=== PATIENT | female | born 1945 | race Caucasian/White ===

== ENCOUNTER → 2017-04-18 | Outpatient (CLI) | payer BC, OTHER ==
--- NOTE | 2017-04-18 14:48 | MAMMOGRAPHY REPORT ---
BILATERAL DIGITAL SCREENING MAMMOGRAM WITH CAD: 04/18/2017 CLINICAL HISTORY: Routine screening. Patient has no complaints. TECHNIQUE: Bilateral CC, MLO and left XCCL views were obtained. Current study was also evaluated wit h a Computer Aided Detection (CAD) system. COMPARISON: Comparison is made to exams dated: 04/03/2016 mammogram, 03/24/2015 mammogram, 09/22/2014 m ammogram - [facility], 02/05/2014 mammogram, 01/24/2013 mammogram, and 01/23/2012 mamm ogram - [facility]. BREAST COMPOSITION: There are scattered areas of fibroglandular density in both breasts. FINDINGS: There is a stable metallic biopsy marker in the upper inner quadrant of the left breast. S table microcalcifications throughout the anterior aspect of each breast. No suspicious mass, archite ctural distortion or cluster of suspicious microcalcifications is seen. IMPRESSION: ACR BI-RADS CATEGORY 1: NEGATIVE There is no mammographic evidence of malignancy. A 1 year screening mammogram is recommended. The pa tient will receive written notification of the results. Approximately 10% of breast cancers are not detected with mammography. A negative mammographic report should not delay biopsy if a clinically suggestive mass is present. Darlene Méndez M.D. ay/:04/18/2017 12:42:51 Pourer Metal: Lynn ZIMMER(Nadine)(Toño)([place]), [facility] letter sent: Normal 1/2 BI-RADS Code: ACR BI-RADS Category 1: Negative
== END | disposition home or self-care (01) ==
LOC: C.MAMM 10:56
PROVIDERS: ATTEND Internal Medicine
DX: Z12.31 Encounter for screening mammogram for malignant neoplasm of breast (principal)

== ENCOUNTER 2017-12-03 15:02 | Emergency (ER) | payer BC, OTHER ==
[~2017-12-03] VITALS: Ht 165.1 cm; Wt 100.0 kg
[2017-12-03 15:13] VITALS: TEMP 36.7; Ht 165.1 cm; Wt 100.0 kg
[2017-12-03] MEDS ORDERED: ALBUT/IPRATROP 3MG/0.5MG NEB 3 ML VIAL INH STA (16:22)
[2017-12-03] MEDS ORDERED: SODIUM CHLORIDE 0.9% 500ML 500 ML IV STA (16:22)
--- NOTE | 2017-12-03 16:55 | DIAGNOSTIC IMAGING REPORT ---
CHEST ONE VIEW PORTABLE CLINICAL HISTORY: Atypical chest pain COMPARISON STUDY: No previous studies for comparison. FINDINGS: The heart is mildly enlarged. There is no failure. There is no focal pulmonary consolidation. There are no pleural effusions. There is a linear zone of subsegmental atelectasis within the left mid to lower chest. IMPRESSION: No active disease in the chest. Electronically signed by: Patric Monroe M.D. 12/03/2017 4:54 PM Dictated Date/Time: 12/03/2017 4:53 PM
[2017-12-03] MEDS ORDERED: LEVO125T72 PO (17:14)
[2017-12-03] MEDS ORDERED: ROSU5TAB PO (17:14)
[2017-12-03] MEDS ORDERED: CHOL1000 PO (17:14)
[2017-12-03] MEDS ORDERED: ASPI81TA28 PO (17:14)
[2017-12-03] MEDS ORDERED: LINA1CAP PO (17:14)
[2017-12-03] MEDS ORDERED: HYDR25TA4 PO (17:14)
[2017-12-03] MEDS ORDERED: METO100T14 PO (17:14)
[2017-12-03 17:18] LABS: BASO % 0.2 %; BASO ABS # 0.01 K/uL (0-0.2); EOS % 1.4 %; EOS ABS # 0.06 K/uL (0-0.5); HEMATOCRIT 41.5 % (37-47); HEMOGLOBIN 14.2 g/dL (12.0-16.0); LYMPH ABS # 1.68 K/uL (1.2-3.4); MEAN CELL VOLUME 94.3 fL (80-100); MEAN CORPUSCULAR HEMOGLOBIN 32.3 pg (25-34); MEAN CORPUSCULAR HGB CONC 34.2 g/dl (32-36); MEAN PLATELET VOLUME 10.3 fL (7.4-10.4); MONO % 7.4 %; MONO ABS # 0.31 K/uL (0.11-0.59); NEUT ABS # 2.14 K/uL (1.4-6.5); PLATELET COUNT 222 K/uL (130-400); RED CELL DISTRIBUTION WIDTH CV 12.7 % (11.5-14.5); RED CELL DISTRIBUTION WIDTH SD 44.1 fL (36.4-46.3)
[2017-12-03 17:42] LABS: INFLUENZA B ANTIGEN Neg for Influ B (NEG)
[2017-12-03 17:43] LABS: ALBUMIN 3.5 gm/dl (3.4-5.0); ALT/SGPT 29 U/L (12-78); AST/SGOT 23 U/L (15-37); BLOOD UREA NITROGEN 10 mg/dl (7-18); CALCIUM 9.1 mg/dl (8.5-10.1); CARBON DIOXIDE 27 mmol/L (21-32); CREATININE 0.65 mg/dl (0.60-1.20); GLUCOSE 99 mg/dl (70-99); LIPASE 82 U/L (73-393); POTASSIUM 3.8 mmol/L (3.5-5.1); SODIUM 139 mmol/L (136-145)
[2017-12-03 17:48] LABS: ALKALINE PHOSPHATASE 97 U/L (45-117); TOTAL PROTEIN 6.7 gm/dl (6.4-8.2)
--- NOTE | 2017-12-03 18:50 | EMERGENCY ROOM VISIT NOTE ---
History Report prepared by Matt: Dulce Meza Under the Supervision of: Dr. Km Hastings M.D. First contact with patient: 16:14 Chief Complaint: CHEST PAIN Stated Complaint: HEAVINESS IN CHEST, NO CARDIAC HISTORY Nursing Triage Summary: pt here with chest pressure x 4 hours today while at home, pt states felt like she couldnt take a good breath. pt just getting over uri, finished z pack, still taking hycodan for cough. denies cardiac hx. pt denies radiation of chest pain History of Present Illness The patient is a 72 year old female who presents to the Emergency Room with complaints of an episode of chest heaviness earlier today. She had gone to bed last night feeling well and slept well through the night. She woke up around 0630 this morning with heaviness in her chest. She felt like her lungs were unable to take in air. She has never had these symptoms before. She tried her inhaler, pacing, and taking a shower to no significant relief. The chest heaviness resolved on its own around 1030. She is now back to baseline. The patient has had a cough and congestion over the past 2 weeks. She was found to have inflammation in the left lobe. She was on a Z pack which she finished 4-5 days ago. She was also prescribed an inhaler. She was negative for flu. Her symptoms have been improving. She denies any fever, chills, or body aches. She denies any recent travel or surgery. She has not recently been bed bound. She denies any history of blood clots. She does not smoke. She has a history of hypertension. She denies any history of diabetes or asthma. She has not been in contact with anyone with the flu. Source of History: patient Onset: earlier today Position: chest Quality: other (heaviness) Timing: other (episodic) Associated Symptoms: + cough, + SOB, No fevers, No chills Note: Pt reports congestion. Pt denies body aches. Review of Systems See HPI for pertinent positives and negatives. A total of ten systems were reviewed and were otherwise negative. Past Medical & Surgical Medical Problems: (1) Hypertension Family History No pertinent family history stated. Social History Smoking Status: Never Smoker Marital Status: Occupation Status: retired Current/Historical Medications Scheduled Aspirin (Aspirin Ec), 81 MG PO DAILY Cholecalciferol (Vitamin D3), 1 TAB PO DAILY Hydrochlorothiazide (Hctz), 25 MG PO DAILY Levothyroxine Sodium (Synthroid), 125 MCG PO QAM Linaclotide (Linzess), 145 MG PO QAM Metoprolol Tartrate (Lopressor) (Lopressor), 100 MG PO DAILY Rosuvastatin Calcium (Crestor), 10 MG PO DAILY Allergies Coded Allergies: No Known Allergies (Unverified , 12/03/17) Physical Exam Vital Signs Date Time Temp Pulse Resp B/P (MAP) Pulse Ox O2 Delivery O2 Flow Rate FiO2 12/03/17 20:01 54 18 132/72 98 Room Air 12/03/17 19:09 52 20 131/78 93 Room Air 12/03/17 18:42 54 18 148/76 95 Room Air 12/03/17 16:52 52 18 158/88 100 Nebulizer 8.0 12/03/17 16:45 Room Air 12/03/17 16:45 Room Air 12/03/17 16:24 57 12/03/17 15:13 36.7 62 16 198/198 94 Room Air Physical Exam GENERAL: Awake, alert, well-appearing, in no distress HENT: Normocephalic, atraumatic. Dry mucous membranes. Oropharynx unremarkable. EYES: Normal conjunctiva. Sclera non-icteric. NECK: Supple. No nuchal rigidity. FROM. No JVD. RESPIRATORY: Clear to auscultation. CARDIAC: Regular rate, normal rhythm. Extremities warm and well perfused. Pulses equal. ABDOMEN: Soft, non-distended. No tenderness to palpation. No rebound or guarding. No masses. RECTAL: Deferred. MUSCULOSKELETAL: Chest examination reveals no tenderness. The back is symmetrical on inspection without obvious abnormality. There is no CVA tenderness to palpation. No joint edema. LOWER EXTREMITIES: Calves are equal size bilaterally and non-tender. No edema. No discoloration. NEURO: Normal sensorium. No sensory or motor deficits noted. SKIN: No rash or jaundice noted. Medical Decision & Procedures ER Provider Diagnostic Interpretation: Xray results as stated below per my and radiologist interpretation: CHEST ONE VIEW PORTABLE CLINICAL HISTORY: Atypical chest pain COMPARISON STUDY: No previous studies for comparison. FINDINGS: The heart is mildly enlarged. There is no failure. There is no focal pulmonary consolidation. There are no pleural effusions. There is a linear zone of subsegmental atelectasis within the left mid to lower chest. IMPRESSION: No active disease in the chest. Electronically signed by: Patric Monroe M.D. 12/03/2017 4:54 PM Dictated Date/Time: 12/03/2017 4:53 PM Laboratory Results 12/03/17 16:42 Red Blood Count 4.40, Mean Corpuscular Volume 94.3, Mean Corpuscular Hemoglobin 32.3, Mean Corpuscular Hemoglobin Concent 34.2, Mean Platelet Volume 10.3, Neutrophils (%) (Auto) 51.0, Lymphocytes (%) (Auto) 40.0, Monocytes (%) (Auto) 7.4, Eosinophils (%) (Auto) 1.4, Basophils (%) (Auto) 0.2, Neutrophils # (Auto) 2.14, Lymphocytes # (Auto) 1.68, Monocytes # (Auto) 0.31, Eosinophils # (Auto) 0.06, Basophils # (Auto) 0.01 12/03/17 16:42 Test 12/03/17 16:42 12/03/17 16:45 12/03/17 18:41 White Blood Count 4.20 K/uL (4.8-10.8) Red Blood Count 4.40 M/uL (4.2-5.4) Hemoglobin 14.2 g/dL (12.0-16.0) Hematocrit 41.5 % (37-47) Mean Corpuscular Volume 94.3 fL (80-100) Mean Corpuscular Hemoglobin 32.3 pg (25-34) Mean Corpuscular Hemoglobin Concent 34.2 g/dl (32-36) Platelet Count 222 K/uL (130-400) Mean Platelet Volume 10.3 fL (7.4-10.4) Neutrophils (%) (Auto) 51.0 % Lymphocytes (%) (Auto) 40.0 % Monocytes (%) (Auto) 7.4 % Eosinophils (%) (Auto) 1.4 % Basophils (%) (Auto) 0.2 % Neutrophils # (Auto) 2.14 K/uL (1.4-6.5) Lymphocytes # (Auto) 1.68 K/uL (1.2-3.4) Monocytes # (Auto) 0.31 K/uL (0.11-0.59) Eosinophils # (Auto) 0.06 K/uL (0-0.5) Basophils # (Auto) 0.01 K/uL (0-0.2) RDW Standard Deviation 44.1 fL (36.4-46.3) RDW Coefficient of Variation 12.7 % (11.5-14.5) Immature Granulocyte % (Auto) 0.0 % Immature Granulocyte # (Auto) 0.00 K/uL (0.00-0.02) Anion Gap 4.0 mmol/L (3-11) Est Creatinine Clear Calc Drug Dose 94.3 ml/min Estimated GFR () 104.3 Estimated GFR (Non- 90.0 BUN/Creatinine Ratio 15.1 (10-20) Calcium Level 9.1 mg/dl (8.5-10.1) Total Bilirubin 0.9 mg/dl (0.2-1) Direct Bilirubin 0.2 mg/dl (0-0.2) Aspartate Amino Transf (AST/SGOT) 23 U/L (15-37) Alanine Aminotransferase (ALT/SGPT) 29 U/L (12-78) Alkaline Phosphatase 97 U/L (45-117) Pro-B-Type Natriuretic Peptide 170 pg/ml (0-900) Total Protein 6.7 gm/dl (6.4-8.2) Albumin 3.5 gm/dl (3.4-5.0) Lipase 82 U/L (73-393) Influenza Type A Antigen Neg for Influ A (NEG) Influenza Type B Antigen Neg for Influ B (NEG) Troponin I < 0.015 ng/ml (0-0.045) Laboratory results reviewed by me Medications Administered Medications (Trade) Dose Ordered Sig/Antonia Route Start Time Stop Time Status Last Admin Dose Admin Albuterol/ Ipratropium (Duoneb) 3 ml NOW STAT INH 12/03/17 16:22 12/03/17 16:27 DC 12/03/17 16:47 3 ML Sodium Chloride 500 ml @ 999 mls/hr Q31M STAT IV 12/03/17 16:22 12/03/17 16:52 DC 12/03/17 16:47 999 MLS/HR ECG Indication: chest pain Rate (beats per minute): 56 Rhythm: sinus bradycardia Findings: no acute ischemic change, other (normal intervals) Comparison ECG Date: 22-Jun-2004 Change: no significant change Change: Patient's electrocardiogram interpreted by me. ED Course 162: The patient was evaluated in room B12B. A complete history and physical exam was performed. 1917: I reevaluated the patient. She is still feeling great. Discussed results and discharge instructions: She verbalized understanding and agreement. The patient is ready for discharge. Medical Decision I reviewed the patient's past medical history, medications, and the nursing notes as described above. Differential diagnosis: Etiologies such as cardiac ischemia, aortic dissection, pulmonary embolism, pneumonia, pneumothorax, musculoskeletal, infections, pericarditis, myocarditis , esophageal rupture, gastrointestinal, as well as others were entertained. The patient is a 72-year-old woman with a past medical history of hypertension and recent URI treated with azithromycin presents emergency department with episode of chest heaviness that was present this morning when she woke up lasting approximately 4 hours and resolved spontaneously per hpi. Arrival the patient is in no acute distress, afebrile stable vital signs. EKG is unremarkable and unchanged from prior. Troponin negative in the setting of 4 hours of symptoms which began greater than 6 hours prior to arrival. Labs otherwise unremarkable. WBC 4.2 c/w recent viral illness. Flu negative. Chest x-ray negative. Patient would have a Heart score of 4, moderate risk however given negative troponin > 6 hours after symptoms, cardiac etiology unlikely. Delta 2 hour troponin sent and was negative for additional reassurance. Patient continues to be without symptoms. Thus, while she has moderate risk her workup is reassuring. She was given option for admission for provocative testing however she prefers discharge at this time and will call her 's cam maker (Dr. Turner) office to arrange an appointment. Findings and plan for follow-up reviewed with patient. Patient agreeable and d/c'd per discharge instructions. Medication Reconcilliation Current Medication List: was personally reviewed by me Blood Pressure Screening Patient's blood pressure: Elevated blood pressure Blood pressure disposition: Elevated BP felt to be situational Impression Primary Impression: Substernal precordial chest pain Scribe Attestation The scribe's documentation has been prepared under my direction and personally reviewed by me in its entirety. I confirm that the note above accurately reflects all work, treatment, procedures, and medical decision making performed by me. Departure Information Dispostion Home / Self-Care Referrals Tammi Barajas M.D. (PCP) Lucio Turner MD Patient Instructions ED Chest Pain Atypical Unkn Cause, My [facility] Additional Instructions Please follow up with your primary care physician and cam maker in the next 1 -3 days for re-evaluation. The cause of your earlier symptoms is unclear at this time, although it may have been due to your recent bronchitis. Otherwise, your exam, EKG, chest xray, and lab results did not show signs of an emergent condition at this time. Acetaminophen or ibuprofen for pain and fevers as needed. Continue your albuterol inhaler 2 puffs every 4 hours as needed for cough/ congestion/wheezing. Drink plenty of fluids to ensure hydration. Return to the emergency department for worsening symptoms as described in the accompanying instructions.
[2017-12-03 20:01] VITALS: BP 132/72; PULSE 54; O2SAT 98
== END 2017-12-03 20:03 | disposition home or self-care (01) ==
LOC: C.EDB 15:04
DX: R07.2 Precordial pain (principal); I10 Essential (primary) hypertension; Z79.82 Long term (current) use of aspirin; Z79.899 Other long term (current) drug therapy

== ENCOUNTER → 2018-01-16 | Outpatient (CLI) | payer BC, OTHER ==
[~2018-01-16] MED LIST: ASPI81TA28 PO; CHOL1000 PO; HYDR25TA4 PO; LEVO125T72 PO; LINA1CAP PO; METO100T14 PO; REGADENOSON 0.4 MG/5 ML SYR ONE; ROSU5TAB PO
--- NOTE | 2018-01-16 17:00 | Myocardial Perfusion Study ---
Myocardial Perfusion Study Rpt Myocardial Perfusion Study Rpt Date of Service 01/16/2018 Myocardial Perfusion Study Rpt Procedure: 1. Myocardial perfusion study performed in multiple views/images 2. Lexiscan pharmacologic stress ECG Indications: 1. Chest pain Consent: Informed written consent was obtained prior to the procedure. Ordering physician: Dr. Knight Procedural details: For the stress portion of the study, Lexiscan 0.4 mg was intravenously administered followed by a saline flush. This was followed by 33.1 mCi of technetium 99m Cardiolite, injected at 11:15 a.m. on 01/16/2018. 30 minutes following the injection, imaging of the heart was performed in multiple projections. For the rest portion of the study, 10.9 mCi technetium 99m Cardiolite was injected intravenously at 9:40 a.m. on 01/16/2018. 1 hour following the injection, imaging of the heart was performed in the same projections. Lexiscan stress ECG: Resting ECG demonstrated: Sinus rhythm at 62 bpm. Nonspecific T-wave abnormality. Maximum heart rate: 91 bpm Resting blood pressure: 146/85 mmHg Maximum blood pressure: 146/85 mmHg Maximal, age-predicted heart rate: 60 % Significant ST changes: None Arrhythmia: None Symptoms: No chest pain. Findings: Rotating raw imaging demonstrated no significant lung uptake. There is no significant motion artifact. Heart size appeared normal. Myocardial perfusion demonstrated a small area of mildly reduced uptake involving the base to mid lateral wall which was fixed in post stress and rest imaging. There were no significant reversible changes to suggest ischemia. Ejection fraction: 76 % Wall motion: Normal No significant transient ischemic dilation. Impression: 1. Negative myocardial perfusion study for ischemic changes. 2. Small fixed base to mid lateral defect may be secondary to attenuation artifact given normal wall motion. Cannot rule out small infarct. 3. Normal left ventricular systolic function (EF 76%) and wall motion. 4. No chest pain. 5. Nondiagnostic Lexiscan ECG.
== END | disposition home or self-care (01) ==
LOC: C.NUCL 08:54
PROVIDERS: ATTEND Internal Medicine Clinical Cardiac Electrophysiology
DX: I10 Essential (primary) hypertension (principal); R07.9 Chest pain, unspecified

== ENCOUNTER → 2018-05-27 | Outpatient (CLI) | payer BC, OTHER ==
[~2018-05-27] MED LIST changes: -REGADENOSON 0.4 MG/5 ML SYR ONE
--- NOTE | 2018-05-28 15:21 | MAMMOGRAPHY REPORT ---
BILATERAL DIGITAL SCREENING MAMMOGRAM TOMOSYNTHESIS WITH CAD: 05/27/2018 CLINICAL HISTORY: Routine screening. TECHNIQUE: The study was acquired using full field digital technology and interpreted from soft copy. Breast tomosynthesis in addition to standard 2D mammography was performed. Current study was also ev aluated with a Computer Aided Detection (CAD) system. COMPARISON: Comparison is made to exams dated: 04/18/2017 mammogram, 04/03/2016 mammogram, 03/24/2015 ma mmogram - [facility], 02/05/2014 mammogram, 01/24/2013 mammogram, and 01/23/2012 [facility]. BREAST COMPOSITION: There are scattered areas of fibroglandular density in both breasts. FINDINGS: A linear scar marker overlies the medial left breast. There is a stable metallic biopsy ma rker clip in the upper inner left breast. Scattered and grouped stable punctate microcalcifications bilaterally, and stable nodularityIn each middle to anterior breast. No suspicious spiculated or irre gular mass, architectural distortion or cluster of new, suspicious microcalcifications is seen. IMPRESSION: ACR BI-RADS CATEGORY 1: NEGATIVE There is no mammographic evidence of malignancy. A 1 year screening mammogram is recommended.( [id number]) The patient will receive written notification of the results. Some breast cancers are not detected with mammography. A negative mammographic report should not yusuf y biopsy if a clinically suggestive mass is present. Darlene Méndez M.D. ay/:05/27/2018 15:34:01 Auto Body Worker: RT Coretta(Nadine)(M), [facility] letter sent: Normal 1/2 BI-RADS Code: ACR BI-RADS Category 1: Negative
== END | disposition home or self-care (01) ==
LOC: C.MAMM 14:23
PROVIDERS: ATTEND Internal Medicine
DX: Z12.31 Encounter for screening mammogram for malignant neoplasm of breast (principal)

== ENCOUNTER 2024-04-03 19:50 | Inpatient (IN) ==
[2024-04-03] MEDS: ONDANSETRON INJ 2 MG/ML 2 ML VIAL IV STA (20:40)
[2024-04-03] MEDS: SODIUM CHLORIDE 0.9% 1,000 ML IV ONE (20:40)
[2024-04-03 20:42] LABS: Hematocrit (blood only) 19.9 % (37.0-47.0); Hemoglobin 6.5 g/dl (12.0-16.0); Mean Corpuscular Hemoglobin 31.4 pg (25.0-34.0); Mean Corpuscular Hgb Conc 32.7 g/dL (32.0-36.0); Mean Corpuscular Volume 96.1 fL (80.0-100.0); Mean Platelet Volume 11.3 fL (9.4-12.4); Platelet Count 148 K/uL (130-400); Red Blood Count 2.07 M/uL (4.20-5.40); White Blood Count 4.73 K/ul (4.8-10.8)
[2024-04-03 20:54] LABS: Albumin Globulin Ratio 1.9 (0.9-2); Albumin Level 3.9 gm/dl (3.4-5.0); BUN Creatinine Ratio 21.5 (10-20); Bilirubin,Total 0.5 mg/dl (0.2-1.0); Calcium 10.1 mg/dl (8.6-10.3); Creatinine Clr Calc Pharmacy 31.4 ml/min; Est GFR (African American) 39.1 ml/min; Est GFR (Non-African American) 33.8 ml/min; Globulin 2.1 gm/dl (2.5-4.0); Magnesium 2.2 mg/dl (1.7-2.4); Potassium 3.9 mmol/L (3.5-5.1)
--- NOTE | 2024-04-03 20:58 | Emergency Department Note ---
Impression & Plan Lightheadedness, Acute upper gastrointestinal bleeding, Anemia requiring transfusions ED Provider Note HISTORY OF PRESENT ILLNESS: Patient is a 78-year-old female presenting with lightheadedness and vomiting. Patient reports that since 11 AM this morning she has been very lightheaded. Reports anytime she sits up or tries to stand up she immediately falls to the ground. Denies passing out. Reports that she is just too weak and lightheaded that she has to sit back down. She has vomited multiple times. She tried an ODT Zofran at home with little relief in her symptoms. She denies any chest pain or shortness of breath. She does have a history of PEs and is on Eliquis. Denies any missed doses. Denies any abdominal pain. Denies any recent diarrhea. Denies any recent sick contact exposures. Family does report that patient's vomiting earlier this evening was black in color. ROS: as above PHYSICAL EXAM: Constitutional: Patient appears in no acute distress. HENT: Head: Normocephalic and atraumatic. Eyes: EOMI, PERRL Mouth/Throat: Mucous membranes moist. Neck: Trachea midline. Neck supple. Cardiovascular: RRR, No murmurs, rubs or gallops. Intact distal pulses. Pulmonary/Chest: No respiratory distress. Breath sounds clear and equal bilaterally. No wheezes or rales. Abdominal: Abdomen soft, no tenderness, rebound or guarding. Rectal: Chaperoned by nursing staff. No palpable masses or hemorrhoids. Patient has gross melena on glove. Hemoccult positive. Musculoskeletal: No edema, tenderness or deformity noted. Skin: Warm and dry. Patient is pale appearing. Psychiatric: Appropriate mood and affect for situation. Neurological: Alert and keenly responsive. CN II-XII grossly intact, moving all extremities equally and fully. MDM: - Vitals signs stable - History obtained via patient. History as above. - Chronic conditions affecting care: HLD; HTN; hypothyroidism; hx of PE (on eliquis) - Differential diagnoses include, but are not limited to: ACS; dysrhythmia; electrolyte abnormality; anemia; viral syndrome; pneumonia; PE - Order placed for continuous cardiac monitoring. At this time, monitor showed rate of 66 bpm with normal sinus rhythm, per my interpretation. - External medical records reviewed. Primary care visit note dated 03/17/2024 was reviewed. Patient had visited their office for an acute right foot pain. She was found to have a minimally displaced fracture of the base of the fifth proximal phalanx. - EKG interpreted by myself showed normal sinus rhythm. Rate 68 bpm. QT 462. No acute ischemic changes. - Laboratory workup interpreted by myself showed normal WBC; anemia (Hgb 6.5 - was 10.4 in January in [facility]); normal PT/INR; stable electrolytes; CKD (Cr 1.49); elevated BUN (32); normal liver function; normal lipase; normal troponin - CXR negative for pneumonia, per my interpretation - Viral respiratory panel negative. - Patient initially given 1L NS and 4 mg IV zofran for symptoms in ER. - Patient has gross melena on rectal examination. Concern for upper GI bleed. She is given 20 mg IV Pepcid and 40 mg IV Protonix. She was consented for blood. 2 units of packed red blood cells was ordered. - Patient given 20 mg IV pepcid and 40 mg IV protonix for presumed upper GI bleed. - Discussion was had with correctional counselor/case manager about patient's case and need for admission - Hospitalist consulted for admission - [facility] and management. I have personally spent 61 minutes of critical care time in the direct management of this patient. This includes bedside care, interpretation of diagnostic studies, and testing, discussion with consultants, patient, and family members, and other required patient management activities. This 61 minutes is in excess of all separately billable procedures. ASSESSMENT AND PLAN: Diagnosis: lightheadedness; upper GI bleed; anemia requiring transfusions Plan: admit Past Med/Surg History Problem List (Updated 04/03/24 @ 22:49 by Tressa Russo MD) Anemia requiring transfusions (Acute) Acute upper gastrointestinal bleeding (Acute) Lightheadedness (Acute) Dyslipidemia (Chronic) Hypertension (Chronic) Hyperthyroidism (Chronic) Vitamin B12 deficiency Arthritis (Chronic) Radicular pain of both lower extremities Numbness and tingling of both feet Idiopathic polyneuropathy Osteoarthritis of right hip Osteoarthritis of thumb Lumbar degenerative disc disease Acquired hypothyroidism Degenerative joint disease (DJD) of lumbar spine (Chronic) Medical History (Updated 04/03/24 @ 22:49 by Tressa Russo MD) Slow transit constipation Surgical History S/P lumpectomy of breast S/P cataract surgery Family History Father , age 77 of strokes Stroke Mother , age 86 of esophageal cancer Esophageal cancer Social History Smoking Status: Never smoker Preferred Language: Turkmen Feels Safe at Home: Yes Allergies Allergies Allergy/AdvReac Type Severity Reaction Status Date / Time honey Allergy Severe Vomiting Verified 12/15/20 15:20 Home Meds Home Medications Medication Instructions Recorded Confirmed hydroxyzine HCl 25 mg tablet 25 - 50 mg PO HS PRN 07/26/20 12/15/20 levothyroxine 125 mcg tablet 125 mcg PO DAILY 07/26/20 12/15/20 (Levoxyl) linaclotide 145 mcg capsule 145 mcg PO DAILY 07/26/20 12/15/20 losartan 25 mg tablet 25 mg PO DAILY 07/26/20 12/15/20 meloxicam 15 mg tablet 15 mg PO DAILY 07/26/20 12/15/20 rosuvastatin 10 mg tablet 10 mg PO DAILY 07/26/20 04/03/24 mecobalamin (vitamin B12) 1,000 1,000 mcg sublingual DAILY 07/30/20 12/15/20 mcg disintegrating tablet,sublingual nystatin-triamcinolone 100,000 1 applic topical BID PRN 07/30/20 12/15/20 unit/g-0.1 % topical cream apixaban 5 mg tablet (Eliquis) 5 mg PO BID 08/16/23 04/03/24 levothyroxine 137 mcg tablet 137 mcg PO DAILYBB 08/16/23 04/03/24 sulfasalazine 500 mg tablet 500 mg PO BID 08/16/23 08/16/23 amlodipine 5 mg tablet 5 mg PO DAILY 04/03/24 04/03/24 omeprazole 20 mg capsule,delayed 20 mg PO DAILY 04/03/24 04/03/24 release osimertinib 80 mg tablet (Tagrisso) 80 mg PO DAILY 04/03/24 04/03/24 potassium chloride 10 mEq 20 meq PO DAILY 04/03/24 04/03/24 capsule,extended release Results & Data (ED) Vital Signs Vital Signs - 24 hr 04/03/24 19:59 04/03/24 20:54 04/03/24 20:55 Temperature 36.6 C Temperature Source Oral Pulse Rate 70 67 67 Pulse Rate from SpO2 Sensor Respiratory Rate 18 16 Respiratory Effort / Characteristics Non-Labored Spontaneous Respiratory Depth Normal Respiratory Pattern Regular Blood Pressure 134/76 Blood Pressure Mean 95 Blood Pressure Position Semi-fowlers Pulse Oximetry 99 95 Oxygen Delivery Method Room Air Room Air Sepsis Recent Fever Within 48 Hours No Sepsis New/Unexplained Change in Mental Status N/A Sepsis Action Taken by Nursing No Action Required 04/03/24 21:00 04/03/24 22:03 04/03/24 22:30 Temperature Temperature Source Pulse Rate 66 74 67 Pulse Rate from SpO2 Sensor 66 72 67 Respiratory Rate 16 18 16 Respiratory Effort / Characteristics Respiratory Depth Respiratory Pattern Blood Pressure 138/78 121/71 128/64 Blood Pressure Mean 98 87 85 Blood Pressure Position Pulse Oximetry 97 91 97 Oxygen Delivery Method Room Air Room Air Room Air Sepsis Recent Fever Within 48 Hours Sepsis New/Unexplained Change in Mental Status Sepsis Action Taken by Nursing Laboratory Data 04/03/24 20:11 04/03/24 20:11 Lab Results 04/03/24 04/03/24 04/03/24 Range/Units 20:11 20:54 21:24 WBC 4.73 L (4.8-10.8) K/ul RBC 2.07 L (4.20-5.40) M/uL Hgb 6.5 L* (12.0-16.0) g/dl Hct 19.9 L* (37.0-47.0) % MCV 96.1 (80.0-100.0) fL MCH 31.4 (25.0-34.0) pg MCHC 32.7 (32.0-36.0) g/dL RDW Std Deviation 49.0 H (36.4-46.3) fL RDW Coeff of Ocnnor 14.0 (11.5-14.5) % Plt Count 148 (130-400) K/uL MPV 11.3 (9.4-12.4) fL Immature Gran % (Auto) 0.2 % Neut % (Auto) 87.3 % Lymph % (Auto) 9.1 % [place] % (Auto) 3.2 % Eos % (Auto) 0.0 % Baso % (Auto) 0.2 % Neut # (Auto) 4.13 (1.40-6.50) K/uL Lymph # (Auto) 0.43 L (1.20-3.40) K/uL [place] # (Auto) 0.15 (0.11-0.59) K/uL Eos # (Auto) 0.00 (0.00-0.50) K/uL Baso # (Auto) 0.01 (0.00-0.20) K/uL Immature Gran # (Auto) 0.01 (0.01-0.20) K/uL Polychromasia 1+ PT 11.2 (9.0-12.0) Seconds INR 1.0 (0.9-1.1) Sodium 139 (136-145) mmol/L Potassium 3.9 (3.5-5.1) mmol/L Chloride 107 (98-107) mmol/L Carbon Dioxide 24 (21-32) mmol/L Anion Gap 8 (3-11) BUN 32 H (6-23) mg/dl Creatinine 1.49 H (0.6-1.2) mg/dl Est Cr Clr Drug Dosing 31.4 ml/min Est GFR ( Amer) 39.1 ml/min Est GFR (Non-Af Amer) 33.8 ml/min BUN/Creatinine Ratio 21.5 H (10-20) Glucose 143 H (70-99(Fasting)) mg/dl Calcium 10.1 (8.6-10.3) mg/dl Magnesium 2.2 (1.7-2.4) mg/dl Total Bilirubin 0.5 (0.2-1.0) mg/dl AST 24 (13-39) U/L ALT 15 (7-52) U/L Alkaline Phosphatase 121 H (34-104) U/L Troponin I High Sens 4.2 (0-14) pg/ml Total Protein 6.0 (6.0-8.3) gm/dl Albumin 3.9 (3.4-5.0) gm/dl Globulin 2.1 L (2.5-4.0) gm/dl Albumin/Globulin Ratio 1.9 (0.9-2) Lipase 37 (11-82) U/L Adenovirus (PCR) Not Detected (NotDetected) B. pertussis DNA (PCR) Not Detected (NotDetected) B.parapertussis DNA PCR Not Detected (NotDetected) C. pneumoniae DNA (PCR) Not Detected (NotDetected) Coronavirus OC43 (PCR) Not Detected (NotDetected) Coronavirus HKU1 (PCR) Not Detected (NotDetected) Coronavirus 229E (PCR) Not Detected (NotDetected) SARS-CoV-2 (PCR) Not Detected (NotDetected) Coronavirus NL63 (PCR) Not Detected (NotDetected) Human Metapneumovir PCR Not Detected (NotDetected) Influenza Type A (PCR) Not Detected (NotDetected) Influenza Type B (PCR) Not Detected (NotDetected) M. pneumoniae (PCR) Not Detected (NotDetected) Parainfluenza 1 (PCR) Not Detected (NotDetected) Parainfluenza 2 (PCR) Not Detected (NotDetected) Parainfluenza 3 (PCR) Not Detected (NotDetected) Parainfluenza 4 (PCR) Not Detected (NotDetected) RSV (PCR) Not Detected (NotDetected) Entero/Rhino (PCR) Not Detected (NotDetected) Blood Type A Positive Antibody Screen NEGATIVE Administered Medications Discontinued Medications Sodium Chloride (Nss) 1,000 mls @ 999 mls/hr IV .Q1H1M ONE Stop: 04/03/24 21:22 Last Infusion: 04/03/24 21:50 Dose: Infused Documented By: Admin: 04/03/24 20:40 Dose: 999 mls/hr Documented By: MIKALA Famotidine (Pepcid 20mg Iv Push) 20 mg in 5 mls @ 2.5 mls/min IV NOW STA Stop: 04/03/24 22:18 Last Admin: 04/03/24 22:32 Dose: 2.5 mls/min Documented By: Ondansetron HCl (Ondansetron Inj 2 Mg/Ml 2 Ml Vial) 4 mg IV NOW STA Stop: 04/03/24 20:23 Last Admin: 04/03/24 20:40 Dose: 4 mg Documented By: MIKALA Discharge Plan Visit Data Chief Complaint: Vomiting Stated Complaint: Vomiting, Nausea, Weakness ED Provider: Tressa Russo Discharge Problem: Lightheadedness, Acute upper gastrointestinal bleeding, Anemia requiring transfusions Forms Stand Alone Forms: My [facility] Prescriptions Prescriptions: No Action rosuvastatin 10 mg tablet 10 mg PO DAILY meloxicam 15 mg tablet 15 mg PO DAILY losartan 25 mg tablet 25 mg PO DAILY levothyroxine [Levoxyl] 125 mcg tablet 125 mcg PO DAILY Rx Instructions: take 1/2 tablet on Sunday. then take 1 tablet every other day of the week. linaclotide 145 mcg capsule 145 mcg PO DAILY hydroxyzine HCl 25 mg tablet 25 - 50 mg PO HS PRN nystatin-triamcinolone 100,000-0.1 unit/g-% cream 1 applic topical BID PRN mecobalamin (vitamin B12) 1,000 mcg tablet,disintegrating 1,000 mcg sublingual DAILY Rx Instructions: place tablet under tongue and allow to dissolve for at least30 secs before swallowing levothyroxine 137 mcg tablet 137 mcg PO DAILYBB sulfasalazine 500 mg tablet 500 mg PO BID Eliquis 5 mg tablet 5 mg PO BID omeprazole 20 mg capsule,delayed release(DR/EC) 20 mg PO DAILY amlodipine 5 mg tablet 5 mg PO DAILY Tagrisso 80 mg tablet 80 mg PO DAILY potassium chloride 10 mEq capsule, extended release 20 meq PO DAILY Referrals Referrals: Sravanthi Bloom DO [Primary Care Provider] -
[2024-04-03 20:59] LABS: Troponin I High Sensitivity 4.2 pg/ml (0-14)
[2024-04-03 21:14] LABS: Prothrombin Time 11.2 Seconds (9.0-12.0)
[2024-04-03 22:01] LABS: Adenovirus PCR Not Detected (NotDetected); Bordetella parapertussis PCR Not Detected (NotDetected); Bordetella pertussis PCR Not Detected (NotDetected); Chlamydia pneumoniae PCR Not Detected (NotDetected); Coronavirus 229E PCR Not Detected (NotDetected); Coronavirus CoV-2 (COVID19)PCR Not Detected (NotDetected); Coronavirus HKU1 PCR Not Detected (NotDetected); Coronavirus NL63 PCR Not Detected (NotDetected); Coronavirus OC43PCR Not Detected (NotDetected); Human Metapneumovirus PCR Not Detected (NotDetected); Influenza A PCR Not Detected (NotDetected); Influenza B PCR Not Detected (NotDetected); Mycoplasma pneumoniae PCR Not Detected (NotDetected); Parainfluenza Virus 1 PCR Not Detected (NotDetected); Parainfluenza Virus 2 PCR Not Detected (NotDetected); Parainfluenza Virus 3 PCR Not Detected (NotDetected); Parainfluenza Virus 4 PCR Not Detected (NotDetected); Respiratory Syncytial VirusPCR Not Detected (NotDetected); Rhinovirus/Enterovirus PCR Not Detected (NotDetected)
[2024-04-03 22:08] LABS: Basophils # (auto) 0.01 K/uL (0.00-0.20); Basophils % (auto) 0.2 %; Immature Granulocytes # (auto) 0.01 K/uL (0.01-0.20); Immature Granulocytes % (auto) 0.2 %; Lymphocytes # (auto) 0.43 K/uL (1.20-3.40); Lymphocytes % (auto) 9.1 %; Monocytes # (auto) 0.15 K/uL (0.11-0.59); Monocytes % (auto) 3.2 %; Neutrophils # (auto) 4.13 K/uL (1.40-6.50); Neutrophils % (auto) 87.3 %; Polychromasia 1+
[2024-04-03] MEDS ORDERED: SODIUM CHLORIDE 0.9% 250 ML IV PRN ×2 (22:17→22:20)
[2024-04-03] MEDS: FAMOTIDINE 20MG IV PUSH 20 MG/5 ML SYR IV STA (22:32)
[2024-04-03] MEDS: PANTOprazole 40 MG in SYRINGE 0 ML IV ONE (23:09)
[2024-04-03 23:29] LABS: Appearance Urine Cloudy (Clear); Bacteria Urine Automated 4+ (None Seen); Bilirubin Urine Negative (Negative); Blood Urine Negative (Negative); Color Urine Dark Yellow; Glucose Urine UA Negative (Negative); Ketones Urine 1+ (Negative); Leukocyte Esterase Urine 2+ (Negative); Nitrite Urine Negative (Negative); Protein Urine Trace (Negative); RBC Urine Automated 0-2 /hpf (0-2); Specific Gravity Urine 1.019 (1.000-1.030); Urobilinogen Urine Negative (Negative); WBC Urine Automated 21-50 /hpf (0-5); pH Urine 5.5 (4.5-7.5)
[2024-04-04] MEDS: fentaNYL citrate PF 100 MCG/2 ML VIAL IV STA (00:14)
--- NOTE | 2024-04-04 00:45 | History & Physical Report ---
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 Patient states around 11 AM today she was having nausea vomiting and vomiting was coffee-ground. She sat on the chair and she was feeling very dizzy and was not getting better came to the ER. In the ER Hemoccult was positive. Hemoglobin was 6.5. She had a couple of episodes of dizziness in the recent pas t. Denies any headache. Vision is okay. No runny nose or sore throat. No cough. No fevers. No chest pain or shortness of breath. Has had mild abdominal discomfort. States she has IBS but thinks bowel movements were normal recently. No hematuria. Normal micturition. She uses cane and walker at home. Daughter lives close by. Hemodynamics are okay currently. 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 s/p right lower lobectomy could not tolerate chemo because of renal failure and ototoxic currently on osimertinib which will be held for now follows with heme-onc hyperlipidemia restart rosuvastatin when able to hypothyroidism on Synthyroid hypertension on amlodipine history of PE diagnosed on June 2023 will hold Eliquis for GI bleed restart when able to CKD stage III presented with creatinine 1.49 around baseline follow labs full code osteoarthritis of the hip on tramadol as needed at home pain control DVT prophylaxis SCDs disposition telemetry History of Present Illness Chief Complaint: GI bleed, anemia Primary Care Provider: Sravanthi Bloom DO 78-year-old female with past medical significant for hypothyroidism, hyperlipidemia, 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 Patient states around 11 AM today she was having nausea vomiting and vomiting was coffee-ground. She sat on the chair and she was feeling very dizzy and was not getting better came to the ER. In the ER Hemoccult was positive. Hemoglobin was 6.5. She had a couple of episodes of dizziness in the recent past. Denies any headache. Vision is okay. No runny nose or sore throat. No cough. No fevers. No chest pain or shortness of breath. Has had mild abdominal discomfort. States she has IBS but thinks bowel movements were normal recently. No hematuria. Normal micturition. She uses cane and walker at home. Daughter lives close by. Hemodynamics are okay currently. Past medical history. As mentioned above Past surgical history. Biopsy of breast. Bronchoscopy. . Colonoscopy. Thoracoscopy. Bilateral removal of ovaries. Cataracts. Cholecystectomy. Repair of ruptured Achilles tendon bilaterally. Right robotic thoracoscopy with the lobectomy. Total hysterectomy. Social history. . No smoking. No alcohol use. No drug use. Family history. Mother had cancer of esophagus. Father had NH. Daughter had Lyme disease. Allergies Allergy/AdvReac Type Severity Reaction Status Date / Time honey Allergy Severe Vomiting Verified 12/15/20 15:20 Home Medications Medication Instructions Recorded Confirmed Type rosuvastatin 10 mg tablet 10 mg PO QAM 07/26/20 04/03/24 History mecobalamin (vitamin B12) 1,000 1,000 mcg sublingual QAM 07/30/20 04/03/24 History mcg disintegrating tablet,sublingual apixaban 5 mg tablet (Eliquis) 5 mg PO BID 08/16/23 04/03/24 History levothyroxine 137 mcg tablet 137 mcg PO DAILYBB 08/16/23 04/03/24 History sulfasalazine 500 mg tablet 500 mg PO QAM 08/16/23 04/03/24 History amlodipine 5 mg tablet 5 mg PO QAM 04/03/24 04/03/24 History omeprazole 20 mg capsule,delayed 20 mg PO QAM 04/03/24 04/03/24 History release osimertinib 80 mg tablet (Tagrisso) 80 mg PO QAM 04/03/24 04/03/24 History potassium chloride 10 mEq 20 meq PO QAM 04/03/24 04/03/24 History capsule,extended release tramadol 50 mg tablet 50 mg PO Q8 PRN hip pain 04/03/24 04/03/24 History Past Med/Surg History Problem List (Updated 04/03/24 @ 22:49 by Tressa Russo MD) Anemia requiring transfusions (Acute) Acute upper gastrointestinal bleeding (Acute) Lightheadedness (Acute) Dyslipidemia (Chronic) Hypertension (Chronic) Hyperthyroidism (Chronic) Vitamin B12 deficiency Arthritis (Chronic) Radicular pain of both lower extremities Numbness and tingling of both feet Idiopathic polyneuropathy Osteoarthritis of right hip Osteoarthritis of thumb Lumbar degenerative disc disease Acquired hypothyroidism Degenerative joint disease (DJD) of lumbar spine (Chronic) Medical History (Updated 04/03/24 @ 22:49 by Tressa Russo MD) Slow transit constipation Surgical History S/P lumpectomy of breast S/P cataract surgery Family History Father , age 77 of strokes Stroke Mother , age 86 of esophageal cancer Esophageal cancer Social History Smoking Status: Never smoker Second Hand Exposure: No; Do You Dip or Chew Tobacco: No; Tobacco Cessation Education Requested by Patient: No Hx Alcohol Use: No Hx Substance Use: No Preferred Language: Belizean Communication Ability: Effective Family Living Educator Required: No Beliefs That Will Affect Care: None Current Living Situation: Spouse Current Living Situation Comment: Home with Other Information That Helps Us Care for You: No Feels Safe at Home: Yes Safety Concerns: Feels Safe At This Time Assistive Devices: Cane and Walker Review of Systems Review of Systems: All systems reviewed & are unremarkable except as noted in HPI & below Physical Exam Physical Exam: General- Not in distress. Head- atraumatic Eyes- PERRL. ENT- oropharynx clear Neck- supple, no JVD. Lungs- clear to auscultation no wheezing or crackles. Heart- regular rate and rhythm; no murmur, no gallop. Abdomen- normal bowel sounds, soft, nontender, no distension Extremities- mild pretibial edema present , no erythema seen. Neuro- alert, oriented PERRL, no facial palsy; no dysarthria; moves extremities. Results & Data Results & Data Vital Signs (Past 12 Hours) Vital Signs Temp Pulse Resp BP Pulse Ox O2 Del Method 04/03/24 22:30 67 16 128/64 97 Room Air 04/03/24 22:03 74 18 121/71 91 Room Air 04/03/24 21:00 66 16 138/78 97 Room Air 04/03/24 20:55 67 04/03/24 20:54 67 16 95 Room Air 04/03/24 19:59 36.6 C 70 18 134/76 99 Room Air Diagnostic Findings Laboratory Results WBC 4.73 K/ul (4.8-10.8) L 04/03/24 20:11 RBC 2.07 M/uL (4.20-5.40) L 04/03/24 20:11 Hgb 6.5 g/dl (12.0-16.0) L* 04/03/24 20:11 Hct 19.9 % (37.0-47.0) L* 04/03/24 20:11 MCV 96.1 fL (80.0-100.0) 04/03/24 20:11 MCH 31.4 pg (25.0-34.0) 04/03/24 20:11 MCHC 32.7 g/dL (32.0-36.0) 04/03/24 20:11 RDW Std Deviation 49.0 fL (36.4-46.3) H 04/03/24 20:11 RDW Coeff of Connor 14.0 % (11.5-14.5) 04/03/24 20:11 Plt Count 148 K/uL (130-400) 04/03/24 20:11 MPV 11.3 fL (9.4-12.4) 04/03/24 20:11 Immature Gran % (Auto) 0.2 % 04/03/24 20:11 Neut % (Auto) 87.3 % 04/03/24 20:11 Lymph % (Auto) 9.1 % 04/03/24 20:11 [place] % (Auto) 3.2 % 04/03/24 20:11 Eos % (Auto) 0.0 % 04/03/24 20:11 Baso % (Auto) 0.2 % 04/03/24 20:11 Neut # (Auto) 4.13 K/uL (1.40-6.50) 04/03/24 20:11 Lymph # (Auto) 0.43 K/uL (1.20-3.40) L 04/03/24 20:11 [place] # (Auto) 0.15 K/uL (0.11-0.59) 04/03/24 20:11 Eos # (Auto) 0.00 K/uL (0.00-0.50) 04/03/24 20:11 Baso # (Auto) 0.01 K/uL (0.00-0.20) 04/03/24 20:11 Immature Gran # (Auto) 0.01 K/uL (0.01-0.20) 04/03/24 20:11 Polychromasia 1+ 04/03/24 20:11 PT 11.2 Seconds (9.0-12.0) 04/03/24 20:11 INR 1.0 (0.9-1.1) 04/03/24 20:11 Sodium 139 mmol/L (136-145) 04/03/24 20:11 Potassium 3.9 mmol/L (3.5-5.1) 04/03/24 20:11 Chloride 107 mmol/L (98-107) 04/03/24 20:11 Carbon Dioxide 24 mmol/L (21-32) 04/03/24 20:11 Anion Gap 8 (3-11) 04/03/24 20:11 BUN 32 mg/dl (6-23) H 04/03/24 20:11 Creatinine 1.49 mg/dl (0.6-1.2) H 04/03/24 20:11 Est Cr Clr Drug Dosing 31.4 ml/min 04/03/24 20:11 Est GFR ( Amer) 39.1 ml/min 04/03/24 20:11 Est GFR (Non-Af Amer) 33.8 ml/min 04/03/24 20:11 BUN/Creatinine Ratio 21.5 (10-20) H 04/03/24 20:11 Glucose 143 mg/dl (70-99(Fasting)) H 04/03/24 20:11 Calcium 10.1 mg/dl (8.6-10.3) 04/03/24 20:11 Magnesium 2.2 mg/dl (1.7-2.4) 04/03/24 20:11 Total Bilirubin 0.5 mg/dl (0.2-1.0) 04/03/24 20:11 AST 24 U/L (13-39) 04/03/24 20:11 ALT 15 U/L (7-52) 04/03/24 20:11 Alkaline Phosphatase 121 U/L (34-104) H 04/03/24 20:11 Troponin I High Sens 4.2 pg/ml (0-14) 04/03/24 20:11 Total Protein 6.0 gm/dl (6.0-8.3) 04/03/24 20:11 Albumin 3.9 gm/dl (3.4-5.0) 04/03/24 20:11 Globulin 2.1 gm/dl (2.5-4.0) L 04/03/24 20:11 Albumin/Globulin Ratio 1.9 (0.9-2) 04/03/24 20:11 Lipase 37 U/L (11-82) 04/03/24 20:11 Urine Color Dark Yellow 04/03/24 22:38 Urine Appearance Cloudy (Clear) A 04/03/24 22:38 Urine pH 5.5 (4.5-7.5) 04/03/24 22:38 Ur Specific [place] 1.019 (1.000-1.030) 04/03/24 22:38 Urine Protein Trace (Negative) H 04/03/24 22:38 Urine Glucose (UA) Negative (Negative) 04/03/24 22:38 Urine Ketones 1+ (Negative) H 04/03/24 22:38 Urine Blood Negative (Negative) 04/03/24 22:38 Urine Nitrite Negative (Negative) 04/03/24 22:38 Urine Bilirubin Negative (Negative) 04/03/24 22:38 Urine Urobilinogen Negative (Negative) 04/03/24 22:38 Ur Leukocyte Esterase 2+ (Negative) H 04/03/24 22:38 Urine WBC (Auto) 21-50 /hpf (0-5) H 04/03/24 22:38 Urine RBC (Auto) 0-2 /hpf (0-2) 04/03/24 22:38 U Hyaline Cast (Auto) 3-5 /lpf (0-2) H 04/03/24 22:38 U Epithel Cells (Auto) 3-5 /hpf (0-2) H 04/03/24 22:38 Urine Bacteria (Auto) 4+ (None Seen) H 04/03/24 22:38 Adenovirus (PCR) Not Detected (NotDetected) 04/03/24 20:54 B. pertussis DNA (PCR) Not Detected (NotDetected) 04/03/24 20:54 B.parapertussis DNA PCR Not Detected (NotDetected) 04/03/24 20:54 C. pneumoniae DNA (PCR) Not Detected (NotDetected) 04/03/24 20:54 Coronavirus OC43 (PCR) Not Detected (NotDetected) 04/03/24 20:54 Coronavirus HKU1 (PCR) Not Detected (NotDetected) 04/03/24 20:54 Coronavirus 229E (PCR) Not Detected (NotDetected) 04/03/24 20:54 SARS-CoV-2 (PCR) Not Detected (NotDetected) 04/03/24 20:54 Coronavirus NL63 (PCR) Not Detected (NotDetected) 04/03/24 20:54 Human Metapneumovir PCR Not Detected (NotDetected) 04/03/24 20:54 Influenza Type A (PCR) Not Detected (NotDetected) 04/03/24 20:54 Influenza Type B (PCR) Not Detected (NotDetected) 04/03/24 20:54 M. pneumoniae (PCR) Not Detected (NotDetected) 04/03/24 20:54 Parainfluenza 1 (PCR) Not Detected (NotDetected) 04/03/24 20:54 Parainfluenza 2 (PCR) Not Detected (NotDetected) 04/03/24 20:54 Parainfluenza 3 (PCR) Not Detected (NotDetected) 04/03/24 20:54 Parainfluenza 4 (PCR) Not Detected (NotDetected) 04/03/24 20:54 RSV (PCR) Not Detected (NotDetected) 04/03/24 20:54 Entero/Rhino (PCR) Not Detected (NotDetected) 04/03/24 20:54 Blood Type A Positive 04/03/24 21:24 Blood Type Recheck A Positive 04/03/24 22:46 Antibody Screen NEGATIVE 04/03/24 21:24 Crossmatch See Detail 04/03/24 21:24 ECG Additional Comments: EKG. Normal sinus rhythm rate 68. T wave inversions inferior leads. Code Status & VTE Plan VTE Prophylaxis Plan VTE Prophylaxis will be ordered: Yes
[2024-04-04] MEDS ORDERED: NITROGLYCERIN SL 0.4 MG/TAB TAB SL PRN (02:12)
[2024-04-04] MEDS ORDERED: ACETAMINOPHEN 1,000 MG/100 ML VIAL IV PRN (02:12)
[2024-04-04] MEDS ORDERED: HYDROmorphone INJ 0.5 MG/0.5 ML SYR IV PRN (02:12)
[2024-04-04] MEDS: HYDROmorphone INJ 0.5 MG/0.5 ML SYR IV STA (03:03)
[2024-04-04] MEDS: SODIUM CHLORIDE 0.9% 1,000 ML IV SCH (03:11)
[2024-04-04] MEDS: PANTOprazole 40 MG in DEXTROSE 5% MINI-B 100 ML IV SCH (03:11)
[2024-04-04] MEDS: LEVOTHYROXINE SODIUM 137 MCG TABLET PO SCH (06:27)
--- NOTE | 2024-04-04 08:20 | XRay Report ---
SINGLE VIEW CHEST CLINICAL HISTORY: Atypical chest pain. FINDINGS: An AP, portable, upright chest radiograph is compared to study dated 04/06/2023. The examinat ion is degraded by portable technique and apical lordotic positioning. The heart is enlarged noting a therosclerotic calcification of the thoracic aorta. The pulmonary vasculature is noncongested. Chroni c interstitial thickening is similar to previous. There are small pleural effusions with dependent at electasis. No pneumothorax is seen. The skeletal structures are osteopenic. The bony thorax is grossl y intact. IMPRESSION: 1. Cardiomegaly without radiographic evidence of congestive failure. 2. Small pleural effusions with dependent atelectasis. ACT 112: Negative or not required by law. Electronically signed by: Trevor Weiner M.D. 04/04/2024 8:19 AM
[2024-04-04] MEDS: CYANOCOBALAMIN (B-12) 500 MCG TABLET PO SCH (08:42)
[2024-04-04] MEDS: amLODIPine BESYLATE 5 MG TAB PO SCH (08:42)
[2024-04-04] MEDS: cefTRIAXone SODIUM 2,000 MG/50 ML BAG IV SCH (08:42)
[2024-04-04] MEDS: ONDANSETRON INJ 2 MG/ML 2 ML VIAL IV PRN (09:34)
[2024-04-04 09:37] LABS: Basophils # (auto) 0.02 K/uL (0.00-0.20); Basophils % (auto) 0.4 %; Eosinophils # (auto) 0.03 K/uL (0.00-0.50); Eosinophils % (auto) 0.6 %; Hematocrit (blood only) 25.1 % (37.0-47.0); Hemoglobin 8.3 g/dl (12.0-16.0); Immature Granulocytes # (auto) 0.01 K/uL (0.01-0.20); Immature Granulocytes % (auto) 0.2 %; Lymphocytes # (auto) 0.84 K/uL (1.20-3.40); Lymphocytes % (auto) 17.5 %; Mean Corpuscular Hemoglobin 31.2 pg (25.0-34.0); Mean Corpuscular Hgb Conc 33.1 g/dL (32.0-36.0); Mean Corpuscular Volume 94.4 fL (80.0-100.0); Mean Platelet Volume 11.2 fL (9.4-12.4); Monocytes # (auto) 0.47 K/uL (0.11-0.59); Monocytes % (auto) 9.8 %; Neutrophils # (auto) 3.44 K/uL (1.40-6.50); Neutrophils % (auto) 71.5 %; Platelet Count 127 K/uL (130-400); RDW Coefficient of Variation 15.7 % (11.5-14.5); RDW Standard Deviation 53.6 fL (36.4-46.3); Red Blood Count 2.66 M/uL (4.20-5.40); White Blood Count 4.81 K/ul (4.8-10.8)
[2024-04-04 09:52] LABS: Calcium 9.2 mg/dl (8.6-10.3); Creatinine Clr Calc Pharmacy 37.4 ml/min; Est GFR (African American) 47.9 ml/min; Est GFR (Non-African American) 41.4 ml/min; Potassium 3.7 mmol/L (3.5-5.1)
--- NOTE | 2024-04-04 10:06 | Gastrointestinal Consultation ---
Date of Consultation April 04, 2024 Assessment & Plan (1) Anemia requiring transfusions: (2) Coffee ground emesis: Plan -Continue IV Protonix drip -Continue to monitor H/H -One dose of IV Relgan 10 mg STAT -Keep NPO for EGD in OR today Supervising Physician Co-Signing Physician Notes Agree with REYNA Hathaway as above Abd: Soft, NT, ND, +BS Continue current therapy and supportive care Proceed with EGD in the OR History of Present Illness Reason for Consultation: Anemia, GI bleeding Attending Physician: Luis A Govea MD History of Present Illness Patient is a78 yo female with PMH of hypothyroidism, hypothyroidism, HLD, lung cancer, PE, hypertension, B12 deficiency, constipation, CKD3, osteoarthritis, neuropathy who presented due to nausea, vomiting, & dizziness and found to have anemia. Hemoccult is positive. She developed coffee-ground emesis. H/H was 6.5/19.9 upon presentation to the hospital. She has received 2 units PRBCs and H/H is now 8.3/25.1. She denies heartburn, reflux, epigastric pain, melena. She denies a history of GI issues. No history of EGD. She has colonoscopies every 5 years which she reports have been unremarkable. She denies pertinent family history. She continues to have witnessed coffee-ground emesis. She is on an IV PPI gtt. She takes Eliquis at home for a history of PE. Allergies Allergy/AdvReac Type Severity Reaction Status Date / Time honey Allergy Severe Vomiting Verified 12/15/20 15:20 Home Medications Medication Instructions Recorded Confirmed Type rosuvastatin 10 mg tablet 10 mg PO QAM 07/26/20 04/03/24 History mecobalamin (vitamin B12) 1,000 1,000 mcg sublingual QAM 07/30/20 04/03/24 History mcg disintegrating tablet,sublingual apixaban 5 mg tablet (Eliquis) 5 mg PO BID 08/16/23 04/03/24 History levothyroxine 137 mcg tablet 137 mcg PO DAILYBB 08/16/23 04/03/24 History sulfasalazine 500 mg tablet 500 mg PO QAM 08/16/23 04/03/24 History amlodipine 5 mg tablet 5 mg PO QAM 04/03/24 04/03/24 History omeprazole 20 mg capsule,delayed 20 mg PO QAM 04/03/24 04/03/24 History release osimertinib 80 mg tablet (Tagrisso) 80 mg PO QAM 04/03/24 04/03/24 History potassium chloride 10 mEq 20 meq PO QAM 04/03/24 04/03/24 History capsule,extended release tramadol 50 mg tablet 50 mg PO Q8 PRN hip pain 04/03/24 04/03/24 History Patient History Medical History (Updated 04/04/24 @ 12:44 by Trevor Tobias MD) Coffee ground emesis Anemia requiring transfusions Acute upper gastrointestinal bleeding Slow transit constipation Surgical History S/P lumpectomy of breast S/P cataract surgery Family History Father , age 77 of strokes Stroke Mother , age 86 of esophageal cancer Esophageal cancer Social History Smoking Status: Never smoker Second Hand Exposure: No; Do You Dip or Chew Tobacco: No; Tobacco Cessation Education Requested by Patient: No Hx Alcohol Use: No Hx Substance Use: No Preferred Language: Guatemalan Communication Ability: Effective Engineering 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 Control 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 Required: No Beliefs That Will Affect Care: None Current Living Situation: Spouse Current Living Situation Comment: Home with Other Information That Helps Us Care for You: No Feels Safe at Home: Yes Safety Concerns: Feels Safe At This Time Assistive Devices: Cane and Walker Review of Systems Constitutional: no fever Respiratory: no cough and no dyspnea Cardiovascular: no chest pain Gastrointestinal: + nausea, + vomiting and + coffee ground emesis; no abdominal pain Physical Exam Constitutional: well developed Respiratory: normal respiratory effort Cardiovascular: Rate/Rhythm: regular rate Gastrointestinal (Abdomen): Inspection/Auscultation: abdomen normal to inspection Psychiatric: Orientation: alert and oriented x 3 Results & Data Vital Signs (Past 12 Hours) Vital Signs Temp Pulse Pulse Resp BP BP Pulse Ox 04/04/24 07:51 36.5 C 60 18 135/68 99 04/04/24 07:22 04/04/24 07:18 36.5 C 58 L 16 129/72 100 04/04/24 07:15 56 L 04/04/24 06:23 36.4 C L 65 15 130/83 100 04/04/24 05:23 36.4 C L 58 L 16 129/60 100 04/04/24 04:53 36.4 C L 58 L 16 112/67 98 04/04/24 04:38 36.4 C L 56 L 16 136/73 98 04/04/24 04:38 36.4 C L 56 L 16 136/73 98 04/04/24 04:15 36.3 C L 60 16 127/61 99 04/04/24 03:59 36.3 C L 60 18 124/60 99 04/04/24 03:00 36.4 C L 60 16 133/75 100 04/04/24 02:00 04/04/24 02:00 36.4 C L 16 139/74 100 04/04/24 02:00 36.4 C L 65 18 139/74 100 04/04/24 02:00 36.4 C L 65 18 139/74 100 04/04/24 01:36 04/04/24 01:30 36.6 C 65 18 144/74 H 99 04/04/24 01:15 36.5 C 66 15 143/75 H 97 04/04/24 01:02 67 04/04/24 00:58 36.5 C 65 13 137/66 99 04/03/24 22:30 67 16 128/64 97 O2 Del Method O2 Flow Rate 04/04/24 07:51 Nasal Cannula 2 04/04/24 07:22 Nasal Cannula 2 04/04/24 07:18 2 04/04/24 07:15 04/04/24 06:23 2 04/04/24 05:23 2 04/04/24 04:53 2 04/04/24 04:38 2 04/04/24 04:38 2 04/04/24 04:15 04/04/24 03:59 04/04/24 03:00 2 04/04/24 02:00 Nasal Cannula 2 04/04/24 02:00 Nasal Cannula 2 04/04/24 02:00 2.0 04/04/24 02:00 2.0 04/04/24 01:36 Nasal Cannula 2 04/04/24 01:30 2 04/04/24 01:15 04/04/24 01:02 04/04/24 00:58 2 04/03/24 22:30 Room Air PG Care Time/CCT Total # of Minutes Spent Total Time Spent with Patient: Total time spent is greater than 50% in coordination of care (as documented) at patient's floor/unit and/or counseling patient: Coding Level of Care Code 79168 INT INP/OBS CARE 3/75MIN Diagnoses Anemia requiring transfusions D64.9 Coffee ground emesis K92.0
[2024-04-04] MEDS: METOCLOPRAMIDE HCL INJ 5 MG/ML 2 ML VIAL IV STA (10:50)
[2024-04-04 11:32] LABS: Hematocrit (blood only) 26.9 % (37.0-47.0); Hemoglobin 8.9 g/dl (12.0-16.0)
--- NOTE | 2024-04-04 12:46 | Anesthesiology Consultation ---
Date of Service April 04, 2024 History Surgery Operation Date: 04/04/24 07:00 Proposed Procedures p Esophagogastroduodenoscopy - Robert Mcguire Case, DO Height/Weight Height: 5 ft 4 in Weight: 73.9 kg Allergies Allergy/AdvReac Type Severity Reaction Status Date / Time honey Allergy Severe Vomiting Verified 12/15/20 15:20 Medications Home Medications Medication Instructions Recorded Confirmed Last Taken rosuvastatin 10 mg tablet 10 mg PO QAM 07/26/20 04/03/24 04/03/24 mecobalamin (vitamin B12) 1,000 1,000 mcg sublingual QAM 07/30/20 04/03/24 04/03/24 mcg disintegrating tablet,sublingual apixaban 5 mg tablet (Eliquis) 5 mg PO BID 08/16/23 04/03/24 04/03/24 am dose levothyroxine 137 mcg tablet 137 mcg PO DAILYBB 08/16/23 04/03/24 04/03/24 sulfasalazine 500 mg tablet 500 mg PO QAM 08/16/23 04/03/24 04/03/24 amlodipine 5 mg tablet 5 mg PO QAM 04/03/24 04/03/24 04/03/24 omeprazole 20 mg capsule,delayed 20 mg PO QAM 04/03/24 04/03/24 04/03/24 release osimertinib 80 mg tablet (Tagrisso) 80 mg PO QAM 04/03/24 04/03/24 04/03/24 potassium chloride 10 mEq 20 meq PO QAM 04/03/24 04/03/24 04/02/24 capsule,extended release 10 meq tramadol 50 mg tablet 50 mg PO Q8 PRN hip pain 04/03/24 04/03/24 Unknown Active Medications Generic Name Dose Route Start Last Admin Trade Name Freq PRN Reason Stop Dose Admin Amlodipine Besylate 5 mg 04/04/24 09:00 04/04/24 08:42 Amlodipine Besylate 5 Mg Tab PO 05/04/24 08:59 5 mg QAM DEE Administration Cyanocobalamin 1,000 mcg 04/04/24 09:00 04/04/24 08:42 Cyanocobalamin (B-12) 500 Mcg Tablet PO 05/04/24 08:59 1,000 mcg QAM DEE Administration Sodium Chloride 1,000 mls @ 100 mls/hr 04/04/24 02:12 04/04/24 12:34 Nss IV 05/04/24 02:11 0 mls/hr .Q10H DEE Infusion Pantoprazole Sodium 40 mg/ 100 mls @ 20 mls/hr 04/04/24 02:30 04/04/24 12:34 Dextrose IV 05/04/24 02:29 0 mg/hr Q5H DEE 0 mls/hr Infusion 8 MG/HR Ceftriaxone Sodium 2,000 mg in 50 mls @ 100 mls/hr 04/04/24 07:45 04/04/24 09:19 Rocephin IV 04/09/24 07:44 Infused Q24H DEE Infusion Levothyroxine Sodium 137 mcg 04/04/24 06:30 04/04/24 06:27 Levothyroxine Sodium 137 Mcg Tablet PO 05/04/24 06:29 137 mcg DAILYBB DEE Administration Ondansetron HCl 4 mg 04/04/24 02:12 04/04/24 09:34 Ondansetron Inj 2 Mg/Ml 2 Ml Vial IV 05/04/24 02:11 4 mg Q6H PRN Administration Nausea NPO Date Last Intake of Fluids: 04/03/24 Time Last Intake of Fluids: 16:00 Date Last Intake of Solids: 04/03/24 Time Last Intake of Solids: 10:00 Past Medical History Medical History (Updated 04/04/24 @ 12:44 by Trevor Tobias MD) Coffee ground emesis Anemia requiring transfusions Acute upper gastrointestinal bleeding Slow transit constipation Past Family History Family History Father , age 77 of strokes Stroke Mother , age 86 of esophageal cancer Esophageal cancer Past Surgical History Surgical History S/P lumpectomy of breast S/P cataract surgery Social History Smoking Status: Never smoker Do You Dip or Chew Tobacco: No Hx Alcohol Use: No Hx Substance Use: No Review of Systems Constitutional: no fever Respiratory: no cough and no dyspnea Cardiovascular: no chest pain Gastrointestinal: + nausea, + vomiting and + coffee ground emesis; no abdominal pain Physical Exam Vital Signs Last Vital Signs Temp 36.7 C 04/04/24 12:24 Pulse 63 04/04/24 12:24 Resp 20 04/04/24 12:24 BP 130/64 04/04/24 12:24 Pulse Ox 92 04/04/24 12:24 O2 Del Method Room Air 04/04/24 12:24 O2 Flow Rate 2 04/04/24 07:51 Constitutional well developed Respiratory normal respiratory effort Cardiovascular Rate/Rhythm: regular rate Gastrointestinal (Abdomen) Inspection/Auscultation: abdomen normal to inspection Psychiatric Orientation: alert and oriented x 3 Testing Laboratory Results 04/04/24 11:10 04/04/24 08:56 PT 11.2 Seconds (9.0-12.0) 04/03/24 20:11 INR 1.0 (0.9-1.1) 04/03/24 20:11 Urine Color Dark Yellow 04/03/24 22:38 Urine Appearance Cloudy (Clear) A 04/03/24 22:38 Urine pH 5.5 (4.5-7.5) 04/03/24 22:38 Ur Specific [place] 1.019 (1.000-1.030) 04/03/24 22:38 Urine Protein Trace (Negative) H 04/03/24 22:38 Urine Glucose (UA) Negative (Negative) 04/03/24 22:38 Urine Ketones 1+ (Negative) H 04/03/24 22:38 Urine Nitrite Negative (Negative) 04/03/24 22:38 Ur Leukocyte Esterase 2+ (Negative) H 04/03/24 22:38 Urine WBC (Auto) 21-50 /hpf (0-5) H 04/03/24 22:38 Urine RBC (Auto) 0-2 /hpf (0-2) 04/03/24 22:38 U Hyaline Cast (Auto) 3-5 /lpf (0-2) H 04/03/24 22:38 U Epithel Cells (Auto) 3-5 /hpf (0-2) H 04/03/24 22:38 Urine Bacteria (Auto) 4+ (None Seen) H 04/03/24 22:38 Blood Type A Positive 04/03/24 21:24 Antibody Screen NEGATIVE 04/03/24 21:24
[2024-04-04] MEDS ORDERED: fentaNYL citrate PF 100 MCG/2 ML VIAL IV PRN (12:58)
[2024-04-04] MEDS ORDERED: ATROPINE SULFATE 0.1 MG/ML 10ML SYR IV PRN (12:58)
[2024-04-04] MEDS ORDERED: ePHEDrine sulfate 50 MG/ML AMP IV PRN (12:58)
[2024-04-04] MEDS ORDERED: SUCCINYLCHOLINE CHLORIDE 20 MG/ML 10 ML VIAL IV ONE (13:02)
[2024-04-04] MEDS ORDERED: LIDOCAINE 2% 2 ML VIAL/AMP(20MG/ML) INFIL ONE (13:02)
[2024-04-04] MEDS ORDERED: PROPOFOL IV EMULSION 10 MG/ML 20 ML VIAL IV ONE (13:02)
[2024-04-04] MEDS ORDERED: fentaNYL citrate PF 100 MCG/2 ML VIAL ONE (13:03)
--- NOTE | 2024-04-04 14:04 | GI REPORT ---
Patient Name: Ioana Tan Procedure Date: 04/04/2024 1:10 PM Date of : 1945 Admit Type: Inpatient Age: 78 Gender: Female Attending MD: Robert Rico DO, Procedure: Upper GI endoscopy Providers: Robert Rico DO Referring MD: Luis A Govea MD Indications: Coffee-ground emesis Medicines: Monitored Anesthesia Care Complications: No immediate complications. Estimated Blood Loss: Estimated blood loss: none. Procedure: Pre-Anesthesia Assessment: - Prior to the procedure, a History and Physical was performed, and patient medications and allergies were reviewed. The patient's tolerance of previous anesthesia was also reviewed. The risks and benefits of the procedure and the sedation options and risks were discussed with the patient. All questions were answered, and informed consent was obtained. Prior Anticoagulants: The patient has taken Eliquis (apixaban), last dose was 1 day prior to procedure. ASA Grade Assessment: IV - A patient with severe systemic disease that is a constant threat to life. After reviewing the risks and benefits, the patient was deemed in satisfactory condition to undergo the procedure. After obtaining informed consent, the endoscope was passed under direct vision. Throughout the procedure, the patient's blood pressure, pulse, and oxygen saturations were monitored continuously. The Endoscope was introduced through the mouth, and advanced to the third part of duodenum. The upper GI endoscopy was accomplished without difficulty. The patient tolerated the procedure well. Findings: The examined esophagus was normal. Diffuse moderate inflammation characterized by erythema and friability was found in the entire examined stomach. Two 2 to 4 mm angioectasias with bleeding were found in the gastric antrum. Fulguration to ablate the lesion by bipolar probe was successful. The examined duodenum was normal. Impression: - Normal esophagus. - Gastritis. - Two bleeding angioectasias in the stomach. Treated with bipolar cautery. - Normal examined duodenum. - No specimens collected. Recommendation: - Return patient to hospital hameed for ongoing care. - Advance diet as tolerated. - Use sucralfate tablets 1 gram PO QID for 10 days. - Use Protonix (pantoprazole) 40 mg IV BID. - Repeat upper endoscopy PRN for retreatment. Robert Rico DO 04/04/2024 2:03:43 PM This report has been signed electronically. Note Initiated On: 04/04/2024 1:10 PM Number of Addenda: 0 I attest to the content of the Intraoperative Record and orders documented therein, exceptions below {[id number]}
[2024-04-04] MEDS ORDERED: ePHEDrine sulfate 50 MG/5 ML SYR ONE (14:07)
[2024-04-04] MEDS ORDERED: PHENYLEPHRINE 100MCG/ML 10ML SYR IV ONE (14:07)
--- NOTE | 2024-04-04 14:44 | Anesthesiology Progress Note ---
Date of Service April 04, 2024 Anesthesia Post Procedure Vital Signs Vital Signs: Temp Pulse Pulse Pulse Pulse Resp BP 04/04/24 14:40 72 20 04/04/24 14:30 36.4 C L 66 14 04/04/24 14:20 68 15 04/04/24 14:10 68 14 04/04/24 14:03 36.5 C 72 16 04/04/24 12:24 36.7 C 63 20 04/04/24 11:29 36.5 C 71 18 04/04/24 07:51 36.5 C 60 18 04/04/24 07:22 04/04/24 07:18 36.5 C 58 L 16 129/72 04/04/24 07:15 56 L 04/04/24 06:23 36.4 C L 65 15 130/83 04/04/24 05:23 36.4 C L 58 L 16 129/60 04/04/24 04:53 36.4 C L 58 L 16 112/67 04/04/24 04:38 36.4 C L 56 L 16 136/73 04/04/24 04:38 36.4 C L 56 L 16 136/73 04/04/24 04:15 36.3 C L 60 16 127/61 04/04/24 03:59 36.3 C L 60 18 124/60 04/04/24 03:00 36.4 C L 60 16 133/75 04/04/24 02:00 04/04/24 02:00 36.4 C L 16 04/04/24 02:00 36.4 C L 65 18 139/74 04/04/24 02:00 36.4 C L 65 18 139/74 04/04/24 01:36 04/04/24 01:30 36.6 C 65 18 144/74 H 04/04/24 01:15 36.5 C 66 15 143/75 H 04/04/24 01:02 67 04/04/24 00:58 36.5 C 65 13 137/66 04/03/24 22:30 67 16 128/64 04/03/24 22:03 74 18 121/71 04/03/24 21:00 66 16 138/78 04/03/24 20:55 67 04/03/24 20:54 67 16 04/03/24 19:59 36.6 C 70 18 134/76 BP BP Pulse Ox O2 Del Method O2 Flow Rate 04/04/24 14:40 111/59 L 94 Nasal Cannula 3 04/04/24 14:30 121/57 L 94 Nasal Cannula 3 04/04/24 14:20 122/58 L 95 Nasal Cannula 3 04/04/24 14:10 124/56 L 98 Oxymask 6 04/04/24 14:03 119/58 L 95 Oxymask 6 04/04/24 12:24 130/64 92 Room Air 04/04/24 11:29 131/68 96 Room Air 04/04/24 07:51 135/68 99 Nasal Cannula 2 04/04/24 07:22 Nasal Cannula 2 04/04/24 07:18 100 2 04/04/24 07:15 04/04/24 06:23 100 2 04/04/24 05:23 100 2 04/04/24 04:53 98 2 04/04/24 04:38 98 2 04/04/24 04:38 98 2 04/04/24 04:15 99 04/04/24 03:59 99 04/04/24 03:00 100 2 04/04/24 02:00 Nasal Cannula 2 04/04/24 02:00 139/74 100 Nasal Cannula 2 04/04/24 02:00 100 2.0 04/04/24 02:00 100 2.0 04/04/24 01:36 Nasal Cannula 2 04/04/24 01:30 99 2 04/04/24 01:15 97 04/04/24 01:02 04/04/24 00:58 99 2 04/03/24 22:30 97 Room Air 04/03/24 22:03 91 Room Air 04/03/24 21:00 97 Room Air 04/03/24 20:55 04/03/24 20:54 95 Room Air 04/03/24 19:59 99 Room Air Transfer of Care Handoff Completed per policy Notes Mental Status: alert / awake / arousable Patient Amnestic to Procedure: Yes Nausea / Vomiting: adequately controlled Pain: adequately controlled Airway Patency, RR, SpO2: stable & adequate BP & HR: stable & adequate Hydration State: stable & adequate Anesthetic Complications: no major complications apparent and Pt Satisfied with anesthetic care
--- NOTE | 2024-04-04 15:04 | Hospitalist Progress Note ---
Date of Service April 04, 2024 Assessment & Plan (1) Acute upper gastrointestinal bleeding: Plan: 78-year-old female with past medical significant for hypothyroidism, hyperlipidemia, history of primary malignant neoplasm of the right lower lobe of lung, history of PE, hypertension, vitamin [id number], slow transit constipation, CKD stage III, osteoarthritis, neuropathy, ototoxic hearing loss of both ears, who lives at home with her comes because of nausea vomiting and dizziness and found to have anemia and Hemoccult was positive. Acute upper gastrointestinal bleeding Acute blood loss anemia Patient presented with coffee-ground emesis for 1 day Hemoccult positive in the ED with melena Hemoglobin on presentation 6.5; baseline around 10 Status post EGD; found to have gastritis, to bleeding angiectasis in the stomach which was treated with bipolar cautery. GI recommends to advance diet as tolerated. Use sucralfate tablets 1 g p.o. 4 times daily for 10 days. Continue to use Protonix 40 mg twice daily Repeat upper endoscopy as needed for treatment history of primary malignant neoplasm of the right lower lobe of lung s/p right lower lobectomy could not tolerate chemo because of renal failure and ototoxic currently on osimertinib which will be held for now follows with heme-onc Possible UTI Urinalysis negative for infection Will follow-up on final culture Started on ceftriaxone Hyperlipidemia restart rosuvastatin when able to Hypothyroidism on Synthyroid, continue Hypertension on amlodipine, continue History of PE History of segmental PE during the hospitalization for right lower lobe lobectomy in left upper lobe and left lower lobe. Initial plan was to do anticoagulation for 6-month Follows up with Dr. Timothy Varghese. Discussed with him over [place] text; he recommended to see her as outpatient. He agreed on holding off on Eliquis till she was seen by him as outpatient. CKD stage III presented with creatinine 1.49 around baseline osteoarthritis of the hip on tramadol as needed at home pain control DVT prophylaxis SCDs disposition telemetry Please note the above document was generated using voice recognition software. It may contain grammatical, syntax or spelling errors. Any formal questions or concerns about the content, text or information contained within the body of this dictation should be directly addressed to the provider for clarification Admission and Anticipated Discharge Date Admission Date: April 04, 2024 Subjective Patient seen and examined at bedside. She continues to complain of nausea; had episode of vomiting as well. Vital signs stable; received 2 units of packed RBC Patient to undergo endoscopy today Review of Systems Review of Systems: All systems reviewed & are unremarkable except as noted in Subjective Physical Exam Physical Exam: General- Not in distress. Head- atraumatic Eyes- PERRL. ENT- oropharynx clear Neck- supple, no JVD. Lungs- clear to auscultation no wheezing or crackles. Heart- regular rate and rhythm; no murmur, no gallop. Abdomen- normal bowel sounds, soft, nontender, no distension Extremities- mild pretibial edema present , no erythema seen. Neuro- alert, oriented PERRL, no facial palsy; no dysarthria; moves extremities. Results & Data Results & Data Vital Signs (Past 12 Hours) Vital Signs Temp Pulse Pulse Pulse Pulse Resp BP 04/04/24 14:59 36.8 C 65 14 04/04/24 14:40 72 20 04/04/24 14:30 36.4 C L 66 14 04/04/24 14:20 68 15 04/04/24 14:10 68 14 04/04/24 14:03 36.5 C 72 16 04/04/24 12:24 36.7 C 63 20 04/04/24 11:29 36.5 C 71 18 04/04/24 07:51 36.5 C 60 18 04/04/24 07:22 04/04/24 07:18 36.5 C 58 L 16 129/72 04/04/24 07:15 56 L 04/04/24 06:23 36.4 C L 65 15 130/83 04/04/24 05:23 36.4 C L 58 L 16 129/60 04/04/24 04:53 36.4 C L 58 L 16 112/67 04/04/24 04:38 36.4 C L 56 L 16 136/73 04/04/24 04:38 36.4 C L 56 L 16 136/73 04/04/24 04:15 36.3 C L 60 16 127/61 04/04/24 03:59 36.3 C L 60 18 124/60 BP BP Pulse Ox O2 Del Method O2 Flow Rate 04/04/24 14:59 123/66 93 Nasal Cannula 3 04/04/24 14:40 111/59 L 94 Nasal Cannula 3 04/04/24 14:30 121/57 L 94 Nasal Cannula 3 04/04/24 14:20 122/58 L 95 Nasal Cannula 3 04/04/24 14:10 124/56 L 98 Oxymask 6 04/04/24 14:03 119/58 L 95 Oxymask 6 04/04/24 12:24 130/64 92 Room Air 04/04/24 11:29 131/68 96 Room Air 04/04/24 07:51 135/68 99 Nasal Cannula 2 04/04/24 07:22 Nasal Cannula 2 04/04/24 07:18 100 2 04/04/24 07:15 04/04/24 06:23 100 2 04/04/24 05:23 100 2 04/04/24 04:53 98 2 04/04/24 04:38 98 2 04/04/24 04:38 98 2 04/04/24 04:15 99 04/04/24 03:59 99
[2024-04-04 17:10] LABS: Hematocrit (blood only) 26.7 % (37.0-47.0)
[2024-04-04] MEDS: SUCRALFATE 1 GM/10 ML UDC PO SCH (18:48)
--- OUTSIDE RECORDS SUMMARY | 2024-04-04 20:27 | External Medical Summary | Summary of Care ---
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 Name Role Phone Spencer Darnell DO Primary Care Provider [phone] Reason for Visit * Reason Comments NEW PATIENT Lab changes * Evaluate & Treat - Unlimited Visits (Within 10 days (routine)) - Pending Review Specialty Diagnoses / Procedures Referred By Susan ness Referred To Contact Nephrology Diagnoses Kidney disease, chronic, stage IV (GFR 15-29 ml/min) (HCC) Spencer Darnell DO [address] [place] [address] [place] [address] Referral ID Status Reason Start Date Expiration Date Visits Requested Visits Authorized [id number] Pending Review Specialty Services Required 02/25/[phone] Encounter Details Date Type Department Care Team (Late st Contact Info) Description 02/29/2024 1:40 PM EDT Office Visit Nephrology Jordin Hartley [address] [place] [address] Mirna Dyson MD [address] [facility] [place] [address] Stage 3b chronic kidney disease (HCC)*; Worsening renal function; HTN, goal below 140/90; NSCLC with EGFR mutation (HCC); Adenoma of left adrenal gland Allergies Active Allergy Reactions Criticality Noted Date Comments Food (See Comments) 04/18/2021 honey Latex 04/18/2021 rash documented as of this encounter (statuses as of 03/18/2024) Medications Medication Sig Dispensed Refills Start Date End Date Status nystatin-triamcin olone (MYCOLOG) 511699-5.1 UNIT/GM-% creamIndications: Cutaneous candidiasis Apply topically to affected area 2 times a day. To affacted area for two weeks. 30 g 1 9 Active Apixaban 5 MG Oral Tablet (Eliquis) Take 1 Tablet by mouth in the morning and 1 Tablet before bedtime. 3 Active Potassium Chloride ER 10 MEQ Oral Capsule Extended Release Take 1 Capsule by mouth in the morning and 1 Capsule before bedtime. 60 Capsule 5 3 Active Hydrocortisone 1 % External CreamIndications: NSCLC with EGFR mutation (HCC) Apply topically to affected area 2 times a day. Apply twice daily for 6 weeks 120 g 1 3 Active Levothyroxine Sodium 137 MCG Oral Tablet Take 1 Tablet by mouth in the morning. (at least 30 min prior to breakfast or other meds). 90 Tablet 2 4 Active amLODIPine Besylate 5 MG Oral Tablet (Norvasc)Indicati ons:Essential hypertension with goal blood pressure less than 140/90 Take 1 Tablet by mouth in the morning. 30 Tablet 5 4 Active Rosuvastatin Calcium 10 MG Oral Tablet (Crestor) Take 1 Tablet by mouth in the morning. 90 Tablet 1 4 Active B-12 50 MCG Oral Tablet Take by mouth. Active Multi Vitamin Oral Tablet Take by mouth. Active sulfaSALAzine 500 MG Oral Tablet (Azulfidine) Take 1 Tablet by mouth in the morning. 4 Active Osimertinib Mesylate 80 MG Oral Tablet (Tagrisso)Indicat ions:NSCLC with EGFR mutation (HCC) Take 1 Tablet by mouth in the morning. Take medication about same time every day, with or without food.. 30 Tablet 5 3 03/04/20 24 Discontinued(Ref ill) Omeprazole 20 MG Oral Capsule Delayed Release (PriLOSEC)Indicat ions: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),Metastasis to mediastinal lymph node (HCC) Take 1 Capsule by mouth in the morning. 30 Capsule 4 03/06/20 24 Discontinued Hospital, Clinic, or Other Facility Administered Medication Ordered Dose Route Frequency Start Date End Date Status Albuterol Sulfate (Proventil) (2.5 MG/3ML) 0.083% inhalation solution 2.5 mgIndications:Malignant neoplasm of lower lobe of right lung (HCC) 2.5 mg NEBULIZER PRN 05/15/2023 05/14/2024 Activ e albuterol (VENTOLIN HFA/PROVENTIL HFA) inhalerIndications:Funmilayo gnant neoplasm of lower lobe of right lung (HCC) 3 Puff IN PRN 05/15/2023 05/14/2024 Active documented as of this encounter (statuses as of 03/18/2024) Active Problems Problem Noted Date Diagnosed Date Chronic kidney disease, stage 3b 03/10/2024 Overview: Per CKD protocol Ototoxic hearing loss of both ears 02/15/2024 NSCLC with EGFR mutation 08/30/2023 Metastasis to mediastinal lymph node 07/26/2023 Encounter for antineoplastic chemotherapy 2022 Other pulmonary embolism without acute cor pulmo nale 07/08/2023 Primary malignant neoplasm of right lower lobe o f lung 04/13/2023 Cancer Staging:Clinical stage from 05/24/2023:Stage IIA(cT2b, cN0, cM0) - Signed by Boo Wylie MD on 06/29/2023 Pathologic stage from 07/18/2023:Stage IIIA(pT2b, pN2, cM0) - Signed by Boo Wylie MD on 07/18/2023 Chronic SI joint pain 02/13/2023 Vitamin B12 deficiency 12/07/2020 Neuropathy 12/07/2020 Osteoarthritis of right hip 06/24/2019 Primary osteoarthritis of both knees 10/01/2018 Dyslipidemia, goal LDL below 100 04/02/2018 Osteoarthritis of thumb 03/19/2017 Essential hypertension with goal blood pressure less than 140/90 09/18/2016 Slow transit constipation 02/25/2013 Lumbar degenerative disc disease 02/15/2012 Acquired hypothyroidism documented as of this encounter (statuses as of 03/18/2024) Resolved Problems Problem Noted Date Diagnosed Date Resolved Date Dehydration 08/17/2023 02/15/2024 Obesity, Class I, BMI 30.0-3 4.9 (see actual BMI) 04/04/2019 06/04/2020 Cardiovascular event risk 03/06/2016 Overview: 9.4% as of 03/06/16 Osteoarthritis, knee 09/26/2012 017 Periodic limb movement disorder 08/29/2012 09/28/2017 Hypokalemia 08/29/2012 02/25/2014 Other specified disorders of rotator cuff syndrome of shoulder and allied disorders 08/16/2011 09/28/2017 Obesity, Class II, BMI 35-39 .9, isolated (see actual BMI) 01/24/2010 04/04/2019 Overview: Per Obesity Taxonomy Hypopotassemia 09/09/2009 03/22/2011 HTN, goal below 140/90 09/03/200909/18 Overview: Modified per HTN Taxonomy. Enthesopathy of hip 03/06/2007 01/21/20 08 Esophageal reflux 09/08/2006 09/28/2017 PURE HYPERCHOLESTEROLEM 12/13/200508/29 ADVANCE DIRECTIVE INFORMATION 08/23/2005 09/28/2017 Overview: Yes, Patient instructed to provide copy of advance directive for provider to review and to be scanned into Electronic Medical Record Morbid obesity, BMI not known 01/20/2005 01/24/2010 Overview: Per Obesity Taxonomy Allergic rhinitis due to pollen 01/20/2005 09/28/2017 BENIGN HYPERTENSION 08/29/2004 09/03/20 09 Overview: Modified per HTN Taxonomy. Achilles tendinitis 04/22/2002 01/21/20 08 PLANTAR FIBROMATOSIS 04/22/2002 008 Sarcoidosis 03/09/2009 Localized osteoarthrosis not specified whether primary or secondary, pelvic region and thigh 09/28/2017 Urge incontinence 10/01/2018 documented as of this encounter (statuses as of 03/18/2024) Immunizations Name Administration Dates Next Due COVID-19 mRNA, LNP-s, No Pre serve, 2-Dose Series (Mixaloo) 08/30/2021,01/11/2021,12/21/2020 Pneumococcal Conjugate Vacc, 13 Valent (Prevnar) 02/28/2016 Pneumococcal Polysaccharide PPV23 (Pneumovax) 08/27/2013 Season Influenza, Quad, PF, Adjuvanted, 65+ Yrs, IM (FLUAD) 08/12/2020 Seasonal Influenza, PF, 6 M & above, IM , (FluLaval or Fluzone) 10/01/2018,09/28/2017 Seasonal Influenza, Quadriva lent Hd (Fluzone Hd) 07/24/2023,07/17/2022,08/10/2021 Seasonal Influenza, Quadriva lent, No Preserve, IM 09/18/2016,08/10/2015 Seasonal Influenza, Split, I IV3, With Preserve, Inj 08/27/2014,08/27/2013,08/29/2012,08/02,09/21/2010,09/30/2009,08/18/2008 ,08/15/2007,09/08/2006,08/23/2005 Seasonal Influenza, Trivalen t, Adjuvanted, 65+ yrs 08/13/2019 TD - Tetanus/Diptheria (ADULT) 09/02/2003 TDAP (age 10 and older)(Boostrix) 08/30/2015 Varicella Zoster Vaccine (Adult) 08/29/2013 Zoster Vaccine Recombinant (Shingrix) 04/08/2020 ,12/07/2019 documented as of this encounter Social History Tobacco Use Types Packs/Day Years Used Date Smoking Tobacco: Never Smokeless Tobacco: Never Tobacco Cessation:Counseling Given: Not Answered Alcohol Use Standard Drinks/Week Comments No 0 (1 standard drink = 0.6 oz pur e alcohol) PHQ-2 Answer Date Recorded PHQ Adult Total Score 1 05/06/2023 Hunger Vital Sign Answer Date Recorded Worried About Running Out of Food in the Last Ye ar Not on file 04/29/2023 Within the past 12 months, t he food you bought just didn't last and you didn't have money to get more. Never true 04/29/2023 Sex and Gender Information Value Date Recorded Sex Assigned at Female 04/18/2021 10:19 AM EDT Gender Identity Female 04/18/2021 10:19 AM EDT Sexual Orientation Straight 04/18/2021 10 :19 AM EDT Job Start Date Occupation Industry Not on file Not on file Not on file documented as of this encounter Last Filed Vital Signs Vital Sign Reading Time Taken Comments Blood Pressure 136/78 02/29/2024 1:36 PM EDT Pulse 83 02/29/2024 1:36 PM EDT Temperature 36.8 C (98.2 F) 02/29/2024 1:36 PM ED T Respiratory Rate 18 02/29/2024 1:36 PM EDT Oxygen Saturation 96% 02/29/2024 1:36 PM EDT Inhaled Oxygen Concentration - - Weight 69.9 kg (154 lb 3.2 oz) 02/29/2024 1:36 P M EDT Height - - Body Mass Index 26.47 02/15/2024 8:41 AM EDT documented in this encounter Functional Status Functional Status Response Date of Assess ment Are you deaf or do you have serious difficulty h earing? No 07/06/2023 Are you blind or do you have serious difficulty seeing, even when wearing glasses? No 07/06/2023 Do you have serious difficul ty walking or climbing stairs? (5 years old or older) No 07/06/2023 Do you have difficulty dress ing or bathing? (5 years old or older) No 07/06/2023 Because of a physical, menta l, or emotional condition, do you have difficulty doing errands alone such as visiting a doctor s office or shopping? (15 years old or older) No 07/06/20 Cognitive Status Response Date of Assessm ent Because of a physical, menta l, or emotional condition, do you have serious difficulty concentrating, remembering, or making decisions? (5 years old or older) No 07/06/2023 documented as of this encounter Patient Instructions * Patient Instructions* Mirna Dyson MD - 02/29/2024 2:49 PM EDT -we will get last note from your rheumatology doctor -let us know name of rheumatology medicine you're taking -labs > blood and urine tests -avoid medicines like aleve, advil, ibuprofen, aspirin more than 81 mg daily and other NSAIDS whichare not good for kidney patients. Take only tylenol (acetaminophen) up to 2000 mg daily as needed for pain or as directed by your primary care provider. -eat a low sodium diet (less than 2000 mg or 1/2 tsp) daily -bring your home bp cuff in for KIDNEY nurse to check accuracy then do 3 day log documented in this encounter Progress Notes * Mirna Dyson MD - 02/29/2024 2:11 PM EDT NEPHROLOGY CLINIC NOTE Nephrology [address] [place] [address] 02/29/2024, 2:11 PM Patient Name: Ioana Tan Ioana Tan is a 78 year old female being seen in consultation today in Nephrology clinic, atthe request of Spencer Darnell DO for worsening renal function. Past Medical History: Diagnosis Date Achilles tendinitis 04/22/2002 Cardiovascular event risk 03/06/2016 9.4% as of 03/06/16 Enthesopathy of hip 03/06/2007 Essential hypertension with goal blood pressure less than 140/90 09/18/2016 Hypokalemia 08/29/2012 Hypopotassemia 09/09/2009 Localized osteoarthrosis not specified whether primary or secondary, pelvic region and thigh Lumbar degenerative disc disease 02/15/2012 Osteoarthritis of thumb 03/19/2017 Osteoarthritis, knee 09/26/2012 Other pulmonary embolism without acute cor pulmonale (HCC) 07/08/2023 Other specified acquired hypothyroidism Other specified disorders of rotator cuff syndrome of shoulder and allied disorders 08/16/2011 Periodic limb movement disorder 08/29/2012 Plantar fibromatosis 04/22/2002 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) 04/13/2023 Sarcoidosis Slow transit constipation 02/25/2013 Urge incontinence Patient Active Problem List Diagnosis Code Acquired hypothyroidism E03.9 Lumbar degenerative disc disease M51.36 Slow transit constipation K59.01 Essential hypertension with goal blood pressure less than 140/90 I10 Osteoarthritis of thumb M18.10 Dyslipidemia, goal LDL below 100 E78.5 Primary osteoarthritis of both knees M17.0 Osteoarthritis of right hip M16.11 Vitamin B12 deficiency E53.8 Neuropathy G62.9 Chronic SI joint pain M53.3, G89.29 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) C34.31 Other pulmonary embolism without acute cor pulmonale (HCC) I26.99 Metastasis to mediastinal lymph node ([facility]) C77.1 Encounter for antineoplastic chemotherapy Z51.11 NSCLC with EGFR mutation (HCC) C34.90 Ototoxic hearing loss of both ears H91.03 HPI: 78 year old female Presents for evaluation of worsening renal function. Past medical history includes hypertension since at least 2013 and without history of urgency, hypothyroid, sarcoidosis dx'd approx and treated with nuclear med txs. Sees Dr Echevarria for RA CA came up during work up for hip replacement. Diagnosed fall 2022 with right lower lobe non-small cell lung cancer status post right lower lobe lobectomy and mediastinal lymph node dissection with 3 lymph nodes positive for metastases. In wake of CA dx, also developed VTE and on eliquis. She had 1 dose of Alimta and cisplatin July 2023 but this was stopped due to worsening renal function. Also experienced impaired hearing in the wake of this. Subsequently started on osimertinib 80mg daily. Home blood pressure checks: upper arm ; not validated History of stones: N Family history of CKD or ESRD: sister w/ stones NSAID use: N Herbals/supplements: N Last hospital stay: 07/06/24 wedge resection Past 2 mos has improved in terms of energy. Appetite starting to improve. Likes to salt food Still hoping to get hip replacement > R hip tires her out. Acc by daughter chante. REVIEW OF SYSTEMS: No F/C, unintended wt loss 50-60 lb but starting to stabilize wt, energy level and appetite still touch and go No palpitations, angina, orthopnea, occasional pedal hs edema No cough, wheeze, or dyspnea No N/V/D/C/abd pain No dysuria, hematuria; notes since fall q2h nocturia; else no new or worrisome voiding symptoms No rash or generalized itch No focal joint/muscle aches > apart from R hip No inappropriate bleeding or bruising No tremor, seizures, focal or global weakness or paresthesias No orthostatic or presyncopal symptoms; no falls Current Outpatient Medications Medication Sig Dispense Refill Apixaban 5 MG Oral Tablet (Eliquis) Take 1 Tablet by mouth in the morning and 1 Tablet before bedtime. Potassium Chloride ER 10 MEQ Oral Capsule Extended Release Take 1 Capsule by mouth in the morning and 1 Capsule before bedtime. 60 Capsule 5 Hydrocortisone 1 % External Cream Apply topically to affected area 2 times a day. Apply twice dailyfor 6 weeks 120 g 1 Levothyroxine Sodium 137 MCG Oral Tablet Take 1 Tablet by mouth in the morning. (at least 30 min prior to breakfast or other meds). 90 Tablet 2 amLODIPine Besylate 5 MG Oral Tablet (Norvasc) Take 1 Tablet by mouth in the morning. 30 Tablet 5 Rosuvastatin Calcium 10 MG Oral Tablet (Crestor) Take 1 Tablet by mouth in the morning. 90 Tablet 1 B-12 50 MCG Oral Tablet Take by mouth. Multi Vitamin Oral Tablet Take by mouth. sulfaSALAzine 500 MG Oral Tablet (Azulfidine) Take 1 Tablet by mouth in the morning. nystatin-triamcinolone (MYCOLOG) 265752-9.1 UNIT/GM-% cream Apply topically to affected area 2 times a day. To affacted area for two weeks. 30 g 1 Osimertinib Mesylate 80 MG Oral Tablet (Tagrisso) Take 1 Tablet by mouth in the morning. Take medication about same time every day, with or without food.. 30 Tablet 5 Omeprazole 20 MG Oral Capsule Delayed Release (PriLOSEC) Take 1 Capsule by mouth in the morning. 30Capsule 3 Current Facility-Administered Medications Medication Dose Route Frequency Provider Last Rate Last Admin Albuterol Sulfate (Proventil) (2.5 MG/3ML) 0.083% inhalation solution 2.5 mg 2.5 mg Nebulizer PRN Shila Nunez CRNP albuterol (VENTOLIN HFA/PROVENTIL HFA) inhaler 3 Puff Inhalation PRN Shila Nunez CRNP Review of patient's allergies indicates: Allergen Reactions Food (See Comments) honey Latex rash Social History Socioeconomic History Marital status: Spouse name: Not on file Number of children: 2 Years of education: Not on file Highest education level: Not on file Occupational History 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: [employer] 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: retired 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 Tobacco Use Smoking status: Never Smokeless tobacco: Never Vaping Use Vaping Use: Never used Substance and Sexual Activity Alcohol use: No Drug use: No Sexual activity: Yes Partners: Male Other Topics Concern Service No Blood Transfusions No Caffeine Concern No Occupational Exposure No Hobby Hazards No Sleep Concern No Stress Concern Yes Weight Concern Yes Special Diet Yes Back Care Yes Exercise No Bike Helmet Not Asked Seat Belt Yes Self-Exams Yes Social History Narrative 57yr as of 07/21 Social Determinants of Health Financial Resource Strain: Not on file Food Insecurity: Unknown (04/29/2023) Hunger Vital Sign Worried About Running Out of Food in the Last Year: Not on file Ran Out of Food in the Last Year: Never true Transportation Needs: Not on file Physical Activity: Not on file Stress: Not on file Social Connections: Not on file Intimate Partner Violence: Not on file Housing Stability: Not on file No family history on file. Family Status Relation Status Mo at age 83 cancer of esophagus Fa at age 77 [place] Sis Alive Sandie Alive lyme disease Son Alive PHYSICAL EXAMINATION: BP Readings from Last 6 Encounters: 02/29/24 136/78 02/15/24 132/60 11/14/23 150/88 09/26/23 140/88 09/13/23 138/84 08/29/23 114/71 Wt Readings from Last 6 Encounters: 02/29/24 69.9 kg (154 lb 3.2 oz) 02/15/24 68.9 kg (152 lb) 11/22/23 78.2 kg (172 lb 4.8 oz) 11/14/23 79.7 kg (175 lb 9.6 oz) 09/26/23 84.4 kg (186 lb) 09/13/23 85.7 kg (189 lb) Pulse Readings from Last 6 Encounters: 02/29/24 83 02/15/24 90 01/14/24 84 11/14/23 80 09/26/23 87 09/13/23 72 NAD, oriented x 3, ambulatory w/o asst Normocephalic, atraumatic, eomi nonicteric sclerae MMM Supple neck RRR w/o m/g/r; no edema CTAB w/ good air mvt NT abd, +BS, soft No CVA TTP, no diaper or hinojosa No cyanosis or clubbing No rash No tremor, focal or global weakness; fluent speech good historian LABS: Recent Labs Units 02/29/24 1510 02/15/24 0953 11/14/23 1348 09/05/23 1046 SODIUM - [facility] mmol/L 140 138 137 138 POTASSIUM - [facility] mmol/L 4.1 4.1 3.1* 4.2 CHLORIDE - [facility] mmol/L 105 104 101 103 CO2 - [facility] mmol/L 24 24 25 24 BUN - [facility] mg/dL 21* 20 14 11 CREATININE - [facility] mg/dL 1.6* 1.8* 1.6* 1.4* ESTIMATED GLOMERULAR FILTRATION RATE - [facility] mL/min 34* 29* 33* 38* Latest Ref Rng 07/08/2023 07/09/2023 07/10/2023 08/01/2023 08/20/2023 08/21/2023 08/24/2023 NEPH-FLOW Bun 6 - 20 mg/dL 16 23 (H) 24 (H) 16 17 14 9 Cr 0.5 - 1.0 mg/dL 0.8 0.9 0.7 0.7 1.7 (H) 1.6 (H) 1.5 (H) eGFR >=60 mL/min 83 67 90 84 32 (L) 33 (L) 36 (L) K 3.5 - 5.1 mmol/L 4.1 3.7 3.7 3.6 3.3 (L) 3.2 (L) 3.5 Hb 12.0 - 15.3 g/dL 13.2 12.4 12.2 13.9 10.9 (L) Latest Ref Rng 08/27/2023 08/29/2023 09/05/202311/14/2023 NEPH-FLOW Bun 6 - 20 mg/dL 12 15 11 14 Cr 0.5 - 1.0 mg/dL 1.5 (H) 1.5 (H) 1.4 (H) 1.6 (H) eGFR >=60 mL/min 36 (L) 36 (L) 38 (L) 33 (L) K 3.5 - 5.1 mmol/L 3.4 (L) 3.4 (L) 4.2 3.1 (L) Hb 12.0 - 15.3 g/dL 10.9 (L) 10.7 (L) 10.4 (L) Recent Labs Units 02/29/24 1510 02/15/24 0953 11/14/23 1348 09/05/23 1046 HGB g/dL 9.5* 10.4* 10.4* 10.7* FERRITIN - [facility] ng/mL -- 104 -- -- TRANSFERRIN SATURATION PERCENT - [facility] % 16 20 -- -- Recent Labs Units 02/29/24 1510 02/15/24 0953 11/14/23 1348 09/05/23 1046 07/10/23 0550 07/09/23 0551 07/08/23 0527 07/07/23 0627 CALCIUM - [facility] mg/dL 10.0 9.8 9.9 10.3* < > 9.7 9.4 9.4 PHOSPHORUS - [facility] mg/dL 2.4* -- -- -- -- 2.3* 2.7 3.3 25-HYDROXY VITAMIN D - [facility] ng/mL 75 -- -- -- -- -- -- -- PTH - [facility] pg/mL 64 -- -- -- -- -- -- -- < > = values in this interval not displayed. Latest Reference Range & Units 09/19/08 00:00 Color, Urine yellow - harinder yellow Clarity, Urine clear - clear cloudy Glucose, Urine neg - neg neg Bilirubin, Urine neg - neg neg Ketone, Urine neg - neg neg Specific [place], Urine 1.003 - 1.030 1.010 Blood, Urine neg - neg +3 pH, Urine 5.0 - 6.0 5.0 Protein, Urine neg - neg +3 Urobilinogen, Urine normal - normal neg Nitrite, Urine neg - neg positive Esterase, Urine neg - neg +3 PERTINENT IMAGING INFO: Renal u/s 02/26/24 Renal size length: Right-9.7 cm and left-9.6 cm. Each renal contour mildly lobulated. In the mid left kidney there is an ovoid well-defined sonolucent (allowing for technical artifact) structure ultrasonographically compatible with cyst measuring 1.4 cm x 1.2 cm x 1.0 cm. No other focal lesion identified. Cortex appears bilaterally relatively maintained in regard to thickness/echotexture. No hydronephrosis. No demonstrable intrarenal calculus or perinephric abnormality. Prior ascribed left adrenal adenoma not delineated on current images. Visualized regional abdominal aorta: No focal aneurysm. AP measurements: Proximal-2.0 cm, mid-1.8 cm and distal-1.6 cm. Urinary bladder: Unfortunately, poorly distended limiting evaluation. No gross intraluminal lesion. IMPRESSION: Within normal limits. PET 2022 Head / Neck: No abnormal uptake identified. Chest: There is a 3.4 x 4.2 cm lesion in the posterior right lower lobe with a max SUV of 5.15. Abdomen: No abnormal uptake. Pelvis: There is a focal area of intense activity along the anal rectal junction, particularly on the right, corresponding to soft tissue prominence. This may represent normal sphincter activity, however, an underlying enteric lesion such as rectal carcinoma, cannot be excluded. Correlation with exam findings recommended. Musculoskeletal / Other: Areas of degenerative type uptake are present. CT SCAN: Head / Neck: No abnormal uptake. Chest: Right lower lobe lesion, as detailed above. Remaining findings in the chest are likewise stable from the prior diagnostic CT examination, please see that report. Abdomen: Non FDG avid left adrenal nodule most consistent with an adenoma. Left renal cortical lesions. It is difficult to determine if these have FDG avidity or not secondary to physiologic renal activity. This could be further evaluated with ultrasound to ensure these represent cysts. Tiny hypodensities in the liver favor cysts. Pelvis: Atherosclerotic calcifications are present throughout the aorta and its branches. There is diverticulosis of the distal colon. Musculoskeletal / Other: Degenerative changes are present throughout the bony structures with convex left scoliosis of the lumbar spine. There is anterolisthesis of L3 on L4. IMPRESSION IMPRESSION 1. Mild activity within a right lower lobe pulmonary lesion. This may be a neoplastic process such as adenocarcinoma spectrum lesion, however, no remote CT studies are available for comparison to determine growth pattern. A pneumonia or other inflammatory process could also appear similar. Continued CT follow-up or histologic sampling would be necessary to differentiate. 2. Focal intense activity at the anal rectal junction with soft tissue prominence could be sphincter activity, however, underlying neoplasm cannot be excluded. Direct clinical evaluation would be recommended to exclude pathology in this location. 3. Remaining findings as above. ASSESSMENT AND PLAN: Stage 3b chronic kidney disease (HCC) (Primary) - PTH - 25-HYDROXY VITAMIN D - URINALYSIS WITH MICROSCOPIC EXAM - PHOSPHORUS - BASIC METABOLIC PANEL - CBC WITH WBC DIFFERENTIAL - IRON SCREEN, INCLUDING TIBC - MAGNESIUM - ALBUMIN / CREATININE RATIO, URINE - PROTEIN/ CREATININE RATIO, URINE Worsening renal function HTN, goal below 140/90 NSCLC with EGFR mutation (HCC) Adenoma of left adrenal gland Follow Up: Return in about 5 weeks (around 04/04/2024) for clinic visit w/ MD. | For: clinic visit w/MD | Check-out note: waitlist Now ckd 3B w/ abrupt onset renal dysfunction fall 2023 in the setting of CTX/ cisplatin tx >>renal function has at least been stable w/ eGFR 30-35 since then, though did dip recently < 30. Not consistently < 30 ml/min so far. But Also now on Tyrosine kinase inhibitor which can impact renal function. -not sure of rheum med she's on > will verify -labs to evaluate for complications, modifiable risk HTN w/ suboptimal control -SMBP as below -cont amlodipine for now Adrenal adenoma reported on PET > no dimensions; f/u serial PET Patient Instructions -we will get last note from your rheumatology doctor -let us know name of rheumatology medicine you're taking -labs > blood and urine tests -avoid medicines like aleve, advil, ibuprofen, aspirin more than 81 mg daily and other NSAIDS whichare not good for kidney patients. Take only tylenol (acetaminophen) up to 2000 mg daily as needed for pain or as directed by your primary care provider. -eat a low sodium diet (less than 2000 mg or 1/2 tsp) daily -bring your home bp cuff in for KIDNEY nurse to check accuracy then do 3 day log Pt sent records of rheum visits; most recent one from 2023 reviewed >> dx = RA w/o organ/systemic involvement and erosive OA; plan to cont sulfasalazine and XR L shoulder. -several older rheum notes attached in myG note as well -no changes to care Mirna Dyson MD CC: Ref: SPENCER DARNELL[[id number]] [address] [place] [address] [place] [address] (office) [phone] (fax) PCP: SPENCER DARNELL [address] [place] [address] [place] [address] [phone] This chart was completed in part utilizing [employer] Speech Voice Recognition Software. Randomword insertions, pronoun errors, and incomplete sentences are an occasional consequence of this system due to software limitations, and ambient noise. Any questions or concerns about the content, text, or information contained within the body of this dictation should be directly addressed to the provider for clarification. documented in this encounter Nursing Notes * Yessi Saldaña RN - 02/29/2024 1:38 PM EDT New pt today for change in renal changes. Pt was recently diagnosed with right lung CA with lobectomy. After first chemo treatment, pt becamevery ill and has had a decrease in labs since this time. Appetite is improving. Is currently on oral Chemo. documented in this encounter Miscellaneous Notes * Result Encounter Note - Mirna Dyson MD - 03/07/2024 6:49 AM EDT Kidney labs slighltly better than ones just before these but overall about the same place she's been since abrupt onset of worse kidney function w/ chemo last July. No worrisome voiding or constitutional symptoms on day these labs were done > urine sediment active /inflamed and some mild/moderate albuminuria/proteinuria. I did receive rheum notes; have not yet reviewed. For now no changes to kidney care but will continue to follow. MyG sent documented in this encounter Plan of Treatment Upcoming Encounters Date Type Department Care Team (Late st Contact Info) Description 04/04/2024 9:45 AM EDT Pharmacy Pharmacy Hematology Oncology [facility] [place] [address] [place] [address] [facility], [facility] Clinic Hem/Onc [address] [place] [address] 04/10/2024 1:40 PM EDT Office Visit Nephrology, [facility] [place] [address] [facility] [place] [address] Mirna Dyson MD [address] [facility] [place] [address] 04/17/2024 1:15 PM EDT Office Visit Orthopaedics [address] [phone] Jack Hernandez MD [address] [place] [address] 05/08/2024 11:00 AM EDT Nurse Only Ancillary [address] [place] [address] [place], Nurse [address] [place] [address] 05/14/2024 1:15 PM EDT Office Visit Hematology/Oncology [facility] [place] [address] [facility] [place] [phone] Hadley Verdugo MD [address] [place] [address] 05/22/2024 11:00 AM EDT Office Visit Audiology [facility] [address] [place] [address] Ayana Grajeda Au.D. [address] [place] [address] 07/21/2024 2:30 PM EDT Office Visit Thoracic Surg [facility] [address] [place] [address] Boo Wylie MD [address] [place] [address] 08/08/2024 10:30 AM EDT Imaging Radiology [address] [facility] [place] [address] 09/26/2024 10:30 AM EST Office Visit Family Medicine [address] [place]und[place] [phone] [address] [place] [address] 11/24/2024 1:20 PM EST Office Visit Otolaryngology [facility] [address] [facility] [place] [address] Nabil Fernandes PA-C [address] [place] [phone] Scheduled Procedures Name Priority Associated Diagnoses Date/Ti me COLONOSCOPY FLEXIBLE PROXIMA L DIAGNOSTIC Recall Encounter for screening colonoscopy Health Maintenance Due Date Last Done Comments COVID-19 Vaccine ( season) 2023 08/30/2021, 01/11/2021, 12/21/2020 Depression Screening 05/06/2024 05/06/2023 GFR 08/31/2024 02/29/2024, 01/27, 11/14/2023, Additional history exists TSH 02/14/2025 02/15/2024, 05/30, 03/22/2023, Additional history exists Albumin/Creatinine Ratio 02/28/2025 02/29/2024, 06/30 CKD HGB USE SMARTSET 30052 02/28/202502/28, 02/29/2024, 02/15/2024, Additional history exists CKD PHOS USE SMARTSET 48972 02/28/202512/2023, 07/09/2023, 07/08/2023, Additional history exists DTaP,Tdap,and Td Vaccines (2 - Td or Tdap) 08/30/2025 08/30/2015, 09/02/2003, 09/02/2003 DXA Scan 07/13/2027 07/13/2020, 04/29, 05/05/2008, Additional history exists Fecal Occult Blood Test Discontinued 09/11/2008 Pneumococcal Vaccine: 65+ Years Completed 02/28/2016, 08/27/2013 Colonoscopy Discontinued 04/30/2017, 12/2016, 11/20/2008 Colorectal Cancer Screening Discontinued Zoster Vaccines Completed 04/08/2020, 06/2020, 08/29/2013 Influenza Vaccine (FLU shot) Completed 07/24/2023, 07/24/2023, 07/17/2022, Additional history exists Cologuard Discontinued GARDASIL-HPV IMMUNIZATION SERIES Aged Out No longer eligible based on patient's age to complete this topic Hepatitis B Aged Out No longer eligi ble based on patient's age to complete this topic MENINGOCOCCAL (MENACTRA/MENVEO) Aged Out No longer eligible based on patient's age to complete this topic Sigmoidoscopy Discontinued documented as of this encounter Medical Devices Implanted Type Area Cork Molder Device Identifier Shelf Expiration Date Model / Serial / Lot Lens Intraoc 22.0 - [id number] - [id number] Implanted:Qty: 1 on 06/26/2019 by London Ocampo MD at OR [facility] Left: Eye [employer] 01/27/2024 [id number] / [id number] / [id number] Lens Intraoc 21.5 - [id number] - [id number] Implanted:Qty: 1 on 07/15/2019 by London Ocampo MD at OR [facility] Right: Eye [employer]OM[employer] 03/28/2024 [id number] / [id number] / [id number] documented as of this encounter Procedures Procedure Name Priority Date/Time Associated Diagnosis Comments URINALYSIS WITH MICROSCOPIC EXAM Routine 02/29/2024 3:18 PM EDT Stage 3b chronic kidney disease (HCC) ALBUMIN / CREATININE RATIO, URINE Routine 02/29/2024 3:18 PM EDT Stage 3b chronic kidney disease (HCC) DIFFERENTIAL, AUTOMATED Routine 02/29/2024 3:10 PM EDT Stage 3b chronic kidney disease (HCC) 25-HYDROXY VITAMIN D Routine 02/29/2024 3:10 PM EDT Stage 3b chronic kidney disease (HCC) PROTEIN/ CREATININE RATIO, URINE Routine 02/29/2024 3:10 PM EDT Stage 3b chronic kidney disease (HCC) BASIC METABOLIC PANEL Routine 02/29/2024 3:10 PM EDT Stage 3b chronic kidney disease (HCC) IRON SCREEN, INCLUDING TIBC Routine 02/29/2024 3:10 PM EDT Stage 3b chronic kidney disease (HCC) CBC Routine 02/29/2024 3:10 PM EDT Stage 3b chronic kidney disease (HCC) PHOSPHORUS Routine 02/29/2024 3:10 PM EDT Stage 3b chronic kidney disease (HCC) PTH Routine 02/29/2024 3:10 PM EDT Stage 3b chronic kidney disease (HCC) CBC Routine 02/29/2024 3:10 PM EDT Stage 3b chronic kidney disease (HCC) MAGNESIUM Routine 02/29/2024 3:10 PM EDT Stage 3b chronic kidney disease (HCC) documented in this encounter Results * (ABNORMAL) ALBUMIN / CREATININE RATIO, URINE (02/29/2024 3:18 PM EDT) Albumin, Random Urine 8.87 mg/dL 03/01/2024 12:35 AM EDT [facility] Creatinine, Random Urine 246 mg/dL 03/01/2024 12:35 AM EDT LABORATORY [facility] Albumin / Creatinine Ratio, Urine 36(H) <30 mg/g Creat 03/01/2024 12:35 AM EDT LABORATORY [facility] Urine Urine specimen obtained by clean catch procedure / Unknown Non-blood Collection / Unknown 02/29/2024 3:18 PM EDT 02/29/2024 3:18 PM EDT Narrative LABORATORY [facility] - 03/01/2024 12:35 AM EDT Normal: <30 mg/g creatinine High: 30-300 mg/g creatinine Very High: >300 mg/g creatinine Nephrotic: >2200 mg/g creatinine Mirna Dyson MD LAB URINE ORDERAB LES LAB[facility]ATORY [facility] [address] [place] [address] * (ABNORMAL) URINALYSIS WITH MICROSCOPIC EXAM (02/29/2024 3:18 PM EDT) Color, Urine Yellow Colorless, Light Yellow, Yellow, Dark Yellow 03/01/2024 12:33 AM EDT LABORATORY [facility] Clarity, Urine Slightly Cloudy(A) Clear 03/01/2024 12:33 AM EDT LABORATORY [facility] Glucose, Urine Negative Negative mg/dL 03/01/2024 12:33 AM EDT LABORATORY [facility] Bilirubin, Urine Negative Negative 03/01/2024 12:33 AM EDT LABORATORY [facility] Ketone, Urine Trace(A) Negative mg/dL 03/01/2024 12:33 AM EDT LABORATORY [facility] Specific [place], Urine 1.025 1.003 - 1.030 03/01/2024 12:33 AM EDT LABORATORY [facility] Blood, Urine Negative Negative 03/01/2024 12:33 AM EDT LABORATORY [facility] pH, Urine 5.5 5.0 - 7.5 Units 03/01/2024 12:33 AM EDT LABORATORY [facility] Protein, Urine 30(A) Negative mg/dL 03/01/2024 12:33 AM EDT LABORATORY [facility] Urobilinogen, Urine Normal Normal mg/dL 03/01/2024 12:33 AM EDT [facility] Nitrite, Urine Negative Negative 03/01/2024 12:33 AM EDT [facility] Esterase, Urine Large(A) Negative 03/01/2024 12:33 AM EDT [facility] RBC, Urine 0-2 0 - 2 /HPF 03/01/2024 12:33 AM EDT [facility] WBC, Urine 50+(A) 0 - 2 /HPF 03/01/2024 12:33 AM EDT [facility] Bacteria, Urine 51-100(A) 0 - 25 /HPF 03/01/2024 12:33 AM EDT [facility] Calcium Oxalate Crystal, Urine 50+(A) None /HPF 03/01/2024 12:33 AM EDT [facility] Yeast, Urine Present(A) None /HPF 03/01/2024 12:33 AM EDT [facility] Renal Epithelial Cells, Urine 1-4(A) None /HPF 03/01/2024 12:33 AM EDT [facility] WBC Clumps, Urine Present(A) None /HPF 03/01/2024 12:33 AM EDT [facility] Urine Urine specimen obtained by clean catch procedure / Unknown Non-blood Collection / Unknown 02/29/2024 3:18 PM EDT 02/29/2024 3:18 PM EDT Mirna Dyson MD LAB URINE ORDERAB LES [facility] [address] [place] [address] * (ABNORMAL) DIFFERENTIAL, AUTOMATED (02/29/2024 3:10 PM EDT) WBC 5.09 4.00 - 10.80 K/uL 02/29/2024 11:59 PM EDT [facility] Neutrophils % 61.2 40.0 - 75.0 % 02/29/2024 11:59 PM EDT [facility] Lymphocytes % 24.4 18.0 - 42.0 % 02/29/2024 11:59 PM EDT [facility] Monocytes % 11.6(H) 1.0 - 11.0 % 02/29/2024 11:59 PM EDT [facility] Eosinophils % 2.0 0.0 - 6.0 % 02/29/2024 11:59 PM EDT [facility] Basophils % 0.6 0.0 - 2.0 % 02/29/2024 11:59 PM EDT [facility] Immature Granulocytes % 0.2 0.0 - 2.0 % 02/29/2024 11:59 PM EDT [facility] Absolute Neutrophils 3.12 1.80 - 7.70 K/uL 02/29/2024 11:59 PM EDT [facility] Absolute Lymphocytes 1.24 1.00 - 4.80 K/ul 02/29/2024 11:59 PM EDT [facility] Absolute Monocytes 0.59 0.00 - 1.10 K/uL 02/29/2024 11:59 PM EDT [facility] Absolute Eosinophils 0.10 0.00 - 0.70 K/uL 02/29/2024 11:59 PM EDT [facility] Absolute Basophils 0.03 0.00 - 0.20 K/uL 02/29/2024 11:59 PM EDT [facility] Absolute Immature Granulocytes 0.01 0.00 - 0.20 K/uL 02/29/2024 11:59 PM EDT [facility] Blood Venous blood specimen / Unknown Venipuncture / Unknown 02/29/2024 3:10 PM EDT 02/29/2024 3:10 PM EDT Mirna Dyson MD LAB BLOOD ORDERAB LES [facility] [address] [place], [place] [id number] * (ABNORMAL) CBC (02/29/2024 3:10 PM EDT) [facility] WBC 5.09 4.00 - 10.80 K/uL 02/29/2024 11:59 PM EDT [facility] RBC 2.97 3.85 - 5.15 M/uL 02/29/2024 11:59 PM EDT [facility] HGB 9.5(L) 12.0 - 15.3 g/dL 02/29/2024 11:59 PM EDT [facility] HCT 29.7(L) 36.0 - 45.2 % 02/29/2024 11:59 PM EDT LABORATORY [facility] MCV 100.0 81.5 - 97.5 fL 02/29/2024 11:59 PM EDT LABORATORY [facility] MCH 32.0 27.0 - 34.0 pg 02/29/2024 11:59 PM EDT LABORATORY [facility] MCHC 32.0 32.0 - 36.0 g/dL 02/29/2024 11:59 PM EDT LABORATORY [facility] RDW 13.6 11.5 - 15.5 % 02/29/2024 11:59 PM EDT LABORATORY [facility] PLT 133(L) 140 - 400 K/uL 02/29/2024 11:59 PM EDT LABORATORY [facility] MPV 11.9 6.6 - 11.1 fL 02/29/2024 11:59 PM EDT LABORATORY [facility] nRBCs 0 <=0 /100 WBCs 02/29/2024 11:59 PM EDT LABORATORY C Blood Venous blood specimen / Unknown Venipuncture / Unknown 02/29/2024 3:10 PM EDT 02/29/2024 3:10 PM EDT Mirna Dyson MD LAB BLOOD ORDERAB LES LABORATORY [facility] [address] [place] [address] * (ABNORMAL) PROTEIN/ CREATININE RATIO, URINE (02/29/2024 3:10 PM EDT) Protein/ Creatinine Ratio, Urine 211(H) <150 mg/g 03/01/2024 12:35 AM EDT LABORATORY C Protein, Random Urine 52 mg/dL 03/01/2024 12:35 AM EDT LABORATORY C Creatinine, Random Urine 247 mg/dL 03/01/2024 12:35 AM EDT LABORATORY [facility] Urine Non-blood Collection / Unknown 02/29/2024 3:10 PM EDT 02/29/2024 3:10 PM EDT Narrative [facility] - 03/01/2024 12:35 AM EDT Normal: <150 mg/g creatinine High: 150-500 mg/g creatinine Very High: >500 mg/g creatinine Nephrotic: >3000 mg/g creatinine Mirna Dyson MD LAB URINE ORDERAB LES Performing Organization Address [facility] Co de Phone Number [facility] [address] [place] [address] * MAGNESIUM (02/29/2024 3:10 PM EDT) Magnesium 2.3 1.5 - 2.6 mg/dL 03/01/2024 3:20 AM EDT [facility] Blood Venous blood specimen / Unknown Venipuncture / Unknown 02/29/2024 3:10 PM EDT 02/29/2024 3:10 PM EDT Mirna Dyson MD LAB BLOOD ORDERAB LES Performing Organization Address [facility] Phone Number [facility] [address] [place] [address] * (ABNORMAL) IRON SCREEN, INCLUDING TIBC (02/29/2024 3:10 PM EDT) Iron 39 33 - 151 ug/dL 03/01/2024 3:20 AM EDT [facility] Iron Binding Capacity 241(L) 250 - 425 ug/dL 03/01/2024 3:20 AM EDT [facility] Transferrin Saturation Percent 16 15 - 55 % 03/01/2024 3:20 AM EDT LABORATORY C Blood Venous blood specimen / Unknown Venipuncture / Unknown 02/29/2024 3:10 PM EDT 02/29/2024 3:10 PM EDT Mirna Dyson MD LAB BLOOD ORDERAB LES Performing Organization Address [facility] Co de Phone Number [facility] [address] [place] [address] * (ABNORMAL) BASIC METABOLIC PANEL (02/29/2024 3:10 PM EDT) BUN 21(H) 6 - 20 mg/dL 03/01/2024 3:20 AM EDT [facility] Creatinine 1.6(H) 0.5 - 1.0 mg/dL 03/01/2024 3:20 AM EDT [facility] Estimated Glomerular Filtration Rate 34(L) >=60 mL/min 03/01/2024 3:20 AM EDT [facility] Comment:eGFR is calculated b ased on the CKD-EPI 2020 equation Sodium 140 135 - 146 mmol/L 03/01/2024 3:20 AM EDT [facility] Potassium 4.1 3.5 - 5.1 mmol/L 03/01/2024 3:20 AM EDT [facility] Chloride 105 98 - 107 mmol/L 03/01/2024 3:20 AM EDT [facility] CO2 24 22 - 32 mmol/L 03/01/2024 3:20 AM EDT [facility] Anion Gap 11 7 - 15 mmol/L 03/01/2024 3:20 AM EDT [facility] Glucose 99 70 - 120 mg/dL 03/01/2024 3:20 AM EDT [facility] Calcium 10.0 8.4 - 10.2 mg/dL 03/01/2024 3:20 AM EDT [facility] Blood Venous blood specimen / Unknown Venipuncture / Unknown 02/29/2024 3:10 PM EDT 02/29/2024 3:10 PM EDT Mirna Dyson MD LAB BLOOD ORDERAB LES Performing Organization Address City/[facility] Co de Phone Number LABORATORY [facility] [address] [place] [address] * (ABNORMAL) PHOSPHORUS (02/29/2024 3:10 PM EDT) Phosphorus 2.4(L) 2.5 - 4.8 mg/dL 03/01/2024 3:20 AM EDT [facility] Blood Venous blood specimen / Unknown Venipuncture / Unknown 02/29/2024 3:10 PM EDT 02/29/2024 3:10 PM EDT Mirna Dyson MD LAB BLOOD ORDERAB LES Performing Organization Address City/[facility]/ZIP Co de Phone Number LABORATORY [facility] [address] [place] [address] * 25-HYDROXY VITAMIN D (02/29/2024 3:10 PM EDT) 25-Hydroxy Vitamin D 75 >19 ng/mL 03/01/2024 4:01 AM EDT LABORATORY [facility] Blood Venous blood specimen / Unknown Venipuncture / Unknown 02/29/2024 3:10 PM EDT 02/29/2024 3:10 PM EDT Narrative LABORATORY [facility] - 03/01/2024 4:01 AM EDT Deficient: <20 ng/mL Insufficient: 20-29 ng/mL Recommended/Optimum:30-50 ng/mL Vitamin D intoxication is rare. If suspicious of Vitamin D toxicity, evaluation of serum Calcium and PTH is recommended. Mirna Dyson MD LAB BLOOD ORDERAB LES Performing Organization Address [facility] Co de Phone Number LABORATORY [place] [address] [place] [address] * PTH (02/29/2024 3:10 PM EDT) PTH 64 15 - 65 pg/mL 03/01/2024 4:01 AM EDT LABORATORY [facility] Blood Venous blood specimen / Unknown Venipuncture / Unknown 02/29/2024 3:10 PM EDT 02/29/2024 3:10 PM EDT Mirna Dyson MD LAB BLOOD ORDERAB LES Performing Organization Address City/[facility]/ZIP Co de Phone Number LABORATORY [facility] [address] [place] [address] documented in this encounter Visit Diagnoses Diagnosis Stage 3b chronic kidney disease (HCC)- Primary Worsening renal function HTN, goal below 140/90 Unspecified essential hypertension NSCLC with EGFR mutation (HCC) Adenoma of left adrenal gland Benign neoplasm of adrenal gland documented in this encounter Advance Directives * Full Code (Latest Code Status on File) Date Activated Date Inactivated Comments 07/06/2023 1:46 PM 07/10/2023 8:23 PM This order re flects the patients wishes and were consensually agreed upon. Question Answer Comments Discussion of Advance Directives occurred with: Patient Care Teams Baggage Agent Supervisor Relationship Specialty Start Date End Date Spencer Darnell DO [address] [place] [address] [place] Munoz [phone] PCP - General Internal Medicine 06/18/17 documented as of this encounter"
--- OUTSIDE RECORDS SUMMARY | 2024-04-04 20:27 | External Medical Summary | Summary of Care ---
Author Name Unknown Organization [facility] Address [address] [address] Phone [phone] Care Team Providers Care Performing Arts Technicians Name Role Phone Sravanthi Bloom DO Primary Care Provider Reason for Visit * Reason Comments NEW PATIENT R foot and R ankle * Evaluate & Treat - Unlimited Visits (Within 3 days (urgent)) - Pending Review Specialty Diagnoses / Procedures Referred By Susan ness Referred To Contact Orthopaedic Surgery / Orthopedics Diagnoses Closed displaced fracture of proximal phalanx of lesser toe of right foot, initial encounter Eric Flowers CRNP [address] [place] [address] [place] [address] Referral ID Status Reason Start Date Expiration Date Visits Requested Visits Authorized [id number] Pending Review Specialty Services Required 03/14/[phone] Encounter Details Date Type Department Care Team (Late st Contact Info) Description 03/17/2024 12:30 PM EDT Office Visit Orthopaedics [facility] [address] [place] [address] Jack Hernandez MD [address] [place] [address] Foot injury, right, initial encounter* Allergies Active Allergy Reactions Criticality Noted Date Comments Food (See Comments) 04/18/2021 honey Latex 04/18/2021 rash documented as of this encounter (statuses as of 03/17/2024) Medications Medication Sig Dispensed Refills Start Date End Date Status nystatin-triamcinolo ne (MYCOLOG) 600233-5.1 UNIT/GM-% creamIndications:Cut aneous candidiasis Apply topically to affected area 2 times a day. To affacted area for two weeks. 30 g 1 04/04/2019 Active Apixaban 5 MG Oral Tablet (Eliquis) Take 1 Tablet by mouth in the morning and 1 Tablet before bedtime. 08/22/2023 Active Potassium Chloride ER 10 MEQ Oral Capsule Extended Release Take 1 Capsule by mouth in the morning and 1 Capsule before bedtime. 60 Capsule 5 08/29/2023 Active Hydrocortisone 1 % External CreamIndications:NSC LC with EGFR mutation (HCC) Apply topically to affected area 2 times a day. Apply twice daily for 6 weeks 120 g 1 09/06/2023 Active Levothyroxine Sodium 137 MCG Oral Tablet Take 1 Tablet by mouth in the morning. (at least 30 min prior to breakfast or other meds). 90 Tablet 2 11/07/2023 Active amLODIPine Besylate 5 MG Oral Tablet (Norvasc)Indications :Essential hypertension with goal blood pressure less than 140/90 Take 1 Tablet by mouth in the morning. 30 Tablet 5 12/03/2023 Active Rosuvastatin Calcium 10 MG Oral Tablet (Crestor) Take 1 Tablet by mouth in the morning. 90 Tablet 1 02/01/2024 Active B-12 50 MCG Oral Tablet Take by mouth. Active Multi Vitamin Oral Tablet Take by mouth. Active sulfaSALAzine 500 MG Oral Tablet (Azulfidine) Take 1 Tablet by mouth in the morning. 12/27/2023 Active Osimertinib Mesylate 80 MG Oral Tablet (Tagrisso)Indication s:NSCLC with EGFR mutation (HCC) Take 1 Tablet by mouth in the morning. Take medication about same time every day, with or without food.. 30 Tablet 5 03/04/2024 Active Omeprazole 20 MG Oral Capsule Delayed Release (PriLOSEC)Indication s: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),Metastasis to mediastinal lymph node (HCC) Take 1 Capsule by mouth in the morning. 30 Capsule 3 03/06/2024 Active Hospital, Clinic, or Other Facility Administered Medication [...] as of this encounter (statuses as of 03/17/2024) Active Problems Problem Noted Date Diagnosed Date [...] as of this encounter (statuses as of 03/17/2024) Resolved Problems Problem Noted Date Diagnosed Date [...] as of this encounter (statuses as of 03/17/2024) Immunizations Name Administration Dates Next Due COVID-19 mRNA, LNP-s, No Pre serve, 2-Dose Series (Pfizer) 08/30/2021,01/11/2021,12/21/2020 Pneumococcal Conjugate Vacc, 13 Valent (Prevnar) 02/28/2016 Pneumococcal Polysaccharide PPV23 (Pneumovax) 08/27/2013 Season Influenza, Quad, PF, Adjuvanted, 65+ Yrs, IM (FLUAD) 08/12/2020 Seasonal Influenza, PF, 6 M & above, IM , (FluLaval or Fluzone) 10/01/2018,09/28/2017 Seasonal Influenza, Quadriva lent Hd (Fluzone Hd) 07/24/2023,07/17/2022,08/10/2021 Seasonal Influenza, Quadriva lent, No Preserve, IM 09/18/2016,08/10/2015 Seasonal Influenza, Split, I IV3, With Preserve, Inj 08/27/2014,08/27/2013,08/29/2012,08/02,09/21/2010,09/30/2009,08/18/2008 ,08/15/2007,09/08/2006 Seasonal Influenza, Trivalen t, Adjuvanted, 65+ yrs 08/13/2019 TDAP (age 10 and older)(Boostrix) 08/30/2015 Varicella Zoster Vaccine (Adult) 08/29/2013 Zoster Vaccine Recombinant (Shingrix) 04/08/2020 ,12/07/2019 documented as of this encounter Social History Tobacco Use Types Packs/Day Years Used Date Smoking Tobacco: Never Smokeless Tobacco: Never Alcohol Use Standard Drinks/Week Comments No 0 [...] on file documented as of this encounter Functional Status Functional Status Response [...] No 07/06/2023 documented as of this encounter Progress Notes * Jack Hernandez MD - 03/17/2024 12:31 PM EDT Ioana Tan [id number] Ioana Tan is a 78 year old female ho presents for consultation to for a right foot injury/pain. Consult requested by MAGALI Carlton. Ioana Tan is here unaccompanied Quality: reviewed and agree with Nursing Notes for HPI elements History: History - NEW Pt -R foot and ankle -Xrays 03/13/24 ankle and foot -Pt denies pain today -Pt stated little swelling and bruising is fading -Pt accompanied by her today -DOI: 03/13/24 Pt fell inside the home -Pt was treated and released from [facility] same day of DOI ROS: ROS per HPI otherwise non-contributory Past Medical History: Diagnosis Date Achilles tendinitis [...] Other pulmonary embolism without acute cor pulmonale ([facility]) 07/08/2023 Other specified acquired hypothyroidism Other specified disorders of rotator cuff syndrome of shoulder and allied disorders 08/16/2011 Periodic limb movement disorder 08/29/2012 Plantar fibromatosis 04/22/2002 Primary malignant neoplasm of right lower lobe of lung ([facility]) 04/13/2023 Sarcoidosis Slow transit constipation 02/25/2013 Urge incontinence No family history on file. 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 Tobacco Use Smoking status: Never Smokeless tobacco: Never Vaping Use Vaping status: Never Used Substance and Sexual Activity Alcohol use: No [...] on file Housing Stability: Not on file Physical Exam Constitutional: generally well-nourished and in no acute distress Psychiatric: Mood and Affect normal Eyes: EOMI Respiratory: normal respiratory effort with regular rate and rhythm Limited right foot evaluation no rotation of the fracture little toe mild swelling Radiology: 03/13/2024: Three-view x-ray of the right foot FINDINGS Subacute minimally displaced fracture at the base of the 5th toe proximal phalanx. Tibiotalar jointintact. No dislocation. 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 Moderate sized plantar and Achilles enthesophytes. IMPRESSION IMPRESSION Minimally displaced fracture at the base of the 5th toe proximal phalanx Assessment/plan Right foot small toe injury Minimally displaced fracture at the base of the 5th toe proximal phalanx DOI: 03/13/24 (4 days ago) Continues stiff-soled shoes and mike taping if needed, advance activities as needed Follow-up in 4-5 weeks, will cancel if doing well Jack Hernandez MD Primary Care Sports Medicine Orthopaedics [facility] [address] [facility] [address] documented in this encounter Nursing Notes * Carolina Lyon LPN - 03/17/2024 12:26 PM EDT -NEW Pt -R foot and ankle -Xrays 03/13/24 ankle and foot -Pt denies pain today -Pt stated little swelling and bruising is fading -Pt accompanied by her today -DOI: 03/13/24 Pt fell inside the home -Pt was treated and released from [facility] same day of DOI. Clare Taveras LPN documented in this encounter Plan of Treatment Upcoming Encounters Date Type Department Care Team (Late st Contact Info) Description 04/04/2024 9:45 AM EDT Pharmacy Pharmacy Hematology Oncology [facility] [address] [place] [address] [facility] Hem/Onc [address] [place] [address] 04/10/2024 1:40 PM EDT Office Visit NephNicole hector [address] [place] [address] Mirna Dyson MD 200 [facility] [place] [address] 04/17/2024 1:15 PM EDT Office Visit Orthopaedics [address] [place] [phone] Jack Hernandez MD [address] [place] [address] 05/08/2024 11:00 AM EDT Nurse Only Ancillary [address] [place] [address] [place], Nurse [address] [place] [address] 05/14/2024 1:15 PM EDT Office Visit Hematology/Oncology [facility] [address] [place] [phone] Hadley Verdugo MD [address] [place] [address] 05/22/2024 11:00 AM EDT Office Visit Audiology [facility] 132 [facility] [place] [address] Ayana Grajeda Au.D. 132 [facility] [place] [address] 07/21/2024 2:30 PM EDT Office Visit [facility] [address] [place] [address] Boo Wylie MD [address] [place] [address] 08/08/2024 10:30 AM EDT Imaging Radiology [address] 132 [facility] [place] [address] 09/26/2024 10:30 AM EST Office Visit Family Medicine [address] [place] [phone] Sravanthi Bloom, [address] [place] [address] 11/24/2024 1:20 PM EST Office Visit Otolaryngology [facility] [address] [place] [address] Nabil Fernandes PA-C [address] [place] [address] Scheduled Procedures Name Priority Associated Diagnoses Date/Ti me COLONOSCOPY FLEXIBLE PROXIMA L DIAGNOSTIC Recall Encounter for screening colonoscopy Scheduled Referrals Name Type Priority Associated Diagnoses Order Schedule ORTHOPAEDICS REFERRAL OP Referral Within 3 days (urgent) Closed displaced fracture of proximal phalanx of lesser toe of right foot, initial encounter Ordered: 03/14/2024 Health Maintenance Due Date Last Done Comments COVID-19 Vaccine ( season) 2023 08/30/2021, 01/11/2021, 12/21/2020 Depression Screening 05/06/2024 05/06/2023 GFR 08/31/2024 02/29/2024, 01/27, 11/14/2023, Additional history exists TSH 02/14/2025 02/15/2024, 05/30, 03/22/2023, Additional history exists Albumin/Creatinine Ratio 02/28/2025 02/29/2024, 06/30 CKD HGB USE SMARTSET 13403 02/28/202502/28, 02/29/2024, 02/15/2024, Additional history exists CKD PHOS USE SMARTSET 18817 02/28/202512/2023, 07/09/2023, 07/08/2023, Additional history exists DTaP,Tdap,and [...] this encounter Medical Devices Implanted Type Area Front Desk Team Member Device Identifier Shelf Expiration Date Model / Serial / Lot Lens Intraoc 22.0 - [id number] - [id number] Implanted:Qty: 1 on 06/26/2019 by London Ocampo MD at OR [facility] Left: Eye [employer]CH [employer] LOMB 01/27/2024 [id number] / [id number] / [id number] Lens Intraoc 21.5 - [id number] - [id number] Implanted:Qty: 1 on 07/15/2019 by London Ocampo MD at OR [facility] Right: Eye BAUSCH & LOMB 03/28/2024 [id number] / [id number] / [id number] documented as of this encounter Visit Diagnoses Diagnosis Foot injury, right, initial encounter- Primary documented in this encounter Advance Directives * Full Code (Latest Code Status on File) Date Activated Date Inactivated Comments 07/06/2023 1:46 PM 07/10/2023 8:23 PM This order re flects the patients wishes and were consensually agreed upon. Question Answer Comments Discussion of Advance Directives occurred with: Patient Care Teams Performing Arts Technicians Relationship Specialty Start Date End Date Sravanthi Bloom DO [address] [place] [address] [place] [address] PCP - General Internal Medicine 06/18/17 documented as of this encounter
--- OUTSIDE RECORDS SUMMARY | 2024-04-04 20:27 | External Medical Summary | Summary of Care ---
Author Name Unknown Organization [facility] Address [address] [place] [address] Phone [phone] Care Team Providers Care Chute Loader Name Role Phone Sravanthi Bloom DO Primary Care Provider Encounter Details Date Type Department Care Team (Late st Contact Info) Description 03/14/2024 Patient Reported Data Patient Survey Ortho [facility] Allergies Active Allergy Reactions Criticality Noted Date Comments Food (See Comments) 04/18/2021 honey Latex 04/18/2021 rash documented as of this encounter (statuses as of 03/14/2024) Medications Medication Sig Dispensed Refills Start Date End Date Status nystatin-triamcinolo ne (MYCOLOG) 561164-3.1 UNIT/GM-% creamIndications:Cut aneous candidiasis Apply topically to affected area 2 times a day. To affacted area for two weeks. 30 g 1 04/04/2019 Active Apixaban 5 MG Oral Tablet (Eliquis) Take 1 Tablet by mouth in the morning and 1 Tablet before bedtime. 0 08/22/2023 Active Potassium Chloride ER 10 MEQ [...] 50 MCG Oral Tablet Take by mouth. 0 Active Multi Vitamin Oral Tablet Take by mouth. 0 Active sulfaSALAzine 500 MG Oral Tablet (Azulfidine) Take 1 Tablet by mouth in the morning. 0 12/27/2023 Active Osimertinib Mesylate 80 MG Oral [...] as of this encounter (statuses as of 03/14/2024) Active Problems Problem Noted Date Diagnosed Date [...] as of this encounter (statuses as of 03/14/2024) Resolved Problems Problem Noted Date Diagnosed Date [...] as of this encounter (statuses as of 03/14/2024) Immunizations Name Administration Dates Next Due COVID-19 mRNA, LNP-s, No Pre serve, 2-Dose Series (Testt) 08/30/2021,01/11/2021,12/21/2020 Pneumococcal Conjugate Vacc, 13 Valent (Prevnar) [...] No 07/06/2023 documented as of this encounter Plan of Treatment Upcoming Encounters Date Type Department Care Team (Late st Contact Info) Description 03/17/2024 12:30 PM EDT Office Visit Orthopaedics [facility] [address] [place] [address] [address] Jack Hernandez MD [address] [place] [address] 04/04/2024 9:45 AM EDT Pharmacy Pharmacy Hematology Oncology [facility] [address] [place] [address] [facility] Hem/Onc [address] [place] [address] 04/10/2024 1:40 PM EDT Office Visit Nephrology, Nicole Polanco 200 [facility] [place] [address] Mirna Dyson MD 200 [facility] [place] [address] 05/08/2024 11:00 AM EDT Nurse Only Ancillary [address] [place] [address] [place], Nurse [address] [place] [address] 05/14/2024 1:15 PM EDT Office Visit Hematology/Oncology [place] [address] [place] [address] [place] [phone] Hadley Verdugo MD [address] [place] [address] 05/22/2024 11:00 AM EDT Office Visit Audiology [facility] [address] [place] [address] Ayana Grajeda Au.D. [address] [place] [address] 07/21/2024 2:30 PM EDT Office Visit [facility] [address] [place] [address] Boo Wylie MD [address] [place] [address] 08/08/2024 10:30 AM EDT Imaging Radiology [address] [facility] [place] [address] 09/26/2024 10:30 AM EST Office Visit Family Medicine [address] [place] [phone] Sravanthi Bloom[address] [place] [address] 11/24/2024 1:20 PM EST Office Visit Otolaryngology [facility] 132 [facility] [place] [address] Nabil Fernandes PA-C 132 [facility] [place] [address] Scheduled Procedures Name Priority Associated Diagnoses Date/Ti me COLONOSCOPY FLEXIBLE PROXIMA L DIAGNOSTIC Recall Encounter for screening colonoscopy Health Maintenance Due Date Last Done Comments COVID-19 Vaccine ( season) 2023 08/30/2021, 01/11/2021, 12/21/2020 Depression Screening 05/06/2024 05/06/2023 GFR 08/31/2024 02/29/2024, 01/27, 11/14/2023, Additional history exists TSH 02/14/2025 02/15/2024, 05/30, 03/22/2023, Additional history exists Albumin/Creatinine Ratio 02/28/2025 02/29/2024, 06/30 CKD HGB USE SMARTSET 60395 02/28/202502/28, 02/29/2024, 02/15/2024, Additional history exists CKD PHOS USE SMARTSET 27984 02/28/202512/2023, 07/09/2023, 07/08/2023, Additional history exists DTaP,Tdap,and [...] this encounter Medical Devices Implanted Type Area Video Game Engineer Device Identifier Shelf Expiration Date Model / Serial / Lot Lens Intraoc 22.0 - [id number] - [id number] Implanted:Qty: 1 on 06/26/2019 by London Ocampo MD at OR [facility] Left: Eye BAUSCH [employer] LOMB 01/27/2024 [id number] / [id number] / [id number] Lens Intraoc 21.5 - [id number] - [id number] Implanted:Qty: 1 on 07/15/2019 by London Ocampo MD at OR [facility] Right: Eye BAUSCH & LOMB 03/28/2024 [id number] / [id number] / [id number] documented as of this encounter Advance Directives Latest Code Status on File Code Status Date Activated Date Inactivated Comments Full Code 07/06/2023 1:46 PM 07/10/2023 8:23 PM This o rder reflects the patients wishes and were consensually agreed upon. Question Answer Comments Discussion of Advance Directives occurred with: Patient Care Teams Chute Loader Relationship Specialty Start Date End Date Sravanthi Bloom DO [address] [place] [address] [place] [address] PCP - General Internal Medicine 06/18/17 documented as of this encounter
--- OUTSIDE RECORDS SUMMARY | 2024-04-04 20:27 | External Medical Summary | Summary of Care ---
Author Name Unknown Organization [facility] Address [address] [place] [address] Phone [phone] Care Team Providers Care Head Sampler Name Role Phone Sravanthi Bloom DO Primary Care Provider Encounter Details Date Type Department Care Team (Late st Contact Info) Description 03/16/2024 Patient Reported Data Patient Survey Ortho [facility] Allergies Active Allergy Reactions Criticality Noted Date Comments Food (See Comments) 04/18/2021 honey Latex 04/18/2021 rash documented as of this encounter (statuses as of 03/16/2024) Medications Medication Sig Dispensed Refills Start Date End Date Status nystatin-triamcinolo ne (MYCOLOG) 893920-6.1 UNIT/GM-% creamIndications:Cut aneous candidiasis Apply topically to [...] as of this encounter (statuses as of 03/16/2024) Active Problems Problem Noted Date Diagnosed Date [...] as of this encounter (statuses as of 03/16/2024) Resolved Problems Problem Noted Date Diagnosed Date [...] as of this encounter (statuses as of 03/16/2024) Immunizations Name Administration Dates Next Due COVID-19 mRNA, LNP-s, No Pre serve, 2-Dose Series (Mitralign) 08/30/2021,01/11/2021,12/21/2020 Pneumococcal Conjugate Vacc, 13 Valent (Prevnar) [...] 03/17/2024 12:30 PM EDT Office Visit Orthopaedics [facility] [address] [place] [address] Jack Hernandez MD [address] [place] [address] 04/04/2024 9:45 AM EDT Pharmacy Pharmacy Hematology Oncology [facility] [address] [place] [address] [facility], [facility] Hem/Onc [address] [place] [address] 04/10/2024 1:40 PM EDT Office Visit Nephrology, Nicole Polanco 200 [facility] [place] [address] Mirna Dyson MD 200 [facility] [place] [address] 05/08/2024 11:00 AM EDT Nurse Only Ancillary [address] [place] [address] [place], Nurse [address] [place] [address] 05/14/2024 1:15 PM EDT Office Visit Hematology/Oncology Nicole Polanco [place] [address] [place] [phone] Hadley Verdugo MD [address] [place] [address] 05/22/2024 11:00 AM EDT Office Visit Audiology [facility] [address] [place] [address] Ayana Grajeda Au.D. [address] [place] [address] 07/21/2024 2:30 PM EDT Office Visit Thoracic Surg [facility] [address] [place] [address] Boo Wylie MD [address] [place] [address] 08/08/2024 10:30 AM EDT Imaging Radiology [address] [place] [address] 09/26/2024 10:30 AM EST Office Visit Family Medicine [address] [place] [phone] [address] [place] [address] 11/24/2024 1:20 PM EST Office Visit Otolaryngology [facility] [address] [place] [address] Nabil Fernandes PA-C [address] [place] [address] Scheduled Procedures Name Priority Associated Diagnoses Date/Ti me COLONOSCOPY FLEXIBLE PROXIMA L DIAGNOSTIC Recall Encounter for screening colonoscopy Health Maintenance Due Date Last Done Comments COVID-19 Vaccine ( season) 2023 08/30/2021, 01/11/2021, 12/21/2020 Depression Screening 05/06/2024 05/06/2023 GFR 08/31/2024 02/29/2024, 01/27, 11/14/2023, Additional history exists TSH 02/14/2025 02/15/2024, 05/30, 03/22/2023, Additional history exists Albumin/Creatinine Ratio 02/28/2025 02/29/2024, 06/30 CKD HGB USE SMARTSET 62584 02/28/202502/28, 02/29/2024, 02/15/2024, Additional history exists CKD PHOS USE SMARTSET 87913 02/28/20250 12/2023, 07/09/2023, 07/08/2023, Additional history exists DTaP,Tdap,and Td [...] this encounter Medical Devices Implanted Type Area Reexaminer Device Identifier Shelf Expiration Date Model / Serial / Lot Lens Intraoc 22.0 - [id number] - [id number] Implanted:Qty: 1 on 06/26/2019 by London Ocampo MD at OR [facility] Left: Eye BAUSCH & LOMB 01/27/2024 [id number] / [id number] / [id number] Lens Intraoc 21.5 - [id number] - [id number] Implanted:Qty: 1 on 07/15/2019 by London Ocampo MD at OR [facility] Right: Eye BAUSCH & LOMB 03/28/2024 [id number] / [id number] / [id number] documented as of this encounter Advance Directives * Full Code (Latest Code Status on File) Date Activated Date Inactivated Comments 07/06/2023 1:46 PM 07/10/2023 8:23 PM This order re flects the patients wishes and were consensually agreed upon. Question Answer Comments Discussion of Advance Directives occurred with: Patient Care Teams Head Sampler Relationship Specialty Start Date End Date Sravanthi Bloom DO [address] [place] [address] [place] [address] PCP - General Internal Medicine 06/18/17 documented as of this encounter
--- OUTSIDE RECORDS SUMMARY | 2024-04-04 20:27 | External Medical Summary | Summary of Care ---
Author Name Unknown Organization [facility] Address [address] [place] [address] Phone [phone] Care Team Providers Care Secret Service Agent Name Role Phone Sravanthi Bloom DO Primary [...] Date End Date Status nystatin-triamcinolo ne (MYCOLOG) 424654-1.1 UNIT/GM-% creamIndications:Cut aneous candidiasis Apply topically to [...] mRNA, LNP-s, No Pre serve, 2-Dose Series (Procyrion) 08/30/2021,01/11/2021,12/21/2020 Pneumococcal Conjugate Vacc, 13 Valent (Prevnar) [...] 03/17/2024 12:30 PM EDT Office Visit Orthopaedics [facility] [address] [place] [address] Jack Hernandez MD 132 [place] [address] 04/04/2024 9:45 AM EDT Pharmacy Pharmacy Hematology Oncology [facility] [address] [place] [address] [facility], [facility] Hem/Onc [address] [place] [address] 04/10/2024 1:40 PM EDT Office Visit Nephrology, Nicole Polanco 200 [facility] [place] [address] Mirna Dyson MD 200 [facility] [place] [address] 05/08/2024 11:00 AM EDT Nurse Only Ancillary [address] [place] [address] [place], Nurse [address] [place] [address] 05/14/2024 1:15 PM EDT Office Visit Hematology/Oncology Nicole Polanco [place] [address] [place] [phone] Hadley Verdugo MD [address] [place] [address] 05/22/2024 11:00 AM EDT Office Visit Audiology [facility] [address] [place] [address] Ayana Grajeda Au.D. 132 [place] [address] 07/21/2024 2:30 PM EDT Office Visit [facility] [address] [place] [address] Boo Wylie MD [address] [place] [address] 08/08/2024 10:30 AM EDT Imaging Radiology [address] [facility] [place] [address] 09/26/2024 10:30 AM EST Office Visit Family Medicine [address] [place] [phone] Sravanthi Bloom[address] [place] [address] 11/24/2024 1:20 PM EST Office Visit Otolaryngology [facility] 132 [facility] [place] [address] Nabil Fernandes PA-C 132 [facility] [place] [address] Scheduled Procedures Name Priority Associated Diagnoses Date/Ti me COLONOSCOPY FLEXIBLE PROXIMA L DIAGNOSTIC Recall Encounter for screening colonoscopy Health Maintenance Due Date Last Done Comments COVID-19 Vaccine ( season) 2023 08/30/2021, 01/11/2021, 12/21/2020 Depression Screening 05/06/2024 05/06/2023 GFR 08/31/2024 02/29/2024, 01/27, 11/14/2023, Additional history exists TSH 02/14/2025 02/15/2024, 05/30, 03/22/2023, Additional history exists Albumin/Creatinine Ratio 02/28/2025 02/29/2024, 06/30 CKD HGB USE SMARTSET 47874 02/28/202502/28, 02/29/2024, 02/15/2024, Additional history exists CKD PHOS USE SMARTSET 04344 02/28/202512/2023, 07/09/2023, 07/08/2023, Additional history exists DTaP,Tdap,and [...] this encounter Medical Devices Implanted Type Area Fuel Cell Binder Device Identifier Shelf Expiration Date Model / Serial / Lot Lens Intraoc 22.0 - [id number] - [id number] Implanted:Qty: 1 on 06/26/2019 by London Ocampo MD at OR [facility] Left: Eye BAUSCH & LOMB 01/27/2024 [id number] / [id number] Lens Intraoc 21.5 - [id number] - [id number] Implanted:Qty: 1 on 07/15/2019 by London Ocampo MD at OR [facility] Right: Eye BAUSCH & LOMB 03/28/2024 [id number] / [id number] / [id number] documented as of this encounter Advance Directives Latest Code Status on File Code Status Date Activated Date Inactivated Comments Full Code 07/06/2023 1:46 PM 07/10/2023 8:23 PM This o rder reflects the patients wishes and were consensually agreed upon. Question Answer Comments Discussion of Advance Directives occurred with: Patient Care Teams Secret Service Agent Relationship Specialty Start Date End Date Sravanthi Bloom DO [address] [place] [address] [place] [address] PCP - General Internal Medicine 06/18/17 documented as of this encounter
--- OUTSIDE RECORDS SUMMARY | 2024-04-04 20:28 | External Medical Summary | Summary of Care ---
Author Name Unknown Organization [facility] Address [address] [place] [address] Phone [phone] Care Team Providers Care Adjuster Piano Action Name Role Phone Sravanthi Bloom DO Primary [...] Date End Date Status nystatin-triamcinolo ne (MYCOLOG) 551984-1.1 UNIT/GM-% creamIndications:Cut aneous candidiasis Apply topically to [...] mRNA, LNP-s, No Pre serve, 2-Dose Series (FRS) 08/30/2021,01/11/2021,12/21/2020 Pneumococcal Conjugate Vacc, 13 Valent (Prevnar) [...] 03/17/2024 12:30 PM EDT Office Visit Orthopaedics [facility] [address] [place] [address] Jack Hernandez MD [address] [place] [address] 04/04/2024 9:45 AM EDT Pharmacy Pharmacy Hematology Oncology [facility] [address] [place] [address] [facility], [facility] Hem/Onc [address] [place] [address] 04/10/2024 1:40 PM EDT Office Visit Nephrology, Nicole Polanco 200 [facility] [place] [address] Mirna Dyson MD 200 [facility] [place] [address] 05/08/2024 11:00 AM EDT Nurse Only Ancillary [address] [place] [address] [place], Nurse [address] [place] [address] 05/14/2024 1:15 PM EDT Office Visit Hematology/Oncology Nicole Polanco [place] [address] [place] [phone] Hadley Verdugo MD [address] [place] [address] 05/22/2024 11:00 AM EDT Office Visit Audiology [facility] [address] [place] [address] Ayana Grajeda Au.D. 132 [place] [address] 07/21/2024 2:30 PM EDT Office Visit Thoracic Surg [facility] [address] [place] [address] Boo Wylie MD [address] [place] [address] 08/08/2024 10:30 AM EDT Imaging Radiology [address] [facility] [place] [address] 09/26/2024 10:30 AM EST Office Visit Family Medicine [address] [place] [phone] Sravanthi Bloom[address] [place] [address] 11/24/2024 1:20 PM EST Office Visit Otolaryngology [facility] 132 [facility] [place] [address] Nabil Fernandes PA-C 132 [facility] [place] [address] Scheduled Procedures Name Priority Associated Diagnoses Date/Ti me COLONOSCOPY FLEXIBLE PROXIMA L DIAGNOSTIC Recall Encounter for screening colonoscopy Health Maintenance Due Date Last Done Comments COVID-19 Vaccine ( season) 2023 08/30/2021, 01/11/2021, 12/21/2020 Depression Screening 05/06/2024 05/06/2023 GFR 08/31/2024 02/29/2024, 01/27, 11/14/2023, Additional history exists TSH 02/14/2025 02/15/2024, 05/30, 03/22/2023, Additional history exists Albumin/Creatinine Ratio 02/28/2025 02/29/2024, 06/30 CKD HGB USE SMARTSET 95071 02/28/202502/28, 02/29/2024, 02/15/2024, Additional history exists CKD PHOS USE SMARTSET 13387 02/28/202512/2023, 07/09/2023, 07/08/2023, Additional history exists DTaP,Tdap,and [...] this encounter Medical Devices Implanted Type Area Heat Sealing Machine Operator Device Identifier Shelf Expiration Date Model / Serial / Lot Lens Intraoc 22.0 - [id number] - [id number] Implanted:Qty: 1 on 06/26/2019 by London Ocampo MD at OR [facility] Left: Eye BAUSCH & LOMB 01/27/2024 [id number] / [id number] / [id number] Lens Intraoc 21.5 - [id number] - [id number] Implanted:Qty: 1 on 07/15/2019 by London Ocampo MD at OR [facility] Right: Eye BAUSCH & LOMB 03/28/2024 [id number] / [id number] / [id number] documented as of this encounter Advance Directives Latest Code Status on File Code Status Date Activated Date Inactivated Comments Full Code 07/06/2023 1:46 PM 07/10/2023 8:23 PM This o rder reflects the patients wishes and were consensually agreed upon. Question Answer Comments Discussion of Advance Directives occurred with: Patient Care Teams Adjuster Piano Action Relationship Specialty Start Date End Date Sravanthi Bloom DO [address] [place] [address] [place] [address] PCP - General Internal Medicine 06/18/17 documented as of this encounter
--- OUTSIDE RECORDS SUMMARY | 2024-04-04 20:28 | External Medical Summary | Summary of Care ---
Author Name Unknown Organization [facility] Address [address] [facility] [address] Phone [phone] Care Team Providers Care Sampler And Test Preparer Name Role Phone Sravanthi Bloom DO Primary Care Provider Reason for Visit * Reason Comments eRx-Medication Refill Encounter Details Date Type Department Care Team (Late st Contact Info) Description 03/06/2024 Refill Hematology/Oncology [facility] [address] [place] [phone] Jackelyn Parisi MD 200 [facility] 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 (5 years old or older) No 07/06/2023 documented as of this encounter Miscellaneous Notes * Telephone Encounter - Denise Verdugo MD - 03/06/2024 5:02 PM EDTSigned Prescriptions: Disp Refills Omeprazole 20 MG Oral Capsule Delayed Rele*30 Cap*3 Sig: Take 1 Capsule by mouth in the morning. Authorizing Provider: DENISE VERDUGO * Telephone Encounter - Denise Verdugo MD - 03/06/2024 5:02 PM EDT E-prescribed Denise Verdugo MD Hem/Onc * Telephone Encounter - Eb Lacy RN - 03/06/2024 2:16 PM EDTPending Prescriptions: Disp Refills Omeprazole 20 MG Oral Capsule Delayed Rele*30 Cap*0 Sig: Take 1 Capsule by mouth in the morning. * Telephone Encounter - Eb Lacy RN - 03/06/2024 2:14 PM EDT CYRIL 11/14/23, currently on active tx with Tagrisso. documented in this encounter Plan of Treatment Upcoming Encounters Date Type Department Care Team (Late st Contact Info) Description 03/11/2024 11:00 AM EDT Nurse Only Nephrology [address] [place] [address] [place], Nurse Nephrology [address] [place] [address] 04/04/2024 9:45 AM EDT Pharmacy Pharmacy Hematology Oncology [address] [address] [facility], [facility] Hem/Onc [facility] [address] 04/10/2024 1:40 PM EDT Office Visit Nephrology, Nicole Slemp 200 [facility] [place] [address] Mirna Dyson MD 200 [facility] [place] [address] 05/08/2024 11:00 AM EDT Nurse Only Ancillary [address] [place] [address] Nurse Ayesha [address] [place] [address] 05/14/2024 1:15 PM EDT Office Visit Hematology/Oncology [facility] [place] [address] [place] [phone] Denise Verdugo MD [address] [place] [address] 05/22/2024 11:00 AM EDT Office Visit Audiology [facility] [address] [place] [address] Ayana Grajeda Au.D. 132 [place] [address] 07/21/2024 2:30 PM EDT Office Visit [facility] [address] [place] [address] Boo Wylie MD [address] [place] [address] 08/08/2024 10:30 AM EDT Imaging Radiology [facility] [address] [place] [address] 09/26/2024 10:30 AM EST Office Visit Family Medicine [address] [phone] Sravant[address] [place] [address] 11/24/2024 1:20 PM EST Office Visit Otolaryngology [facility] 132 [place] [address] Nabil Fernandes PA-C [address] [place] [place] [address] Scheduled Procedures Name Priority Associated Diagnoses Date/Ti me COLONOSCOPY FLEXIBLE PROXIMA L DIAGNOSTIC Recall Encounter for screening colonoscopy Health Maintenance Due Date Last Done Comments COVID-19 Vaccine ( season) 2023 08/30/2021, 01/11/2021, 12/21/2020 Depression Screening 05/06/2024 05/06/2023 TSH 02/14/2025 02/15/2024, 05/30, 03/22/2023, Additional history exists GFR 02/28/2025 02/29/2024, 01/27, 11/14/2023, Additional history exists DTaP,Tdap,and Td Vaccines (2 - Td or Tdap) 08/30/2025 08/30/2015, 09/02/2003, 09/02/2003 Albumin/Creatinine Ratio 02/28/2027 02/29/2024, 06/30 DXA Scan 07/13/2027 07/13/2020, 04/29, 05/05/2008, Additional [...] this encounter Medical Devices Implanted Type Area Care Advocate Device Identifier Shelf Expiration Date Model / Serial / Lot Lens Intraoc 22.0 - [id number] - [id number] Implanted:Qty: 1 on 06/26/2019 by London Ocampo MD at OR [facility] Left: Eye BAUSCH & LOMB 01/27/2024 [id number] / [id number] / [id number] Lens Intraoc 21.5 - [id number] - [id number] Implanted:Qty: 1 on 07/15/2019 by London Ocampo MD at OR [facility] Right: Eye BAUSCH & LOMB 03/28/2024 [id number] / [id number] / [id number] documented as of this encounter Visit Diagnoses Diagnosis 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) Malignant neoplasm of lower lobe, bronchus, or lung 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 Question Answer Comments Discussion of Advance Directives occurred with: Patient Care Teams Sampler And Test Preparer Relationship Specialty Start Date End Date Sravanthi Bloom DO [address] [place] [address] [place] [address] PCP - General Internal Medicine 06/18/17 documented as of this encounter
--- OUTSIDE RECORDS SUMMARY | 2024-04-04 20:28 | External Medical Summary | Summary of Care ---
Author Name Unknown Organization [facility] Address [address] [facility] [address] Phone [phone] Care Team Providers Care Supervising Editor Trailer Name Role Phone Sravanthi Bloom DO Primary Care Provider Reason for Visit * Reason Comments Medication Refill Encounter Details Date Type Department Care Team (Late st Contact Info) Description 03/04/2024 Refill Hematology/Oncology [facility] 200 [place] [phone] Denise Verdugo MD 200 [facility] [place] [address] NSCLC with EGFR mutation (HCC) Allergies Active Allergy Reactions Criticality Noted Date Comments Food (See Comments) 04/18/2021 honey Latex 04/18/2021 rash documented as of this encounter (statuses as of 03/04/2024) Medications Medication Sig Dispensed Refills Start Date End Date Status nystatin-triamcino lone (MYCOLOG) 289145-9.1 UNIT/GM-% creamIndications:C utaneous candidiasis Apply topically to affected area 2 [...] 5 08/29/2023 Active Hydrocortisone 1 % External CreamIndications:N SCLC with EGFR mutation (HCC) Apply topically to affected area 2 times a day. Apply twice daily for 6 weeks 120 g 1 09/06/2023 Active Levothyroxine Sodium 137 MCG Oral Tablet Take 1 Tablet by mouth in the morning. (at least 30 min prior to breakfast or other meds). 90 Tablet 2 11/07/2023 Active amLODIPine Besylate 5 MG Oral Tablet (Norvasc)Indicatio ns:Essential hypertension with goal blood pressure less than 140/90 Take 1 Tablet by mouth in the morning. 30 Tablet 5 12/03/2023 Active Rosuvastatin Calcium 10 MG Oral Tablet (Crestor) Take 1 Tablet by mouth in the morning. 90 Tablet 1 02/01/2024 Active Omeprazole 20 MG Oral Capsule Delayed Release (PriLOSEC)Indicati ons: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),Metastasis to mediastinal lymph node (HCC) Take 1 Capsule by mouth in the morning. 30 Capsule 0 02/11/2024 Active B-12 50 MCG Oral Tablet Take by mouth. 0 Active Multi Vitamin Oral Tablet Take by mouth. 0 Active sulfaSALAzine 500 MG Oral Tablet (Azulfidine) Take 1 Tablet by mouth in the morning. 0 12/27/2023 Active Osimertinib Mesylate 80 MG Oral Tablet (Tagrisso)Indicati ons:NSCLC with EGFR mutation (HCC) Take 1 Tablet by mouth in the morning. Take medication about same time every day, with or without food.. 30 Tablet 5 03/04/2024 Active Osimertinib Mesylate 80 MG Oral Tablet (Tagrisso)Indicati ons:NSCLC with EGFR mutation (HCC) Take 1 Tablet by mouth in the morning. Take medication about same time every day, with or without food.. 30 Tablet 5 09/06/2023 4 Discontinue d(Refill) Hospital, Clinic, or Other Facility Administered Medication Ordered Dose Route Frequency Start Date End Date Status Albuterol Sulfate (Proventil) (2.5 MG/3ML) 0.083% inhalation solution 2.5 mgIndications:Malignant neoplasm of lower lobe of right lung (HCC) 2.5 mg NEBULIZER PRN 05/15/2023 05/14/2024 Activ e albuterol (VENTOLIN HFA/PROVENTIL HFA) inhalerIndications:Funmilayo gnyanick neoplasm of lower lobe of right lung (HCC) 3 Puff IN PRN 05/15/2023 05/14/2024 Active documented as of this encounter (statuses as of 03/04/2024) Active Problems Problem Noted Date Diagnosed Date [...] as of this encounter (statuses as of 03/04/2024) Resolved Problems Problem Noted Date Diagnosed Date Resolved Date Dehydration 08/17/2023 02/15/2024 Obesity, Class I, BMI 30.0-3 4.9 (see actual BMI) 04/04/2019 06/04/2020 Cardiovascular event risk 03/06/2016 Overview: 9.4% as of 5/9/16 Osteoarthritis, knee 09/26/2012 017 Periodic limb movement [...] as of this encounter (statuses as of 03/04/2024) Immunizations Name Administration Dates Next Due COVID-19 mRNA, LNP-s, No Pre serve, 2-Dose Series (InstantQuest) 08/30/2021,01/11/2021,12/21/2020 Pneumococcal Conjugate Vacc, 13 Valent (Prevnar) [...] Telephone Encounter - Denise Verdugo MD - 03/04/2024 11:53 AM EDT E-prescribed osimertinib. * Telephone Encounter - Denise Verdugo MD - 03/04/2024 11:53 AM EDTSigned Prescriptions: Disp Refills Osimertinib Mesylate 80 MG Oral Tablet (Ta*30 Tab*5 Sig: Take 1 Tablet by mouth in the morning. Take medication about same time every day, with or without food.. Authorizing Provider: DENISE VERDUGO documented in this encounter Plan of Treatment Upcoming Encounters Date Type Department Care Team (Late st Contact Info) Description 03/13/2024 11:00 AM EDT Nurse Only Nephrology Jordin Hartley[address] [place] [address] [place], Nurse Nephrology [address] [place] [address] 04/04/2024 9:45 AM EDT Pharmacy Pharmacy Hematology Oncology [place] [address] [place] [address] [facility], [facility] Hem/Onc [address] [place] [address] 04/10/2024 1:40 PM EDT Office Visit Nephrology, [facility] [address] [place] [address] Mirna Dyson MD [address] [place] [address] 05/08/2024 11:00 AM EDT Nurse Only Ancillary [address] [place] [address] [place], Nurse [address] [place] [address] 05/14/2024 1:15 PM EDT Office Visit Hematology/Oncology [facility] [address] [place] [phone] Denise Verdugo MD [address] [place] [address] 05/22/2024 11:00 AM EDT Office Visit Audiology [facility] 132 [facility] [place] [address] Ayana Grajeda AuMaia 132 [facility] [address] 07/21/2024 2:30 PM EDT Office Visit Thoracic Surg [facility] [place] [address] [place] [address] Boo Wylie MD [address] [place] [address] 08/08/2024 10:30 AM EDT Imaging Radiology [address] 132 [facility] [place] [address] 09/26/2024 10:30 AM EST Office Visit Family Medicine [address] [place] [phone] Sravanthi Bloom[address] [place] [address] 11/24/2024 1:20 PM EST Office Visit Otolaryngology [facility] [address] [place] [address] Nabil Fernandes PA-C [address] [place] [address] Scheduled Procedures Name Priority Associated Diagnoses Date/Ti [...] this encounter Medical Devices Implanted Type Area Bed Setter Device Identifier Shelf Expiration Date Model / Serial / Lot Lens Intraoc 22.0 - [id number] - [id number] Implanted:Qty: 1 on 06/26/2019 by London Ocampo MD at OR [facility] Left: Eye BAUSCH & LOMB 01/27/2024 [id number] / [id number] / [id number] Lens Intraoc 21.5 - [id number] - [id number] Implanted:Qty: 1 on 07/15/2019 by London Ocampo MD at OR [facility] Right: Eye BAUSCH & LOMB 03/28/2024 [id number] / [id number] / [id number] documented as of this encounter Visit Diagnoses Diagnosis NSCLC with EGFR mutation (HCC) documented in this encounter Advance Directives Latest Code Status on File Code Status Date Activated Date Inactivated Comments Full Code 07/06/2023 1:46 PM 07/10/2023 8:23 PM This o rder reflects the patients wishes and were consensually agreed upon. Question Answer Comments Discussion of Advance Directives occurred with: Patient Care Teams Supervising Editor Trailer Relationship Specialty Start Date End Date Sravanthi Bloom DO [address] [place] [address] [place] [address] PCP - General Internal Medicine 06/18/17 documented as of this encounter
--- OUTSIDE RECORDS SUMMARY | 2024-04-04 20:28 | External Medical Summary | Summary of Care ---
Author Name Unknown Organization [facility] Address [address] [place] [address] Phone [phone] Care Team Providers Care Development Technical Lead Name Role Phone Sravanthi Bloom DO Primary [...] Date End Date Status nystatin-triamcinolo ne (MYCOLOG) 727165-1.1 UNIT/GM-% creamIndications:Cut aneous candidiasis Apply topically to [...] mRNA, LNP-s, No Pre serve, 2-Dose Series (Spaseebo) 08/30/2021,01/11/2021,12/21/2020 Pneumococcal Conjugate Vacc, 13 Valent (Prevnar) [...] 03/17/2024 12:30 PM EDT Office Visit Orthopaedics [facility] [address] [place] [address] [address] Jack Hernandez MD [address] [place] [address] 04/04/2024 9:45 AM EDT Pharmacy Pharmacy Hematology Oncology [facility] [address] [place] [address] [facility] Hem/Onc [address] [place] [address] 04/10/2024 1:40 PM EDT Office Visit Nephrology, Nicole Polanco 200 [facility] [place] [address] Mirna Dyson MD 200 [facility] [place] [address] 05/08/2024 11:00 AM EDT Nurse Only Ancillary [address] [place] [address] [place], Nurse [address] [place] [address] 05/14/2024 1:15 PM EDT Office Visit Hematology/Oncology Nicole Polanco [place] [address] [place] [phone] Hadley Verdugo MD [address] [place] [address] 05/22/2024 11:00 AM EDT Office Visit Audiology [facility] [address] [address] [address] Ayana Grajeda Au.D. [address] [address] [address] 07/21/2024 2:30 PM EDT Office Visit [facility] [address] [place] [address] Boo Wylie MD [address] [place] [address] 08/08/2024 10:30 AM EDT Imaging Radiology [address] [facility] [place] [address] 09/26/2024 10:30 AM EST Office Visit Family Medicine [address] [place] [phone] Sravanthi Bloom[address] [place] [address] 11/24/2024 1:20 PM EST Office Visit Otolaryngology [facility] 132 [facility] [place] [address] Nabil Fernandes PA-C 132 [facility] [place] [address] Scheduled Procedures Name Priority Associated Diagnoses Date/Ti me COLONOSCOPY FLEXIBLE PROXIMA L DIAGNOSTIC Recall Encounter for screening colonoscopy Health Maintenance Due Date Last Done Comments COVID-19 Vaccine ( season) 2023 08/30/2021, 01/11/2021, 12/21/2020 Depression Screening 05/06/2024 05/06/2023 GFR 08/31/2024 02/29/2024, 01/27, 11/14/2023, Additional history exists TSH 02/14/2025 02/15/2024, 05/30, 03/22/2023, Additional history exists Albumin/Creatinine Ratio 02/28/2025 02/29/2024, 06/30 CKD HGB USE SMARTSET 68468 02/28/202502/28, 02/29/2024, 02/15/2024, Additional history exists CKD PHOS USE SMARTSET 49264 02/28/202512/2023, 07/09/2023, 07/08/2023, Additional history exists DTaP,Tdap,and [...] this encounter Medical Devices Implanted Type Area Culturist Device Identifier Shelf Expiration Date Model / Serial / Lot Lens Intraoc 22.0 - [id number] - [id number] Implanted:Qty: 1 on 06/26/2019 by London Ocampo MD at OR [facility] Left: Eye [employer] 01/27/2024 [id number] / [id number] / [id number] Lens Intraoc 21.5 - [id number] - [id number] Implanted:Qty: 1 on 07/15/2019 by London Ocampo MD at OR [facility] Right: Eye [employer]CH [employer] LOMB 03/28/2024 [id number] / [id number] / [id number] documented as of this encounter Advance Directives Latest Code Status on File Code Status Date Activated Date Inactivated Comments Full Code 07/06/2023 1:46 PM 07/10/2023 8:23 PM This o rder reflects the patients wishes and were consensually agreed upon. Question Answer Comments Discussion of Advance Directives occurred with: Patient Care Teams Development Technical Lead Relationship Specialty Start Date End Date Sravanthi Bloom DO [address] [place] [address] [place] [address] PCP - General Internal Medicine 06/18/17 documented as of this encounter
--- OUTSIDE RECORDS SUMMARY | 2024-04-04 20:28 | External Medical Summary | Summary of Care ---
Author Name Unknown Organization [facility] Address [address] [place] [address] Phone [phone] Care Team Providers Care Contact Worker Lithography Name Role Phone Sravanthi Bloom DO Primary Care Provider Reason for Referral * Evaluate & Treat - Unlimited Visits (Within 3 days (urgent)) - Pending Review Specialty Diagnoses / Procedures Referred By Susan ness Referred To Contact Orthopaedic Surgery / Orthopedics Diagnoses Closed displaced fracture of proximal phalanx of lesser toe of right foot, initial encounter Eric Khan CRNP [address] [place] [address] [place] [address] Referral ID Status Reason Start Date Expiration Date Visits Requested Visits Authorized [id number] Pending Review Specialty Services Required 03/14/[phone] Question Answer Referral Priority Within 3 days (urgent) Where should this appointment be scheduled? [facility] What body part is the patient being seen for? Foot/Ankle/Calf What condition is the patient being seen for? Fracture including related infection Comments 5th toe fracture. Reason for Visit * Reason Onset Date Comments Test Results Imaging Study 03/13/2024 Encounter Details Date Type Department Care Team (Late st Contact Info) Description 03/13/2024 Telephone Family Medicine [facility] Geetha [address] [place] [address] [place] [phone] Eric Khan CRNP [address] [place] [address] [place] [address] Test Results Imaging Study Allergies Active Allergy Reactions Criticality Noted Date Comments Food (See Comments) 04/18/2021 honey Latex 04/18/2021 rash documented as of this encounter (statuses as of 03/14/2024) Medications Medication Sig Dispensed Refills Start Date End Date Status nystatin-triamcinolo ne (MYCOLOG) 728608-2.1 UNIT/GM-% creamIndications:Cut aneous candidiasis Apply topically to [...] as of this encounter Miscellaneous Notes * Addendum Note - Eric Khan CRNP - 03/14/2024 10:28 AM EDTAddended by: ERIC KHAN on: 03/14/2024 10:28 AM Modules accepted: Orders * Telephone Encounter - Eric Khan CRNP - 03/13/2024 4:09 PM EDT Foot x-ray results discussed with patient. Awaiting official radiology read, but there is a fracture of the right 5th proximal phalynx reviewed with ortho who suggested mike tape and a supportive shoe. Will update patient with official radiology readings. documented in this encounter Plan of Treatment Upcoming Encounters Date Type Department Care Team (Late st Contact Info) Description 04/04/2024 9:45 AM EDT Pharmacy Pharmacy Hematology Oncology [facility], [address] [address] [facility], [facility] Hem/Onc [address] [place] [address] 04/10/2024 1:40 PM EDT Office Visit Nephrology, [facility] 200 [facility] [place] [address] Mirna Dyson MD 200 [facility] [place] [address] 05/08/2024 11:00 AM EDT Nurse Only Ancillary [address] [place] [address] [place], Nurse [address] [facility] [address] 05/14/2024 1:15 PM EDT Office Visit Hematology/Oncology [facility] 200 [facility] [place] [phone] Hadley Verdugo MD 200 [facility] [place] [address] 05/22/2024 11:00 AM EDT Office Visit Audiology [facility] [address] [place] [address] Ayana Grajeda Au.D. [address] [place] [address] 07/21/2024 2:30 PM EDT Office Visit Thoracic Surg [facility], [address] [address] Boo Wylie MD [address] [place] [address] 08/08/2024 10:30 AM EDT Imaging Radiology [address] 132 [facility] [place] [address] 09/26/2024 10:30 AM EST Office Visit Family Medicine [address] [place] [phone] Sravanthi Bloom[address] [place] [address] 11/24/2024 1:20 PM EST Office Visit Otolaryngology [facility] [address] [facility] [place] [address] Nabil Fernandes PA-C 132 [facility] [place] [address] Scheduled Procedures Name Priority Associated Diagnoses Date/Ti [...] 02/28/2025 02/29/2024, 06/30 CKD HGB USE SMARTSET 32792 02/28/202502/28, 02/29/2024, 02/15/2024, Additional history exists CKD PHOS USE SMARTSET 34731 02/28/20250 12/2023, 07/09/2023, 07/08/2023, Additional history exists [...] this encounter Medical Devices Implanted Type Area Long Term Acute Care Registered Nurse Device Identifier Shelf Expiration Date Model / Serial / Lot Lens Intraoc 22.0 - [id number] - [id number] Implanted:Qty: 1 on 06/26/2019 by London Ocampo MD at OR [facility] Left: Eye [employer]OMB 01/27/2024 [id number] / [id number] / [id number] Lens Intraoc 21.5 - [id number] - [id number] Implanted:Qty: 1 on 07/15/2019 by London Ocampo MD at OR [facility] Right: Eye BA[employer]CH [employer] LOMB 03/28/2024 [id number] / [id number] / [id number] documented as of this encounter Visit Diagnoses Diagnosis Closed displaced fracture of proximal phalanx of lesser toe of right foot, initial encounter- Primary documented in this encounter Advance Directives Latest Code Status on File Code Status Date Activated Date Inactivated Comments Full Code 07/06/2023 1:46 PM 07/10/2023 8:23 PM This o rder reflects the patients wishes and were consensually agreed upon. Question Answer Comments Discussion of Advance Directives occurred with: Patient Care Teams Contact Worker Lithography Relationship Specialty Start Date End Date Sravanthi Bloom DO [address] [place] [address] [place] [phone] PCP - General Internal Medicine 06/18/17 documented as of this encounter
--- OUTSIDE RECORDS SUMMARY | 2024-04-04 20:28 | External Medical Summary | Summary of Care ---
Author Name Unknown Organization [facility] Address [address] [facility] [place] [address] Phone [phone] Care Team Providers Care Full Decator Operator Name Role Phone Spencer Darnell DO Primary Care Provider Reason for Visit * Reason Comments NEW PATIENT Lab changes * Evaluate & Treat - Unlimited Visits (Within 10 days (routine)) - Pending Review Specialty Diagnoses / Procedures Referred By Susan ness Referred To Contact Nephrology Diagnoses Kidney disease, chronic, stage IV (GFR 15-29 ml/min) (HCC) Spencer Darnell DO [address] [place] [address] [place] [address] Referral ID Status Reason Start Date Expiration Date Visits Requested Visits Authorized [id number] Pending Review Specialty Services Required 02/25/[phone] Encounter Details Date Type Department Care Team (Late st Contact Info) Description 02/29/2024 1:40 PM EDT Office Visit Nephrology Jordin Hartley [address] [place] [address] Mirna Dyson MD 200 [facility] [place] [address] Stage 3b chronic kidney disease (HCC)*; Worsening renal function; HTN, goal below 140/90; NSCLC with EGFR mutation (HCC); Adenoma of left adrenal gland Allergies Active Allergy Reactions Criticality Noted Date Comments Food (See Comments) 04/18/2021 honey Latex 04/18/2021 rash documented as of this encounter (statuses as of 03/13/2024) Medications Medication Sig Dispensed Refills Start Date End Date Status nystatin-triamcin olone (MYCOLOG) 626874-5.1 UNIT/GM-% creamIndications: Cutaneous candidiasis Apply topically to affected area 2 times a day. To affacted area for two weeks. 30 g 1 9 Active Apixaban 5 MG Oral Tablet (Eliquis) Take 1 Tablet by mouth in the morning and 1 Tablet before bedtime. 0 3 Active Potassium Chloride ER 10 MEQ [...] Tablet by mouth in the morning. 0 4 Active Osimertinib Mesylate 80 MG Oral [...] mouth in the morning. 30 Capsule 0 4 03/06/20 24 Discontinued Hospital, Clinic, or [...] as of this encounter (statuses as of 03/13/2024) Active Problems Problem Noted Date Diagnosed Date [...] as of this encounter (statuses as of 03/13/2024) Resolved Problems Problem Noted Date Diagnosed Date [...] as of this encounter (statuses as of 03/13/2024) Immunizations Name Administration Dates Next Due COVID-19 mRNA, LNP-s, No Pre serve, 2-Dose Series ([employer]) 08/30/2021,01/11/2021,12/21/2020 Pneumococcal Conjugate Vacc, 13 Valent (Prevnar) [...] 2:11 PM EDT NEPHROLOGY CLINIC NOTE Nephrology [address] [place] [address] 02/29/2024, 2:11 PM Patient Name: Ioana Tan [...] (HCC) 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 | For: clinic visit w/ | Check-out note: waitlist Now ckd 3B [...] check accuracy then do 3 day log Mirna Dyson MD CC: Ref: SPENCER DARNELL[[id number]] [address] [place] [address] [place] [phone] (office) [phone] (fax) PCP: SPENCER DARNELL [address] [place] [address] [place] [address] This chart was completed in part utilizing [employer] Speech Voice Recognition Software. Randomword insertions, pronoun [...] 9:45 AM EDT Pharmacy Pharmacy Hematology Oncology [facility] [address] [place] [address] [facility] Hem/Onc [address] [place] [address] 04/10/2024 1:40 PM EDT Office Visit Nephrology, [facility] [address] [place] [address] Mirna Dyson MD [address] [place] [address] 05/08/2024 11:00 AM EDT Nurse Only Ancillary [address] [place] [address] [place], Nurse [address] [place] [address] 05/14/2024 1:15 PM EDT Office Visit Hematology/Oncology [facility] [address] [place] [phone] Hadley Verdugo MD [address] [place] [address] 05/22/2024 11:00 AM EDT Office Visit Audiology [facility] 132 [place] [address] Ayana Grajeda AuMaia [address] [place] [address] 07/21/2024 2:30 PM EDT Office Visit Thoracic Surg [facility] [address] [place] [address] Boo Wylie MD [address] [place] [address] 08/08/2024 10:30 AM EDT Imaging Radiology [address] [place] [address] 09/26/2024 10:30 AM EST Office Visit Family Medicine [address] [place] [phone] Spencer Darnell, [address] [place] [address] 11/24/2024 1:20 PM EST Office Visit Otolaryngology [facility] [address] [place] [address] Nabil Fernandes PA-C [address] [place] [address] Scheduled Procedures Name Priority Associated Diagnoses Date/Ti me COLONOSCOPY FLEXIBLE PROXIMA L DIAGNOSTIC Recall Encounter for screening colonoscopy Health Maintenance Due Date Last Done Comments COVID-19 Vaccine ( season) 2023 08/30/2021, 01/11/2021, 12/21/2020 Depression Screening 05/06/2024 05/06/2023 GFR 08/31/2024 02/29/2024, 01/27, 11/14/2023, Additional history exists TSH 02/14/2025 02/15/2024, 05/30, 03/22/2023, Additional history exists Albumin/Creatinine Ratio 02/28/2025 02/29/2024, 06/30 CKD HGB USE SMARTSET 53170 02/28/202502/28, 02/29/2024, 02/15/2024, Additional history exists CKD PHOS USE SMARTSET 46255 02/28/202512/2023, 07/09/2023, 07/08/2023, Additional history exists DTaP,Tdap,and Td Vaccines (2 - Td or Tdap) 08/30/2025 08/30/2015, 09/02/2003, 09/02/2003 DXA Scan 07/13/2027 07/13/2020, 04/29, 05/05/2008, Additional history exists Fecal Occult Blood Test Discontinued 09/11/2008 Pneumococcal Vaccine: 65+ Years Completed 02/28/2016, 08/27/2013 Colonoscopy Discontinued 04/30/2017, 0712/2016, 11/20/2008 Colorectal Cancer Screening Discontinued Zoster Vaccines [...] this encounter Medical Devices Implanted Type Area Hand Winder Device Identifier Shelf Expiration Date Model / Serial / Lot Lens Intraoc 22.0 - [id number] - [id number] Implanted:Qty: 1 on 06/26/2019 by London Ocampo MD at OR [facility] Left: Eye [employer] 01/27/2024 [id number] / [id number] / [id number] Lens Intraoc 21.5 - [id number] - [id number] Implanted:Qty: 1 on 07/15/2019 by London Ocampo MD at OR [facility] Right: Eye [employer] 03/28/2024 [id number] / [id number] / [id number] documented as of this encounter Procedures Procedure [...] 8.87 mg/dL 03/01/2024 12:35 AM EDT [place] [facility] [place] Creatinine, Random Urine 246 mg/dL 03/01/2024 12:35 AM EDT [facility] [place] Albumin / Creatinine Ratio, Urine 36(H) <30 mg/g Creat 03/01/2024 12:35 AM EDT [facility] [place] Urine Urine specimen obtained by clean catch procedure / Unknown Non-blood Collection / Unknown 02/29/2024 3:18 PM EDT 02/29/2024 3:18 PM EDT Narrative [facility] [place] - 03/01/2024 12:35 AM EDT Normal: <30 mg/g creatinine High: 30-300 mg/g creatinine Very High: >300 mg/g creatinine Nephrotic: >2200 mg/g creatinine Mirna Dyson MD LAB URINE ORDERAB LES [facility] [place] [address] [place] [address] * (ABNORMAL) URINALYSIS WITH MICROSCOPIC EXAM (02/29/2024 3:18 PM EDT) Color, Urine Yellow Colorless, Light Yellow, Yellow, Dark Yellow 03/01/2024 12:33 AM EDT [facility] [place] Clarity, Urine Slightly Cloudy(A) Clear 03/01/2024 12:33 AM EDT [facility] [place] Glucose, Urine Negative Negative mg/dL 03/01/2024 12:33 AM EDT [facility] [place] Bilirubin, Urine Negative Negative 03/01/2024 12:33 AM EDT [facility] [place] Ketone, Urine Trace(A) Negative mg/dL 03/01/2024 12:33 AM EDT [facility] [place] Specific [place], Urine 1.025 1.003 - 1.030 03/01/2024 12:33 AM EDT [facility] [place] Blood, Urine Negative Negative 03/01/2024 12:33 AM EDT [facility] [place] pH, Urine 5.5 5.0 - 7.5 Units 03/01/2024 12:33 AM EDT [facility] [place] Protein, Urine 30(A) Negative mg/dL 03/01/2024 12:33 AM EDT [facility] [place] Urobilinogen, Urine Normal Normal mg/dL 03/01/2024 12:33 AM EDT [facility] [place] Nitrite, Urine Negative Negative 03/01/2024 12:33 AM EDT [facility] [place] Esterase, Urine Large(A) Negative 03/01/2024 12:33 AM EDT [facility] [place] RBC, Urine 0-2 0 - 2 /HPF 03/01/2024 12:33 AM EDT [facility] [place] WBC, Urine 50+(A) 0 - 2 /HPF 03/01/2024 12:33 AM EDT [facility] [place] Bacteria, Urine 51-100(A) 0 - 25 /HPF 03/01/2024 12:33 AM EDT [facility] [place] Calcium Oxalate Crystal, Urine 50+(A) None /HPF 03/01/2024 12:33 AM EDT [facility] [place] Yeast, Urine Present(A) None /HPF 03/01/2024 12:33 [...] Dyson MD LAB URINE ORDERAB LES [facility] [address] [place] [address] * (ABNORMAL) DIFFERENTIAL, AUTOMATED (02/29/2024 3:10 PM [...] LAB BLOOD ORDERAB LES LAB[facility] [address] [place] [address] * (ABNORMAL) CBC (02/29/2024 3:10 PM EDT) WBC 5.09 4.00 - 10.80 K/uL 02/29/2024 11:59 PM EDT LAB[facility]ATORY [facility] RBC 2.97 3.85 - 5.15 M/uL 02/29/2024 11:59 PM EDT LAB[facility]ORY [facility] HGB 9.5(L) 12.0 - 15.3 g/dL 02/29/2024 11:59 PM EDT LAB[facility]ORY [facility] HCT 29.7(L) 36.0 - 45.2 % 02/29/2024 11:59 PM EDT LAB[facility]ORY [facility] MCV 100.0 81.5 - 97.5 fL 02/29/2024 11:59 PM EDT LAB[facility]ORY [facility] MCH 32.0 27.0 - 34.0 pg 02/29/2024 11:59 PM EDT LAB[facility]ORY [facility] MCHC 32.0 32.0 - 36.0 g/dL 02/29/2024 11:59 PM EDT LAB[facility] RDW 13.6 11.5 - 15.5 % 02/29/2024 11:59 PM EDT LAB[facility] PLT 133(L) 140 - 400 K/uL 02/29/2024 11:59 PM EDT LAB[facility] MPV 11.9 6.6 - 11.1 fL 02/29/2024 11:59 PM EDT LAB[facility]ORY [facility] nRBCs 0 <=0 /100 WBCs 02/29/2024 11:59 PM EDT LAB[facility]ORY [facility] Blood Venous blood specimen / Unknown Venipuncture / Unknown 02/29/2024 3:10 PM EDT 02/29/2024 3:10 PM EDT Mirna Dyson MD LAB BLOOD ORDERAB LES Performing Organization Address [facility] de Phone Number [facility]ATORY [facility] [place] [address] [place] [address] * (ABNORMAL) PROTEIN/ CREATININE RATIO, URINE (02/29/2024 3:10 PM EDT) Protein/ Creatinine Ratio, Urine 211(H) <150 mg/g 03/01/2024 12:35 AM EDT LAB[facility]ORY [facility] Protein, Random Urine 52 mg/dL 03/01/2024 12:35 AM EDT LAB[facility]ORY [facility] Creatinine, Random Urine 247 mg/dL 03/01/2024 12:35 AM EDT [facility] [place] Urine Non-blood Collection / Unknown 02/29/2024 3:10 PM EDT 02/29/2024 3:10 PM EDT Narrative [facility]AT[facility] [place] 03/01/2024 12:35 AM EDT Normal: <150 mg/g creatinine High: 150-500 mg/g creatinine Very High: >500 mg/g creatinine Nephrotic: >3000 mg/g creatinine Mirna Dyson MD LAB URINE ORDERAB LES Performing Organization Address [facility] de Phone Number [facility]AT[facility] [place] [address] [place] [address] * MAGNESIUM (02/29/2024 3:10 PM EDT) Magnesium 2.3 1.5 - 2.6 mg/dL 03/01/2024 3:20 AM EDT LABORATORY [facility] Blood Venous blood specimen / Unknown Venipuncture / Unknown 02/29/2024 3:10 PM EDT 02/29/2024 3:10 PM EDT Mirna Dyson MD LAB BLOOD ORDERAB LES Performing Organization Address [facility] de Phone Number LABORATORY [facility] [address] [place] [address] * (ABNORMAL) IRON SCREEN, INCLUDING TIBC (02/29/2024 3:10 PM EDT) Iron 39 33 - 151 ug/dL 03/01/2024 3:20 AM EDT LAB[facility]ATORY [facility] Iron Binding Capacity 241(L) 250 - 425 ug/dL 03/01/2024 3:20 AM EDT LAB[facility]ORY [facility] Transferrin Saturation Percent 16 15 - 55 % 03/01/2024 3:20 AM EDT LAB[facility]ATORY [facility] Blood Venous blood specimen / Unknown Venipuncture / Unknown 02/29/2024 3:10 PM EDT 02/29/2024 3:10 PM EDT Mirna Dyson MD LAB BLOOD ORDERAB LES Performing Organization Address [facility] de Phone Number LAB[facility]ATORY [facility] [address] [place] [address] * (ABNORMAL) BASIC METABOLIC PANEL (02/29/2024 3:10 [...] 15 mmol/L 03/01/2024 3:20 AM EDT [facility] [place] Glucose 99 70 - 120 mg/dL 03/01/2024 3:20 AM EDT LAB[facility] [place] [place] Calcium 10.0 8.4 - 10.2 mg/dL 03/01/2024 3:20 AM EDT LAB[facility] Blood Venous blood specimen / Unknown Venipuncture / Unknown 02/29/2024 3:10 PM EDT 02/29/2024 3:10 PM EDT Mirna Dyson MD LAB BLOOD ORDERAB LES Performing Organization Address City/[facility]/ZIP Co de Phone Number [facility]ATORY [facility] [place] [address] [place] [address] * (ABNORMAL) PHOSPHORUS (02/29/2024 3:10 PM EDT) Phosphorus 2.4(L) 2.5 - 4.8 mg/dL 03/01/2024 3:20 AM EDT [facility] [place] [facility] Blood Venous blood specimen / Unknown Venipuncture / Unknown 02/29/2024 3:10 PM EDT 02/29/2024 3:10 PM EDT Mirna Dyson MD LAB BLOOD ORDERAB LES Performing Organization Address [facility] Co de Phone Number [facility]ATORY [facility] [place] [address] [place] [address] * 25-HYDROXY VITAMIN D (02/29/2024 3:10 PM EDT) 25-Hydroxy Vitamin D 75 >19 ng/mL 03/01/2024 4:01 AM EDT [facility] [place] [place] Blood Venous blood specimen / Unknown Venipuncture / Unknown 02/29/2024 3:10 PM EDT 02/29/2024 3:10 PM EDT Narrative LAB[facility]ATORY [facility] - 03/01/2024 4:01 AM EDT Deficient: <20 ng/mL Insufficient: 20-29 ng/mL Recommended/Optimum:30-50 ng/mL Vitamin D intoxication is rare. If suspicious of Vitamin D toxicity, evaluation of serum Calcium and PTH is recommended. Mirna Dyson MD LAB BLOOD ORDERAB LES [facility] [place] [address] [place] [address] * PTH (02/29/2024 3:10 PM EDT) PTH 64 15 - 65 pg/mL 03/01/2024 4:01 AM EDT [facility] [place] Blood Venous blood specimen / Unknown Venipuncture / Unknown 02/29/2024 3:10 PM EDT 02/29/2024 3:10 PM EDT Mirna Dyson MD LAB BLOOD ORDERAB LES Performing Organization Address [facility] Co de Phone Number [facility]ATORY [facility] [address] [place] [address] documented in this encounter Visit Diagnoses Diagnosis Stage 3b chronic kidney disease (HCC)- Primary Worsening renal function HTN, goal below 140/90 Unspecified essential hypertension NSCLC with EGFR mutation (HCC) Adenoma of left adrenal gland Benign neoplasm of adrenal gland documented in this encounter Advance Directives Latest Code Status on File Code Status Date Activated Date Inactivated Comments Full Code 07/06/2023 1:46 PM 07/10/2023 8:23 PM This o rder reflects the patients wishes and were consensually agreed upon. Question Answer Comments Discussion of Advance Directives occurred with: Patient Care Teams Full Decator Operator Relationship Specialty Start Date End Date Spencer Darnell DO [address] [place] [address] [place] [phone] PCP - General Internal Medicine 06/18/17 documented as of this encounter"
--- OUTSIDE RECORDS SUMMARY | 2024-04-04 20:28 | External Medical Summary | Summary of Care ---
Author Name Unknown Organization [facility] Address [address] [place] [address] Phone [phone] Care Team Providers Care Identification And Records Commander Name Role Phone Sravanthi Bloom DO Primary Care Provider Reason for Referral * Evaluate & Treat - Unlimited Visits (Within 3 days (urgent)) - Pending Review Specialty Diagnoses / Procedures Referred By Susan ness Referred To Contact Orthopaedic Surgery / Orthopedics Diagnoses Closed displaced fracture of proximal phalanx of lesser toe of right foot, initial encounter Eric Khan CRNP [address] [place] [address] [place] [address] Referral ID Status Reason Start Date Expiration Date Visits Requested Visits Authorized [id number] Pending Review Specialty Services Required 03/14/2024 999 [...] Contact Info) Description 03/13/2024 Telephone Family Medicine [facility] Geetha [address] [place] [address] [place] [phone] Eric Khan CRNP [address] [place] [address] [place] [address] Test Results Imaging Study Allergies Active Allergy Reactions Criticality Noted Date Comments Food (See Comments) 04/18/2021 honey Latex 04/18/2021 rash documented as of this encounter (statuses as of 03/14/2024) Medications Medication Sig Dispensed Refills Start Date End Date Status nystatin-triamcinolo ne (MYCOLOG) 413894-3.1 UNIT/GM-% creamIndications:Cut aneous candidiasis Apply topically to [...] encounter Miscellaneous Notes * Telephone Encounter - Donna Francisco OSA - 03/14/2024 11:33 AM EDT Ortho scheduled, pt aware. * Addendum Note - Eric Khan CRNP [...] 03/17/2024 12:30 PM EDT Office Visit Orthopaedics [facility] [address] [place] [address] Jack Hernandez MD [address] [place] [address] 04/04/2024 9:45 AM EDT Pharmacy Pharmacy Hematology Oncology [facility] [address] [place] [address] [facility] Hem/Onc [address] [place] [address] 04/10/2024 1:40 PM EDT Office Visit Nephrology, [facility] [address] [place] [address] Mirna Dyson MD 200 [facility] [place] [address] 05/08/2024 11:00 AM EDT Nurse Only Ancillary [address] [place] [address] Ayesha, Nurse [address] [place] [address] 05/14/2024 1:15 PM EDT Office Visit Hematology/Oncology [employer] 200 [facility] [place] [phone] Hadley Verdugo MD [address] [place] [address] 05/22/2024 11:00 AM EDT Office Visit Audiology [facility] [address] [place] [address] Ayana Grajeda Au.D. 132 [facility] [place] [address] 07/21/2024 2:30 PM EDT Office Visit Thoracic Surg [facility] [address] [place] [address] Boo Wylie MD [address] [place] [address] 08/08/2024 10:30 AM EDT Imaging Radiology [facility] [facility] [address] [place] [address] 09/26/2024 10:30 AM EST Office Visit Family Medicine [address] [phone] Sravanthi Bloom[address] [place] [address] 11/24/2024 1:20 PM EST Office Visit Otolaryngology [facility] [address] [place] [address] Nabil Fernandes PA-C [address] [facility] [place] [address] Scheduled Procedures Name Priority Associated Diagnoses Date/Ti [...] 02/28/2025 02/29/2024, 06/30 CKD HGB USE SMARTSET 51335 02/28/202502/28, 02/29/2024, 02/15/2024, Additional history exists CKD PHOS USE SMARTSET 05114 02/28/202512/2023, 07/09/2023, 07/08/2023, Additional history exists DTaP,Tdap,and [...] this encounter Medical Devices Implanted Type Area Burglar Alarm Operator Device Identifier Shelf Expiration Date Model / Serial / Lot Lens Intraoc 22.0 - [id number] - [id number] Implanted:Qty: 1 on 06/26/2019 by London Ocampo MD at OR [facility] Left: Eye [employer] 01/27/2024 [id number] / [id number] / [id number] Lens Intraoc 21.5 - [id number] - [id number] Implanted:Qty: 1 on 07/15/2019 by London Ocampo MD at OR [facility] Right: Eye [employer]OM[employer] 03/28/2024 [id number] / [id number] / [id number] documented as of this encounter Visit Diagnoses [...] Advance Directives occurred with: Patient Care Teams Identification And Records Commander Relationship Specialty Start Date End Date Sravanthi Bloom DO [address] [place] [address] [place] [address] PCP - General Internal Medicine 06/18/17 documented as of this encounter
--- OUTSIDE RECORDS SUMMARY | 2024-04-04 20:28 | External Medical Summary | Summary of Care ---
Author Name Unknown Organization [facility] Address [address] [facility] [address] Phone [phone] Care Team Providers Care Chip Applying Machine Tender Name Role Phone Sravanthi Bloom DO Primary Care Provider [phone] Reason for Visit * Reason Comments Blood Pressure Check Encounter Details Date Type Department Care Team (Late st Contact Info) Description 03/11/2024 11:00 AM EDT Nurse Only Nephrology [address] [place] [address] [place], Nurse Nephrology [address] [place] [address] Blood Pressure Check Allergies Active Allergy Reactions Criticality Noted Date Comments Food (See Comments) 04/18/2021 honey Latex 04/18/2021 rash documented as of this encounter (statuses as of 03/11/2024) Medications Medication Sig Dispensed Refills Start Date End Date Status nystatin-triamcinolo ne (MYCOLOG) 673110-1.1 UNIT/GM-% creamIndications:Cut aneous candidiasis Apply topically to [...] as of this encounter (statuses as of 03/11/2024) Active Problems Problem Noted Date Diagnosed Date [...] as of this encounter (statuses as of 03/11/2024) Resolved Problems Problem Noted Date Diagnosed Date [...] as of this encounter (statuses as of 03/11/2024) Immunizations Name Administration Dates Next Due COVID-19 mRNA, LNP-s, No Pre serve, 2-Dose Series (Collision Hub) 08/30/2021,01/11/2021,12/21/2020 Pneumococcal Conjugate Vacc, 13 Valent (Prevnar) [...] Sign Reading Time Taken Comments Blood Pressure 155/76 03/11/2024 11:04 AM EDT ho me relion cuff. Pulse - - Temperature - - Respiratory Rate - - Oxygen Saturation - - Inhaled Oxygen Concentration - - Weight - - Height - - Body Mass Index - - documented in this encounter Functional Status Functional [...] No 07/06/2023 documented as of this encounter Nursing Notes * Yessi Saldaña RN - 03/11/2024 11:04 AM EDT Pt here for home bp cuff validation. Proper application and use noted. 3 day bp log presented today. Average of 12 readings is 128/68.She will continue to monitor blood pressures daily. documented in this encounter Plan of Treatment Upcoming Encounters Date Type Department Care Team (Late st Contact Info) Description 04/04/2024 9:45 AM EDT Pharmacy Pharmacy Hematology Oncology [facility] [address] [place] [address] [facility], [facility] Hem/Onc [address] [place] [address] 04/10/2024 1:40 PM EDT Office Visit Nephrology, Staci Sherri [address] [place] [address] [address] Mirna Dyson MD [address] [place] [address] 05/08/2024 11:00 AM EDT Nurse Only Ancillary [address] [place] [address] [place], Nurse [address] [place] [address] 05/14/2024 1:15 PM EDT Office Visit Hematology/Oncology [facility] [place] [address] [place] [phone] Hadley Verdugo MD [address] [place] [address] 05/22/2024 11:00 AM EDT Office Visit Audiology [facility] [place] [address] Ayana Grajeda Au.D. 132 [facility] [place] [address] 07/21/2024 2:30 PM EDT Office Visit Thoracic Surg [facility] [place] [address] [place] [address] Boo Wylie MD [address] [place] [address] 08/08/2024 10:30 AM EDT Imaging Radiology [address] [facility] [place] [address] 09/26/2024 10:30 AM EST Office Visit Family Medicine [address] [phone] Sravanthi Bloom[address] [place] [address] 11/24/2024 1:20 PM EST Office Visit Otolaryngology [facility] [address] [place] [address] Nabil Fernandes PA-C [address] [place] [address] Scheduled Procedures Name Priority Associated Diagnoses Date/Ti [...] this encounter Medical Devices Implanted Type Area Airfield Manager Device Identifier Shelf Expiration Date Model / Serial / Lot Lens Intraoc 22.0 - [id number] - [id number] Implanted:Qty: 1 on 06/26/2019 by London Ocampo MD at OR [facility] Left: Eye [employer]USCH [employer] LOMB 01/27/2024 [id number] / [id number] / [id number] Lens Intraoc 21.5 - [id number] - [id number] Implanted:Qty: 1 on 07/15/2019 by London Ocampo MD at OR [facility] Right: Eye BAUSCH [employer] LOMB 03/28/2024 [id number] / [id number] / [id number] documented as of this encounter Advance Directives Latest Code Status on File Code Status Date Activated Date Inactivated Comments Full Code 07/06/2023 1:46 PM 07/10/2023 8:23 PM This o rder reflects the patients wishes and were consensually agreed upon. Question Answer Comments Discussion of Advance Directives occurred with: Patient Care Teams Chip Applying Machine Tender Relationship Specialty Start Date End Date Sravanthi Bloom DO [address] [place] [address] [place] [address] PCP - General Internal Medicine 06/18/17 documented as of this encounter
--- OUTSIDE RECORDS SUMMARY | 2024-04-04 20:28 | External Medical Summary | Summary of Care ---
Author Name Unknown Organization [facility] Address [address] [place] [address] Phone [phone] Care Team Providers Care Buyer Grain Name Role Phone Sravanthi Bloom DO Primary Care Provider [phone] Encounter Details Date Type Department Care Team (Late st Contact Info) Description 03/14/2024 Patient Reported Data Patient Survey Ortho OBERD Allergies Active Allergy Reactions Criticality Noted Date Comments Food (See Comments) 04/18/2021 honey Latex 04/18/2021 rash documented as of this encounter (statuses as of 03/14/2024) Medications Medication Sig Dispensed Refills Start Date End Date Status nystatin-triamcinolo ne (MYCOLOG) 312139-9.1 UNIT/GM-% creamIndications:Cut aneous candidiasis Apply topically to [...] mRNA, LNP-s, No Pre serve, 2-Dose Series (Infoxel) 08/30/2021,01/11/2021,12/21/2020 Pneumococcal Conjugate Vacc, 13 Valent (Prevnar) [...] 03/17/2024 12:30 PM EDT Office Visit Orthopaedics [facility] [address] [place] [address] Jack Hernandez MD [address] [place] [address] 04/04/2024 9:45 AM EDT Pharmacy Pharmacy Hematology Oncology [facility] [address] [place] [address] [facility], [facility] Hem/Onc [address] [place] [address] 04/10/2024 1:40 PM EDT Office Visit Nephrology, Nicole Ploanco 200 [facility] [place] [address] Mirna Dyson MD 200 [facility] [place] [address] 05/08/2024 11:00 AM EDT Nurse Only Ancillary [address] [place] [address] [place], Nurse [address] [place] [address] 05/14/2024 1:15 PM EDT Office Visit Hematology/Oncology Nicole Polanco [place] [address] [place] [phone] Hadley Verdugo MD [address] [place] [address] 05/22/2024 11:00 AM EDT Office Visit Audiology [facility] [address] [place] [address] Ayana Grajeda Au.D. 132 [place] [address] 07/21/2024 2:30 PM EDT Office Visit Thoracic Surg [facility] [address] [place] [address] Boo Wylie MD [address] [place] [address] 08/08/2024 10:30 AM EDT Imaging Radiology [address] [facility] [place] [address] 09/26/2024 10:30 AM EST Office Visit Family Medicine [address] [place] [phone] Sravanthi Bloom[address] [place] [address] 11/24/2024 1:20 PM EST Office Visit Otolaryngology [facility] [address] [facility] [place] [address] Nabil Fernandes PA-C 132 [facility] [place] [address] Scheduled Procedures Name Priority Associated Diagnoses Date/Ti me COLONOSCOPY FLEXIBLE PROXIMA L DIAGNOSTIC Recall Encounter for screening colonoscopy Health Maintenance Due Date Last Done Comments COVID-19 Vaccine ( season) 2023 08/30/2021, 01/11/2021, 12/21/2020 Depression Screening 05/06/2024 05/06/2023 GFR 08/31/2024 02/29/2024, 01/27, 11/14/2023, Additional history exists TSH 02/14/2025 02/15/2024, 05/30, 03/22/2023, Additional history exists Albumin/Creatinine Ratio 02/28/2025 02/29/2024, 06/30 CKD HGB USE SMARTSET 88996 02/28/202502/28, 02/29/2024, 02/15/2024, Additional history exists CKD PHOS USE SMARTSET 87609 02/28/202512/2023, 07/09/2023, 07/08/2023, Additional history exists DTaP,Tdap,and [...] this encounter Medical Devices Implanted Type Area Behavioral Health Rn Device Identifier Shelf Expiration Date Model / Serial / Lot Lens Intraoc 22.0 - [id number] - [id number] Implanted:Qty: 1 on 06/26/2019 by London Ocampo MD at OR [facility] Left: Eye BAUSCH [employer] LOMB 01/27/2024 [id number] / [id number] / [id number] Lens Intraoc 21.5 - [id number] - [id number] Implanted:Qty: 1 on 07/15/2019 by London Ocampo MD at OR [facility] Right: Eye BAUSCH [employer] LOMB 03/28/2024 [id number] / [id number] / [id number] documented as of this encounter Advance Directives Latest Code Status on File Code Status Date Activated Date Inactivated Comments Full Code 07/06/2023 1:46 PM 07/10/2023 8:23 PM This o rder reflects the patients wishes and were consensually agreed upon. Question Answer Comments Discussion of Advance Directives occurred with: Patient Care Teams Buyer Grain Relationship Specialty Start Date End Date Sravanthi Bloom DO [address] [place] [address] [place] [address] PCP - General Internal Medicine 06/18/17 documented as of this encounter
--- OUTSIDE RECORDS SUMMARY | 2024-04-04 20:28 | External Medical Summary | Summary of Care ---
Author Name Unknown Organization [facility] Address [address] [facility] [address] Phone [phone] Care Team Providers Care Mathematics Faculty Member Name Role Phone BloomSravanthi DO Primary Care Provider Reason for Visit * Reason Onset Date Comments Test Results Imaging Study 03/13/2024 Encounter Details Date Type Department Care Team (Late st Contact Info) Description 03/13/2024 Telephone Family Medicine [address] [phone] Eric Flowers [address] [place] [address] Test Results Imaging Study Allergies Active Allergy Reactions Criticality Noted Date Comments Food (See Comments) 04/18/2021 honey Latex 04/18/2021 rash documented as of this encounter (statuses as of 03/13/2024) Medications Medication Sig Dispensed Refills Start Date End Date Status nystatin-triamcinolo ne (MYCOLOG) 894684-3.1 UNIT/GM-% creamIndications:Cut aneous candidiasis Apply topically to [...] encounter Miscellaneous Notes * Telephone Encounter - Eric Flowers CRNP - 03/13/2024 4:09 PM EDT Foot [...] 9:45 AM EDT Pharmacy Pharmacy Hematology Oncology [facility] [address] [place] [address] [facility], [facility] Hem/Onc [address] [place] [address] 04/10/2024 1:40 PM EDT Office Visit Nephrology, Nicole Polanco [address] [place] [address] Mirna Dyson MD [address] [place] [address] 05/08/2024 11:00 AM EDT Nurse Only Ancillary [address] [place] [address] [place], Nurse [address] [place] [address] 05/14/2024 1:15 PM EDT Office [facility] [address] [place] [phone] Hadley Verdugo MD [address] [place] [address] 05/22/2024 11:00 AM EDT Office Visit Audiology [facility] [place] [address] Ayana Grajeda Au.D. 132 [facility] [place] [address] 07/21/2024 2:30 PM EDT Office Visit Thoracic Surg [facility] [place] [address] [place] [address] Boo Wylie MD [address] [place] [address] 08/08/2024 10:30 AM EDT Imaging Radiology [address] [facility] [place] [address] 09/26/2024 10:30 AM EST Office Visit Family Medicine [address] [phone] Sravanthi Bloom[address] [place] [address] 11/24/2024 1:20 PM EST Office Visit Otolaryngology [facility] [address] [place] [address] Nabil Fernandes PA-C [address] [place] [address] Scheduled Procedures Name Priority Associated Diagnoses Date/Ti me COLONOSCOPY FLEXIBLE PROXIMA L DIAGNOSTIC Recall Encounter for screening colonoscopy Health Maintenance Due Date Last Done Comments COVID-19 Vaccine ( season) 2023 08/30/2021, 01/11/2021, 12/21/2020 Depression Screening 05/06/2024 05/06/2023 GFR 08/31/2024 02/29/2024, 01/27, 11/14/2023, Additional history exists TSH 02/14/2025 02/15/2024, 05/30, 03/22/2023, Additional history exists Albumin/Creatinine Ratio 02/28/2025 02/29/2024, 06/30 CKD HGB USE SMARTSET 77954 02/28/202502/28, 02/29/2024, 02/15/2024, Additional history exists CKD PHOS USE SMARTSET 85011 02/28/202512/2023, 07/09/2023, 07/08/2023, Additional history exists DTaP,Tdap,and [...] this encounter Medical Devices Implanted Type Area Shipping And Receiving Coordinator Device Identifier Shelf Expiration Date Model / Serial / Lot Lens Intraoc 22.0 - [id number] - [id number] Implanted:Qty: 1 on 06/26/2019 by London Ocampo MD at OR [facility] Left: Eye BAUSCH [employer] LOMB 01/27/2024 [id number] / [id number] / [id number] Lens Intraoc 21.5 - [id number] - [id number] Implanted:Qty: 1 on 07/15/2019 by London Ocampo MD at OR [facility] Right: Eye BAUSCH & LOMB 03/28/2024 [id number] / [id number] / [id number] documented as of this encounter Advance Directives Latest Code Status on File Code Status Date Activated Date Inactivated Comments Full Code 07/06/2023 1:46 PM 07/10/2023 8:23 PM This o rder reflects the patients wishes and were consensually agreed upon. Question Answer Comments Discussion of Advance Directives occurred with: Patient Care Teams Mathematics Faculty Member Relationship Specialty Start Date End Date Sravanthi Bloom DO [address] [place] [address] [place] [phone] PCP - General Internal Medicine 06/18/17 documented as of this encounter
--- OUTSIDE RECORDS SUMMARY | 2024-04-04 20:28 | External Medical Summary | Summary of Care ---
Author Name Unknown Organization [facility] Address [address] [place] [address] Phone [phone] Care Team Providers Care Traffic Assistant Name Role Phone Sravanthi Bloom DO Primary [...] Date End Date Status nystatin-triamcinolo ne (MYCOLOG) 729581-3.1 UNIT/GM-% creamIndications:Cut aneous candidiasis Apply topically to [...] mRNA, LNP-s, No Pre serve, 2-Dose Series (Sonos) 08/30/2021,01/11/2021,12/21/2020 Pneumococcal Conjugate Vacc, 13 Valent (Prevnar) [...] 03/17/2024 12:30 PM EDT Office Visit Orthopaedics [facility] 132 [place] [address] Jack Hernandez MD 132 [place] [address] 04/04/2024 9:45 AM EDT Pharmacy Pharmacy Hematology [facility]cology [facility] [address] [place] [address] [facility] Hem/Onc [address] [place] [address] 04/10/2024 1:40 PM EDT Office Visit Nephrology, Nicole Polanco 200 [facility] [place] [address] Mirna Dyson MD 200 [facility] [place] [address] 05/08/2024 11:00 AM EDT Nurse Only Ancillary [address] [place] [address] [place], Nurse [address] [place] [address] 05/14/2024 1:15 PM EDT Office Visit Hematology/Oncology Nicole Polanco [place] [address] [place] [phone] Hadley Verdugo MD [address] [place] [address] 05/22/2024 11:00 AM EDT Office Visit Audiology [facility] 132 [place] [address] Ayana Grajeda Au.D. 132 [place] [address] 07/21/2024 2:30 PM EDT Office [facility] [address] [place] [address] Boo Wylie MD [address] [place] [address] 08/08/2024 10:30 AM EDT Imaging Radiology [address] [facility] [place] [address] 09/26/2024 10:30 AM EST Office Visit Family Medicine [address] [place] [phone] Sravanthi Bloom[address] [place] [address] 11/24/2024 1:20 PM EST Office Visit Otolaryngology [facility] 132 [facility] [place] [address] Nabil Fernandes PA-C 132 [facility] [place] [address] Scheduled Procedures Name Priority Associated Diagnoses Date/Ti me COLONOSCOPY FLEXIBLE PROXIMA L DIAGNOSTIC Recall Encounter for screening colonoscopy Health Maintenance Due Date Last Done Comments COVID-19 Vaccine ( season) 2023 08/30/2021, 01/11/2021, 12/21/2020 Depression Screening 05/06/2024 05/06/2023 GFR 08/31/2024 02/29/2024, 01/27, 11/14/2023, Additional history exists TSH 02/14/2025 02/15/2024, 05/30, 03/22/2023, Additional history exists Albumin/Creatinine Ratio 02/28/2025 02/29/2024, 06/30 CKD HGB USE SMARTSET 61465 02/28/202502/28, 02/29/2024, 02/15/2024, Additional history exists CKD PHOS USE SMARTSET 41772 02/28/202512/2023, 07/09/2023, 07/08/2023, Additional history exists DTaP,Tdap,and [...] this encounter Medical Devices Implanted Type Area Telecommunications Network Engineer Device Identifier Shelf Expiration Date Model / Serial / Lot Lens Intraoc 22.0 - [id number] - [id number] Implanted:Qty: 1 on 06/26/2019 by London Ocampo MD at OR [facility] Left: Eye BAUSCH [employer] LOMB 01/27/2024 [id number] / [id number] / [id number] Lens Intraoc 21.5 - [id number] - [id number] Implanted:Qty: 1 on 07/15/2019 by London Ocampo MD at OR [facility] Right: Eye BAUSCH & LOMB 03/28/2024 [id number] / [id number] / [id number] documented as of this encounter Advance Directives Latest Code Status on File Code Status Date Activated Date Inactivated Comments Full Code 07/06/2023 1:46 PM 07/10/2023 8:23 PM This o rder reflects the patients wishes and were consensually agreed upon. Question Answer Comments Discussion of Advance Directives occurred with: Patient Care Teams Traffic Assistant Relationship Specialty Start Date End Date Sravanthi Bloom DO [address] [place] [address] [place] [address] PCP - General Internal Medicine 06/18/17 documented as of this encounter
--- OUTSIDE RECORDS SUMMARY | 2024-04-04 20:28 | External Medical Summary | Summary of Care ---
Author Name Unknown Organization [facility] Address [address] [place] [address] Phone [phone] Care Team Providers Care Pig Farm Manager Name Role Phone Sravanthi Bloom DO Primary Care Provider Reason for Visit * Reason Comments Acute Encounter Details Date Type Department Care Team (Late st Contact Info) Description 03/13/2024 11:40 AM EDT Office Visit Family Medicine [address] [phone] [address] [phone] Fall, initial encounter*; Acute right ankle pain; Right foot pain; Hip pain, right Allergies Active Allergy Reactions Criticality Noted Date Comments Food (See Comments) 04/18/2021 honey Latex 04/18/2021 rash documented as of this encounter (statuses as of 03/13/2024) Medications Medication Sig Dispensed Refills Start Date End Date Status nystatin-triamcinolo ne (MYCOLOG) 614863-2.1 UNIT/GM-% creamIndications:Cut aneous candidiasis Apply topically to [...] mRNA, LNP-s, No Pre serve, 2-Dose Series ([employer]) 08/30/2021,01/11/2021,12/21/2020 Pneumococcal Conjugate Vacc, 13 Valent (Prevnar) [...] Sign Reading Time Taken Comments Blood Pressure 122/64 03/13/2024 11:36 AM EDT Pulse 80 03/13/2024 11:36 AM EDT Temperature 36 C (96.8 F) 03/13/2024 11:36 AM EDT Respiratory Rate 16 03/13/2024 11:36 AM EDT Oxygen Saturation 98% 03/13/2024 11:36 AM EDT Inhaled Oxygen Concentration - - Weight 69.9 kg (154 lb) 03/13/2024 11:36 AM EDT Height - - Body Mass Index 26.43 02/15/2024 8:41 AM EDT documented in this [...] as of this encounter Nursing Notes * Rhona Estevez RN - 03/13/2024 11:40 AM EDT Pt got up early yesterday morning and she got lightheaded and fell on Bedroom floor, was not unconscious, has pain in right hip, her right foot right lower leg and right arm documented in this encounter Plan of Treatment Upcoming Encounters Date Type Department Care Team (Late st Contact Info) Description 04/04/2024 9:45 AM EDT Pharmacy Pharmacy Hematology Oncology [facility] [address] [place] [address] [facility] Hem/Onc [address] [place] [address] 04/10/2024 1:40 PM EDT Office Visit Nicole Gupta 200 [place] [address] Mirna Dyson MD [address] [place] [address] 05/08/2024 11:00 AM EDT Nurse Only Ancillary [address] [place] [address] [place], Nurse [address] [place] [address] 05/14/2024 1:15 PM EDT Office Visit Hematology/Oncology [facility] 200 [facility] [place] [address] Hadley Verdugo MD [address] [place] [address] 05/22/2024 11:00 AM EDT Office Visit Audiology [facility] 132 [facility] [place] [address] Ayana Grajeda Au.D. 132 [facility] [address] 07/21/2024 2:30 PM EDT Office [facility] [address] [place] [address] Boo Wylie MD [address] [place] [address] 08/08/2024 10:30 AM EDT Imaging Radiology [address] 132 [facility] [place] [address] 09/26/2024 10:30 AM EST Office Visit Family Medicine [address] [place] [phone] Sravanthi Bloom[address] [place] [address] 11/24/2024 1:20 PM EST Office Visit Otolaryngology [facility] [address] [place] [address] Nabil Fernandes PA-C [address] [place] [address] Pending Results Name Type Priority Associated Diagnoses Date /Time XR FOOT 3 OR MORE VIEWS Medical Imaging STAT Right foot pain 03/13/2024 12:31 PM EDT XR ANKLE 3 OR MORE VIEWS Medical Imaging STAT Acute right ankle pain 03/13/2024 12:31 PM EDT XR HIP UNILAT 2-3 VIEWS INCLUDING AP PELVIS Medical Imaging Routine Hip pain, right 03/13/2024 12:31 PM EDT Scheduled Procedures Name Priority Associated Diagnoses Date/Ti me COLONOSCOPY FLEXIBLE PROXIMA L DIAGNOSTIC Recall Encounter for screening colonoscopy Health Maintenance Due Date Last Done Comments COVID-19 Vaccine ( season) 2023 08/30/2021, 01/11/2021, 12/21/2020 Depression Screening 05/06/2024 05/06/2023 GFR 08/31/2024 02/29/2024, 01/27, 11/14/2023, Additional history exists TSH 02/14/2025 02/15/2024, 05/30, 03/22/2023, Additional history exists Albumin/Creatinine Ratio 02/28/2025 02/29/2024, 06/30 CKD HGB USE SMARTSET 25139 02/28/202502/28, 02/29/2024, 02/15/2024, Additional history exists CKD PHOS USE SMARTSET 56292 02/28/2025 05/0 12/2023, 07/09/2023, 07/08/2023, Additional history exists DTaP,Tdap,and [...] this encounter Medical Devices Implanted Type Area Technology Education Teacher Device Identifier Shelf Expiration Date Model / Serial / Lot Lens Intraoc 22.0 - [id number] - [id number] Implanted:Qty: 1 on 06/26/2019 by London Ocampo MD at OR [facility] Left: Eye BAUSCH & LOMB 01/27/2024 [id number] / [id number] / [id number] Lens Intraoc 21.5 - [id number] - [id number] Implanted:Qty: 1 on 07/15/2019 by London Ocampo MD at [facility] Right: Eye BAUSCH & LOMB 03/28/2024 [id number] / [id number] / [id number] documented as of this encounter Visit Diagnoses Diagnosis Fall, initial encounter- Primary Acute right ankle pain Right foot pain Pain in limb Hip pain, right Pain in joint, pelvic region and thigh documented in this encounter Advance Directives Latest Code Status on File Code Status Date Activated Date Inactivated Comments Full Code 07/06/2023 1:46 PM 07/10/2023 8:23 PM This o rder reflects the patients wishes and were consensually agreed upon. Question Answer Comments Discussion of Advance Directives occurred with: Patient Care Teams Pig Farm Manager Relationship Specialty Start Date End Date Sravanthi Bloom DO [address] [place] [address] [place] [phone] PCP - General Internal Medicine 06/18/17 documented as of this encounter
--- OUTSIDE RECORDS SUMMARY | 2024-04-04 20:29 | External Medical Summary ---
Author Name Unknown Address Unknown Organization K01[place] [facility] [place] [address] [place] [address] Laboratory Report Ordering Provider Test Date Status ZULEMA MICHAEL 02/29/2024 15:10:13 Final Observation Date Value Abnormality Reference (Units ) Status Phosphate 02/29/2024 15:10:13 2.4 Below low normal 2.5 -4.8 (mg/dL) Final Performing Location LABORATORY C - [address] [place] [address]
--- OUTSIDE RECORDS SUMMARY | 2024-04-04 20:29 | External Medical Summary ---
Author Name Unknown Address Unknown Organization K01:LABORATORY [facility] [place] [address] [place] [address] Laboratory Report Ordering Provider Test Date Status ZULEMA MICHAEL 02/29/2024 15:10:13 Final Observation Date Value Abnormality Reference (Units ) Status Parathyrin.intact [Mass/volume] in Serum or Plasma 02/29/2024 15:10:13 64 15-65 (pg/mL) Final Performing Location LABORATORY [facility] [place] - [address] [place] [address]
--- OUTSIDE RECORDS SUMMARY | 2024-04-04 20:29 | External Medical Summary | Summary of Care ---
Author Name Unknown Organization [facility] Address [address] [place] [address] Phone [phone] Care Team Providers Care Sow Farm Manager Name Role Phone Sravanthi Bloom DO Primary Care Provider Reason for Visit * Reason Comments Outpatient Testing Encounter Details Date Type Department Care Team (Late st Contact Info) Description 02/29/2024 3:10 PM EDT Laboratory Laboratory [address] [place] [phone] [address] [place] [address] Arrived Allergies Active Allergy Reactions Criticality Noted Date Comments Food (See Comments) 04/18/2021 honey Latex 04/18/2021 rash documented as of this encounter (statuses as of 02/29/2024) Medications Medication Sig Dispensed Refills Start Date End Date Status nystatin-triamcinolo ne (MYCOLOG) 070500-2.1 UNIT/GM-% creamIndications:Cut aneous candidiasis Apply topically to [...] 6 weeks 120 g 1 09/06/2023 Active Osimertinib Mesylate 80 MG Oral Tablet (Tagrisso)Indication s:NSCLC with EGFR mutation (HCC) Take 1 Tablet by mouth in the morning. Take medication about same time every day, with or without food.. 30 Tablet 5 09/06/2023 Active Levothyroxine Sodium 137 MCG Oral [...] Oral Tablet Take by mouth. 0 Active Hospital, Clinic, or Other Facility Administered [...] as of this encounter (statuses as of 02/29/2024) Active Problems Problem Noted Date Diagnosed Date [...] as of this encounter (statuses as of 02/29/2024) Resolved Problems Problem Noted Date Diagnosed Date [...] as of this encounter (statuses as of 02/29/2024) Immunizations Name Administration Dates Next Due COVID-19 mRNA, LNP-s, No Pre serve, 2-Dose Series (OceanTailer) 08/30/2021,01/11/2021,12/21/2020 Pneumococcal Conjugate Vacc, 13 Valent (Prevnar) [...] 03/13/2024 11:00 AM EDT Nurse Only Nephrology [address] [place] [address] Naeem, Nurse Nephrology [address] [place] [address] 04/04/2024 9:45 AM EDT Pharmacy Pharmacy Hematology Oncology [facility] [address] [place] [address] [facility] [place] Hem/Onc [address] [place] [address] 04/10/2024 1:40 PM EDT Office Visit Nephrology, Nicole Polanco [address] [place] [address] Mirna Dyson MD [address] [place] [address] 05/08/2024 11:00 AM EDT Nurse Only Ancillary [address] [place] [address] [place], Nurse [address] [place] [address] 05/14/2024 1:15 PM EDT Office Visit Hematology/Oncology Nicole Polanco [place] [address] [place] [phone] Hadley Verdugo MD [address] [place] [address] 05/22/2024 11:00 AM EDT Office Visit Audiology [facility] [address] [place] [address] Ayana Grajeda Au.D. [address] [place] [address] 07/21/2024 2:30 PM EDT Office Visit [facility] [address] [place] [address] Boo Wylie MD [address] [place] [address] 08/08/2024 10:30 AM EDT Imaging Radiology [address] [facility] [place] [address] 09/26/2024 10:30 AM EST Office Visit Family Medicine [address] [place] [phone] Sravanthi Bloom[address] [place] [address] 11/24/2024 1:20 PM EST Office Visit [facility]ol[facility]ology [facility] [place] [address] Nabil Fernandes PA-C [address] [place] [address] Scheduled Procedures Name Priority Associated Diagnoses Date/Ti me COLONOSCOPY FLEXIBLE PROXIMA L DIAGNOSTIC Recall Encounter for screening colonoscopy Health Maintenance Due Date Last Done Comments COVID-19 Vaccine ( season) 2023 08/30/2021, 01/11/2021, 12/21/2020 Depression Screening 05/06/2024 05/06/2023 GFR 02/14/2025 02/15/2024, 10/29, 09/05/2023, Additional history exists TSH 02/14/2025 02/15/2024, 05/30, 03/22/2023, Additional history exists Albumin/Creatinine Ratio 07/20/2025 07/20/2022 DTaP,Tdap,and Td Vaccines (2 - Td or [...] this encounter Medical Devices Implanted Type Area Lug Breaker And Wire Puller Device Identifier Shelf Expiration Date Model / Serial / Lot Lens Intraoc 22.0 - [id number] - [id number] Implanted:Qty: 1 on 06/26/2019 by London Ocampo MD at OR [facility] Left: Eye [employer]OMB 01/27/2024 [id number] / [id number] / [id number] Lens Intraoc 21.5 - [id number] - [id number] Implanted:Qty: 1 on 07/15/2019 by London Ocampo MD at [facility] Right: Eye BAUSCH [employer] LOMB 03/28/2024 [id number] / [id number] / [id number] documented as of this encounter Advance Directives Latest Code Status on File Code Status Date Activated Date Inactivated Comments Full Code 07/06/2023 1:46 PM 07/10/2023 8:23 PM This o rder reflects the patients wishes and were consensually agreed upon. Question Answer Comments Discussion of Advance Directives occurred with: Patient Care Teams Sow Farm Manager Relationship Specialty Start Date End Date Sravanthi Bloom DO [address] [place] [address] [place] [address] PCP - General Internal Medicine 06/18/17 documented as of this encounter
--- OUTSIDE RECORDS SUMMARY | 2024-04-04 20:29 | External Medical Summary | Summary of Care ---
Author Name Unknown Organization [facility] Address [address] [place] [address] Phone [phone] Care Team Providers Care Machine Setter Sheet Metal Name Role Phone Sravanthi Bloom DO Primary Care Provider [phone] Reason for Visit * Reason Comments Medication Management Encounter Details Date Type Department Care Team (Late st Contact Info) Description 02/25/2024 9:45 AM EDT Pharmacy Pharmacy Hematology Oncology [facility] [address] [place] [address] [facility] [place] [facility] Hem/Onc [address] [place] [address] NSCLC with EGFR mutation (HCC)* Allergies Active Allergy Reactions Criticality Noted Date Comments Food (See Comments) 04/18/2021 honey Latex 04/18/2021 rash documented as of this encounter (statuses as of 02/22/2024) Medications Medication Sig Dispensed Refills Start Date End Date Status nystatin-triamcinolo ne (MYCOLOG) 470996-4.1 UNIT/GM-% creamIndications:Cut aneous candidiasis Apply topically to [...] the morning. 30 Capsule 0 02/11/2024 Active Hospital, Clinic, or Other Facility Administered [...] as of this encounter (statuses as of 02/22/2024) Active Problems Problem Noted Date Diagnosed Date [...] as of this encounter (statuses as of 02/22/2024) Resolved Problems Problem Noted Date Diagnosed Date [...] as of this encounter (statuses as of 02/22/2024) Immunizations Name Administration Dates Next Due COVID-19 mRNA, LNP-s, No Pre serve, 2-Dose Series (Yi De) 08/30/2021,01/11/2021,12/21/2020 Pneumococcal Conjugate Vacc, 13 Valent (Prevnar) [...] as of this encounter Progress Notes * Ayana Nichols, [facility] - 02/22/2024 9:48 AM EDT MEDICATION THERAPY MANAGEMENT OSIMERTINIB TREATMENT PROGRESS NOTE Ioana Tan [phone] Patient Phone Numbers Preferred Lab: Specialty Pharmacy: P Communication: Spoke to: Patient Treatment: Medication: Osimertinib (Tagrisso) Indication/Staging/Diagnosis Code: NSCLC, 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 No Assessment and Plan: PLT stable at grade 1 thrombocytopenia Creatinine continues to increase Per MyG 02/21/24, pt requesting nephrology referral from PCP Will monitor closely K+ improving to WNL All other labs stable Continue moisturizing regimen for dry skin. Counseled pt on photosensitivity and to apply sunscreenwhen outdoors for more than 15 minutes. Pt replied with understanding Continue current therapy Assessment of compliance: compliant Assessment of adverse effects attributed to drug therapy: Rash/Dry Skin- present Nail Changes- absent Diarrhea - absent Pneumonitis - absent Dose adjustment needed based on lab or adverse drug reaction? No Follow up: 6 weeks Ayana Nichols, PharmD, BCOP Clinical Pharmacist, [facility] Oral Chemotherapy [facility] 02/22/2024, 10:06 AM Monitoring Parameters: Estimated CrCl Serum creatinine: 1.8 mg/dL (H) 02/15/24 0953 Estimated creatinine clearance: 25.4 mL/min (A) Hepatitis panel Latest Reference Range & Units 08/01/23 14:53 Hepatitis B Surface Antigen Negative Negative Hepatitis B Surface Antibody, Quantitative mIU/mL <3.5 HEPATITIS B SURFACE ANTIBODY Rpt Hepatitis B Surface Antibody, Interpretation NOT immune to Hepatitis B Virus Hepatitis B Surface Antibody, Qualitative Negative Hepatitis B Core Antibodies IgG and IgM Negative Negative test N/A Suggested lab monitoring Suggested lab monitoring: baseline ECG and ECHO (can consider periodicallywhile on treatment based on risk factors or development of s/sx); test (in females of reproductive potential prior to therapy initiation); electrolytes periodically Treatment Parameters Qtc > 500 ms Pertinent labs: Latest Reference Range & Units 09/05/23 10:46 11/14/23 13:48 02/15/24 09:53 WBC 4.00 - 10.80 K/uL 8.72 4.15 3.56 (L) RBC 3.85 - 5.15 M/uL 3.30 3.30 3.18 HGB 12.0 - 15.3 g/dL 10.7 (L) 10.4 (L) 10.4 (L) HCT 36.0 - 45.2 % 32.9 (L) 31.9 (L) 31.8 (L) MCV 81.5 - 97.5 fL 99.7 96.7 100.0 MCH 27.0 - 34.0 pg 32.4 31.5 32.7 MCHC 32.0 - 36.0 g/dL 32.5 32.6 32.7 RDW 11.5 - 15.5 % 15.2 13.1 14.1 PLT 140 - 400 K/uL 260 127 (L) 131 (L) MPV 6.6 - 11.1 fL 9.8 10.9 11.9 CBC WITH WBC DIFFERENTIAL Rpt ! Rpt ! ANEMIA CBC Rpt ! Absolute Neutrophils 1.80 - 7.70 K/uL 6.16 2.57 2.15 Latest Reference Range & Units 09/05/23 10:46 11/14/23 13:48 02/15/24 09:53 BUN 6 - 20 mg/dL 11 14 20 Creatinine 0.5 - 1.0 mg/dL 1.4 (H) 1.6 (H) 1.8 (H) Estimated Glomerular Filtration Rate >=60 mL/min 38 (L) 33 (L) 29 (L) Latest Reference Range & Units 09/05/23 10:46 11/14/23 13:48 02/15/24 09:53 Potassium 3.5 - 5.1 mmol/L 4.2 3.1 (L) 4.1 Miscellaneous Monitoring Date Qtc (msec) 07/08/23 443 Date LVEF (%) 09/13/23 60 Time Spent on Encounter: 6 - 10 minutes Encounter Group: Oncology Encounter Interventions Item Category: Oral Chemotherapy Osimertinib Problem/Rationale: Safety: Needs additional monitoring - Medication Requires monitoring Pharmacist Intervention(s): Lab monitoring, Non-pharmacological intervention provided, and Toxicitymonitoring Magnitude of Intervention: Monitoring with direction (Level 1) documented in this encounter Plan of Treatment Upcoming Encounters Date Type Department Care Team (Late st Contact Info) Description 04/04/2024 9:45 AM EDT Pharmacy Pharmacy Hematology Oncology [address] [address] [facility] [place] [facility] Hem/Onc [facility] [place] [address] 05/08/2024 11:00 AM EDT Nurse Only Ancillary [address] [place] [address] [place], Nurse [address] [place] [address] 05/14/2024 1:15 PM EDT Office Visit Hematology/Oncology [facility] 200 [facility] [place] [phone] Hadley Verdugo MD 200 [facility] [place] [address] 05/22/2024 11:00 AM EDT Office Visit Audiology [facility] [address] [place] [address] Ayana Grajeda Au.D. [address] [place] [address] 07/21/2024 2:30 PM EDT Office Visit Thoracic Surg [facility] [address] [place] [address] Boo Wylie MD [address] [facility] [place] [address] 09/26/2024 10:30 AM EST Office Visit Family Medicine [address] [place] [phone] Sravanthi Bloom[address] [place] [address] 11/24/2024 1:20 PM EST Office Visit Otolaryngology [facility] [address] [place] [address] Nabil Fernandes PA-C [address] [place] [address] Scheduled Procedures Name Priority Associated Diagnoses Date/Ti me COLONOSCOPY FLEXIBLE PROXIMA L DIAGNOSTIC Recall Encounter for screening colonoscopy Health Maintenance Due Date Last Done Comments COVID-19 Vaccine (2022- season) 2023 08/30/2021, 01/11/2021, 12/21/2020 Depression Screening [...] this encounter Medical Devices Implanted Type Area Taxicab Coordinator Device Identifier Shelf Expiration Date Model / Serial / Lot Lens Intraoc 22.0 - [id number] - [id number] Implanted:Qty: 1 on 06/26/2019 by London Ocampo MD at OR [facility] Left: Eye [employer]CH [employer] LOMB 01/27/2024 [id number] / [id number] / [id number] Lens Intraoc 21.5 - [id number] - [id number] Implanted:Qty: 1 on 07/15/2019 by London Ocampo MD at OR [facility] Right: Eye BAUSCH [employer] LOMB 03/28/2024 [id number] / [id number] / [id number] documented as of this encounter Visit Diagnoses Diagnosis NSCLC with EGFR mutation (HCC)- Primary documented in this encounter Advance Directives Latest Code Status on File Code Status Date Activated Date Inactivated Comments Full Code 07/06/2023 1:46 PM 07/10/2023 8:23 PM This o rder reflects the patients wishes and were consensually agreed upon. Question Answer Comments Discussion of Advance Directives occurred with: Patient Care Teams Machine Setter Sheet Metal Relationship Specialty Start Date End Date Sravanthi Bloom DO [address] [place] [address] [place] [address] PCP - General Internal Medicine 06/18/17 documented as of this encounter
--- OUTSIDE RECORDS SUMMARY | 2024-04-04 20:29 | External Medical Summary ---
Author Name Unknown Address Unknown Organization K01:[facility] [place] [address] [facility] [place] [address] Laboratory Report Ordering Provider Test Date Status ZULEMA MICHAEL 02/29/2024 15:18:16 Final Observation Date Value Abnormality Reference (Units ) Status Color of Urine by Auto 02/29/2024 15:18:16 Yellow Colorless, Light Yellow, Yellow, Dark Yellow Final Clarity, Urine 02/29/2024 15:18:16 Slightly Cloudy Abnormal Clear Final Glucose [Mass/volume] in Urine by Automated test strip 02/29/2024 15:18:16 Negative Negative (mg/dL) Final Bilirubin.total [Presence] in Urine by Automated test strip 02/29/2024 15:18:16 Negative Negative Final Ketones [Mass/volume] in Urine by Automated test strip 02/29/2024 15:18:16 Trace Abnormal Negative (mg/dL) Final Specific gravity, Urine 02/29/2024 15:18:16 1.025 1.003-1.030 Final Hemoglobin [Presence] in Urine by Automated test strip 02/29/2024 15:18:16 Negative Negative Final pH, Urine 02/29/2024 15:18:16 5.5 5.0-7.5 (Units) Final Protein [Mass/volume] in Urine by Automated test strip 02/29/2024 15:18:16 30 Abnormal Negative (mg/dL) Final Urobilinogen [Mass/volume] in Urine by Automated test strip 02/29/2024 15:18:16 Normal Normal (mg/dL) Final Nitrite [Presence] in Urine by Automated test strip 02/29/2024 15:18:16 Negative Negative Final Leukocyte esterase [Presence] in Urine by Automated test strip 02/29/2024 15:18:16 Large Abnormal Negative Final RBC, Urine 02/29/2024 15:18:16 0-2 0-2 (/HPF) Final WBC, Urine 02/29/2024 15:18:16 50+ Abnormal 0-2 (/HPF) Final Bacteria [#/area] in Urine sediment by Microscopy high power field 02/29/2024 15:18:16 51-100 Abnormal 0-25 (/HPF) Final Calcium oxalate crystals [#/area] in Urine sediment by Microscopy high power field 02/29/2024 15:18:16 50+ Abnormal None (/HPF) Final Yeast [#/area] in Urine sediment by Microscopy high power field 02/29/2024 15:18:16 Present Abnormal None (/HPF) Final Epithelial cells.renal [#/area] in Urine sediment by Microscopy high power field 02/29/2024 15:18:16 1-4 Abnormal None (/HPF) Final Leukocyte clumps [#/area] in Urine sediment by Microscopy high power field 02/29/2024 15:18:16 Present Abnormal None (/HPF) Final Performing Location [facility] [place] [address] [facility] [address]
--- OUTSIDE RECORDS SUMMARY | 2024-04-04 20:29 | External Medical Summary ---
Author Name Unknown Address Unknown Organization K01:[place] [facility] [facility] [place] [address] [place] [address] Laboratory Report Ordering Provider Test Date Status ZULEMA MICHAEL 02/29/2024 15:10:13 Final Deficient: <20 ng/mL
Ins ufficient: 20-29 ng/mL
Recommended/Optimum:30-50 ng/mL

Vitamin D intoxication is rare. If suspicious of Vitamin D toxicity, evaluation of serum Calcium and PTH is recommended. Observation Date Value Abnormality Reference (Units ) Status 25-OH Vitamin D total 02/29/2024 15:10:13 75 >19 (ng/mL) Final Performing Location [place] [facility] [place] [address] [place] [address]
--- OUTSIDE RECORDS SUMMARY | 2024-04-04 20:29 | External Medical Summary ---
Author Name Unknown Address Unknown Organization K01:LABORATORY [facility] [place] - [address] [place] [address] Laboratory Report Ordering Provider Test Date Status ZULEMA MICHAEL 02/29/2024 15:10:13 Final Normal: <150 mg/ g creatinine
High: 150-500 mg/g creatinine
Very High: >500 mg/g creatinine
Nephrotic: >3000 mg/g creatinine Observation Date Value Abnormality Reference (Units ) Status Protein/Creatinine [Ratio] in Urine 02/29/2024 15:10:13 211 Above high normal <150 (mg/g ) Final Protein, Urine 02/29/2024 15:10:13 52 (mg/dL) Final Creatinine, Urine 02/29/2024 15:10:13 247 (mg/dL) Final Performing Location LABORATORY [facility] [place] - [address] [place] [address]
--- OUTSIDE RECORDS SUMMARY | 2024-04-04 20:29 | External Medical Summary | Summary of Care ---
Author Name Unknown Organization [facility] Address [address] [place] [address] Phone [phone] Care Team Providers Care Under Sheriff Name Role Phone Sravanthi Bloom DO Primary Care Provider [phone] Reason for Visit * Reason Comments Outpatient Testing Encounter Details Date Type Department Care Team (Late st Contact Info) Description 02/29/2024 3:10 PM EDT Laboratory Laboratory [address] [place] [phone] [address] [place] [address] Arrived Allergies Active Allergy Reactions Criticality Noted Date Comments Food (See Comments) 04/18/2021 honey Latex 04/18/2021 rash documented as of this encounter (statuses as of 02/29/2024) Medications Medication Sig Dispensed Refills Start Date End Date Status nystatin-triamcinolo ne (MYCOLOG) 861929-8.1 UNIT/GM-% creamIndications:Cut aneous candidiasis Apply topically to [...] mRNA, LNP-s, No Pre serve, 2-Dose Series (infibond) 08/30/2021,01/11/2021,12/21/2020 Pneumococcal Conjugate Vacc, 13 Valent (Prevnar) [...] 03/13/2024 11:00 AM EDT Nurse Only Nephrology [address] [place] [address] Naeem, Nurse Nephrology [address] [place] [address] 04/04/2024 9:45 AM EDT Pharmacy Pharmacy Hematology Oncology [facility] [address] [place] [address] [facility] [place] Hem/Onc [address] [place] [address] 04/10/2024 1:40 PM EDT Office Visit Nephrology, Nicole Polanco [address] [place] [address] Mirna Dyson MD [address] [place] [address] 05/08/2024 11:00 AM EDT Nurse Only Ancillary [address] [place] [address] [place], Nurse [address] [place] [address] 05/14/2024 1:15 PM EDT Office Visit Hematology/Oncology Nicole Polanco [place] [address] [place] [phone] Hadley Verdugo MD [address] [place] [address] 05/22/2024 11:00 AM EDT Office Visit Audiology [facility] [address] [place] [address] Ayana Grajeda Au.D. [address] [place] [address] 07/21/2024 2:30 PM EDT Office Visit [facility] [address] [place] [address] Boo Wylie MD [address] [place] [address] 08/08/2024 10:30 AM EDT Imaging Radiology [address] [facility] [place] [address] 09/26/2024 10:30 AM EST Office Visit Family Medicine [address] [place] [phone] Sravanthi Bloom[address] [place] [address] 11/24/2024 1:20 PM EST Office Visit [facility] [place] [address] Nabil Fernandes PA-C [address] [place] [address] Scheduled Procedures Name Priority Associated Diagnoses Date/Ti [...] this encounter Medical Devices Implanted Type Area Contact Centre Supervisor Device Identifier Shelf Expiration Date Model / Serial / Lot Lens Intraoc 22.0 - [id number] - [id number] Implanted:Qty: 1 on 06/26/2019 by London Ocampo MD at OR [facility] Left: Eye [employer]OMB 01/27/2024 [id number] / [id number] / [id number] Lens Intraoc 21.5 - [id number] - [id number] Implanted:Qty: 1 on 07/15/2019 by London Ocampo MD at [facility] Right: Eye BA[employer]CH [employer] LOMB 03/28/2024 [id number] / [id number] / [id number] documented as of this encounter Advance Directives Latest Code Status on File Code Status Date Activated Date Inactivated Comments Full Code 07/06/2023 1:46 PM 07/10/2023 8:23 PM This o rder reflects the patients wishes and were consensually agreed upon. Question Answer Comments Discussion of Advance Directives occurred with: Patient Care Teams Under Sheriff Relationship Specialty Start Date End Date Sravanthi Bloom DO [address] [place] [address] [place] [address] PCP - General Internal Medicine 06/18/17 documented as of this encounter
--- OUTSIDE RECORDS SUMMARY | 2024-04-04 20:29 | External Medical Summary ---
Author Name Unknown Address Unknown Organization K01:LABORATORY [facility] [place] - [address] [place] [address] Laboratory Report Ordering Provider Test Date Status FERNANDAPOOLE 02/29/2024 15:10:13 Final Observation Date Value Abnormality Reference (Units ) Status Iron 02/29/2024 15:10:13 39 33-151 (ug/dL) Final Iron-binding capacity 02/29/2024 15:10:13 241 Below low normal 250-425 (ug/dL) Final Transferrin Sat % 02/29/2024 15:10:13 16 15-55 (%) Final Performing Location LABORATORY [facility] [place] - [address] [place] [address]
--- OUTSIDE RECORDS SUMMARY | 2024-04-04 20:29 | External Medical Summary ---
Author Name Unknown Address Unknown Organization K01:[place] [facility] [place] [facility] [place] [address] [place] [address] Laboratory Report Ordering Provider Test Date Status FERNANDAPOOLE 02/29/2024 15:18:04 Final Normal: <30 mg/g creatinine< br/>High: 30-300 mg/g creatinine
Very High: >300 mg/g creatinine
Nephrotic: >2200 mg/g creatinine Observation Date Value Abnormality Reference (Units ) Status Albumin, Urine 02/29/2024 15:18:04 8.87 (mg/dL) Final Creatinine, Urine 02/29/2024 15:18:04 246 (mg/dL) Final Albumin/Creatinine [Mass Ratio] in Urine 02/29/2024 15:18:04 36 Above high normal <30 (mg/g Creat) Final Performing Location [facility]ORY [facility] [place] [facility] [place] [address] [place] [place] [address]
--- OUTSIDE RECORDS SUMMARY | 2024-04-04 20:29 | External Medical Summary ---
Author Name Unknown Address Unknown Organization [id number]:[place] [place] [facility] N [facility] [address] [place] [address] Laboratory Report Ordering Provider Test Date Status ZULEMA MICHAEL 02/29/2024 15:10:13 Final Observation Date Value Abnormality Reference (Units ) Status BUN 02/29/2024 15:10:13 21 Above high normal 6-20 (mg/dL) Final Creatinine 02/29/2024 15:10:13 1.6 Above high normal 0.5-1.0 (mg/dL) Final Glomerular filtration rate/1.73 sq M.predicted [Volume Rate/Area] in Serum, Plasma or Blood by Creatinine-based formula (CKD-EPI) 02/29/2024 15:10:13 34 Below low normal >=60 (mL/min) Final eGFR is calculated based on the CKD-EPI 2020 equation Sodium 02/29/2024 15:10:13 140 135-146 (m mol/L) Final Potassium 02/29/2024 15:10:13 4.1 3.5-5.1 (m mol/L) Final Cl 02/29/2024 15:10:13 105 98-107 (mm ol/L) Final CO2 02/29/2024 15:10:13 24 22-32 (mmo l/L) Final Anion gap 02/29/2024 15:10:13 11 7-15 (mmol /L) Final Glucose 02/29/2024 15:10:13 99 70-120 (mg /dL) Final Calcium 02/29/2024 15:10:13 10.0 8.4-10.2 ( mg/dL) Final Performing Location LAB[facility]ORY [facility] [place] - [facility] [address] [place] [address]
--- OUTSIDE RECORDS SUMMARY | 2024-04-04 20:29 | External Medical Summary ---
Author Name Unknown Address Unknown Organization K01:[place] [place] [address] [facility] [place] [address] Laboratory Report Ordering Provider Test Date Status ZULEMA MICHAEL 02/29/2024 15:10:13 Final Observation Date Value Abnormality Reference (Units ) Status SYNC LEUKOCYTES IN BLOOD BY AUTOMATED COUNT 02/29/2024 15:10:13 5.09 4.00-10.80 (K/uL) Final Segs 02/29/2024 15:10:13 61.2 40.0-75.0 (%) Final Lymphs % 02/29/2024 15:10:13 24.4 18.0-42.0 (%) Final Monos 02/29/2024 15:10:13 11.6 Above high normal 1.0-11.0 (%) Final Eosinophils 02/29/2024 15:10:13 2.0 0.0-6.0 (%) Final Basos 02/29/2024 15:10:13 0.6 0.0-2.0 (%) Final Immature Granulocyte, Percent 02/29/2024 15:10:13 0.2 0.0-2.0 (%) Final Absolute Segs 02/29/2024 15:10:13 3.12 1.80-7.70 (K/uL) Final Lymphs, absolute 02/29/2024 15:10:13 1.24 1.00-4.80 (K/ul) Final Monos, Abs 02/29/2024 15:10:13 0.59 0.00-1.10 (K/uL) Final Eos, Abs 02/29/2024 15:10:13 0.10 0.00-0.70 (K/uL) Final Basos, Abs 02/29/2024 15:10:13 0.03 0.00-0.20 (K/uL) Final Immature Granulocytes, Number 02/29/2024 15:10:13 0.01 0.00-0.20 (K/uL) Final Performing Location [facility] [place] [facility] [place] [address] [facility] [address]
--- OUTSIDE RECORDS SUMMARY | 2024-04-04 20:29 | External Medical Summary ---
Author Name Unknown Address Unknown Organization K01:LABORATORY [place] [address] [facility] [address] [place] [address] Laboratory Report Ordering Provider Test Date Status FERNANDAZULEMA 02/29/2024 15:10:13 Final Observation Date Value Abnormality Reference (Units ) Status WBC, Total 02/29/2024 15:10:13 5.09 4.00-10.80 (K/uL) Final RBC 02/29/2024 15:10:13 2.97 3.85-5.15 (M/uL) Final Hemoglobin 02/29/2024 15:10:13 9.5 Below low normal 12.0-15.3 (g/dL) Final HCT 02/29/2024 15:10:13 29.7 Below low normal 36.0-45.2 (%) Final MCV 02/29/2024 15:10:13 100.0 81.5-97.5 (fL) Final MCH 02/29/2024 15:10:13 32.0 27.0-34.0 (pg) Final MCHC 02/29/2024 15:10:13 32.0 32.0-36.0 (g/dL) Final RDW 02/29/2024 15:10:13 13.6 11.5-15.5 (%) Final Platelets 02/29/2024 15:10:13 133 Below low normal 140-400 (K/uL) Final MPV 02/29/2024 15:10:13 11.9 6.6-11.1 (fL) Final Nucleated erythrocytes/100 leukocytes [Ratio] in Blood by Automated count 02/29/2024 15:10:13 0 <=0 (/100 WBCs) Final Performing Location [place] [facility] [place] [facility] [place] [address] [place] [address]
--- OUTSIDE RECORDS SUMMARY | 2024-04-04 20:29 | External Medical Summary | Summary of Care ---
Author Name Unknown Organization [facility] Address [address] [place] [address] Phone [phone] Care Team Providers Care Kettle Fry Cook Operator Name Role Phone Sravanthi Bloom DO Primary Care Provider Reason for Visit * Reason Comments Outpatient Testing Encounter Details Date Type Department Care Team (Late st Contact Info) Description 02/29/2024 3:10 PM EDT Laboratory Laboratory [address] [place] [phone] [address] [place] [address] Arrived Allergies Active Allergy Reactions Criticality Noted Date Comments Food (See Comments) 04/18/2021 honey Latex 04/18/2021 rash documented as of this encounter (statuses as of 02/29/2024) Medications Medication Sig Dispensed Refills Start Date End Date Status nystatin-triamcinolo ne (MYCOLOG) 773969-7.1 UNIT/GM-% creamIndications:Cut aneous candidiasis Apply topically to [...] mRNA, LNP-s, No Pre serve, 2-Dose Series ([employer]) 08/30/2021,01/11/2021,12/21/2020 Pneumococcal Conjugate Vacc, 13 Valent (Prevnar) [...] 03/13/2024 11:00 AM EDT Nurse Only Nephrology [address] [place] [address] Naeem, Nurse Nephrology [address] [place] [address] 04/04/2024 9:45 AM EDT Pharmacy Pharmacy Hematology Oncology [facility] [address] [place] [address] [facility] [place] Hem/Onc [address] [place] [address] 04/10/2024 1:40 PM EDT Office Visit Nephrology, Nicole [place] [address] [place] [address] Mirna Dyson MD [address] [place] [address] 05/08/2024 11:00 AM EDT Nurse Only Ancillary [address] [place] [address] [place], Nurse [address] [place] [address] 05/14/2024 1:15 PM EDT Office Visit Hematology/Oncology Nicole Polanco [place] [address] [place] [phone] Hadley Verdugo MD [address] [place] [address] 05/22/2024 11:00 AM EDT Office Visit Audiology [facility] [address] [place] [address] Ayana Grajeda Au.D. [address] [place] [address] 07/21/2024 2:30 PM EDT Office Visit Thoracic Surg [facility] [address] [place] [address] Boo Wylie MD [address] [place] [address] 08/08/2024 10:30 AM EDT Imaging Radiology [address] [facility] [place] [address] 09/26/2024 10:30 AM EST Office Visit Family Medicine [address] [place] [phone] Sravanthi Bloom[address] [place] [address] 11/24/2024 1:20 PM EST Office Visit Otolaryngology [facility] [place] [address] Nabil Fernandes PA-C [address] [place] [address] Scheduled Procedures Name Priority Associated Diagnoses Date/Ti [...] this encounter Medical Devices Implanted Type Area Tufting Machine Operator Single Needle Device Identifier Shelf Expiration Date Model / Serial / Lot Lens Intraoc 22.0 - [id number] - [id number] Implanted:Qty: 1 on 06/26/2019 by London Ocampo MD at OR [facility] Left: Eye [employer] 01/27/2024 [id number] / [id number] / [id number] Lens Intraoc 21.5 - [id number] - [id number] Implanted:Qty: 1 on 07/15/2019 by London Ocampo MD at [facility] Right: Eye [employer] 03/28/2024 [id number] / [id number] / [id number] documented as of this encounter Advance Directives Latest Code Status on File Code Status Date Activated Date Inactivated Comments Full Code 07/06/2023 1:46 PM 07/10/2023 8:23 PM This o rder reflects the patients wishes and were consensually agreed upon. Question Answer Comments Discussion of Advance Directives occurred with: Patient Care Teams Kettle Fry Cook Operator Relationship Specialty Start Date End Date Sravanthi Bloom DO [address] [place] [address] [place] [address] PCP - General Internal Medicine 06/18/17 documented as of this encounter
--- OUTSIDE RECORDS SUMMARY | 2024-04-04 20:30 | External Medical Summary ---
Author Name Unknown Address Unknown Organization K01:LABORATORY [place] [address] [place] [address] Laboratory Report Ordering Provider Test Date Status MANN PALMER 02/15/2024 09:53:01 Final Observation Date Value Abnormality Reference (Units ) Status Retic, % (auto) 02/15/2024 09:53:01 0.84 0.80-1.90 (%) Final Reticulocytes, Absolute 02/15/2024 09:53:01 25.8 Below low normal 31.3-100.1 (K/uL) Final Reticulocyte fraction, immature 02/15/2024 09:53:01 7.4 2.5-20.6 (%) Final Reticulocyte HGB 02/15/2024 09:53:01 33.2 29.7-37.4 (pg) Final Performing Location LABORATORY [facility] [place] - [facility] N [address] [place] [address]
--- OUTSIDE RECORDS SUMMARY | 2024-04-04 20:30 | External Medical Summary ---
Author Name Unknown Address Unknown Organization K01:LABORATORY [facility] [place] - [address] [facility] [place] [address] Laboratory Report Ordering Provider Test Date Status MANN PALMER 02/15/2024 09:53:01 Final Observation Date Value Abnormality Reference (Units ) Status SYNC LEUKOCYTES IN BLOOD BY AUTOMATED COUNT 02/15/2024 09:53:01 3.56 Below low normal 4.00-10.80 (K/uL) Final Segs 02/15/2024 09:53:01 60.4 40.0-75.0 (%) Final Lymphs % 02/15/2024 09:53:01 23.9 18.0-42.0 (%) Final Monos 02/15/2024 09:53:01 13.5 Above high normal 1.0-11.0 (%) Final Eosinophils 02/15/2024 09:53:01 1.1 0.0-6.0 (%) Final Basos 02/15/2024 09:53:01 0.8 0.0-2.0 (%) Final Immature Granulocyte, Percent 02/15/2024 09:53:01 0.3 0.0-2.0 (%) Final Absolute Segs 02/15/2024 09:53:01 2.15 1.80-7.70 (K/uL) Final Lymphs, absolute 02/15/2024 09:53:01 0.85 Below low normal 1.00-4.80 (K/ul) Final Monos, Abs 02/15/2024 09:53:01 0.48 0.00-1.10 (K/uL) Final Eos, Abs 02/15/2024 09:53:01 0.04 0.00-0.70 (K/uL) Final Basos, Abs 02/15/2024 09:53:01 0.03 0.00-0.20 (K/uL) Final Immature Granulocytes, Number 02/15/2024 09:53:01 0.01 0.00-0.20 (K/uL) Final Performing Location LABORATORY [facility] [place] - [facility] [place] [address]
--- OUTSIDE RECORDS SUMMARY | 2024-04-04 20:30 | External Medical Summary | Summary of Care ---
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 To affacted area for two weeks. 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 300 mL 1 3 Active Apixaban 5 MG Oral Tablet (Eliquis) Take 1 Tablet by mouth in the morning and 1 Tablet before bedtime. 0 3 Active Potassium Chloride ER 10 MEQ Oral Capsule Extended Release Take 1 Capsule by mouth in the morning and 1 Capsule before bedtime. 60 Capsule 5 3 Active Hydrocortisone 1 % External CreamIndications:NS CLC with EGFR mutation (HCC) Apply topically to affected area 2 times a day. Apply twice daily for 6 weeks 120 g 1 3 Active Osimertinib Mesylate 80 MG Oral Tablet (Tagrisso)Indicatio ns:NSCLC with EGFR mutation (HCC) Take 1 Tablet by mouth in the morning. Take medication about same time every day, with or without food.. 30 Tablet 5 3 Active Loratadine 10 MG Oral Tablet (Claritin)Indicatio ns:Dry cough Take 1 Tablet by mouth every night at bedtime. 30 Tablet 2 3 Active Levothyroxine Sodium 137 MCG Oral Tablet Take 1 Tablet by mouth in the morning. (at least 30 min prior to breakfast or other meds). 90 Tablet 2 4 Active amLODIPine Besylate 5 MG Oral Tablet (Norvasc)Indication s:Essential hypertension with goal blood pressure less than 140/90 Take 1 Tablet by mouth in the morning. 30 Tablet 5 4 Active Rosuvastatin Calcium 10 MG Oral Tablet (Crestor) Take 1 Tablet by mouth in the morning. 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 Encounter [...] as of this encounter (statuses as of 02/11/2024) Resolved Problems Problem Noted Date Diagnosed Date Resolved Date Obesity, Class I, BMI 30.0-3 4.9 (see [...] as of this encounter (statuses as of 02/11/2024) Immunizations Name Administration Dates Next Due COVID-19 mRNA, LNP-s, No Pre serve, 2-Dose Series ([employer]) 08/30/2021,01/11/2021,12/21/2020 Pneumococcal Conjugate Vacc, 13 Valent (Prevnar) [...] encounter Miscellaneous Notes * Telephone Encounter - Kriss Martínez LPN - 02/11/2024 8:11 AM EDTPending Prescriptions: Disp Refills Omeprazole 20 MG Oral Capsule Delayed Rele*30 Cap*0 Sig: Take 1 Capsule by mouth in the morning. * Telephone Encounter - Kriss Martínez LPN - 02/11/2024 8:08 AM EDT Refill request for Omeprazole 20 mg Capsules pended below: Last Refill: 10/25/2023 Last seen: 11/14/2023 Per last OVN: She has underlying GERD, she is on omeprazole once a day, some mild nausea present, fair appetite Next Appt.: 05/14/2024 documented in this encounter Plan of Treatment Upcoming Encounters Date Type Department Care Team (Late st Contact Info) Description 02/13/2024 11:15 AM EDT Imaging Radiology [address] [place] [address] 02/15/2024 8:50 AM EDT Office Visit Family Medicine [address] [phone] Sravant[address] [place] [address] 02/21/2024 11:40 AM EDT Telemedicine Pulmonary Medicine, [address] [address] iTmothy Varghese MD [facility] [place] [address] 02/25/2024 9:45 AM EDT Pharmacy Pharmacy Hematology Oncology [facility] [place] [address] [place] [address] [facility] Hem/Onc [facility] [place] [address] 05/08/2024 11:00 AM EDT Nurse Only Ancillary [address] [place] [address] Ayesha, Nurse [address] [place] [address] 05/14/2024 1:15 PM EDT Office Visit Hematology/Oncology [facility] [phone] Hadley Verdugo MD [address] [place] [address] 05/22/2024 11:00 AM EDT Office Visit Audiology [facility] [address] [place] [address] Ayana Grajeda Au.D. [address] [place] [address] 07/21/2024 2:30 PM EDT Office Visit [facility] [address] [place] [address] Boo Wylie MD [address] [place] [address] 11/24/2024 1:20 PM EST Office Visit Otolaryngology [facility] [address] [place] [address] Nabil Fernandes PA-C [address] [place] [address] Scheduled Procedures Name Priority Associated Diagnoses Date/Ti me COLONOSCOPY FLEXIBLE PROXIMA L DIAGNOSTIC Recall Encounter for screening colonoscopy Health Maintenance Due Date Last Done Comments COVID-19 Vaccine ( season) 2023 08/30/2021, 01/11/2021, 12/21/2020 Depression Screening 05/06/2024 05/06/2023 TSH 06/26/2024 06/26/2023, 02/27, 02/15/2023, Additional history exists GFR 11/14/2024 11/14/2023, 05/2023, 08/29/2023, Additional history exists Albumin/Creatinine Ratio 07/20/2025 07/20/2022 DTaP,Tdap,and Td Vaccines (2 - Td or Tdap) 08/30/2025 08/30/2015, 09/02/2003, 09/02/2003 DXA Scan 07/13/2027 07/13/2020, 04/29, 05/05/2008, Additional history exists Fecal Occult Blood Test Discontinued 09/11/2008 Pneumococcal Vaccine: 65+ Years Completed 02/28/2016, 08/27/2013 Colonoscopy Discontinued 04/30/2017, 12/2016, 11/20/2008 Colorectal Cancer Screening Discontinued Zoster Vaccines Completed 04/08/2020, 06/2020, 08/29/2013 Influenza Vaccine (FLU shot) Completed 07/24/2023, 07/17/2022, 08/10/2021, Additional history exists Cologuard Discontinued GARDASIL-HPV IMMUNIZATION [...] this encounter Medical Devices Implanted Type Area Sports Manager Device Identifier Shelf Expiration Date Model / Serial / Lot Lens Intraoc 22.0 - [id number] - [id number] Implanted:Qty: 1 on 06/26/2019 by London Ocampo MD at OR [facility] Left: Eye [employer] 01/27/2024 [id number] / [id number] / [id number] Lens Intraoc 21.5 - [id number] - [id number] Implanted:Qty: 1 on 07/15/2019 by London Ocampo MD at OR [facility] Right: Eye [employer]OM[employer] 03/28/2024 [id number] / [id number] / [id number] documented as of this encounter Visit Diagnoses [...] Advance Directives occurred with: Patient Care Teams Manager Knowledge Relationship Specialty Start Date End Date Sravanthi [place] DO [address] [place] [address] [place] [address] PCP - General Internal Medicine 06/18/17 documented as of this encounter
--- OUTSIDE RECORDS SUMMARY | 2024-04-04 20:30 | External Medical Summary | Summary of Care ---
Author Name Unknown Organization [facility] Address [address] [place] [address] Phone [phone] Care Team Providers Care Crm Marketing Analyst Name Role Phone Sravanthi Bloom DO Primary Care Provider Reason for Visit * Reason Comments Follow Up Lung Ca Encounter Details Date Type Department Care Team (Late st Contact Info) Description 01/14/2024 10:40 AM EDT [facility] [address] [place] [address] Timothy Varghese MD [address] [place] [address] Cart, Telemed Pulm Gw [address] [place] [address] Chronic respiratory failure with hypoxia (HCC)* Allergies Active Allergy Reactions Criticality Noted Date Comments Food (See Comments) 04/18/2021 honey Latex 04/18/2021 rash documented as of this encounter (statuses as of 01/14/2024) Medications Medication Sig Dispensed Refills Start Date End Date Status nystatin-triamcinolon e (MYCOLOG) 864790-2.1 UNIT/GM-% creamIndications:Cuta neous candidiasis Apply topically to affected area 2 times a day. To affacted area for two weeks. 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 30 Tablet 1 07/27/2023 Active Magic Swizzle (Liysfmgbs-Egnrldsh-X aalox) oral solutionIndications:P rimary malignant neoplasm of right lower lobe of lung (HCC),Metastasis to mediastinal lymph node (HCC) Swish and swallow 15 mL 4 times a day before meals and at bedtime. 300 mL 1 08/13/2023 Active Apixaban 5 MG Oral Tablet (Eliquis) Take 1 Tablet by mouth in the morning and 1 Tablet before bedtime. 0 08/22/2023 Active Potassium Chloride ER 10 MEQ Oral Capsule Extended Release Take 1 Capsule by mouth in the morning and 1 Capsule before bedtime. 60 Capsule 5 08/29/2023 Active Hydrocortisone 1 % External CreamIndications:NSCL C with EGFR mutation (HCC) Apply topically to affected area 2 times a day. Apply twice daily for 6 weeks 120 g 1 09/06/2023 Active Osimertinib Mesylate 80 MG Oral Tablet (Tagrisso)Indications :NSCLC with EGFR mutation (HCC) Take 1 Tablet by mouth in the morning. Take medication about same time every day, with or without food.. 30 Tablet 5 09/06/2023 Active Loratadine 10 MG Oral Tablet (Claritin)Indications :Dry cough Take 1 Tablet by mouth every night at bedtime. 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 30 Capsule 3 10/25/2023 Active Levothyroxine Sodium 137 MCG Oral Tablet Take 1 Tablet by mouth in the morning. (at least 30 min prior to breakfast or other meds). 90 Tablet 2 11/07/2023 Active amLODIPine Besylate 5 MG Oral Tablet (Norvasc)Indications: Essential hypertension with goal blood pressure less than 140/90 Take 1 Tablet by mouth in the morning. 30 Tablet 5 12/03/2023 Active Hospital, Clinic, or Other Facility Administered [...] as of this encounter (statuses as of 01/14/2024) Active Problems Problem Noted Date Diagnosed Date [...] as of this encounter (statuses as of 01/14/2024) Resolved Problems Problem Noted Date Diagnosed Date [...] as of this encounter (statuses as of 01/14/2024) Immunizations Name Administration Dates Next Due COVID-19 mRNA, LNP-s, No Pre serve, 2-Dose Series ([employer]) 08/30/2021,01/11/2021,12/21/2020 Pneumococcal Conjugate Vacc, 13 Valent (Prevnar) [...] Sign Reading Time Taken Comments Blood Pressure - - Pulse 84 01/14/2024 10:50 AM EDT Temperature 36.9 C (98.4 F) 01/14/2024 10:50 AM E DT Respiratory Rate 16 01/14/2024 10:50 AM EDT Oxygen Saturation 90% 01/14/2024 10:50 AM EDT Inhaled Oxygen Concentration - - Weight - [...] as of this encounter Progress Notes * Timothy Varghese MD - 01/14/2024 10:51 AM EDT Patient location: CLINIC. I was in a different facility from the patient. After connecting through [email or web address] ([employer]), patient was verified with two unique identifiers. 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 My office door was closed. No one else was in the room with me. Patient acknowledged consent and understanding of privacy and security of the Telemedicine visit, and gave permission to have a telemedicine presenter stay in the room in order to assist with the history and to conduct the exam as needed. I informed the patient that I have reviewed their record in [employer] and presented the opportunity for them to ask any questions regarding the visit today. The patient agreed to participate. This is a 78 year old female with lung cancer presenting for evaluating of shortness of breath. Shefeels overall well. She shops without difficulty. She has no SOB at rest or chest discomfort. Current Outpatient Medications Medication Sig Dispense Refill nystatin-triamcinolone (MYCOLOG) 886196-9.1 UNIT/GM-% cream Apply topically to affected area 2 times a day. To affacted area for two weeks. 30 g 1 Rosuvastatin Calcium 10 MG Oral Tablet (Crestor) TAKE 1 TABLET BY MOUTH EVERY MORNING 90 Tablet 1 Ondansetron HCl 8 MG Oral Tablet Take 1 Tablet by mouth every 8 hours as needed for Nausea. 30 Tablet 1 Prochlorperazine Maleate 10 MG Oral Tablet (Compazine) Take 1 Tablet by mouth every 6 hours as needed for Nausea. 30 Tablet 1 Apixaban 5 MG Oral Tablet (Eliquis) Take [...] twice dailyfor 6 weeks 120 g 1 Osimertinib Mesylate 80 MG Oral Tablet (Tagrisso) Take 1 Tablet by mouth in the morning. Take medication about same time every day, with or without food.. 30 Tablet 5 Omeprazole 20 MG Oral Capsule Delayed Release (PriLOSEC) Take 1 Capsule by mouth in the morning. 30Capsule 3 Levothyroxine Sodium 137 MCG Oral Tablet Take 1 Tablet by mouth in the morning. (at least 30 min prior to breakfast or other meds). 90 Tablet 2 amLODIPine Besylate 5 MG Oral Tablet (Norvasc) Take 1 Tablet by mouth in the morning. 30 Tablet 5 Triamcinolone Acetonide 0.1 % External Ointment (Aristocort) Apply to affected area twice a day as needed for dry skin and itching 30 g 1 Magic Swizzle (Oyngrqqrx-Ctcmpylm-Ktkfjg) oral solution Swish and swallow 15 mL 4 times a day before meals and at bedtime. 300 mL 1 Loratadine 10 MG Oral Tablet (Claritin) Take 1 Tablet by mouth every night at bedtime. 30 Tablet 2 Current Facility-Administered Medications Medication Dose Route Frequency Provider Last Rate Last Admin Albuterol Sulfate (Proventil) (2.5 MG/3ML) 0.083% inhalation solution 2.5 mg 2.5 mg Nebulizer PRN Mayra Shila A HEALTH SAFETY ENGINEER albuterol (VENTOLIN HFA/PROVENTIL HFA) inhaler 3 Puff Inhalation PRN Mayra Shila A, HEALTH SAFETY ENGINEER In general, pleasant female in no distress Pulse 84 | Temp 36.9 C (98.4 F) (Tympanic) | Resp 16 | SpO2 90% Awake and alert No conversational dyspnea No audible wheezing Nl affect Impression- Lung cancer and hypoxia Plan 1. Nocturnal pulse ox to ascertain if oxygen is required. 2. Follow up in 4 weeks at home. I have answered the patient's questions. Timothy Varghese MD documented in this encounter Nursing Notes * Sunitha Baum LPN - 01/14/2024 10:46 AM EDT Chief Complaint Patient presents with Follow Up Lung Ca MMRC Dyspnea Scale = 0 (I only get breathless with strenuous exercise) Interm History/Respiratory Symptoms Cough: occ-dry Hemoptysis: no Sinus Symptoms: no Hospitalizations: no ED Trips: no Triggers: no Nocturnal: occ dry cough CPAP/BiPAP/O2: O2 @ 1.5 - 2 lpm documented in this encounter Plan of Treatment Upcoming Encounters Date Type Department Care Team (Late st Contact Info) Description 01/23/2024 9:45 AM EDT Pharmacy [facility] [place] [address] [place] [address] [facility]Onc [address] [place] [address] 02/13/2024 11:15 AM EDT Imaging Radiology [address] 132 [facility] [place] [address] 02/15/2024 8:50 AM EDT Office Visit Family Medicine [address] [place] [phone] Sravanthi Bloom[address] [place] [address] 02/21/2024 11:40 AM EDT Telemedicine Pulmonary Medicine, [place] [address] [place] [address] Timothy Varghese MD [facility] [place] [address] 05/08/2024 11:00 AM EDT Nurse Only Ancillary [address] [place] [address] [place], Nurse [address] [place] [address] 05/14/2024 1:15 PM EDT Office Visit Hematology/Oncology [facility] [address] [place] [phone] Hadley Verdugo MD [address] [place] [address] 05/22/2024 11:00 AM EDT Office Visit Audiology [facility] [address] [place] [address] Ayana Grajeda Au.D. [address] [place] [address] 07/21/2024 2:30 PM EDT Office Visit Thoracic Surg [facility] [address] [place] [address] Boo Wylie MD [address] [place] [address] 11/24/2024 1:20 PM EST Office Visit Otolaryngology [facility] [address] [facility] [address] Nabil Fernandes PA-C [address] [place] [address] Scheduled Orders Name Type Priority Associated Diagnoses Orde r Schedule NOCTURNAL HOME OXIMETRY (OP) Procedures Routine Chronic respiratory failure with hypoxia (HCC) Ordered: 01/14/2024 Scheduled Procedures Name Priority Associated Diagnoses Date/Ti [...] Years Completed 02/28/2016, 08/27/2013 Colonoscopy Discontinued 04/30/2017, 070 12/2016, 11/20/2008 Colorectal Cancer Screening Discontinued Zoster Vaccines Completed 04/08/2020, 020 06/2020, 08/29/2013 Influenza Vaccine (FLU shot) Completed [...] this encounter Medical Devices Implanted Type Area [employer] Device Identifier Shelf Expiration Date Model / Serial / Lot Lens Intraoc 22.0 - [id number] - [id number] Implanted:Qty: 1 on 06/26/2019 by London Ocampo MD at OR [facility] Left: Eye [employer] 01/27/2024 [id number] / [id number] / [id number] Lens Intraoc 21.5 - [id number] - [id number] Implanted:Qty: 1 on 07/15/2019 by London Ocampo MD at OR [facility] Right: Eye [employer]OM[employer] 03/28/2024 [id number] / [id number] / [id number] documented as of this encounter Visit Diagnoses Diagnosis Chronic respiratory failure with hypoxia (HCC)- Primary Chronic respiratory failure documented in this encounter Advance Directives Latest Code Status on File Code Status Date Activated Date Inactivated Comments Full Code 07/06/2023 1:46 PM 07/10/2023 8:23 PM This o rder reflects the patients wishes and were consensually agreed upon. Question Answer Comments Discussion of Advance Directives occurred with: Patient Care Teams Crm Marketing Analyst Relationship Specialty Start Date End Date Sravanthi Bloom DO [address] [place] [address] [place] [address] PCP - General Internal Medicine 06/18/17 documented as of this encounter"
--- OUTSIDE RECORDS SUMMARY | 2024-04-04 20:30 | External Medical Summary | Summary of Care ---
Author Name Unknown Organization [facility] Address [address] [place] [facility] [place] [place] [address] Phone [phone] Care Team Providers Care Regulatory Compliance Director Name Role Phone Spencer Darnell DO Primary Care Provider Reason for Visit * Reason Onset Date Comments Medication Refill 01/31/2024 Encounter Details Date Type Department Care Team (Late st Contact Info) Description 01/31/2024 Refill Family Medicine [address] [phone] Spencer Darnell DO [address] [place] [address] [place], [place] [phone] Allergies Active Allergy Reactions Criticality Noted Date Comments Food (See Comments) 04/18/2021 honey Latex 04/18/2021 rash documented as of this encounter (statuses as of 02/01/2024) Medications Medication Sig Dispensed Refills Start Date End Date Status nystatin-triamcinol one (MYCOLOG) 407449-8.1 UNIT/GM-% creamIndications:Cu taneous candidiasis Apply topically to affected area 2 times a day. To affacted area for two weeks. 30 g 1 04/04/2019 Active Triamcinolone Acetonide 0.1 % External Ointment (Aristocort)Indicat ions:Atopic dermatitis, unspecified type Apply to affected area twice a day as needed for dry skin and itching 30 g 1 04/18/2021 Active Ondansetron HCl 8 MG Oral TabletIndications:E [...] 30 Tablet 1 07/27/2023 Active Magic Swizzle (Lidocaine-Benadryl -Maalox) oral solutionIndications [...] 5 08/29/2023 Active Hydrocortisone 1 % External CreamIndications:NS CLC [...] 09/06/2023 Active Loratadine 10 MG Oral Tablet (Claritin)Indicatio [...] the morning. 90 Tablet 1 02/01/2024 Active Rosuvastatin Calcium 10 MG Oral Tablet (Crestor) TAKE 1 TABLET BY MOUTH EVERY MORNING 90 Tablet 1 07/20/2023 Discontinue d(Refill) Hospital, Clinic, or Other Facility [...] as of this encounter (statuses as of 02/01/2024) Active Problems Problem Noted Date Diagnosed Date [...] as of this encounter (statuses as of 02/01/2024) Resolved Problems Problem Noted Date Diagnosed Date [...] as of this encounter (statuses as of 02/01/2024) Immunizations Name Administration Dates Next Due COVID-19 mRNA, LNP-s, No Pre serve, 2-Dose Series ([employer]) 08/30/2021,01/11/2021,12/21/2020 Pneumococcal Conjugate Vacc, 13 Valent (Prevnar) [...] encounter Miscellaneous Notes * Telephone Encounter - Spencer Darnell DO - 02/01/2024 1:19 PM EDTSigned Prescriptions: Disp Refills Rosuvastatin Calcium 10 MG Oral Tablet (Cr*90 Tab*1 Sig: Take 1 Tablet by mouth in the morning. Authorizing Provider: SPENCER DARNELL * Telephone Encounter - Rhona Estevez RN - 01/31/2024 2:17 PM EDTPending Prescriptions: Disp Refills Rosuvastatin Calcium 10 MG Oral Tablet (Cr*90 Tab*1 Sig: Take 1 Tablet by mouth in the morning. * Telephone Encounter - Marjorie Toledo OSA - 01/31/2024 10:18 AM EDT Did you pend patient's preferred pharmacy and medication before forwarding?yes Pharmacy: [id number] [facility] Pending Prescriptions: Disp Refills Rosuvastatin Calcium 10 MG Oral Tablet (C*90 Tab*1 Sig: Take 1 Tablet by mouth in the morning. In the morning.. Last Visit: 09/13/2023 (in office), Visit date not found (telemedicine) Next Visit: 02/15/2024 If no future appointments scheduled, and last appointment is greater than a year ago, please schedule patient for a follow-up appointment Last date the medication was ordered: 07.20.23 Is this request for a controlled substance?No Urine Drug Screen:No results found for this or any previous visit. Patient Phone Numbers Labs: Lab Results Component Value Date/Time CREAT 1.6 (H) 11/14/2023 01:48 PM CREAT 0.61 04/06/2023 12:00 AM CREAT 0.7 08/29/2012 08:40 AM CREAT 0.6 (L) 09/08/1996 09:33 AM POTASSIUM 3.1 (L) 11/14/2023 01:48 PM POTASSIUM 3.7 04/06/2023 12:00 AM POTASSIUM 3.8 10/16/2012 04:50 PM POTASSIUM 4.2 09/08/1996 09:33 AM TSH 3.35 06/26/2023 09:09 AM TSH 2.880 03/22/2023 12:00 AM TSH 3.03 10/16/2012 04:50 PM TSH 1.05 09/08/1996 09:33 AM LDLCALC 47 08/01/2023 02:53 PM LDLCALC 53.80 07/04/2022 12:00 AM LDLCALC 127 03/22/2011 08:45 AM LDLCALC 141. (H) 09/08/1996 09:33 AM LDLDIRECT 61 07/04/2022 12:00 AM LDLDIRECT 133 (H) 10/07/2005 09:29 AM ALT <5 (L) 11/14/2023 01:48 PM ALT 23 07/04/2022 12:00 AM ALT 21 08/29/2012 08:40 AM documented in this encounter Plan of Treatment Upcoming Encounters Date Type Department Care Team (Late st Contact Info) Description 02/13/2024 11:15 AM EDT Imaging Radiology [address] 132 [facility] [place] [address] 02/15/2024 8:50 AM EDT Office Visit Family Medicine [address] [phone] [address] [place] [address] 02/21/2024 11:40 AM EDT Telemedicine Pulmonary Medicine, [address] [address] Timothy Varghese MD [facility] [place] [address] 02/25/2024 9:45 AM EDT Pharmacy Pharmacy Hematology Oncology [facility] [address] [address] c, [facility] Hem/Onc [facility] [place] [address] 05/08/2024 11:00 AM EDT Nurse Only Ancillary [address] [place] [address] [place], Nurse [address] [place] [address] 05/14/2024 1:15 PM EDT Office Visit Hematology/Oncology [facility] [address] [facility] [place] [phone] Hadley Verdugo MD [address] [facility] [place] [address] 05/22/2024 11:00 AM EDT Office Visit Audiology [facility] [address] [place] [address] Ayana Grajeda Au.D. [address] [place] [address] 07/21/2024 2:30 PM EDT Office [facility] [address] [place] [address] Boo Wylie MD [address] [place] [address] 11/24/2024 1:20 PM EST Office Visit Otolaryngology [facility] [address] [place] [address] Nabil Fernandes PA-C [address] [place] [address] Scheduled Procedures Name Priority Associated Diagnoses Date/Ti [...] this encounter Medical Devices Implanted Type Area Certified Midwife Device Identifier Shelf Expiration Date Model / Serial / Lot Lens Intraoc 22.0 - [id number] - [id number] Implanted:Qty: 1 on 06/26/2019 by London Ocampo MD at OR [facility] Left: Eye [employer] 01/27/2024 [id number] / [id number] / [id number] Lens Intraoc 21.5 - [id number] - [id number] Implanted:Qty: 1 on 07/15/2019 by London Ocampo MD at OR [facility] Right: Eye [employer] 03/28/2024 [id number] / [id number] / [id number] documented as of this encounter Advance Directives Latest Code Status on File Code Status Date Activated Date Inactivated Comments Full Code 07/06/2023 1:46 PM 07/10/2023 8:23 PM This o rder reflects the patients wishes and were consensually agreed upon. Question Answer Comments Discussion of Advance Directives occurred with: Patient Care Teams Regulatory Compliance Director Relationship Specialty Start Date End Date Spencer Darnell DO [address] [place] [address] [place] [address] PCP - General Internal Medicine 06/18/17 documented as of this encounter
--- OUTSIDE RECORDS SUMMARY | 2024-04-04 20:30 | External Medical Summary | Summary of Care ---
Author Name Unknown Organization [facility] Address [address] [facility] [address] Phone [phone] Care Team Providers Care Executive Receptionist Name Role Phone Sravanthi Bloom DO Primary Care Provider Reason for Visit * Reason Comments Outpatient Testing Encounter Details Date Type Department Care Team (Late st Contact Info) Description 02/15/2024 9:50 AM EDT Laboratory Laboratory [address] [place] [phone] [facility] [address] [place] [address] NSCLC with EGFR mutation (HCC) Allergies Active Allergy Reactions Criticality Noted Date Comments Food (See Comments) 04/18/2021 honey Latex 04/18/2021 rash documented as of this encounter (statuses as of 02/15/2024) Medications Medication Sig Dispensed Refills Start Date End Date Status nystatin-triamcinolo ne (MYCOLOG) 647367-1.1 UNIT/GM-% creamIndications:Cut aneous candidiasis Apply topically to [...] as of this encounter (statuses as of 02/15/2024) Active Problems Problem Noted Date Diagnosed Date [...] as of this encounter (statuses as of 02/15/2024) Resolved Problems Problem Noted Date Diagnosed Date [...] as of this encounter (statuses as of 02/15/2024) Immunizations Name Administration Dates Next Due COVID-19 mRNA, LNP-s, No Pre serve, 2-Dose Series ([employer]) 08/30/2021,01/11/2021,12/21/2020 Pneumococcal Conjugate Vacc, 13 Valent (Prevnar) [...] Care Team (Late st Contact Info) Description 02/21/2024 11:40 AM EDT Telemedicine Pulmonary Medicine, [address] [address] Timothy Varghese MD [facility] [place] [address] 02/25/2024 9:45 AM EDT Pharmacy Pharmacy Hematology Oncology [facility], [address] [address] [facility] [place] [place], [facility] Clinic Hem/Onc [address] [place] [address] 05/08/2024 11:00 AM EDT Nurse Only Ancillary [address] [place] [address] [place], Nurse [address] [place] [address] 05/14/2024 1:15 PM EDT Office Visit Hematology/Oncology [facility] [address] [facility] [place] [phone] Hadley Verdugo MD 200 [facility] [address] 05/22/2024 11:00 AM EDT Office Visit Audiology [facility] [address] [place] [address] Ayana Grajeda Au.D. [address] [place] [address] 07/21/2024 2:30 PM EDT Office Visit Thoracic Surg [facility], [place] [address] [place] [address] Boo Wylie MD [facility] [place] [address] 09/26/2024 10:30 AM EST Office Visit Family Medicine [address] [place] [phone] [address] [place] [address] 11/24/2024 1:20 PM EST Office Visit Otolaryngology [facility] [address] [place] [address] Nabil Fernandes PA-C [address] [place] [address] Pending Results Name Type Priority Associated Diagnoses Date /Time BASIC METABOLIC PANEL Lab Routine NSCLC with EGFR mutation (HCC) 02/15/2024 9:53 AM EDT MAGNESIUM Lab Routine NSCLC with EGFR mutation (HCC) 02/15/2024 9:53 AM EDT CBC WITH WBC DIFFERENTIAL AND ANEMIA REFLEX WORKUP Lab Routine NSCLC with EGFR mutation (HCC) 02/15/2024 9:53 AM EDT ANEMIA CBC Lab Routine NSCLC with EGFR mutation (HCC) 02/15/2024 9:53 AM EDT DIFFERENTIAL, AUTOMATED Lab Routine NSCLC with EGFR mutation (HCC) 02/15/2024 9:53 AM EDT ANEMIA REFLEX CHEMISTRY HOLD Lab Routine NSCLC with EGFR mutation (HCC) 02/15/2024 9:53 AM EDT Scheduled Procedures Name Priority Associated Diagnoses Date/Ti me COLONOSCOPY FLEXIBLE PROXIMA L DIAGNOSTIC Recall Encounter for screening colonoscopy Health Maintenance Due Date Last Done Comments COVID-19 Vaccine ( season) 2023 08/30/2021, 01/11/2021, 12/21/2020 Depression Screening 05/06/2024 05/06/2023 TSH 06/26/2024 06/26/2023, 05/2 02/2023, 02/15/2023, Additional history exists GFR 11/14/2024 11/14/2023, 11/0 05/2023, 08/29/2023, Additional history exists Albumin/Creatinine Ratio [...] this encounter Medical Devices Implanted Type Area Input Output Clerk Device Identifier Shelf Expiration Date Model / Serial / Lot Lens Intraoc 22.0 - [id number] - [id number] Implanted:Qty: 1 on 06/26/2019 by London Ocampo MD at OR [facility] Left: Eye [employer] LOMB 01/27/2024 [id number] / [id number] / [id number] Lens Intraoc 21.5 - [id number] - [id number] Implanted:Qty: 1 on 07/15/2019 by London Ocampo MD at OR [facility] Right: Eye BAUSCH [employer] LOMB 03/28/2024 [id number] / [id number] / [id number] documented as of this encounter Visit Diagnoses Diagnosis NSCLC with EGFR mutation (HCC) documented in this encounter Advance Directives Latest Code Status on File Code Status Date Activated Date Inactivated Comments Full Code 07/06/2023 1:46 PM 07/10/2023 8:23 PM This o rder reflects the patients wishes and were consensually agreed upon. Question Answer Comments Discussion of Advance Directives occurred with: Patient Care Teams Executive Receptionist Relationship Specialty Start Date End Date Sravanthi Bloom DO [address] [place] [address] [place] [phone] PCP - General Internal Medicine 06/18/17 documented as of this encounter
--- OUTSIDE RECORDS SUMMARY | 2024-04-04 20:30 | External Medical Summary ---
Author Name Unknown Address Unknown Organization K01:[facility] - [address] [place] [address] Laboratory Report Ordering Provider Test Date Status MANN PALMER 02/15/2024 09:53:01 Final Observation Date Value Abnormality Reference (Units ) Status Iron 02/15/2024 09:53:01 48 33-151 (ug/dL) Final Iron-binding capacity 02/15/2024 09:53:01 235 Below low normal 250-425 (ug/dL) Final Transferrin Sat % 02/15/2024 09:53:01 20 15-55 (%) Final Performing Location [facility] - [address] [place] [address]
--- OUTSIDE RECORDS SUMMARY | 2024-04-04 20:30 | External Medical Summary | Summary of Care ---
Author Name Unknown Organization [facility] Address [address] [place] [address] Phone [phone] Care Team Providers Care Cso Name Role Phone Sravanthi Bloom DO Primary Care Provider [phone] Reason for Visit * Reason Comments Medication Management Encounter Details Date Type Department Care Team (Late st Contact Info) Description 01/23/2024 9:45 AM EDT Pharmacy Pharmacy Hematology Oncology [facility] [address] [place] [address] [facility] [place] Hem/Onc [address] [place] [address] NSCLC with EGFR mutation (HCC)* Allergies Active Allergy Reactions Criticality Noted Date Comments Food (See Comments) 04/18/2021 honey Latex 04/18/2021 rash documented as of this encounter (statuses as of 01/23/2024) Medications Medication Sig Dispensed Refills Start Date End Date Status nystatin-triamcinolon e (MYCOLOG) 763225-1.1 UNIT/GM-% creamIndications:Cuta neous candidiasis Apply topically to [...] 30 Tablet 1 07/27/2023 Active Magic Swizzle (Sxmtlwteb-Wqxkcthw-H aalox) oral solutionIndications:P rimary malignant neoplasm of [...] as of this encounter (statuses as of 01/23/2024) Active Problems Problem Noted Date Diagnosed Date [...] as of this encounter (statuses as of 01/23/2024) Resolved Problems Problem Noted Date Diagnosed Date [...] as of this encounter (statuses as of 01/23/2024) Immunizations Name Administration Dates Next Due COVID-19 mRNA, LNP-s, No Pre serve, 2-Dose Series ([employer]) 08/30/2021,01/11/2021,12/21/2020 Pneumococcal Conjugate Vacc, 13 Valent (Prevnar) [...] this encounter Progress Notes * Ayana Nichols, [facility] - 01/23/2024 3:04 PM EDT MEDICATION THERAPY MANAGEMENT OSIMERTINIB TREATMENT PROGRESS NOTE Ioana Tan [phone] Patient Phone Numbers Preferred Lab: Specialty Pharmacy: [facility] Communication: Spoke to: Patient Treatment: Medication: Osimertinib (Tagrisso) Indication/Staging/Diagnosis Code: NSCLC, 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 Luci Verdugo Supportive Care Meds: Ondansetron Prochlorperazine Prophylactic Meds: Hydrocortisone Apixaban 5 mg PO bid (Hx PE) Treatment History: 08/06/23: pemetrexed/cisplatin - discontinued due to poor renal function Interval History: Pt seen by otolaryngology for b/l ototoxicity due to cisplatin 11/22/23 Overall reports good tolerability to therapy Continues to endorse decreased appetite and weight loss. Reports eating nutrient rich foods, fresh produce, and energy drinks. States she does not mind weight loss at this time Inquiring if she can undergo hip surgery as this is causing most pain and mobility issues Changes to medication list since last visit? No Assessment and Plan: Advised pt to optimize caloric intake when she does eat by incorporating healthy fats and protein. Advised pt to contact office if unintended weight loss occurs Educated pt osimertinib does not cause increased risk of bleeding or wound healing impairment and pt can continue therapy (unless advised by surgeon) while undergoing hip surgery. Pt replied with understanding Continue current therapy Assessment of compliance: compliant Assessment of adverse effects attributed to drug therapy: Rash/Dry Skin- absent Nail Changes- absent Diarrhea - absent Pneumonitis - absent Dose adjustment needed based on lab or adverse drug reaction? No Follow up: 1 month Ayana Nichols, PharmD, BCOP Clinical Pharmacist, [facility] Oral Chemotherapy [facility] 01/23/2024, 3:15 PM Monitoring Parameters: Estimated CrCl Serum creatinine: 1.6 mg/dL (H) 11/14/23 1348 Estimated creatinine clearance: 30.3 mL/min (A) Hepatitis panel Latest Reference Range [...] Parameters Qtc > 500 ms Pertinent labs: -- Miscellaneous Monitoring Date Qtc (msec) 07/08/23 443 Date LVEF (%) 09/13/23 60 Time Spent on Encounter: 6 - 10 minutes Encounter Group: Oncology Encounter Interventions Item Category: Oral Chemotherapy Osimertinib Problem/Rationale: Safety: Needs additional monitoring - Medication Requires monitoring Education: Patient question Pharmacist Intervention(s): Education provided, Non-pharmacological intervention provided, and Toxicity monitoring Magnitude of Intervention: Monitoring with direction (Level 1) documented in this encounter Plan of Treatment Upcoming Encounters Date Type Department Care Team (Late st Contact Info) Description 02/13/2024 11:15 AM EDT Imaging Radiology [address], [place] 132 [facility] [place] [address] 02/15/2024 8:50 AM EDT Office Visit Family Medicine [address] [place] [phone] [place] [address] 02/21/2024 11:40 AM EDT Telemedicine Pulmonary Medicine, [place] [address] [place] [address] Timothy Varghese MD [address] [place] [address] 02/25/2024 9:45 AM EDT Pharmacy Pharmacy Hematology Oncology [place] [address] [place] [address] [facility] [place] Hem/Onc [facility] [place] [address] 05/08/2024 11:00 AM EDT Nurse Only Ancillary [address] [place] [address] [place], Nurse [address] [place] [address] 05/14/2024 1:15 PM EDT Office Visit Hematology/Oncology [facility] [place] [address] [place] [phone] Hadley Verdugo MD [address] [place] [address] 05/22/2024 11:00 AM EDT Office Visit Audiology [facility] [address] [place] [address] Ayana Grajeda Au.D. 132 [facility] [place] [address] 07/21/2024 2:30 PM EDT [facility] [address] [place] [address] Boo Wylie MD [address] [place], [place] [phone] 11/24/2024 1:20 PM EST Office Visit Otolaryngology [facility] [address] [place] [address] Nabil Fernandes PA-C [address] [place] [address] Scheduled Procedures Name Priority Associated Diagnoses Date/Ti [...] this encounter Medical Devices Implanted Type Area Roustabout Device Identifier Shelf Expiration Date Model / Serial / Lot Lens Intraoc 22.0 - [id number] - [id number] Implanted:Qty: 1 on 06/26/2019 by London Ocampo MD at OR [facility] Left: Eye [employer]USCH [employer] LOMB 01/27/2024 [id number] / [id number] / [id number] Lens Intraoc 21.5 - [id number] - [id number] Implanted:Qty: 1 on 07/15/2019 by London Ocampo MD at OR [facility] Right: Eye BAUSCH & LOMB 03/28/2024 [id number] / [id number] / [id number] documented as of this encounter Visit Diagnoses [...] Advance Directives occurred with: Patient Care Teams Cso Relationship Specialty Start Date End Date Sravanthi Bloom DO [address] [place] [address] [place] [address] PCP - General Internal Medicine 06/18/17 documented as of this encounter
--- OUTSIDE RECORDS SUMMARY | 2024-04-04 20:30 | External Medical Summary ---
Author Name Unknown Address Unknown Organization K01:[facility] - [address] [facility] [address] [place] [address] Laboratory Report Ordering Provider Test Date Status MANN PALMER 02/15/2024 09:53:01 Final Observation Date Value Abnormality Reference (Units ) Status Ferritin 02/15/2024 09:53:01 104 13-150 (ng /mL) Final Postmenopausal women have hi gher ferritin levels than pre-menopausal women. The above reference interval is based on pre-menopausal women. Performing Location [facility] - [address] [place] [address]
--- OUTSIDE RECORDS SUMMARY | 2024-04-04 20:30 | External Medical Summary ---
Author Name Unknown Address Unknown Organization K01:[facility] - [address] [place] [address] Laboratory Report Ordering Provider Test Date Status SPENCERDARNELL 02/15/2024 09:53:01 Final Observation Date Value Abnormality Reference (Units ) Status Magnesium 02/15/2024 09:53:01 2.2 1.5-2.6 (m g/dL) Final Performing Location LABORATORY [facility] - [address] [place] [address]
--- OUTSIDE RECORDS SUMMARY | 2024-04-04 20:30 | External Medical Summary ---
Author Name Unknown Address Unknown Organization K01:[facility]ORY [facility] - [address] [place] [address] Laboratory Report Ordering Provider Test Date Status SPENCERDARNELL 02/15/2024 09:53:01 Final Observation Date Value Abnormality Reference (Units ) Status Folic Acid 02/15/2024 09:53:01 8.6 >4.5 (ng/ mL) Final Performing Location [facility]ORY [facility] - [address] [place] [address]
--- OUTSIDE RECORDS SUMMARY | 2024-04-04 20:30 | External Medical Summary | Summary of Care ---
Author Name Unknown Organization [facility] Address [address] [place] [address] Phone [phone] Care Team Providers Care Shift Supervisor Rn Name Role Phone BloomSravanthi DO Primary Care Provider [phone] Reason for Visit * Reason Onset Date Comments Order Request 01/15/2024 Encounter Details Date Type Department Care Team (Late st Contact Info) Description 01/15/2024 Telephone Pulmonary Medicine, [place] [address] [place], [place] [phone] Timothy Varghese MD [address] [place], [place] [phone] Order Request Allergies Active Allergy Reactions Criticality Noted Date Comments Food (See Comments) 04/18/2021 honey Latex 04/18/2021 rash documented as of this encounter (statuses as of 01/15/2024) Medications Medication Sig Dispensed Refills Start Date End Date Status nystatin-triamcinolon e (MYCOLOG) 433461-2.1 UNIT/GM-% creamIndications:Cuta neous candidiasis Apply topically to [...] 30 Tablet 1 07/27/2023 Active Magic Swizzle (Unyubvoei-Onuibfzk-W aalox) oral solutionIndications:P rimary malignant neoplasm of [...] as of this encounter (statuses as of 01/15/2024) Active Problems Problem Noted Date Diagnosed Date [...] as of this encounter (statuses as of 01/15/2024) Resolved Problems Problem Noted Date Diagnosed Date [...] as of this encounter (statuses as of 01/15/2024) Immunizations Name Administration Dates Next Due COVID-19 mRNA, LNP-s, No Pre serve, 2-Dose Series ([employer]) 08/30/2021,01/11/2021,12/21/2020 Pneumococcal Conjugate Vacc, 13 Valent (Prevnar) [...] encounter Miscellaneous Notes * Telephone Encounter - Zoraida Jacobs OSA - 01/15/2024 9:08 AM EDT Noc Ox order placed on [employer] platform documented in this encounter Plan of Treatment Upcoming Encounters Date Type Department Care Team (Late st Contact Info) Description 01/23/2024 9:45 AM EDT Pharmacy Pharmacy Hematology Oncology [facility] [address] [place] [address] [facility] [place] Hem/Onc [address] [place] [address] 02/13/2024 11:15 AM EDT Imaging Radiology [address] [facility] [place] [address] 02/15/2024 8:50 AM EDT Office Visit Family Medicine [address] [place] [phone] Sravanthi Bloom[address] [place] [address] 02/21/2024 11:40 AM EDT Telemedicine Pulmonary Medicine, [address] [address] Timothy Varghese MD [facility] [place], [place] [address] 05/08/2024 11:00 AM EDT Nurse Only Ancillary [address] [place] [address] [place], Nurse [address] [place] [address] 05/14/2024 1:15 PM EDT Office Visit Hematology/Oncology [facility] 200 [facility] [place] [phone] Hadley Verdugo MD [address] [place] [address] 05/22/2024 11:00 AM EDT Office Visit Audiology [facility] [address] [place] [address] Ayana Grajeda Au.D. [address] [place] [address] 07/21/2024 2:30 PM EDT Office Visit Thoracic Surg [facility], [place] [address] [place] [address] Boo Wylie MD [facility] [place] [address] 11/24/2024 1:20 PM EST Office Visit Otolaryngology [facility] [address] [place] [address] Nabil Fernandes PA-C [address] [place] [address] Scheduled Procedures Name Priority Associated Diagnoses Date/Ti [...] Years Completed 02/28/2016, 08/27/2013 Colonoscopy Discontinued 04/30/2017, 0 12/2016, 11/20/2008 Colorectal Cancer Screening Discontinued Zoster [...] this encounter Medical Devices Implanted Type Area Junior High Math Teacher Device Identifier Shelf Expiration Date Model / Serial / Lot Lens Intraoc 22.0 - [id number] - [id number] Implanted:Qty: 1 on 06/26/2019 by London Ocampo MD at OR [facility] Left: Eye BAUSCH [employer] LOMB 01/27/2024 [id number] / [id number] / [id number] Lens Intraoc 21.5 - [id number] - [id number] Implanted:Qty: 1 on 07/15/2019 by London Ocampo MD at OR [facility] Right: Eye BAUSCH & LOMB 03/28/2024 [id number] / [id number] / [id number] documented as of this encounter Advance Directives Latest Code Status on File Code Status Date Activated Date Inactivated Comments Full Code 07/06/2023 1:46 PM 07/10/2023 8:23 PM This o rder reflects the patients wishes and were consensually agreed upon. Question Answer Comments Discussion of Advance Directives occurred with: Patient Care Teams Shift Supervisor Rn Relationship Specialty Start Date End Date Sravanthi Bloom DO [address] [place] [address] [place] [address] PCP - General Internal Medicine 06/18/17 documented as of this encounter
--- OUTSIDE RECORDS SUMMARY | 2024-04-04 20:30 | External Medical Summary | Summary of Care ---
Author Name Unknown Organization [facility] Address [address] [facility] [address] Phone [phone] Care Team Providers Care Screen Printing Paster Name Role Phone Wolf Sravanthi Quan Primary Care Provider Reason for Visit * Reason Onset Date Comments Test Results Imaging Study 02/18/[address] Encounter Details Date Type Department Care Team (Late st Contact Info) Description 02/18/2024 Telephone Hematology/Oncology [facility] [address] [facility] [phone] Hadley Verdugo MD 200 [facility] [place] [address] Test Results Imaging Study (Chest CT) Allergies Active Allergy Reactions Criticality Noted Date Comments Food (See Comments) 04/18/2021 honey Latex 04/18/2021 rash documented as of this encounter (statuses as of 02/18/2024) Medications Medication Sig Dispensed Refills Start Date End Date Status nystatin-triamcinolo ne (MYCOLOG) 884173-9.1 UNIT/GM-% creamIndications:Cut aneous candidiasis Apply topically to [...] as of this encounter (statuses as of 02/18/2024) Active Problems Problem Noted Date Diagnosed Date [...] as of this encounter (statuses as of 02/18/2024) Resolved Problems Problem Noted Date Diagnosed Date [...] as of this encounter (statuses as of 02/18/2024) Immunizations Name Administration Dates Next Due COVID-19 mRNA, LNP-s, No Pre serve, 2-Dose Series ([facility]) 08/30/2021,01/11/2021,12/21/2020 Pneumococcal Conjugate Vacc, 13 Valent (Prevnar) [...] Telephone Encounter - Kriss Martínez LPN - 02/18/2024 1:36 PM EDT My G sent. * Telephone Encounter - Kriss Martínez LPN - 02/18/2024 1:31 PM EDT ----- Message from Hadley Verdugo MD sent at 02/18/2024 12:18 PM EDT ----- CT chest without contrast on 02/13/2024: -small right pleural effusion, no new lung lesions noted -previous right lower lobectomy noted Will continue to observe. documented in this encounter Plan of Treatment Upcoming Encounters Date Type Department Care Team (Late st Contact Info) Description 02/21/2024 11:40 AM EDT Telemedicine Pulmonary Medicine, [place] [address] [place] [address] Timothy Varghese MD [address] [place] [address] 02/25/2024 9:45 AM EDT Pharmacy Pharmacy Hematology Oncology [facility]3], [place] [address] [place] [address] [facility] [place] Hem/Onc [address] [place] [address] 05/08/2024 11:00 AM EDT Nurse Only Ancillary Jordin Hart[address] [place] [address] [place], Nurse [address] [place] [address] 05/14/2024 1:15 PM EDT Office Visit Hematology/Oncology [facility] [address] [place] [phone] Hadley Verdugo MD [address] [place] [address] 05/22/2024 11:00 AM EDT [facility] [place] [address] Ayana Grajeda Au.D. 132 [facility] [place] [address] 07/21/2024 2:30 PM EDT Office Visit Thoracic Surg [facility] Medicine[address] [address] Boo Wylie MD [address] [place] [address] 09/26/2024 10:30 AM EST Office Visit Family Medicine [address] [phone] [address] [place] [address] 11/24/2024 1:20 PM EST Office Visit Otolaryngology Health system [address] [place] [address] Nabil Fernandes PA-C 132 [facility] [place] [address] Scheduled Procedures Name Priority Associated Diagnoses Date/Ti [...] this encounter Medical Devices Implanted Type Area Pharmacy Sales Assistant Device Identifier Shelf Expiration Date Model / Serial / Lot Lens Intraoc 22.0 - [id number] - [id number] Implanted:Qty: 1 on 06/26/2019 by London Ocampo MD at OR [facility] Left: Eye BAUSCH [employer] LOMB 01/27/2024 [id number] / [id number] / [id number] Lens Intraoc 21.5 - [id number] - [id number] Implanted:Qty: 1 on 07/15/2019 by London Ocampo MD at OR [facility] Right: Eye BAUSCH & LOMB 03/28/2024 [id number] / [id number] / [id number] documented as of this encounter Advance Directives Latest Code Status on File Code Status Date Activated Date Inactivated Comments Full Code 07/06/2023 1:46 PM 07/10/2023 8:23 PM This o rder reflects the patients wishes and were consensually agreed upon. Question Answer Comments Discussion of Advance Directives occurred with: Patient Care Teams Screen Printing Paster Relationship Specialty Start Date End Date Sravanthi Bloom DO [address] [place] [address] [place] [phone] PCP - General Internal Medicine 06/18/17 documented as of this encounter
--- OUTSIDE RECORDS SUMMARY | 2024-04-04 20:30 | External Medical Summary | Summary of Care ---
Author Name Unknown Organization [facility] Address [address] [place] [address] Phone [phone] Care Team Providers Care Retail Analyst Name Role Phone Sravanthi Bloom DO Primary Care Provider Reason for Referral * Precert (Within 10 days (routine)) - Pending Review Specialty Diagnoses / Procedures Referred By Contac t Referred To Contact Radiology Diagnoses 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) Procedures CT CHEST WO CONTRAST Timothy Varghese MD [address] [place] [address] Referral ID Status Reason Start Date Expiration Date V isits Requested Visits Authorized [id number] Pending Review 02/21/[phone] Encounter Details Date Type Department Care Team (Late st Contact Info) Description 02/21/2024 11:40 AM EDT Telemedicine Pulmonary Medicine, [place] [address] [place] [address] Timothy Varghese MD [address] [place] [address] 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)* Allergies Active Allergy Reactions Criticality Noted Date Comments Food (See Comments) 04/18/2021 honey Latex 04/18/2021 rash documented as of this encounter (statuses as of 02/21/2024) Medications Medication Sig Dispensed Refills Start Date End Date Status nystatin-triamcinolo ne (MYCOLOG) 777557-7.1 UNIT/GM-% creamIndications:Cut aneous candidiasis Apply topically to [...] as of this encounter (statuses as of 02/21/2024) Active Problems Problem Noted Date Diagnosed Date [...] as of this encounter (statuses as of 02/21/2024) Resolved Problems Problem Noted Date Diagnosed Date [...] as of this encounter (statuses as of 02/21/2024) Immunizations Name Administration Dates Next Due COVID-19 mRNA, LNP-s, No Pre serve, 2-Dose Series (MemberPlanet) 08/30/2021,01/11/2021,12/21/2020 Pneumococcal Conjugate Vacc, 13 Valent (Prevnar) [...] Progress Notes * Timothy Varghese MD - 02/21/2024 11:37 AM EDT Patient location: HOME. I was not in a hospital or clinic location. After connecting through Stemo, patient was verified with two unique identifiers. Patient (or authorized legal administrative representative) was then informed that this was a Telemedicine visit and being conducted confidentially over secure lines. Methods to assure confidentiality were taken. Patient acknowledged consent and understanding of privacy and security of the Telemedicine visit. The patient agreed to participate. 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 She feels well and has not had any bleeding issues. She has not had any cough or SOB or EWING. Current Outpatient Medications Medication Sig Dispense Refill nystatin-triamcinolone (MYCOLOG) 175965-3.1 UNIT/GM-% cream Apply topically to affected area 2 times a day. To affacted area for two weeks. 30 g 1 Apixaban 5 MG Oral Tablet (Eliquis) [...] with or without food.. 30 Tablet 5 Levothyroxine Sodium 137 MCG Oral Tablet Take 1 Tablet by mouth in the morning. (at least 30 min prior to breakfast or other meds). 90 Tablet 2 amLODIPine Besylate 5 MG Oral Tablet (Norvasc) Take 1 Tablet by mouth in the morning. 30 Tablet 5 Rosuvastatin Calcium 10 MG Oral Tablet (Crestor) Take 1 Tablet by mouth in the morning. 90 Tablet 1 Omeprazole 20 MG Oral Capsule Delayed Release (PriLOSEC) Take 1 Capsule by mouth in the morning. 30Capsule 0 Current Facility-Administered Medications Medication Dose Route Frequency Provider Last Rate Last Admin Albuterol Sulfate (Proventil) (2.5 MG/3ML) 0.083% inhalation solution 2.5 mg 2.5 mg Nebulizer PRN Mayra, Shila A, OPEN TENTER OPERATOR albuterol (VENTOLIN HFA/PROVENTIL HFA) inhaler 3 Puff Inhalation PRN Mayra Shila A, OPEN TENTER OPERATOR In general, pleasant female in no distress RR-10 Awake and alert No conversational dyspnea Nl affect No audible wheezing CT scan chest I agree with the official report Impression- VTE and lung cancer Plan 1. Continue eliquis. 2. From my perspective she may have orthopedic surgery. 3. Discussed the CT scan findings. Will repeat a CT scan in 6 months to ensure that it isn't a malignant effusion. 4. Follow up in 6 months. I have answered the patient's questions. Timothy Varghese MD documented in this encounter Plan of Treatment Upcoming Encounters Date Type Department Care Team (Late st Contact Info) Description 02/25/2024 9:45 AM EDT Pharmacy Pharmacy Hematology Oncology [facility] [address] [place] [address] [facility] [place] Hem[facility]Onc [address] [place] [address] 05/08/2024 11:00 AM EDT Nurse Only Ancillary Simlamarlyn Hartley[address] [place] [address] [place], Nurse [address] [place] [address] 05/14/2024 1:15 PM EDT Office Visit Hematology/Oncology [facility] [address] [facility] [place] [phone] Hadley Verdugo MD [address] [facility] [place] [address] 05/22/2024 11:00 AM EDT Office Visit Audiology [facility] [address] [place] [address] Ayana Grajeda Au.D. [address] [place] [address] 07/21/2024 2:30 PM EDT Office Visit [facility]acic 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) Ordered: 02/21/2024 Scheduled Procedures Name Priority Associated Diagnoses Date/Ti [...] this encounter Medical Devices Implanted Type Area Independent Producer Device Identifier Shelf Expiration Date Model / Serial / Lot Lens Intraoc 22.0 - [id number] - [id number] Implanted:Qty: 1 on 06/26/2019 by London Ocampo MD at OR [facility] Left: Eye [employer] LOMB 01/27/2024 [id number] / [id number] / [id number] Lens Intraoc 21.5 - [id number] - [id number] Implanted:Qty: 1 on 07/15/2019 by London Ocampo MD at [facility] Right: Eye BAUSCH & LOMB 03/28/2024 [id number] / [id number] / [id number] documented as of this encounter Visit Diagnoses Diagnosis 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 Question Answer Comments Discussion of Advance Directives occurred with: Patient Care Teams Retail Analyst Relationship Specialty Start Date End Date Sravanthi Bloom DO [address] [place] [address] [place] [address] PCP - General Internal Medicine 06/18/17 documented as of this encounter
--- OUTSIDE RECORDS SUMMARY | 2024-04-04 20:30 | External Medical Summary ---
Author Name Unknown Address Unknown Organization [id number]:LABORATORY [facility] [place] - [address] [facility] [place] [address] Laboratory Report Ordering Provider Test Date Status MANN PALMER 02/15/2024 09:53:01 Final Observation Date Value Abnormality Reference (Units ) Status WBC, Total 02/15/2024 09:53:01 3.56 Below low normal 4. 00-10.80 (K/uL) Final RBC 02/15/2024 09:53:01 3.18 3.85-5.15 (M/uL) Final Hemoglobin 02/15/2024 09:53:01 10.4 Below low normal 12 .0-15.3 (g/dL) Final Anemia reflex testing trigge rs on a HGB < 12.0 for Females and HGB < 13.0 for Males in accordance with the WHO Anemia Guidelines
Anemia reflex testing triggers on a HGB < 12.0 for Females and HGB < 13.0 for Males in accordance with the WHO Anemia Guidelines HCT 02/15/2024 09:53:01 31.8 Below low normal 36. 0-45.2 (%) Final MCV 02/15/2024 09:53:01 100.0 81.5-97.5 (fL) Final MCH 02/15/2024 09:53:01 32.7 27.0-34.0 (pg) Final MCHC 02/15/2024 09:53:01 32.7 32.0-36.0 (g/dL) Final RDW 02/15/2024 09:53:01 14.1 11.5-15.5 (%) Final Platelets 02/15/2024 09:53:01 131 Below low normal 140 -400 (K/uL) Final MPV 02/15/2024 09:53:01 11.9 6.6-11.1 ( fL) Final Nucleated erythrocytes/100 leukocytes [Ratio] in Blood by Automated count 02/15/2024 09:53:01 0 <=0 (/100 WBCs) Fi nal Performing Location LABORATORY [facility] - [facility] [place]. [facility] [address]
--- OUTSIDE RECORDS SUMMARY | 2024-04-04 20:30 | External Medical Summary ---
Author Name Unknown Address Unknown Organization K01:LABORATORY [facility] [place] - [address] [place] [address] Laboratory Report Ordering Provider Test Date Status MANN PALMER 02/15/2024 09:53:01 Final Observation Date Value Abnormality Reference (Units ) Status Vitamin B12 02/15/2024 09:53:01 028 343-3065 (pg/mL) Final Performing Location LABORATORY [facility] - [address] [place] [address]
--- OUTSIDE RECORDS SUMMARY | 2024-04-04 20:30 | External Medical Summary | Summary of Care ---
Author Name Unknown Organization [facility] Address [address] [place] [address] Phone [phone] Care Team Providers Care Industrial Relations Director Name Role Phone Sravanthi Bloom DO Primary Care Provider Reason for Visit * Reason Comments Re-Check Encounter Details Date Type Department Care Team (Late st Contact Info) Description 02/15/2024 8:50 AM EDT Office Visit Family Medicine [address] [phone] Sravanthi Bloom DO [address] [place] [address] [place], [place] [phone] Acquired hypothyroidism*; Other acute pulmonary embolism without acute cor pulmonale (HCC); Essential hypertension with goal blood pressure less than 140/90; Dyslipidemia, goal LDL below 100; Vitamin B12 deficiency; Ototoxic hearing loss of both ears; Loss of weight; Nocturnal hypoxia; NSCLC with EGFR mutation (HCC) Allergies Active Allergy Reactions Criticality Noted Date Comments Food (See Comments) 04/18/2021 honey Latex 04/18/2021 rash documented as of this encounter (statuses as of 02/15/2024) Medications Medication Sig Dispensed Refills Start Date End Date Status nystatin-triamcino lonmaldonado (MYCOLOG) 870960-1.1 UNIT/GM-% creamIndications:C utaneous candidiasis Apply topically to [...] 5 3 Active Hydrocortisone 1 % External CreamIndications:N SCLC [...] without food.. 30 Tablet 5 3 Active Levothyroxine Sodium 137 MCG Oral [...] the morning. 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 30 Tablet 1 3 02/15/20 24 Discontinued(Pa tient preference/disc ontinuation) Magic Swizzle (Lidocaine-Benadry l-Maalox) oral solutionIndication s: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),Metastasis to mediastinal lymph node (HCC) Swish and swallow 15 mL 4 times a day before meals and at bedtime. 300 mL 1 3 02/15/20 24 Discontinued(Pa tient preference/disc ontinuation) Loratadine 10 MG Oral Tablet (Claritin)Indicati ons:Dry cough Take 1 Tablet by mouth every night at bedtime. 30 Tablet 2 3 02/15/20 24 Discontinued(Pa tient preference/disc ontinuation) Hospital, Clinic, or Other Facility Administered Medication [...] mRNA, LNP-s, No Pre serve, 2-Dose Series (Contract Live) 08/30/2021,01/11/2021,12/21/2020 Pneumococcal Conjugate Vacc, 13 Valent (Prevnar) [...] Sign Reading Time Taken Comments Blood Pressure 132/60 02/15/2024 8:41 AM EDT Pulse 90 02/15/2024 8:41 AM EDT Temperature 36.1 C (97 F) 02/15/2024 8:41 AM EDT Respiratory Rate 16 02/15/2024 8:41 AM EDT Oxygen Saturation 96% 02/15/2024 8:41 AM EDT Inhaled Oxygen Concentration - - Weight 68.9 kg (152 lb) 02/15/2024 8:41 AM EDT Height 162.6 cm (5' 4") 02/15/2024 8:41 AM EDT Body Mass Index 26.09 02/15/2024 8:41 AM EDT documented in this [...] as of this encounter Progress Notes * Sravanthi Bloom, DO - 02/15/2024 9:09 AM EDT Subjective: Ioana Tan is a 78 year old female. Chief Complaint Patient presents with Re-Check HPI: Ioana Tan presents today for routine follow up. She had a CT scan in follow up of her lung cancer earlier this week; awaiting the results. She had hearing loss and renal dysfunction from her initial chemotherapy, so she was transitioned to oral chemotherapy. Tolerating this well. She has had to get hearing aids and she is still getting used to them. Kidney function is relatively stable but potassium level was low. She is only taking one of her potassium pills per day as she has trouble swallowing them. Does not want to switch to the powder as she does not think she would tolerate this. She had a nocturnal pulse oximeter on room air recently. Significant desaturation overnight. Will see pulmonary back next month. At the beginning of this week she developed cold type symptoms. Dry cough, tickle in her throat. Voice was hoarse. Ioana and her daughter both feel she is getting better. She is wondering when she can get her right hip replaced. She was told that she would need clearances from PCP, pulmonary and oncology. Energy level is okay. Her daughter feels that her energy level has improved. Weight is down 20# in the past 3 months. She is now eating better. PMH: Patient Active Problem List Diagnosis Code Acquired [...] (HCC) C77.1 Encounter for antineoplastic chemotherapy Z51.11 Dehydration E86.0 NSCLC with EGFR mutation (HCC) C34.90 Current Outpatient Medications Medication Sig Dispense Refill nystatin-triamcinolone (MYCOLOG) 048243-1.1 UNIT/GM-% cream Apply topically to affected area 2 times a day. To affacted area for two weeks. 30 g 1 Triamcinolone Acetonide 0.1 % External Ointment (Aristocort) Apply to affected area twice a day as needed for dry skin and itching 30 g 1 Apixaban 5 MG Oral Tablet (Eliquis) Take 1 Tablet by mouth in the morning and 1 Tablet before bedtime. Potassium Chloride ER 10 MEQ Oral Capsule Extended Release Take 1 Capsule by mouth in the morning and 1 Capsule before bedtime. 60 Capsule 5 Osimertinib Mesylate 80 MG Oral Tablet (Tagrisso) [...] by mouth in the morning. 30Capsule 0 Hydrocortisone 1 % External Cream Apply topically to affected area 2 times a day. Apply twice dailyfor 6 weeks 120 g 1 Current Facility-Administered Medications Medication Dose Route Frequency Provider Last Rate Last Admin Albuterol Sulfate (Proventil) (2.5 MG/3ML) 0.083% inhalation solution 2.5 mg 2.5 mg Nebulizer PRN Shila Nunez CRNP albuterol (VENTOLIN HFA/PROVENTIL HFA) inhaler 3 Puff Inhalation PRN Shila Nunez CRNP Review of patient's allergies indicates: Allergen Reactions Food (See Comments) honey Latex rash Objective: BP 132/60 | Pulse 90 | Temp 36.1 C (97 F) | Resp 16 | Ht 1.626 m (5' 4") | Wt 68.9 kg (152 lb) | SpO2 96% | BMI 26.09 kg/m | BSA 1.76 m General: alert, healthy, no distress, well nourished, and well developed Neck: supple, no adenopathy, thyroid normal size, non-tender, without nodularity Heart: regular rate & rhythm and no murmur Lungs: chest symmetric with normal AP diameter, no chest deformities noted, normal respiratory rateand rhythm, lungs clear to auscultation Abdomen: abdomen soft and non-tender Extremities: no joint deformities, effusion, or inflammation, no edema Neuro Exam: alert & oriented x 3 with fluent speech, no focal motor/sensory deficits, gait normal Skin: skin color, texture, turgor are normal, no rashes or significant lesions ASSESSMENT/PLAN: Acquired hypothyroidism (Primary) - continue levothyroxine Other acute pulmonary embolism without acute cor pulmonale (HCC) - still on eliquis. May be able tostop this pending her CT results. Will see pulmonary back next week. Essential hypertension with goal blood pressure less than 140/90 - well controlled without orthostatic symptoms. 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 Nocturnal hypoxia - continue nocturnal oxygen NSCLC with EGFR mutation (HCC) - has pending CT scan. - BASIC METABOLIC PANEL; Future; Expected date: 02/15/2024 - MAGNESIUM; Future; Expected date: 02/15/2024 - CBC WITH WBC DIFFERENTIAL AND ANEMIA REFLEX WORKUP; Future; Expected date: 02/15/2024 Follow-up: Return in about 6 months (around 08/16/2024). | Check-out note: Labs today. Sravanthi Bloom DO documented in this encounter Nursing Notes * Rhona Estevez RN - 02/15/2024 8:41 AM EDT Check up pt had a CT done on Sun(still pending) Had labs done in Oct, does she need other labs? Had an overnight sleep study , and does not understand the results Started with a dry tickle/cough and mild congestion this week Wants to get her hip replaced this summer, if possible documented in this encounter Plan of Treatment Upcoming Encounters Date Type Department Care Team (Late st Contact Info) Description 02/21/2024 11:40 AM EDT Telemedicine Pulmonary Medicine, [place] [address] [place] [address] Timothy Varghese MD [facility] [place] [address] 02/25/2024 9:45 AM EDT Pharmacy Pharmacy Hematology Oncology [facility], [place] [address] [place] [address] [facility] Hem/Onc [facility] [place] [address] 05/08/2024 11:00 AM EDT Nurse Only Ancillary [address] [place] [address] [place], Nurse [address] [place] [address] 05/14/2024 1:15 PM EDT Office Visit Hematology/Oncology [place] [address] [facility] [place] [phone] Hadley Verdugo MD [address] [place] [address] 05/22/2024 11:00 AM EDT Office Visit Audiology [facility] [address] [place] [address] Ayana Grajeda Au.D. [address] [place] [address] 07/21/2024 2:30 PM EDT Office Visit Thoracic Surg [facility] [address] [place] [address] Boo Wylie MD [address] [place] [address] 09/26/2024 10:30 AM EST Office Visit Family [address] [place] [phone] Sravatnhi Bloom[address] [place] [address] 11/24/2024 1:20 PM EST Office Visit Otolaryngology [facility] [address] [place] [address] Nabil Fernandes PA-C [address] [place] [address] Pending Results Name Type Priority Associated Diagnoses Date /Time BASIC METABOLIC PANEL Lab Routine NSCLC with EGFR mutation (HCC) 02/15/2024 9:53 AM EDT MAGNESIUM Lab Routine NSCLC with EGFR mutation (HCC) 02/15/2024 9:53 AM EDT CBC WITH WBC DIFFERENTIAL AND ANEMIA REFLEX WORKUP Lab Routine NSCLC with EGFR mutation (HCC) 02/15/2024 9:53 AM EDT Scheduled Orders Name Type Priority Associated Diagnoses Orde r Schedule BASIC METABOLIC PANEL Lab Routine NSCLC with EGFR mutation (HCC) Expected: 02/15/2024 (Approximate), Expires: 02/14/2025 MAGNESIUM Lab Routine NSCLC with EGFR mutation (HCC) Expected: 02/15/2024 (Approximate), Expires: 02/14/2025 CBC WITH WBC DIFFERENTIAL AND ANEMIA REFLEX WORKUP Lab Routine NSCLC with EGFR mutation (HCC) Expected: 02/15/2024 (Approximate), Expires: 02/14/2025 Scheduled Procedures Name Priority Associated Diagnoses Date/Ti [...] this encounter Medical Devices Implanted Type Area Cigarette Machine Operator Device Identifier Shelf Expiration Date Model / Serial / Lot Lens Intraoc 22.0 - [id number] - [id number] Implanted:Qty: 1 on 06/26/2019 by London Ocampo MD at OR [facility] Left: Eye [employer]OMB 01/27/2024 [id number] / [id number] / [id number] Lens Intraoc 21.5 - [id number] - [id number] Implanted:Qty: 1 on 07/15/2019 by London Ocampo MD at OR [facility] Right: Eye BAUSCH [employer] LOMB 03/28/2024 [id number] / [id number] / [id number] documented as of this encounter Visit Diagnoses Diagnosis Acquired hypothyroidism- Primary Unspecified hypothyroidism Other acute pulmonary embolism without acute cor pulmonale (HCC) Essential hypertension with goal blood pressure less than 140/90 Dyslipidemia, goal LDL below 100 Other and unspecified hyperlipidemia Vitamin B12 deficiency Other B-complex deficiencies Ototoxic hearing loss of both ears Other specified forms of hearing loss Loss of weight Nocturnal hypoxia Hypoxemia NSCLC with EGFR mutation (HCC) documented in this encounter Advance Directives Latest Code Status on File Code Status Date Activated Date Inactivated Comments Full Code 07/06/2023 1:46 PM 07/10/2023 8:23 PM This o rder reflects the patients wishes and were consensually agreed upon. Question Answer Comments Discussion of Advance Directives occurred with: Patient Care Teams Industrial Relations Director Relationship Specialty Start Date End Date Sravanthi Bloom DO [address] [place] [address] [place] [phone] PCP - General Internal Medicine 06/18/17 documented as of this encounter
--- OUTSIDE RECORDS SUMMARY | 2024-04-04 20:30 | External Medical Summary ---
Author Name Unknown Address Unknown Organization K01:LABORATORY [facility] [place] - [address] [facility] [address] [place] [address] Laboratory Report Ordering Provider Test Date Status SPENCERDARNELL 02/15/2024 09:53:01 Final Observation Date Value Abnormality Reference (Units ) Status TSH 02/15/2024 09:53:01 2.18 0.27-4.20 (uIU/mL) Final Performing Location LABORATORY [facility] - [address] [place] [address]
--- OUTSIDE RECORDS SUMMARY | 2024-04-04 20:30 | External Medical Summary ---
Author Name Unknown Address Unknown Organization K01:LABORATORY [place] [address] [place] [address] Laboratory Report Ordering Provider Test Date Status MANN PALMER 02/15/2024 09:53:01 Final Observation Date Value Abnormality Reference (Units ) Status BUN 02/15/2024 09:53:01 20 6-20 (mg/dL) Final Creatinine 02/15/2024 09:53:01 1.8 Above high normal 0.5-1.0 (mg/dL) Final Glomerular filtration rate/1.73 sq M.predicted [Volume Rate/Area] in Serum, Plasma or Blood by Creatinine-based formula (CKD-EPI) 02/15/2024 09:53:01 29 Below low normal >=60 (mL/min) Final eGFR is calculated based on the CKD-EPI 2020 equation Sodium 02/15/2024 09:53:01 138 135-146 (m mol/L) Final Potassium 02/15/2024 09:53:01 4.1 3.5-5.1 (m mol/L) Final Cl 02/15/2024 09:53:01 104 98-107 (mm ol/L) Final CO2 02/15/2024 09:53:01 24 22-32 (mmo l/L) Final Anion gap 02/15/2024 09:53:01 10 7-15 (mmol /L) Final Glucose 02/15/2024 09:53:01 97 70-120 (mg /dL) Final Calcium 02/15/2024 09:53:01 9.8 8.4-10.2 ( mg/dL) Final Performing Location [facility] [facility] [place] [facility] [address] [place] [address]
--- OUTSIDE RECORDS SUMMARY | 2024-04-04 20:31 | External Medical Summary | Summary of Care ---
Author Name Unknown Organization [facility] Address [address] [place] [address] Phone [phone] Care Team Providers Care Media Marketing Specialist Name Role Phone Sravanthi Bloom DO Primary Care Provider [phone] Reason for Visit * Reason Comments Medication Management Encounter Details Date Type Department Care Team (Late st Contact Info) Description 11/28/2023 9:45 AM EST Pharmacy Pharmacy Hematology Oncology [facility] [address] [place] [address] [facility], [facility] Hem/Onc [address] [place] [address] NSCLC with EGFR mutation (HCC)* Allergies Active Allergy Reactions Criticality Noted Date Comments Food (See Comments) 04/18/2021 honey Latex 04/18/2021 rash documented as of this encounter (statuses as of 11/28/2023) Medications Medication Sig Dispensed Refills Start Date End Date Status nystatin-triamcinolon e (MYCOLOG) 653638-6.1 UNIT/GM-% creamIndications:Cuta neous candidiasis Apply topically to [...] 30 Tablet 1 07/27/2023 Active Magic Swizzle (Uvpuabuvf-Mqnemipv-P aalox) oral solutionIndications:P rimary malignant neoplasm of right lower lobe of lung (HCC),Metastasis to mediastinal lymph node (HCC) Swish and swallow 15 mL 4 times a day before meals and at bedtime. 300 mL 1 08/13/2023 Active Apixaban 5 MG Oral Tablet (Eliquis) Take 1 Tablet by mouth in the morning and 1 Tablet before bedtime. 0 08/22/2023 Active amLODIPine Besylate 5 MG Oral Tablet (Norvasc)Indications: Essential hypertension with goal blood pressure less than 140/90 Take 1 Tablet by mouth in the morning. 30 Tablet 2 08/28/2023 Active Potassium Chloride ER 10 MEQ Oral [...] other meds). 90 Tablet 2 11/07/2023 Active Hospital, Clinic, or Other Facility Administered [...] as of this encounter (statuses as of 11/28/2023) Active Problems Problem Noted Date Diagnosed Date [...] as of this encounter (statuses as of 11/28/2023) Resolved Problems Problem Noted Date Diagnosed Date [...] as of this encounter (statuses as of 11/28/2023) Immunizations Name Administration Dates Next Due COVID-19 mRNA, LNP-s, No Pre serve, 2-Dose Series ([place]) 08/30/2021,01/11/2021,12/21/2020 Pneumococcal Conjugate Vacc, 13 Valent (Prevnar) [...] this encounter Progress Notes * Ayana Nichols, [facility] - 11/28/2023 2:19 PM EST MEDICATION THERAPY MANAGEMENT OSIMERTINIB TREATMENT PROGRESS NOTE Ioana Tan [phone] Patient Phone Numbers Preferred Lab: Specialty Pharmacy: [facility] Communication: Spoke to: Patient Treatment: Medication: Osimertinib (Tagrisso) Indication/Staging/Diagnosis Code: NSCLC, EGFR Exon 19 deletion / C34.90 Dose: 80mg daily x 3 years Administration: +/- food Start Date: 09/24/2023 Primary Hole Digger Truck Driver/Oncologist: Dr. 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 Confirms moisturizing hands for symptom relief No other concerns, tolerating therapy well Changes to medication list since last visit? No Assessment and Plan: Continue moisturizing regimen for dry hands Continue current therapy Assessment of compliance: compliant Assessment of adverse effects attributed to drug therapy: Rash/Dry Skin- present Nail Changes- absent Diarrhea - absent Pneumonitis - absent Dose adjustment needed based on lab or adverse drug reaction? No Follow up: 1 month Ayana Nichols, PharmD, BCOP Clinical Pharmacist, [facility] Oral Chemotherapy [facility] 11/28/2023, 2:29 PM Monitoring Parameters: Estimated CrCl Serum creatinine: 1.6 mg/dL (H) 11/14/23 1348 Estimated creatinine clearance: 30.7 mL/min (A) Hepatitis panel Latest Reference Range [...] monitoring - Medication Requires monitoring Pharmacist Intervention(s): Non-pharmacological intervention provided and Toxicity monitoring Magnitude of Intervention: Monitoring with direction (Level 1) documented in this encounter Plan of Treatment Upcoming Encounters Date Type Department Care Team (Late st Contact Info) Description 12/26/2023 9:45 AM EST Pharmacy Pharmacy Hematology Oncology [facility], [place] [address] [place] [address] [facility], [facility] Clinic Hem/Onc [facility] [place] [address] 01/07/2024 3:00 PM EDT Office Visit Thoracic Surg [facility], [address] [address] Boo Wylie MD [facility] [place] [address] 01/14/2024 10:40 AM EDT Telemedicine Pulmonary Medicine, [address] [address] Timothy Varghese MD [facility] [place] [address] Cart, Telemed Pulm Gw [address] [facility] [place] [address] 02/13/2024 11:15 AM EDT Imaging Radiology [facility] [address] [facility] [place] [address] 02/15/2024 8:50 AM EDT Office Visit Family Medicine [address] [place] [phone] Sravanthi Bloom[address] [place] [address] 05/08/2024 11:00 AM EDT Nurse Only Ancillary [address] [place] [address] [place], Nurse [address] [place] [address] 05/14/2024 1:15 PM EDT Office Visit Hematology/Oncology [facility] [address] [place] [address] Hadley Verdugo MD [address] [facility] [place] [address] 05/22/2024 11:00 AM EDT Office Visit Audiology [facility] [address] [place] [address] Ayana Grajeda Au.D. [address] [place] [address] 11/24/2024 1:20 PM EST Office Visit Otolaryngology [facility] [address] [place] [address] Nabil Fernandes PA-C [address] [place] [address] Scheduled Procedures Name Priority Associated Diagnoses Date/Ti [...] Cancer Screening Discontinued Zoster Vaccines Completed 04/08/2020, 0 06/2020, 08/29/2013 Influenza Vaccine (FLU shot) Completed [...] this encounter Medical Devices Implanted Type Area Rocket Motor Tester Device Identifier Shelf Expiration Date Model / Serial / Lot Lens Intraoc 22.0 - [id number] - [id number] Implanted:Qty: 1 on 06/26/2019 by London Ocampo MD at OR [facility] Left: Eye [employer]OM[employer] 01/27/2024 [id number] / [id number] / [id number] Lens Intraoc 21.5 - [id number] - [id number] Implanted:Qty: 1 on 07/15/2019 by London Ocampo MD at OR [facility] Right: Eye BAUSCH [employer] LOMB 03/28/2024 [id number] / [id number] / [id number] documented as of this encounter Visit Diagnoses [...] Advance Directives occurred with: Patient Care Teams Media Marketing Specialist Relationship Specialty Start Date End Date Sravanthi Bloom DO [address] [place] [address] [place] [phone] PCP - General Internal Medicine 06/18/17 documented as of this encounter
--- OUTSIDE RECORDS SUMMARY | 2024-04-04 20:31 | External Medical Summary | Summary of Care ---
Author Name Unknown Organization [facility] Address [address] [place] [address] Phone [phone] Care Team Providers Care Software Developer Mid Level Name Role Phone Sravanthi Bloom DO Primary Care Provider Reason for Visit * Reason Onset Date Comments Advice 01/04/2024 Verdugo Encounter Details Date Type Department Care Team (Late st Contact Info) Description 01/04/2024 Telephone Access Center, [place] [address] [facility] *DO NOT REMOVE THIS DEPARTMENT* [place] [address] Services, Scheduling [address] [place] [address] Advice (Verdugo ) Allergies Active Allergy Reactions Criticality Noted Date Comments Food (See Comments) 04/18/2021 honey Latex 04/18/2021 rash documented as of this encounter (statuses as of 01/04/2024) Medications Medication Sig Dispensed Refills Start Date End Date Status nystatin-triamcinolon e (MYCOLOG) 337891-9.1 UNIT/GM-% creamIndications:Cuta neous candidiasis Apply topically to [...] 30 Tablet 1 07/27/2023 Active Magic Swizzle (Uauhqbccd-Oqgmjmrk-A aalox) oral solutionIndications:P rimary malignant neoplasm of [...] as of this encounter (statuses as of 01/04/2024) Active Problems Problem Noted Date Diagnosed Date [...] as of this encounter (statuses as of 01/04/2024) Resolved Problems Problem Noted Date Diagnosed Date [...] as of this encounter (statuses as of 01/04/2024) Immunizations Name Administration Dates Next Due COVID-19 mRNA, LNP-s, No Pre serve, 2-Dose Series ([place] [employer]) 08/30/2021,01/11/2021,12/21/2020 Pneumococcal Conjugate Vacc, 13 Valent (Prevnar) [...] encounter Miscellaneous Notes * Telephone Encounter - Sissy Escobedo RN - 01/04/2024 12:33 PM EST Ok to take medrol dose pack. Called patient who verbalized understanding. * Telephone Encounter - Madelyn Dickson OSA - 01/04/2024 10:31 AM EST Pt calling asking if it is okay if she takes a medrol familia that another dr of hers prescribed her documented in this encounter Plan of Treatment Upcoming Encounters Date Type Department Care Team (Late st Contact Info) Description 01/07/2024 3:00 PM EDT Office Visit Thoracic Surg [facility] [place] [address] [place] [address] Boo Wylie MD [facility] [place] [address] 01/14/2024 10:40 AM EDT Telemedicine Pulmonary Medicine, [place] [address] [place] [address] Timothy Varghese MD [facility] [place] [address] [facility] [address] [facility] [place] [address] 01/23/2024 9:45 AM EDT Pharmacy Pharmacy Hematology Oncology [facility], [address] [address] [facility], [facility] Clinic Hem/Onc [facility] [place] [address] 02/13/2024 11:15 AM EDT Imaging Radiology [address] [facility] [place] [address] 02/15/2024 8:50 AM EDT Office Visit Family Medicine [address] [place] [phone] Sravanthi Bloom[address] [place] [address] 05/08/2024 11:00 AM EDT Nurse Only Ancillary [address] [place] [address] [place], Nurse [address] [place] [address] 05/14/2024 1:15 PM EDT Office Visit Hematology/Oncology [facility] [address] [place] [phone] Hadley Verdugo MD [address] [place] [address] 05/22/2024 11:00 AM EDT Office Visit Audiology [facility] [address] [place] [address] Ayana Grajeda Au.D. [address] [place] [address] 11/24/2024 1:20 PM EST Office Visit Otolaryngology [facility] [address] [place] [address] Nabil Fernandes PA-C [address] [place] [address] Scheduled Procedures Name Priority Associated Diagnoses Date/Ti [...] this encounter Medical Devices Implanted Type Area Oracle Adf Consultant Device Identifier Shelf Expiration Date Model / Serial / Lot Lens Intraoc 22.0 - [id number] - [id number] Implanted:Qty: 1 on 06/26/2019 by London Ocampo MD at OR [facility] Left: Eye [employer]OMB 01/27/2024 [id number] / [id number] / [id number] Lens Intraoc 21.5 - [id number] - [id number] Implanted:Qty: 1 on 07/15/2019 by London Ocampo MD at OR [facility] Right: Eye [employer]CH [employer]OMB 03/28/2024 [id number] / [id number] / [id number] documented as of this encounter Advance Directives Latest Code Status on File Code Status Date Activated Date Inactivated Comments Full Code 07/06/2023 1:46 PM 07/10/2023 8:23 PM This o rder reflects the patients wishes and were consensually agreed upon. Question Answer Comments Discussion of Advance Directives occurred with: Patient Care Teams Software Developer Mid Level Relationship Specialty Start Date End Date Sravanthi Bloom DO [address] [place] [address] [place] [address] PCP - General Internal Medicine 06/18/17 documented as of this encounter
--- OUTSIDE RECORDS SUMMARY | 2024-04-04 20:31 | External Medical Summary | Summary of Care ---
Author Name Unknown Organization [facility] Address [address] [facility] [address] Phone [phone] Care Team Providers Care Drilling Field Operator Name Role Phone BloomSravanthi DO Primary Care Provider [phone] Reason for Visit * Reason Comments NEW PATIENT Encounter Details Date Type Department Care Team (Latest Contact Info) Description 11/22/2023 3:40 PM EST Office Visit [facility] [address] Nabil Fernandes PA-C 132 [facility] [place] [address] Bilateral sensorineural hearing loss* Allergies Active Allergy Reactions Criticality Noted Date Comments Food (See Comments) 04/18/2021 honey Latex 04/18/2021 rash documented as of this encounter (statuses as of 11/22/2023) Medications Medication Sig Dispensed Refills Start Date End Date Status nystatin-triamcinolon e (MYCOLOG) 877095-0.1 UNIT/GM-% creamIndications:Cuta neous candidiasis Apply topically to [...] 30 Tablet 1 07/27/2023 Active Magic Swizzle (Ozjpakgpe-Mnakvxce-L aalox) oral solutionIndications:P rimary malignant neoplasm of [...] as of this encounter (statuses as of 11/22/2023) Active Problems Problem Noted Date Diagnosed Date [...] as of this encounter (statuses as of 11/22/2023) Resolved Problems Problem Noted Date Diagnosed Date [...] as of this encounter (statuses as of 11/22/2023) Immunizations Name Administration Dates Next Due COVID-19 [...] Taken Comments Blood Pressure - - Pulse - - Temperature 35.7 C (96.2 F) 11/22/2023 3:28 PM ES T Respiratory Rate - - Oxygen Saturation - - Inhaled Oxygen Concentration - - Weight 78.2 kg (172 lb 4.8 oz) 11/22/2023 3:28 P M EST Height 162.6 cm (5' 4") 11/22/2023 3:28 PM EST Body Mass Index 29.58 11/22/2023 3:28 PM EST documented in this encounter Functional Status Functional [...] as of this encounter Progress Notes * Nabil Fernandes PA-C - 11/22/2023 3:33 PM EST Images from the original note were not included. 11/22/2023 HISTORY OF PRESENT ILLNESS This 77 year old YO female is seen at the request of Sravanthi Bloom DO for the evaluation of bilateral hearing loss and tinnitus. Her symptoms started 3-4 months ago and are constant. Associated symptoms include bilateral hearing loss and bilateral tinnitus (intermittent and occasionally pulsatile). She denies bilateral otalgia and bilateral otorrhea. She had chemo treatment in July and suddenly lost hearing in both ears after. No issue with hearing loss prior. Has never worn hearing aids. Does not feel hearing has improved since incident at all. No hx of otologic surgeries. 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 ([facility]) C34.90 Past Medical History: Diagnosis Date Achilles tendinitis [...] Sarcoidosis Slow transit constipation 02/25/2013 Urge incontinence Past Surgical History: Procedure Laterality Date BIOPSY OF BREAST, OPEN 10/31/91 BRONCHOSCOPY, DIAGNOSTIC N/A 05/02/2023 BRONCHOSCOPY DIAGNOSTIC WITH OR WITHOUT WASHING performed by Jessica Delacruz MD at ENDOSCOPY [facility] DELIVERY 1971 &1974 x2 COLONOSCOPY, DIAGNOSTIC (RECTUM) 10/2008 diverticulosis, f/u 3/5 years COLONOSCOPY, DIAGNOSTIC (RECTUM) 04/30/2017 diverticulosis, repeat 10 yrs/COLONOSCOPY FLEXIBLE PROXIMAL DIAGNOSTIC performed by Tyson Cope MD at ENDOSCOPY [facility] COLORECTAL CANCER SCREEN; COLON 11/20/08 Dr. Seay - normal DIGITAL RECTAL EXAM,ANNUAL LYMPHADENECTOMY VIA THORACOSCOPY Right 07/06/2023 ROBOTIC THORACOSCOPY WITH LYMPHADENECTOMY performed by Boo Wylie MD at OR [facility] MAMMOGRAM SCREENING-BILATERAL 12/27 REMOVAL OF OVARY/OVIDUCT(S) 1981 bilateral REMOVE CATARACT, INSERT LENS PROSTH Left 06/26/2019 left EXTRACAPSULAR CATARACT REMOVAL WITH INTRAOCULAR LENS performed by London Ocampo MD at OR [facility] REMOVE CATARACT, INSERT LENS PROSTH Right 07/15/2019 right EXTRACAPSULAR CATARACT REMOVAL WITH INTRAOCULAR LENS performed by London Ocampo MD at [facility] REMOVE GALLBLADDER 1979 REPAIR RUPTURED ACHILLES TENDON Bilateral 02/1999 Thoracoscopy w/ Lobectomy Right 07/06/2023 ROBOTIC THORACOSCOPY WITH LOBECTOMY performed by Boo Wylie MD at OR [facility] TOTAL HYSTERECTOMY 1981 Medications Current Outpatient Medications Medication Sig Dispense Refill nystatin-triamcinolone (MYCOLOG) 094749-6.1 UNIT/GM-% cream Apply topically to affected area 2 times a day. To affacted area for two weeks. 30 g 1 Triamcinolone Acetonide 0.1 % External Ointment (Aristocort) Apply to affected area twice a day as needed for dry skin and itching 30 g 1 Rosuvastatin Calcium 10 MG Oral Tablet (Crestor) TAKE 1 TABLET BY MOUTH EVERY MORNING 90 Tablet 1 Ondansetron HCl 8 MG Oral Tablet Take 1 Tablet by mouth every 8 hours as needed for Nausea. 30 Tablet 1 Prochlorperazine Maleate 10 MG Oral Tablet (Compazine) Take 1 Tablet by mouth every 6 hours as needed for Nausea. 30 Tablet 1 Magic Swizzle (Sqdaumzah-Mvxdvpcu-Bttzhl) oral solution Swish and swallow 15 mL 4 times a day before meals and at bedtime. 300 mL 1 Apixaban 5 MG Oral Tablet (Eliquis) Take 1 Tablet by mouth in the morning and 1 Tablet before bedtime. amLODIPine Besylate 5 MG Oral Tablet (Norvasc) Take 1 Tablet by mouth in the morning. 30 Tablet 2 Potassium Chloride ER 10 MEQ Oral Capsule [...] with or without food.. 30 Tablet 5 Loratadine 10 MG Oral Tablet (Claritin) Take 1 Tablet by mouth every night at bedtime. 30 Tablet 2 Omeprazole 20 MG Oral Capsule Delayed Release (PriLOSEC) Take 1 Capsule by mouth in the morning. 30Capsule 3 Levothyroxine Sodium 137 MCG Oral Tablet Take 1 Tablet by mouth in the morning. (at least 30 min prior to breakfast or other meds). 90 Tablet 2 Current Facility-Administered Medications Medication Dose Route Frequency Provider Last Rate Last Admin Albuterol Sulfate (Proventil) (2.5 MG/3ML) 0.083% inhalation solution 2.5 mg 2.5 mg Nebulizer PRN Shila Nunez LEGAL PROCESS SPECIALIST albuterol (VENTOLIN HFA/PROVENTIL HFA) inhaler 3 Puff Inhalation PRN Shila Nunez CRNP Allergies Review of patient's allergies indicates: Allergen Reactions Food (See Comments) honey Latex rash Family History No family history on file. 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 PHYSICAL EXAMINATION: Vital Signs: Filed Vitals: 11/22/23 1528 Temp: 35.7 C (96.2 F) TempSrc: Tympanic Weight: 78.2 kg (172 lb 4.8 oz) Height: 1.626 m (5' 4") General: this is a healthy appearing female who appears her stated age. The patient is alert and appropriately verbally conversant without hoarseness. Face: The face was inspected and no cutaneous masses or lesions were visualized. There was no erythema or edema noted. Facial movement was symmetric without weakness. No skin lesions were detected. There was no sinus tenderness elicited. The parotid and submandibular glands were normal to palpation. Eyes: Examination of the eyes revealed no lesions. Pupils were equal, round, and reactive to light and accommodation. Extra-ocular muscle function was intact. No nystagmus was observed. Ears: Examination of the ears revealed that the auricles were normally formed with no lesions. The external auditory canals were cleaned of any obstructing cerumen. See below procedure note. The tympanic membranes were intact and freely mobile to pneumatoscopy without perforation or significant retraction pockets. Neck: Visualization and palpation of the neck revealed no mass lesions, no thyromegaly or thyroid masses. No skin lesions or inflammatory processes were detected. The cervical musculature was normal to palpation. Lymphatics (cervical): There were no palpable lymph nodes in the posterior triangle, submandibular triangle, jugulodigastric region, or central neck. Lungs: normal respiratory effort Heart: normal rate ASSESSMENT: 1. Bilateral sensorineural hearing loss Reviewed tymps and audio with patient. Unfortunately pt with b/l SNHL s/p chemotherapy. Can consider hearing aids. Pt has slight asymmetry but does not wish to have MRI or further imaging at this time. Will recheck audio in 6 mo and one year. Given info for local audiologists. F/U sooner with any concerns. Pt verbalized understanding and agrees with plan. Questions/Concerns addressed. Nabil Fernandes PA-C [facility] OUTPATIENT SURGERY [place] [facility] [address] [place] [address] 11/22/2023 4:19 PM documented in this encounter Plan of Treatment Upcoming Encounters Date Type Department Care Team (Late st Contact Info) Description 11/28/2023 9:45 AM EST Pharmacy Pharmacy Hematology Oncology [facility], [place] [address] [place] [address] [facility] Clinic Hem/Onc [facility] [place] [address] 01/07/2024 3:00 PM EDT Office Visit Thoracic Surg [facility], [address] [address] Boo Wylie MD [facility] [place] [address] 01/14/2024 10:40 AM EDT Telemedicine Pulmonary Medicine, [address] [address] Timothy Varghese MD [facility] [place] [address] Cart, Telemed Pulm Gw [address] [facility] [place] [address] 02/13/2024 11:15 AM EDT Imaging Radiology [address] [facility] [place] [address] 02/15/2024 8:50 AM EDT Office Visit Family Medicine [address] [place] [phone] Sravanthi Bloom [address] [place] [address] 05/08/2024 11:00 AM EDT Nurse Only Ancillary [address] [place] [address] [place], Nurse [address] [place] [address] 05/14/2024 1:15 PM EDT Office Visit Hematology/Oncology [facility] [address] Hadley Verdugo MD [address] [facility] [place] [address] 05/22/2024 11:00 AM EDT Office Visit Audiology [facility] [address] [place] [address] Ayana Grajeda Au.D. [address] [place] [address] 11/24/2024 1:20 PM EST Office Visit Otolaryngology [facility] [address] [place] [address] Nabil Fernandes PA-C [address] [place] [address] Scheduled Procedures Name Priority Associated Diagnoses Date/Ti [...] this encounter Medical Devices Implanted Type Area Jewel Sorter Device Identifier Shelf Expiration Date Model / Serial / Lot Lens Intraoc 22.0 - [id number] - [id number] Implanted:Qty: 1 on 06/26/2019 by London Ocampo MD at OR [facility] Left: Eye [employer] 01/27/2024 [id number] / [id number] / [id number] Lens Intraoc 21.5 - [id number] - [id number] Implanted:Qty: 1 on 07/15/2019 by London Ocampo MD at [facility] Right: Eye [employer] 03/28/2024 [id number] / [id number] / [id number] documented as of this encounter Visit Diagnoses Diagnosis Bilateral sensorineural hearing loss- Primary Sensorineural hearing loss, bilateral documented in this encounter Advance Directives Latest Code Status on File Code Status Date Activated Date Inactivated Comments Full Code 07/06/2023 1:46 PM 07/10/2023 8:23 PM This o rder reflects the patients wishes and were consensually agreed upon. Question Answer Comments Discussion of Advance Directives occurred with: Patient Care Teams Drilling Field Operator Relationship Specialty Start Date End Date Sravanthi Bloom DO [address] [place] [address] [place] [address] PCP - General Internal Medicine 06/18/17 documented as of this encounter
--- OUTSIDE RECORDS SUMMARY | 2024-04-04 20:31 | External Medical Summary | Summary of Care ---
Author Name Unknown Organization [facility] Address [address] [place] [address] Phone [phone] Care Team Providers Care Assessment Nurse Name Role Phone Sravanthi Bloom DO Primary Care Provider Reason for Visit * Reason Comments Follow Up Lung Ca Encounter Details Date Type Department Care Team (Late st Contact Info) Description 01/07/2024 3:00 PM EDT Office Visit Thoracic Surg [facility] [address] [place] [address] Boo Wylie MD [address] [place] [address] 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)*; Metastasis to mediastinal lymph node (HCC) Allergies Active Allergy Reactions Criticality Noted Date Comments Food (See Comments) 04/18/2021 honey Latex 04/18/2021 rash documented as of this encounter (statuses as of 01/07/2024) Medications Medication Sig Dispensed Refills Start Date End Date Status nystatin-triamcinolon e (MYCOLOG) 354316-1.1 UNIT/GM-% creamIndications:Cuta neous candidiasis Apply topically to [...] 30 Tablet 1 07/27/2023 Active Magic Swizzle (Qnhdkghcz-Bpmwdeqj-Y aalox) oral solutionIndications:P rimary malignant neoplasm of [...] as of this encounter (statuses as of 01/07/2024) Active Problems Problem Noted Date Diagnosed Date [...] as of this encounter (statuses as of 01/07/2024) Resolved Problems Problem Noted Date Diagnosed Date [...] as of this encounter (statuses as of 01/07/2024) Immunizations Name Administration Dates Next Due COVID-19 [...] as of this encounter Progress Notes * Boo Wylie MD - 01/07/2024 2:27 PM EDT THORACIC SURGERY LUNG CANCER SURVEILLANCE VISIT 01/07/2024 Last visit = 10/01/2023 After connecting to the patient via telephone, the patient was identified by name and date of . Patient was then informed that this was a telephone call only visit. The patient agreed to participate. Visit Disposition: Routine follow-up (see Plan at the bottom of this note) Total call duration was 6 minutes. Since last visit: No major new symptoms or problems. She feels quite good. Continuing with adjuvant PO chemotherapy (Dr. Verdugo). Returns for ongoing lung cancer surveillance. Surgery Date: 07/06/2023 Operation: Robotic right lower lobectomy and lymphadenectomy Diagnosis: Right lower lobe lung adenocarcinoma Review of patient's allergies indicates: Allergen Reactions Food (See Comments) honey Latex rash Current Outpatient Medications Medication Sig Dispense Refill nystatin-triamcinolone (MYCOLOG) 695581-7.1 UNIT/GM-% cream Apply topically to affected area [...] for Nausea. 30 Tablet 1 Magic Swizzle (Wtrbxcoza-Ccvovutc-Efyhsr) oral solution Swish and swallow 15 mL [...] mouth in the morning. 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 Seay - normal DIGITAL RECTAL EXAM,ANNUAL LYMPHADENECTOMY VIA THORACOSCOPY Right 07/06/2023 ROBOTIC THORACOSCOPY WITH LYMPHADENECTOMY performed by Boo Wylie MD [place] [facility] [place] S[place]ING-BILATERAL 12/27 REMOVAL OF OVARY/OVIDUCT(S) 1982 bilateral REMOVE CATARACT, INSERT LENS PROSTH Left 06/26/2019 left EXTRACAPSULAR CATARACT REMOVAL WITH INTRAOCULAR LENS performed by London Ocampo MD at OR [facility] REMOVE CATARACT, INSERT LENS PROSTH Right 07/15/2019 right EXTRACAPSULAR CATARACT REMOVAL WITH INTRAOCULAR LENS performed by London Ocampo MD at OR [facility] REMOVE GALLBLADDER 1980 REPAIR RUPTURED ACHILLES TENDON Bilateral 02/1999 Thoracoscopy w/ Lobectomy Right 07/06/2023 ROBOTIC THORACOSCOPY WITH LOBECTOMY performed by Boo Wylie MD [place] [facility] [place]OTAL HYSTERECTOMY 1981 Social History Socioeconomic History Marital status: Spouse name: Not on file Number of children: 2 Years of education: Not on file Highest education level: Not on file Occupational History 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 REVIEW OF SYSTEMS: Any pertinent positives are noted in the HPI; all others are negative. PHYSICAL EXAM: There were no vitals filed for this visit. Exam deferred -- telephonic and/or telemedicine encounter. IMAGING: None new. Due to have 02/13/2024 CT Chest. ASSESSMENT and PLAN: 1. Surveillance visit following 07/06/2023 robotic right lower lobectomy and lymphadenectomy for RLL lung adenocarcinoma with surprise N2 (mediastinal) nicolás disease on final surgical pathology. Cancer Staging 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) Staging form: Lung, AJCC 8th Edition - Clinical stage from 05/24/2023: Stage IIA (cT2b, cN0, cM0) - Signed by Boo Wylie MD on 06/29/2023 - Pathologic stage from 07/18/2023: Stage IIIA (pT2b, pN2, cM0) - Signed by Boo Wylie MD on 07/18/2023 2. Lung cancer disease status: No Evidence of Disease (JASON). -- following R0 surgical resection -- 3 surprise positive lymph nodes -- upstaged to III-A disease -- receiving adjuvant chemotherapy with Dr. Hadley Verdugo -- awaiting 02/13/[address] imaging 3. Plan to follow-up with me in 6 months (or sooner if necessary) to continue fdc lung cancersurveillance. 4. Continue adjuvant chemotherapy with Dr. Verdugo. 5. Continue pulmonary care with Dr. Varghese. 6. All questions answered to apparent satisfaction. Boo Wylie MD FACS System Chief, Thoracic Surgery [facility] [place] [address] documented in this encounter Plan of Treatment Upcoming Encounters Date Type Department Care Team (Late st Contact Info) Description 01/14/2024 10:40 AM EDT Telemedicine Pulmonary Medicine, [place] [address] [place] [address] Timothy Varghese MD [address] [place] [address] Cart, Telemed Pulm [address] [place] [address] 01/23/2024 9:45 AM EDT Pharmacy Pharmacy Hematology Oncology [facility], [place] [address] [place] [address] [facility] Clinic Hem/Onc [address] [place] [address] 02/13/2024 11:15 AM EDT Imaging Radiology [facility] [address] [place] [address] 02/15/2024 8:50 AM EDT Office Visit Family Medicine [address] [place] [phone] Sravanthi Bloom[address] [place] [address] 05/08/2024 11:00 AM EDT Nurse Only Ancillary [address] [place] [address] [place], Nurse [address] [place] [address] 05/14/2024 1:15 PM EDT Office Visit Hematology/Oncology [facility] [place] [address] [facility] [address] [place] [phone] Hadley Verdugo MD [address] [facility] [place] [address] 05/22/2024 11:00 AM EDT Office Visit Audiology [facility] [address] [place] [address] Ayana Grajeda Au.D. 132 [place] [address] 11/24/2024 1:20 PM EST Office Visit Otolaryngology [facility] [address] [place] [address] Nabil Fernandes PA-C [address] [place] [address] Scheduled Procedures Name Priority Associated Diagnoses Date/Ti [...] this encounter Medical Devices Implanted Type Area Production Machine Computer Operator Device Identifier Shelf Expiration Date Model / Serial / Lot Lens Intraoc 22.0 - [id number] - [id number] Implanted:Qty: 1 on 06/26/2019 by London Ocampo MD at OR [facility] Left: Eye [employer] 01/27/2024 [id number] / [id number] / [id number] Lens Intraoc 21.5 - [id number] - [id number] Implanted:Qty: 1 on 07/15/2019 by London Ocampo MD at OR [facility] Right: Eye [employer] 03/28/2024 [id number] / [id number] / [id number] documented as of this encounter Visit Diagnoses [...] Advance Directives occurred with: Patient Care Teams Assessment Nurse Relationship Specialty Start Date End Date Sravanthi Bloom DO [address] [place] [address] [place] [address] PCP - General Internal Medicine 06/18/17 documented as of this encounter
--- OUTSIDE RECORDS SUMMARY | 2024-04-04 20:31 | External Medical Summary | Summary of Care ---
Author Name Unknown Organization [facility] Address [address] [place] [address] Phone [phone] Care Team Providers Care Birthing Nurse Name Role Phone Sravanthi Bloom DO Primary Care Provider Encounter Details Date Type Department Care Team ([facility] st Contact Info) Description 11/23/2023 Specialty Pharmacy [facility], [address] [address] Medication, [facility] Specialty, [address] [address] Allergies Active Allergy Reactions Criticality Noted Date Comments Food (See Comments) 04/18/2021 honey Latex 04/18/2021 rash documented as of this encounter (statuses as of 11/23/2023) Medications Medication Sig Dispensed Refills Start Date End Date Status nystatin-triamcinolon e (MYCOLOG) 793597-2.1 UNIT/GM-% creamIndications:Cuta neous candidiasis Apply topically to [...] 30 Tablet 1 07/27/2023 Active Magic Swizzle (Lhftmveqe-Ezonpdwx-C aalox) oral solutionIndications:P rimary malignant neoplasm of [...] as of this encounter (statuses as of 11/23/2023) Active Problems Problem Noted Date Diagnosed Date [...] as of this encounter (statuses as of 11/23/2023) Resolved Problems Problem Noted Date Diagnosed Date [...] as of this encounter (statuses as of 11/23/2023) Immunizations Name Administration Dates Next Due COVID-19 mRNA, LNP-s, No Pre serve, 2-Dose Series ([employer]) 08/30/2021,01/11/2021,12/21/2020 Pneumococcal Conjugate Vacc, 13 Valent (Prevnar) [...] as of this encounter Progress Notes * Grover Nuno, credit officer - 11/23/2023 2:31 PM EST PT called in regards to prior refill. PT was charged $48 for copay for Tagrisso, when usually its $0. Found out added on ins was not added to fill, to get to $0 copay. Spoke with Luigi, said he wouldlook into it and try to back bill. Luigi said we would reach back out to PT with update. Grover Nuno Farmer [employer] [facility] 11/23/2023 2:33 PM documented in this encounter Plan of Treatment Upcoming Encounters Date Type Department Care Team (Late st Contact Info) Description 11/28/2023 9:45 AM EST Pharmacy Pharmacy Hematology Oncology [address] [place] [address] [facility] [place] Hem/Onc [facility] [place] [address] 01/07/2024 3:00 PM EDT Office Visit Thoracic Surg [facility], [place] [address] [place] [phone] Boo Wylie MD [facility] [place] [address] 01/14/2024 10:40 AM EDT Telemedicine Pulmonary Medicine, [place] [address] [place] [address] Timothy Varghese MD [facility] [place] [address] Cart, Telemed Pulm Gw 132 [facility] [place] [address] 02/13/2024 11:15 AM EDT Imaging Radiology [address] 132 [facility] [place] [address] 02/15/2024 8:50 AM EDT Office Visit Family Medicine [address] [place] [address] Sravanthi Bloom[address] [place] [address] 05/08/2024 11:00 AM EDT Nurse Only Ancillary [address] [place] [address] [place], Nurse [address] [place] [address] 05/14/2024 1:15 PM EDT Office Visit Hematology/Oncology [facility] [address] [place] [address] Hadley Verdugo MD [address] [place] [address] 05/22/2024 11:00 AM EDT Office Visit Audiology [facility] [address] [place] [address] Ayana Grajeda Au.D. [address] [place] [address] 11/24/2024 1:20 PM EST Office Visit Otolaryngology [facility] [address] [place] [address] Nabil Fernandes PA-C [address] [place] [address] Scheduled Procedures Name Priority Associated Diagnoses Date/Ti [...] this encounter Medical Devices Implanted Type Area Network Operations Lead Device Identifier Shelf Expiration Date Model / Serial / Lot Lens Intraoc 22.0 - [id number] - [id number] Implanted:Qty: 1 on 06/26/2019 by London Ocampo MD at OR [facility] Left: Eye BAUSCH [employer] LOMB 01/27/2024 [id number] / [id number] / [id number] Lens Intraoc 21.5 - [id number] - [id number] Implanted:Qty: 1 on 07/15/2019 by London Ocampo MD at OR [facility] Right: Eye BAUSCH & LOMB 03/28/2024 [id number] / [id number] / [id number] documented as of this encounter Advance Directives Latest Code Status on File Code Status Date Activated Date Inactivated Comments Full Code 07/06/2023 1:46 PM 07/10/2023 8:23 PM This o rder reflects the patients wishes and were consensually agreed upon. Question Answer Comments Discussion of Advance Directives occurred with: Patient Care Teams Birthing Nurse Relationship Specialty Start Date End Date Sravanthi Bloom DO [address] [place] [address] [place] [address] PCP - General Internal Medicine 06/18/17 documented as of this encounter
--- OUTSIDE RECORDS SUMMARY | 2024-04-04 20:31 | External Medical Summary | Summary of Care ---
Author Name Unknown Organization [facility] Address [address] [facility] [place] [address] Phone [phone] Care Team Providers Care Economic Geographer Name Role Phone BloomSravanthi DO Primary Care Provider Reason for Visit * Reason Comments Hearing Problem Encounter Details Date Type Department Care Team (Late st Contact Info) Description 11/22/2023 10:30 AM EST Office Visit Audiology [facility] [address] [place] [address] [facility] Audiology [facility] [address] [place] [address] Bilateral sensorineural hearing loss* Allergies Active Allergy Reactions Criticality Noted Date Comments Food (See Comments) 04/18/2021 honey Latex 04/18/2021 rash documented as of this encounter (statuses as of 11/22/2023) Medications Medication Sig Dispensed Refills Start Date End Date Status nystatin-triamcinolon e (MYCOLOG) 106632-8.1 UNIT/GM-% creamIndications:Cuta neous candidiasis Apply topically to [...] 30 Tablet 1 07/27/2023 Active Magic Swizzle (Cdqybfdoq-Wljeogut-P aalox) oral solutionIndications:P rimary malignant neoplasm of [...] as of this encounter Progress Notes * Brooke Valerio TECH - 11/22/2023 4:20 PM EST Audiologic evaluation was completed on referral from Otolaryngology clinic. Audiogram: Right Ear: moderate to severe, mid to high frequency, downsloping sensorineural hearing loss, speech discrimination is 72 percent at 60 dB. Left Ear: moderate to severe, mid to high frequency, downsloping sensorineural hearing loss, speechdiscrimination is 76 percent at 60 dB. Tympanograms- Right Type A, Left type A documented in this encounter Plan of Treatment Upcoming Encounters Date Type Department Care Team (Late st Contact Info) Description 11/28/2023 9:45 AM EST Pharmacy Pharmacy [facility]ematology [facility] [place] [address] [place] [address] [facility] Clinic Hem/Onc [facility] [place] [address] 01/07/2024 3:00 PM EDT Office Visit Thoracic Surg [facility], [address] [address] Boo Wylie MD [facility] [place] [address] 01/14/2024 10:40 AM EDT Telemedicine Pulmonary Medicine, [place] [address] [place] [address] Timothy Varghese MD [address] [place] [address] Cart, Telemed Pulm Gw 132 [facility] [place] [address] 02/13/2024 11:15 AM EDT Imaging Radiology [address] 132 [place] [address] 02/15/2024 8:50 AM EDT Office Visit Family Medicine [address] [place] [phone] Sravanthi Bloom, [address] [place] [address] 05/08/2024 11:00 AM EDT Nurse Only Ancillary [address] [place] [address] [place], Nurse [address] [place] [address] 05/14/2024 1:15 PM EDT Office Visit Hematology/Oncology [facility] [address] [place] [address] Hadley Verdugo MD [address] [place], [place] [address] 05/22/2024 11:00 AM EDT Office Visit Audiology [facility] [address] [place] [address] Ayana Grajeda Au.D. [address] [place] [address] 11/24/2024 1:20 PM EST Office Visit Otolaryngology [facility] [address] [place] [address] Nabil Fernandes PA-C [address] [place] [address] Scheduled Procedures Name Priority Associated Diagnoses Date/Ti [...] this encounter Medical Devices Implanted Type Area Traveling Storekeeper Device Identifier Shelf Expiration Date Model / Serial / Lot Lens Intraoc 22.0 - [id number] - [id number] Implanted:Qty: 1 on 06/26/2019 by London Ocampo MD at OR [facility] Left: Eye BAUSCH & LOMB 01/27/2024 [id number] / [id number] / [id number] Lens Intraoc 21.5 - [id number] - [id number] Implanted:Qty: 1 on 07/15/2019 by London Ocampo MD at OR [facility] Right: Eye BAUSCH & LOMB 03/28/2024 [id number] / [id number] / [id number] documented as of this encounter Visit Diagnoses [...] Advance Directives occurred with: Patient Care Teams Economic Geographer Relationship Specialty Start Date End Date Sravanthi Bloom DO [address] [place] [address] [place] [address] PCP - General Internal Medicine 06/18/17 documented as of this encounter
--- OUTSIDE RECORDS SUMMARY | 2024-04-04 20:31 | External Medical Summary | Summary of Care ---
Author Name Unknown Organization [facility] Address [address] [place] [address] Phone [phone] Care Team Providers Care Director Of Medical Education Name Role Phone Sravanthi Bloom DO Primary Care Provider [phone] Reason for Visit * Reason Comments Follow Up Lung Ca Encounter Details Date Type Department Care Team (Late st Contact Info) Description 01/07/2024 3:00 PM EDT Office Visit Thoracic Surg [facility] [address] [place] [address] Boo Wylie MD [address] [place] [address] 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)*; Metastasis to mediastinal lymph node (HCC) Allergies Active Allergy Reactions Criticality Noted Date Comments Food (See Comments) 04/18/2021 honey Latex 04/18/2021 rash documented as of this encounter (statuses as of 01/07/2024) Medications Medication Sig Dispensed Refills Start Date End Date Status nystatin-triamcinolon e (MYCOLOG) 071999-2.1 UNIT/GM-% creamIndications:Cuta neous candidiasis Apply topically to [...] 30 Tablet 1 07/27/2023 Active Magic Swizzle (Nxnexfdoc-Uxfkufmb-B aalox) oral solutionIndications:P rimary malignant neoplasm of [...] Medications Medication Sig Dispense Refill nystatin-triamcinolone (MYCOLOG) 757722-4.1 UNIT/GM-% cream Apply topically to affected area [...] for Nausea. 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 Seay - normal DIGITAL RECTAL EXAM,ANNUAL LYMPHADENECTOMY VIA THORACOSCOPY Right 07/06/2023 ROBOTIC THORACOSCOPY WITH LYMPHADENECTOMY performed by Boo Wylie MD at OR [facility] MAMMOGRAM SCREENING-BILATERAL 12/27 REMOVAL OF OVARY/OVIDUCT(S) 1982 bilateral REMOVE CATARACT, INSERT LENS PROSTH Left 06/26/2019 left EXTRACAPSULAR CATARACT REMOVAL WITH INTRAOCULAR LENS performed by London Ocampo MD at OR [facility] REMOVE CATARACT, INSERT LENS PROSTH Right 07/15/2019 right EXTRACAPSULAR CATARACT REMOVAL WITH INTRAOCULAR LENS performed by London Ocampo MD at OR [facility] REMOVE GALLBLADDER 1980 REPAIR RUPTURED ACHILLES TENDON Bilateral 02/1999 Thoracoscopy w/ Lobectomy Right 07/06/2023 ROBOTIC THORACOSCOPY WITH LOBECTOMY performed by Boo Wylie MD at OR [facility] TOTAL HYSTERECTOMY 1981 Social History Socioeconomic History Marital status: Spouse name: Not on file Number of children: 2 Years of education: Not on file Highest education level: Not on file Occupational History 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 4. Continue adjuvant chemotherapy with Dr. Verdugo. 5. Continue pulmonary care with Dr. Varghese. 6. All questions answered to apparent satisfaction. Boo Wylie MD FACS System Chief, Thoracic Surgery [facility] [place] [address] documented in this encounter Plan of Treatment Upcoming Encounters Date Type Department Care Team (Late st Contact Info) Description 01/14/2024 10:40 AM EDT Telemedicine Pulmonary Medicine, [place] [address] [place] [address] Timothy Varghese MD [address] [place] [address] Cart, Telemed Pulm 132 [place] [address] 01/23/2024 9:45 AM EDT Pharmacy Pharmacy Hematology Oncology [facility] [address] [place] [address] [facility] [place], [facility] Clinic Hem/Onc [address] [place] [address] 02/13/2024 11:15 AM EDT Imaging Radiology [address] 132 [place] [address] 02/15/2024 8:50 AM EDT Office Visit Family Medicine [address] [place] [phone] Sravanthi Bloom[address] [place] [address] 05/08/2024 11:00 AM EDT Nurse Only Ancillary [address] [place] [address] [place], Nurse [address] [place] [address] 05/14/2024 1:15 PM EDT Office Visit Hematology/Oncology [facility] 200 [facility] [place] [phone] Hadley Verdugo MD 200 [facility] [place] [address] 05/22/2024 11:00 AM EDT Office Visit Audiology [facility] 132 [place] [address] Ayana Grajeda Au.D. 132 [place] [address] 07/21/2024 2:30 PM EDT Office Visit Thoracic [facility] [address] [place] [address] Boo Wylie MD [address] [place] [address] 11/24/2024 1:20 PM EST Office Visit Otolaryngology [facility] [address] [place] [address] Nabil Fernandes PA-C [address] [place] [address] Scheduled Procedures Name Priority Associated Diagnoses Date/Ti [...] this encounter Medical Devices Implanted Type Area Rn Camp Device Identifier Shelf Expiration Date Model / Serial / Lot Lens Intraoc 22.0 - [id number] - [id number] Implanted:Qty: 1 on 06/26/2019 by London Ocampo MD at OR [facility] Left: Eye BAUSCH & LOMB 01/27/2024 [id number] / [id number] / [id number] Lens Intraoc 21.5 - [id number] - [id number] Implanted:Qty: 1 on 07/15/2019 by London Ocampo MD at OR [facility] Right: Eye BAUSCH & LOMB 03/28/2024 [id number] / [id number] / [id number] documented as of this encounter Visit Diagnoses [...] Advance Directives occurred with: Patient Care Teams Director Of Medical Education Relationship Specialty Start Date End Date Sravanthi Bloom DO [address] [place] [address] [place] [address] PCP - General Internal Medicine 06/18/17 documented as of this encounter
--- OUTSIDE RECORDS SUMMARY | 2024-04-04 20:31 | External Medical Summary | Summary of Care ---
Author Name Unknown Organization [facility] Address [address] [facility] [place] [address] Phone [phone] Care Team Providers Care Head Holder Name Role Phone LboomSravanthi DO Primary Care Provider [phone] Reason for Visit * Reason Comments NEW PATIENT Encounter Details Date Type Department Care Team (Latest Contact Info) Description 11/22/2023 3:40 PM EST Office Visit Otolaryngology [facility] 132 [facility] [address] Nabil Fernandes PA-C 132 [facility] [place] [address] Bilateral sensorineural hearing loss* Allergies Active Allergy Reactions Criticality Noted Date Comments Food (See Comments) 04/18/2021 honey Latex 04/18/2021 rash documented as of this encounter (statuses as of 11/22/2023) Medications Medication Sig Dispensed Refills Start Date End Date Status nystatin-triamcinolon e (MYCOLOG) 976200-9.1 UNIT/GM-% creamIndications:Cuta neous candidiasis Apply topically to [...] 30 Tablet 1 07/27/2023 Active Magic Swizzle (Jrqubfzbj-Zzvajooe-J aalox) oral solutionIndications:P rimary malignant neoplasm of [...] Other pulmonary embolism without acute cor pulmonale ([facility]) 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 Seay - normal DIGITAL RECTAL EXAM,ANNUAL LYMPHADENECTOMY VIA THORACOSCOPY Right 07/06/2023 ROBOTIC THORACOSCOPY WITH LYMPHADENECTOMY performed by Boo Wylie MD at [place] [facility] MAMMOGRAM SCREENING-BILATERAL 12/27 REMOVAL OF OVARY/OVIDUCT(S) 1981 bilateral REMOVE CATARACT, INSERT LENS PROSTH Left 06/26/2019 left EXTRACAPSULAR CATARACT REMOVAL WITH INTRAOCULAR LENS performed by London Ocampo MD at OR [facility] REMOVE CATARACT, INSERT LENS PROSTH Right 07/15/2019 right EXTRACAPSULAR CATARACT REMOVAL WITH INTRAOCULAR LENS performed by London Ocampo MD at [facility] REMOVE GALLBLADDER 1979 REPAIR RUPTURED ACHILLES TENDON Bilateral 02/1999 Thoracoscopy w/ Lobectomy Right 07/06/2023 ROBOTIC THORACOSCOPY WITH LOBECTOMY performed by Boo Wylie MD at [place] [facility] TOTAL HYSTERECTOMY 1981 Medications Current Outpatient Medications Medication Sig Dispense Refill nystatin-triamcinolone (MYCOLOG) 750884-5.1 UNIT/GM-% cream Apply topically to affected area [...] for Nausea. 30 Tablet 1 Magic Swizzle (Iuyialqak-Xvigrfpa-Bcobbk) oral solution Swish and swallow 15 mL [...] mg 2.5 mg Nebulizer PRN Shila Nunez [employer] albuterol (VENTOLIN HFA/PROVENTIL HFA) inhaler 3 Puff [...] with plan. Questions/Concerns addressed. Nabil Fernandes PA-C [facility] OUTPATIENT SURGERY [place] [facility] [address] [place] [address] 11/22/2023 4:19 PM documented in this encounter Plan of Treatment Upcoming Encounters Date Type Department Care Team (Late st Contact Info) Description 11/28/2023 9:45 AM EST Pharmacy Pharmacy Hematology Oncology [facility], [place] [address] [place] [address] [facility] Clinic Hem/Onc [facility] [place] [address] 01/07/2024 3:00 PM EDT Office Visit Thoracic Surg [facility], [address] [address] Boo Wylie MD [facility] [place] [address] 01/14/2024 10:40 AM EDT Telemedicine Pulmonary Medicine, [address] [address] Timothy Varghese MD [facility] [place] [address] Cart, Telemed Pulm Gw 132 [facility] [place] [address] 02/13/2024 11:15 AM EDT Imaging Radiology [address] 132 [facility] [place] [address] 02/15/2024 8:50 AM EDT Office Visit Family Medicine [address] [place] [phone] Sravanthi Bloom [address] [place] [address] 05/08/2024 11:00 AM EDT Nurse Only Ancillary [address] [place] [address] [place], Nurse [address] [place] [address] 05/14/2024 1:15 PM EDT Office Visit Hematology/Oncology [facility] 200 [facility] [place] [address] Hadley Verdugo MD 200 [facility] [place] [address] 05/22/2024 11:00 AM EDT Office Visit Audiology [facility] [address] [place] [address] Ayana Grjaeda Au.D. [address] [place] [address] 11/24/2024 1:20 PM EST Office Visit Otolaryngology [facility] [address] [place] [address] Nabil Fernandes PA-C [address] [place] [address] Scheduled Procedures Name Priority Associated Diagnoses Date/Ti [...] this encounter Medical Devices Implanted Type Area Clothes Model Device Identifier Shelf Expiration Date Model / Serial / Lot Lens Intraoc 22.0 - [id number] - [id number] Implanted:Qty: 1 on 06/26/2019 by London Ocampo MD at OR [facility] Left: Eye BAUSCH & LOMB 01/27/2024 [id number] / [id number] / [id number] Lens Intraoc 21.5 - [id number] - [id number] Implanted:Qty: 1 on 07/15/2019 by London Ocampo MD at [facility] Right: Eye BAUSCH & LOMB 03/28/2024 [id number] / [id number] / [id number] documented as of this encounter Visit Diagnoses [...] Directives occurred with: Patient Care Teams Head Holder Relationship Specialty Start Date End Date Sravanthi Bloom DO [address] [place] [address] [place] [address] PCP - General Internal Medicine 06/18/17 documented as of this encounter
--- OUTSIDE RECORDS SUMMARY | 2024-04-04 20:31 | External Medical Summary | Summary of Care ---
Author Name Unknown Organization [facility] Address [address] [facility] [address] Phone [phone] Care Team Providers Care Family Day Carer Name Role Phone Sravanthi Bloom DO Primary Care Provider Encounter Details Date Type Department Care Team (Late st Contact Info) Description 11/22/2023 Orders Only Otolaryngology [facility] [address] [address] Paty Awan MD [address] [place] [address] Allergies Active Allergy Reactions Criticality Noted Date Comments Food (See Comments) 04/18/2021 honey Latex 04/18/2021 rash documented as of this encounter (statuses as of 11/22/2023) Medications Medication Sig Dispensed Refills Start Date End Date Status nystatin-triamcinolon e (MYCOLOG) 965717-0.1 UNIT/GM-% creamIndications:Cuta neous candidiasis Apply topically to [...] 30 Tablet 1 07/27/2023 Active Magic Swizzle (Pyyiuguxt-Utdftmmw-N aalox) oral solutionIndications:P rimary malignant neoplasm of [...] mRNA, LNP-s, No Pre serve, 2-Dose Series (Fangtek) 08/30/2021,01/11/2021,12/21/2020 Pneumococcal Conjugate Vacc, 13 Valent (Prevnar) [...] st Contact Info) Description 11/28/2023 9:45 AM [facility] Pharmacy Pharmacy [facility]ology [facility], [address] [address] [facility], [facility] Hem/Onc [address] [place] [address] 01/07/2024 3:00 PM EDT Office Visit Thoracic Surg [facility], [address] [address] Boo Wylie MD [address] [place] [address] 01/14/2024 10:40 AM EDT Telemedicine Pulmonary Medicine, [address] [place] [address] Timothy Varghese MD [address] [place] [address] Angélica Lua 132 [facility] [place] [address] 02/13/2024 11:15 AM EDT Imaging Radiology [address] 132 [facility] [place] [address] 02/15/2024 8:50 AM EDT Office Visit Family Medicine [address] [place] [phone] [address] [place] [address] 05/08/2024 11:00 AM EDT Nurse Only Ancillary [address] [place] [address] [place], Nurse Annual [address] [place] [address] 05/14/2024 1:15 PM EDT Office Visit Hematology/Oncology [facility] 200 [facility] [place] [address] Hadley Verdugo MD [address] [place] [address] 11/24/2024 1:20 PM EST Office Visit Otolaryngology [facility] 132 [facility] [place] [address] Nabil Fernandse PA-C [address] [place] [address] Scheduled Procedures Name Priority Associated Diagnoses Date/Ti [...] this encounter Medical Devices Implanted Type Area Chief Of Production Device Identifier Shelf Expiration Date Model / Serial / Lot Lens Intraoc 22.0 - [id number] - [id number] Implanted:Qty: 1 on 06/26/2019 by London Ocampo MD at OR [facility] Left: Eye BAUSCH & LOMB 01/27/2024 [id number] / [id number] / [id number] Lens Intraoc 21.5 - [id number] - [id number] Implanted:Qty: 1 on 07/15/2019 by London Ocampo MD at OR [facility] Right: Eye BAUSCH & LOMB 03/28/2024 [id number] / [id number] / [id number] documented as of this encounter Procedures Procedure Name Priority Date/Time Associated Diagnosis Comments AUDIOMETRIC RESULT 11/22/2023 documented in this encounter Results * AUDIOMETRIC RESULT (11/22/2023) 11/22/2023 Paty Awan MD HEARING SERVICE S documented in this encounter Advance Directives Latest Code Status on File Code Status Date Activated Date Inactivated Comments Full Code 07/06/2023 1:46 PM 07/10/2023 8:23 PM This o rder reflects the patients wishes and were consensually agreed upon. Question Answer Comments Discussion of Advance Directives occurred with: Patient Care Teams Family Day Carer Relationship Specialty Start Date End Date Sravanthi Bloom DO [address] [place] [address] [place] [address] PCP - General Internal Medicine 06/18/17 documented as of this encounter
--- OUTSIDE RECORDS SUMMARY | 2024-04-04 20:31 | External Medical Summary | Summary of Care ---
Author Name Unknown Organization [facility] Address [address] [facility] [place] [address] Phone [phone] Care Team Providers Care Decorator Street And Building Name Role Phone BloomSravanthi DO Primary Care Provider Reason for Visit * Reason Comments eRx-Medication Refill Encounter Details Date Type Department Care Team (Late st Contact Info) Description 12/01/2023 Refill Hematology/Oncology [facility] 200 [facility] [place] [address] Danielle Cox CRNP 400 [facility] [place] [address] Essential hypertension with goal blood pressure less than 140/90 Allergies Active Allergy Reactions Criticality Noted Date Comments Food (See Comments) 04/18/2021 honey Latex 04/18/2021 rash documented as of this encounter (statuses as of 12/03/2023) Medications Medication Sig Dispensed Refills Start Date End Date Status nystatin-triamcinol one (MYCOLOG) 480367-1.1 UNIT/GM-% creamIndications:Cu taneous candidiasis Apply topically to [...] 07/20/2023 Active Ondansetron HCl 8 MG Oral TabletIndications:E [...] the morning. 30 Tablet 5 12/03/2023 Active amLODIPine Besylate 5 MG Oral Tablet (Norvasc)Indication s:Essential hypertension with goal blood pressure less than 140/90 Take 1 Tablet by mouth in the morning. 30 Tablet 2 08/28/2023 Discontinue d(Refill) Hospital, Clinic, or Other Facility [...] as of this encounter (statuses as of 12/03/2023) Active Problems Problem Noted Date Diagnosed Date [...] as of this encounter (statuses as of 12/03/2023) Resolved Problems Problem Noted Date Diagnosed Date [...] as of this encounter (statuses as of 12/03/2023) Immunizations Name Administration Dates Next Due COVID-19 mRNA, LNP-s, No Pre serve, 2-Dose Series (Gizmo[employer]) 08/30/2021,01/11/2021,12/21/2020 Pneumococcal Conjugate Vacc, 13 Valent (Prevnar) [...] encounter Miscellaneous Notes * Telephone Encounter - Danielle Cox CRNP - 12/03/2023 10:02 AM EST Will defer further refills to PCP. Prescribed at their recommendation. * Telephone Encounter - Interface, E-Rx Ss Inbound - 12/03/2023 9:04 AM EST Pending Prescriptions: Disp Refills amLODIPine Besylate 5 MG Oral Tablet [Phar*30 Tab*0 Sig: Take 1 Tablet by mouth in the morning. * Telephone Encounter - Sissy Escobedo RN - 12/03/2023 7:35 AM ESTPending Prescriptions: Disp Refills amLODIPine Besylate 5 MG Oral Tablet [Phar*30 Tab*0 Sig: Take 1Tablet by mouth in the morning. documented in this encounter Plan of Treatment Upcoming Encounters Date Type Department Care Team (Late st Contact Info) Description 12/26/2023 9:45 AM EST Pharmacy Pharmacy Hematology Oncology [facility], [address] [address] [facility] Hem/Onc [address] [place] [address] 01/07/2024 3:00 PM EDT Office Visit Thoracic Surg [facility], [address] [address] Boo Wylie MD [address] [place] [address] 01/14/2024 10:40 AM EDT Telemedicine Pulmonary Medicine, [address] [address] Timothy Varghese MD [address] [place] [address] [phone] Cart, Telemed Pulm Gw [address] [place] [address] 02/13/2024 11:15 AM EDT Imaging Radiology [facility] [address] [facility] [address] [place] [address] 02/15/2024 8:50 AM EDT Office Visit Family Medicine [address] [place] [phone] [address] [place] [address] 05/08/2024 11:00 AM EDT Nurse Only Ancillary [address] [place] [address] [place], Nurse [address] [place] [address] 05/14/2024 1:15 PM EDT Office Visit Hematology/Oncology [facility] [address] [place] [address] Hadley Verdugo MD [address] [place] [address] 05/22/2024 11:00 AM EDT Office Visit Audiology [facility] [address] [place] [address] Ayana Grajeda Au.D. [address] [place] [address] 11/24/2024 1:20 PM EST Office Visit Otolaryngology [facility] [address] [place] [address] Nabil Fernandes PA-C [address] [place] [address] Scheduled Procedures Name Priority Associated Diagnoses Date/Ti [...] this encounter Medical Devices Implanted Type Area Fourdrinier Machine Operator Device Identifier Shelf Expiration Date Model / Serial / Lot Lens Intraoc 22.0 - [id number] - [id number] Implanted:Qty: 1 on 06/26/2019 by London Ocampo MD at OR [facility] Left: Eye BAUSCH & LOMB 01/27/2024 [id number] / [id number] / [id number] Lens Intraoc 21.5 - [id number] - [id number] Implanted:Qty: 1 on 07/15/2019 by London Ocampo MD at [facility] Right: Eye BAUSCH & LOMB 03/28/2024 [id number] / [id number] / [id number] documented as of this encounter Visit Diagnoses Diagnosis Essential hypertension with goal blood pressure less than 140/90 documented in this encounter Advance Directives Latest Code Status on File Code Status Date Activated Date Inactivated Comments Full Code 07/06/2023 1:46 PM 07/10/2023 8:23 PM This o rder reflects the patients wishes and were consensually agreed upon. Question Answer Comments Discussion of Advance Directives occurred with: Patient Care Teams Decorator Street And Building Relationship Specialty Start Date End Date Sravanthi Bloom DO [address] [place] [address] [place] [address] PCP - General Internal Medicine 06/18/17 documented as of this encounter
--- OUTSIDE RECORDS SUMMARY | 2024-04-04 20:31 | External Medical Summary | Summary of Care ---
Author Name Unknown Organization [facility] Address [address] [place] [address] Phone [phone] Care Team Providers Care Automatic Trimming Sewer Name Role Phone Sravanthi Bloom DO Primary Care Provider Reason for Visit * Reason Comments Medication Management Encounter Details Date Type Department Care Team (Late st Contact Info) Description 12/26/2023 9:45 AM [facility] Pharmacy Pharmacy Hematology Oncology [facility] [address] [place] [address] [facility] Hem/Onc [address] [place] [address] NSCLC with EGFR mutation (HCC)* Allergies Active Allergy Reactions Criticality Noted Date Comments Food (See Comments) 04/18/2021 honey Latex 04/18/2021 rash documented as of this encounter (statuses as of 12/26/2023) Medications Medication Sig Dispensed Refills Start Date End Date Status nystatin-triamcinolon e (MYCOLOG) 990512-6.1 UNIT/GM-% creamIndications:Cuta neous candidiasis Apply topically to [...] 30 Tablet 1 07/27/2023 Active Magic Swizzle (Nfnnglqia-Lzakpeeb-N aalox) oral solutionIndications:P rimary malignant neoplasm of [...] as of this encounter (statuses as of 12/26/2023) Active Problems Problem Noted Date Diagnosed Date [...] as of this encounter (statuses as of 12/26/2023) Resolved Problems Problem Noted Date Diagnosed Date [...] as of this encounter (statuses as of 12/26/2023) Immunizations Name Administration Dates Next Due COVID-19 mRNA, LNP-s, No Pre serve, 2-Dose Series ([employer]) 08/30/2021,01/11/2021,12/21/2020 Pneumococcal Conjugate Vacc, 13 Valent (Prevnar) [...] as of this encounter Progress Notes * Christie Ying, [facility] - 12/26/2023 8:44 AM EST MEDICATION THERAPY MANAGEMENT OSIMERTINIB TREATMENT PROGRESS NOTE Ioana Tan [phone] Patient Phone Numbers Preferred Lab: Specialty Pharmacy: [facility] Communication: Spoke to: Patient Treatment: Medication: Osimertinib (Tagrisso) Indication/Staging/Diagnosis Code: NSCLC, 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 Usually feels better after taking a nap. No concerns with completing ADLs Also notes decreased appetite since starting treatment, and has lost weight Changes to medication list since last visit? No Assessment and Plan: Advised pt fatigue and decreased appetite can both be treatment related Will monitor fatigue and address if it has an impact on her QoL or ability to complete ADLs Advised pt to optimize caloric intake when she does eat by incorporating healthy fats and protein Continue current therapy Assessment of compliance: compliant Assessment of adverse effects attributed to drug therapy: Rash/Dry Skin- absent Nail Changes- absent Diarrhea - absent Pneumonitis - absent Dose adjustment needed based on lab or adverse drug reaction? No Follow up: 1 month Christie Ying, PatyD, BCOP Ambulatory Clinical Pharmacist | Oral Chemotherapy Clinic [facility] 12/26/2023, 9:11 AM Monitoring Parameters: Estimated CrCl Serum creatinine: 1.6 [...] monitoring - Medication Requires monitoring Pharmacist Intervention(s): Toxicity monitoring Magnitude of Intervention: Monitoring with direction (Level 1) documented in this encounter Plan of Treatment Upcoming Encounters Date Type Department Care Team (Late st Contact Info) Description 01/07/2024 3:00 PM EDT Office Visit Thoracic Surg [facility], [place] [address] [place] [address] Boo Wylie MD [facility] [place] [address] 01/14/2024 10:40 AM EDT Telemedicine Pulmonary Medicine, [place] [address] [place] [address] Timothy Varghese MD [facility] [place] [address] Cart, Telemed Pulm 132 [facility] [place] [address] 01/23/2024 9:45 AM EDT Pharmacy Pharmacy Hematology Oncology [facility], [place] [address] [place] [address] [facility] Hem/Onc [facility] [place] [address] 02/13/2024 11:15 AM EDT Imaging Radiology [facility] 1st [facility] 132 [facility] [place] [address] 02/15/2024 8:50 AM EDT Office Visit Family Medicine [address] [place] [phone] Sravanthi Bloom [address] [place] [address] 05/08/2024 11:00 AM EDT Nurse Only Ancillary [address] [place] [address] [place], Nurse [address] [place] [address] 05/14/2024 1:15 PM EDT Office Visit Hematology/Oncology [facility] [address] [facility] [place] [address] Hadley Verdugo MD [address] [facility] [place] [place] [address] 05/22/2024 11:00 AM EDT Office Visit Audiology [facility] [address] [place] [address] Ayana Grajeda Au.D. [address] [place] [address] 11/24/2024 1:20 PM EST Office Visit Otolaryngology [facility] [address] [place] [address] Nabil Fernandes PA-C [address] [place] [address] Scheduled Procedures Name Priority Associated Diagnoses Date/Ti me COLONOSCOPY FLEXIBLE PROXIMA L DIAGNOSTIC Recall Encounter for screening colonoscopy Health Maintenance Due Date Last Done Comments COVID-19 Vaccine ( season) 2023 08/30/2021, 01/11/2021, 12/21/2020 Depression Screening 05/06/2024 05/06/2023 TSH 06/26/2024 06/26/2023, 02/27, 02/15/2023, Additional history exists GFR 11/14/2024 11/14/2023, 110 05/2023, 08/29/2023, Additional history exists Albumin/Creatinine Ratio [...] this encounter Medical Devices Implanted Type Area Risk Officer Device Identifier Shelf Expiration Date Model / Serial / Lot Lens Intraoc 22.0 - [id number] - [id number] Implanted:Qty: 1 on 06/26/2019 by London Ocampo MD at OR [facility] Left: Eye BAUSCH & LOMB 01/27/2024 [id number] / [id number] / [id number] Lens Intraoc 21.5 - [id number] - [id number] Implanted:Qty: 1 on 07/15/2019 by London Ocampo MD at OR [facility] Right: Eye BAUSCH & LOMB 03/28/2024 [id number] / [id number] / [id number] documented as of this encounter Visit Diagnoses [...] Advance Directives occurred with: Patient Care Teams Automatic Trimming Sewer Relationship Specialty Start Date End Date Sravanthi Bloom DO [address] [place] [address] [place] [address] PCP - General Internal Medicine 06/18/17 documented as of this encounter"
--- OUTSIDE RECORDS SUMMARY | 2024-04-04 20:31 | External Medical Summary | Summary of Care ---
Author Name Unknown Organization [facility] Address [address] [place] [address] Phone [phone] Care Team Providers Care At Risk Specialist Name Role Phone Sravanthi Bloom Primary Care Provider Reason for Visit * Reason Onset Date Comments Fax 11/30/2023 Encounter Details Date Type Department Care Team (Late st Contact Info) Description 11/30/2023 Telephone Otolaryngology [facility] [address] [place], [place] [phone] Services, Scheduling [address] [place] [address] Fax Allergies Active Allergy Reactions Criticality Noted Date Comments Food (See Comments) 04/18/2021 honey Latex 04/18/2021 rash documented as of this encounter (statuses as of 11/30/2023) Medications Medication Sig Dispensed Refills Start Date End Date Status nystatin-triamcinolon e (MYCOLOG) 763341-2.1 UNIT/GM-% creamIndications:Cuta neous candidiasis Apply topically to [...] 30 Tablet 1 07/27/2023 Active Magic Swizzle (Cylmzdkvh-Gfujbxmw-Y aalox) oral solutionIndications:P rimary malignant neoplasm of [...] as of this encounter (statuses as of 11/30/2023) Active Problems Problem Noted Date Diagnosed Date [...] as of this encounter (statuses as of 11/30/2023) Resolved Problems Problem Noted Date Diagnosed Date [...] as of this encounter (statuses as of 11/30/2023) Immunizations Name Administration Dates Next Due COVID-19 mRNA, LNP-s, No Pre serve, 2-Dose Series ([employer]) 08/30/2021,01/11/2021,12/21/2020 Pneumococcal Conjugate Vacc, 13 Valent (Prevnar) [...] encounter Miscellaneous Notes * Telephone Encounter - Edelmira Pierre LPN - 11/30/2023 10:46 AM EST Audiogram faxed with successful confirmation. * Telephone Encounter - Vasquez Santos OSA - 11/30/2023 10:29 AM EST Fausto called in stating the audiogram that was sent to them was half cut off and would sioux it gregory refaxed to them at [phone] pt has an appt at 11 documented in this encounter Plan of Treatment Upcoming Encounters Date Type Department Care Team (Late st Contact Info) Description 12/26/2023 9:45 AM EST Pharmacy [facility]ology [facility], [place] [address] [place] [address] [facility] Hem/Onc [facility] [place] [address] 01/07/2024 3:00 PM EDT Office Visit Thoracic Surg [facility], [address] [address] Boo Wylie MD [facility] [place] [address] 01/14/2024 10:40 AM EDT Telemedicine Pulmonary Medicine, [address] [address] Timothy Varghese MD [address] [place] [address] Cart, Telemed Pulm Gw 132 [facility] [place] [address] 02/13/2024 11:15 AM EDT Imaging Radiology [address] 132 [facility] [place] [address] 02/15/2024 8:50 AM EDT Office Visit Family Medicine [address] [place] [phone] Sravanthi Bloom, [address] [place] [address] 05/08/2024 11:00 AM EDT Nurse Only Ancillary [address] [place] [address] [place], Nurse [address] [place] [address] 05/14/2024 1:15 PM EDT Office Visit Hematology/Oncology [facility] 200 [facility] [place] [address] Hadley Verdugo MD 200 [facility] [place] [address] 05/22/2024 11:00 AM EDT Office Visit Audiology [facility] [address] [place] [address] Ayana Grajeda Au.D. [address] [place] [address] 11/24/2024 1:20 PM EST Office Visit Otolaryngology [facility] [address] [place] [address] Nabil Fernandes PA-C [address] [place] [address] Scheduled Procedures Name Priority Associated Diagnoses Date/Ti [...] this encounter Medical Devices Implanted Type Area Government Contracts Manager Device Identifier Shelf Expiration Date Model / Serial / Lot Lens Intraoc 22.0 - [id number] - [id number] Implanted:Qty: 1 on 06/26/2019 by London Ocampo MD at OR [facility] Left: Eye BAUSCH & LOMB 01/27/2024 [id number] / [id number] / [id number] Lens Intraoc 21.5 - [id number] - [id number] Implanted:Qty: 1 on 07/15/2019 by London Ocampo MD at OR [facility] Right: Eye BAUSCH & LOMB 03/28/2024 [id number] / [id number] / [id number] documented as of this encounter Advance Directives Latest Code Status on File Code Status Date Activated Date Inactivated Comments Full Code 07/06/2023 1:46 PM 07/10/2023 8:23 PM This order reflects the patients wishes and were consensually agreed upon. Question Answer Comments Discussion of Advance Directives occurred with: Patient Care Teams At Risk Specialist Relationship Specialty Start Date End Date Sravanthi Bloom DO [address] [place] [address] [place] [address] PCP - General Internal Medicine 06/18/17 documented as of this encounter
--- OUTSIDE RECORDS SUMMARY | 2024-04-04 20:32 | External Medical Summary | Summary of Care ---
Author Name Unknown Organization [facility] Address [address] [facility] [address] Phone [phone] Care Team Providers Care Manager Editorial Name Role Phone Sravanthi Bloom DO Primary Care Provider Reason for Visit * Reason Onset Date Comments Appointment 11/14/2023 Encounter Details Date Type Department Care Team (Late st Contact Info) Description 11/14/2023 Telephone Hematology/Oncology [facility] [address] [place] [address] Hadley Verdugo MD 200 [facility] [place] [address] Appointment Allergies Active Allergy Reactions Criticality Noted Date Comments Food (See Comments) 04/18/2021 honey Latex 04/18/2021 rash documented as of this encounter (statuses as of 11/15/2023) Medications Medication Sig Dispensed Refills Start Date End Date Status nystatin-triamcinolon e (MYCOLOG) 280880-3.1 UNIT/GM-% creamIndications:Cuta neous candidiasis Apply topically to [...] 30 Tablet 1 07/27/2023 Active Magic Swizzle (Hsiqlerfh-Fkzicgzx-H aalox) oral solutionIndications:P rimary malignant neoplasm of [...] as of this encounter (statuses as of 11/15/2023) Active Problems Problem Noted Date Diagnosed Date [...] as of this encounter (statuses as of 11/15/2023) Resolved Problems Problem Noted Date Diagnosed Date [...] as of this encounter (statuses as of 11/15/2023) Immunizations Name Administration Dates Next Due COVID-19 [...] Telephone Encounter - Edelmira Pierre LPN - 11/15/2023 12:21 PM EST Ioana's daughter returning call, states her hearing impairment started in July after her first chemo treatment. Agreeable to 11/22 appt with Nabil Fernandes PA-C at 3:40, they will arrive earlier for audio. Please place pt on schedule. * Telephone Encounter - Edelmira Pierre LPN - 11/14/2023 3:03 PM EST LMOM for pt to return call. Please see Nabil Fernandes PA-C response. * Telephone Encounter - Nabil Fernandes PA-C - 11/14/2023 2:32 PM EST Please confirm with patient that hearing impairment has been since July? If within the last few weeks and sudden should be seen more urgently (at least for audio.) Otherwise, if has been since July, can schedule next avail when audio is available. 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 Would like to ENT evaluation. Thanks. Dr. Hadley Verdugo Hem/Onc * Telephone Encounter - Stephanie Desir OSA - 11/14/2023 1:44 PM EST ENT-please contact patient for an appt in regards to 77-year-old female, A case of right lower lobe lung cancer, S/P resection, she received 1 cycle of chemotherapy with Alimta and cisplatin earlier in 07/2023, since then she has impaired hearing and fullness in the both ears. Would like to ENT evaluation. Thank you documented in this encounter Plan of Treatment Upcoming Encounters Date Type Department Care Team (Late st Contact Info) Description 11/28/2023 9:45 AM EST Pharmacy Pharmacy Hematology Oncology [facility], [place] [address] [place] [address] [facility], [facility] Hem/Onc [facility] [place] [address] 01/07/2024 3:00 PM EDT Office Visit Thoracic Surg [facility], [address] [address] Boo Wylie MD [address] [place] [address] 01/14/2024 10:40 AM EDT Telemedicine Pulmonary Medicine, [address] [address] Timothy Varghese MD [facility] [place] [address] Cart, Telemed Pulm Gw 132 [facility] [place] [address] 02/13/2024 11:15 AM EDT Imaging Radiology [address] 132 [facility] [place] [address] 02/15/2024 8:50 AM EDT Office Visit Family Medicine [address] [place] [phone] Sravanthi Bloom [address] [place] [address] 05/08/2024 11:00 AM EDT Nurse Only Ancillary [address] [place] [address] [place], Nurse [address] [place] [address] 05/14/2024 1:15 PM EDT Office Visit Hematology/Oncology [facility] [place] 200 [facility] [place] [address] Hadley Verdugo MD 200 [facility] [place] [address] Scheduled Procedures Name Priority Associated Diagnoses Date/Ti [...] this encounter Medical Devices Implanted Type Area Manager Editorial Device Identifier Shelf Expiration Date Model / Serial / Lot Lens Intraoc 22.0 - [id number] - [id number] Implanted:Qty: 1 on 06/26/2019 by London Ocampo MD at OR [facility] Left: Eye BAUSCH & LOMB 01/27/2024 [id number] / [id number] / [id number] Lens Intraoc 21.5 - [id number] - [id number] Implanted:Qty: 1 on 07/15/2019 by London Ocampo MD at OR [facility] Right: Eye BAUSCH & LOMB 03/28/2024 [id number] / [id number] / [id number] documented as of this encounter Advance Directives Latest Code Status on File Code Status Date Activated Date Inactivated Comments Full Code 07/06/2023 1:46 PM 07/10/2023 8:23 PM This o rder reflects the patients wishes and were consensually agreed upon. Question Answer Comments Discussion of Advance Directives occurred with: Patient Care Teams Manager Editorial Relationship Specialty Start Date End Date Sravanthi Bloom DO [address] [place] [address] [place] [address] PCP - General Internal Medicine 06/18/17 documented as of this encounter
--- OUTSIDE RECORDS SUMMARY | 2024-04-04 20:32 | External Medical Summary | Summary of Care ---
Author Name Unknown Organization [facility] Address [address] [facility] [address] Phone [phone] Care Team Providers Care Rent And Housing Investigator Name Role Phone Sravanthi Bloom DO Primary Care Provider [phone] Reason for Visit * Reason Onset Date Comments Appointment 11/14/2023 Encounter Details Date Type Department Care Team (Late st Contact Info) Description 11/14/2023 Telephone Hematology/Oncology [facility] [address] [place] [address] Hadley Verdugo MD 200 [facility] [place] [address] Appointment Allergies Active Allergy Reactions Criticality Noted Date Comments Food (See Comments) 04/18/2021 honey Latex 04/18/2021 rash documented as of this encounter (statuses as of 11/14/2023) Medications Medication Sig Dispensed Refills Start Date End Date Status nystatin-triamcinolon e (MYCOLOG) 109771-6.1 UNIT/GM-% creamIndications:Cuta neous candidiasis Apply topically to [...] 30 Tablet 1 07/27/2023 Active Magic Swizzle (Pgphlyhro-Hwammgeo-L aalox) oral solutionIndications:P rimary malignant neoplasm of [...] as of this encounter (statuses as of 11/14/2023) Active Problems Problem Noted Date Diagnosed Date [...] as of this encounter (statuses as of 11/14/2023) Resolved Problems Problem Noted Date Diagnosed Date [...] as of this encounter (statuses as of 11/14/2023) Immunizations Name Administration Dates Next Due COVID-19 [...] encounter Miscellaneous Notes * Telephone Encounter - Livia Zendejas, LISA - 11/14/2023 1:48 PM EST Please review [...] Team (Late st Contact Info) Description 11/14/2023 2:10 PM EST Laboratory Laboratory [address] [place] [address] [place] [phone] [place] [address]en[address] [place] [address] Arrived 11/28/2023 9:45 AM EST Pharmacy Pharmacy Hematology Oncology [facility], [address] [address] [facility], [facility] Hem/Onc [facility] [place] [address] 01/07/2024 3:00 PM EDT Office [facility], [address] [address] Boo Wylie MD [facility] [place] [address] 01/14/2024 10:40 AM EDT Telemedicine Pulmonary Medicine, [place] [address] [place] [address] Timothy Varghese MD [facility] [place] [address] Cart, Telemed Pulm Gw 132 [place] [place] [address] 02/13/2024 11:15 AM EDT Imaging Radiology [facility] 1st [facility] 132 [facility] [place] [address] 02/15/2024 8:50 AM EDT Office Visit Family Medicine [address] [place] [phone] Sravanthi Bloom[address] [place] [address] 05/08/2024 11:00 AM EDT Nurse Only Ancillary [address] [place] [address] [place], Nurse [address] [place] [address] 05/14/2024 1:15 PM EDT Office Visit Hematology/Oncology [facility] 200 [facility] [place] [address] Hadley Verdugo MD 200 [facility] [place] [address] Scheduled Procedures Name Priority Associated Diagnoses Date/Ti me COLONOSCOPY FLEXIBLE PROXIMA L DIAGNOSTIC Recall Encounter for screening colonoscopy Health Maintenance Due Date Last Done Comments COVID-19 Vaccine ( season) 2023 08/30/2021, 01/11/2021, 12/21/2020 Depression Screening 05/06/2024 05/06/2023 TSH 06/26/2024 06/26/2023, 02/27, 02/15/2023, Additional history exists GFR 09/05/2024 09/05/2023, 110 10/2022, 08/27/2023, Additional history exists Albumin/Creatinine Ratio 07/20/2025 07/20/2022 [...] this encounter Medical Devices Implanted Type Area Pick Up Attendant Device Identifier Shelf Expiration Date Model / Serial / Lot Lens Intraoc 22.0 - [id number] - [id number] Implanted:Qty: 1 on 06/26/2019 by London Ocampo MD at OR [facility] Left: Eye BAUSCH & LOMB 01/27/2024 [id number] / [id number] / [id number] Lens Intraoc 21.5 - [id number] - [id number] Implanted:Qty: 1 on 07/15/2019 by London Ocampo MD at [facility] Right: Eye BAUSCH & LOMB 03/28/2024 [id number] / [id number] / [id number] documented as of this encounter Advance Directives Latest Code Status on File Code Status Date Activated Date Inactivated Comments Full Code 07/06/2023 1:46 PM 07/10/2023 8:23 PM This o rder reflects the patients wishes and were consensually agreed upon. Question Answer Comments Discussion of Advance Directives occurred with: Patient Care Teams Rent And Housing Investigator Relationship Specialty Start Date End Date Sravanthi Bloom DO [address] [place] [address] [place] [address] PCP - General Internal Medicine 06/18/17 documented as of this encounter
--- OUTSIDE RECORDS SUMMARY | 2024-04-04 20:32 | External Medical Summary | Summary of Care ---
Author Name Unknown Organization [facility] Address [address] [facility] [address] Phone [phone] Care Team Providers Care Program Aide Name Role Phone Sravanthi Bloom DO Primary Care Provider [phone] Reason for Visit * Reason Onset Date Comments Appointment 11/14/2023 Encounter Details Date Type Department Care Team (Late st Contact Info) Description 11/14/2023 Telephone Hematology/Oncology [facility] [address] [place] [address] Hadley Verdugo MD 200 [facility] [address] Appointment Allergies Active Allergy Reactions Criticality Noted Date Comments Food (See Comments) 04/18/2021 honey Latex 04/18/2021 rash documented as of this encounter (statuses as of 11/14/2023) Medications Medication Sig Dispensed Refills Start Date End Date Status nystatin-triamcinolon e (MYCOLOG) 364358-2.1 UNIT/GM-% creamIndications:Cuta neous candidiasis Apply topically to [...] 30 Tablet 1 07/27/2023 Active Magic Swizzle (Cwnslpsup-Yudubtgd-G aalox) oral solutionIndications:P rimary malignant neoplasm of [...] mRNA, LNP-s, No Pre serve, 2-Dose Series (Synapse) 08/30/2021,01/11/2021,12/21/2020 Pneumococcal Conjugate Vacc, 13 Valent (Prevnar) [...] encounter Miscellaneous Notes * Telephone Encounter - Stephanie Desir OSA - 11/14/2023 1:43 PM EST Patient scheduled for a CT Scan Chest on 02/13/24 @ at 11:15am. No prep instructions. Patient aware. documented in this encounter Plan of Treatment Upcoming Encounters Date Type Department Care Team (Late st Contact Info) Description 11/14/2023 2:10 PM EST Laboratory Laboratory [facility] [place] [address] [place] [phone] [facility] [address] [place] [address] Arrived 11/28/2023 9:45 AM EST Pharmacy [facility], [place] [address] [place] [address] [facility], [facility] Hem/Onc [facility] [place] [address] 01/07/2024 3:00 PM EDT Office Visit Thoracic Surg [facility], [address] [address] Boo Wylie MD [facility] [place] [address] 01/14/2024 10:40 AM EDT Telemedicine Pulmonary Medicine, [address] [address] Timothy Varghese MD [facility] [place] [address] Cart, Telemed Pulm Gw 132 [facility] [place] [address] 02/13/2024 11:15 AM EDT Imaging Radiology [address] 132 [facility] [place] [address] 02/15/2024 8:50 AM EDT Office Visit Family Medicine [address] [place] [phone] Sravanthi Bloom, [address] [place] [address] 05/08/2024 11:00 AM EDT Nurse Only Ancillary [address] [place] [address] [place], Nurse [address] [place] [address] 05/14/2024 1:15 PM EDT Office Visit Hematology/Oncology [facility] 200 [facility] [place] [address] Hadley Verdugo MD 200 [facility] [place] [address] Scheduled Procedures Name Priority Associated Diagnoses Date/Ti me COLONOSCOPY FLEXIBLE PROXIMA L DIAGNOSTIC Recall Encounter for screening colonoscopy Health Maintenance Due Date Last Done Comments COVID-19 Vaccine ( season) 2023 08/30/2021, 01/11/2021, 12/21/2020 Depression Screening 05/06/2024 05/06/2023 TSH 06/26/2024 06/26/2023, 02/27, 02/15/2023, Additional history exists GFR 09/05/2024 09/05/2023, 10/2022, 08/27/2023, Additional history exists Albumin/Creatinine Ratio [...] this encounter Medical Devices Implanted Type Area Gang Drill Operator Device Identifier Shelf Expiration Date Model / Serial / Lot Lens Intraoc 22.0 - [id number] - [id number] Implanted:Qty: 1 on 06/26/2019 by London Ocampo MD at [facility] Left: Eye BAUSCH & LOMB 01/27/2024 [id number] / [id number] / [id number] Lens Intraoc 21.5 - [id number] - [id number] Implanted:Qty: 1 on 07/15/2019 by London Ocampo MD at OR [facility] Right: Eye BAUSCH & LOMB 03/28/2024 [id number] / [id number] / [id number] documented as of this encounter Advance Directives Latest Code Status on File Code Status Date Activated Date Inactivated Comments Full Code 07/06/2023 1:46 PM 07/10/2023 8:23 PM This o rder reflects the patients wishes and were consensually agreed upon. Question Answer Comments Discussion of Advance Directives occurred with: Patient Care Teams Program Aide Relationship Specialty Start Date End Date Sravanthi Bloom DO [address] [place] [address] [place] [address] PCP - General Internal Medicine 06/18/17 documented as of this encounter
--- OUTSIDE RECORDS SUMMARY | 2024-04-04 20:32 | External Medical Summary | Summary of Care ---
Author Name Unknown Organization [facility] Address [address] [facility] [address] Phone [phone] Care Team Providers Care Court Advocate Name Role Phone Sravanthi Bloom DO Primary Care Provider Reason for Visit * Reason Onset Date Comments Appointment 11/14/2023 Encounter Details Date Type Department Care Team (Late st Contact Info) Description 11/14/2023 Telephone Hematology/Oncology [facility] [address] [place] [address] Hadley Verdugo MD 200 [facility] [place] [place] [address] Appointment Allergies Active Allergy Reactions Criticality Noted Date Comments Food (See Comments) 04/18/2021 honey Latex 04/18/2021 rash documented as of this encounter (statuses as of 11/14/2023) Medications Medication Sig Dispensed Refills Start Date End Date Status nystatin-triamcinolon e (MYCOLOG) 470856-8.1 UNIT/GM-% creamIndications:Cuta neous candidiasis Apply topically to [...] 30 Tablet 1 07/27/2023 Active Magic Swizzle (Uddnpbqyv-Bodhytez-I aalox) oral solutionIndications:P rimary malignant neoplasm of [...] 9:45 AM EST Pharmacy Pharmacy Hematology Oncology [place] [address] [place] [address] [facility] Hem/Onc [address] [place] [address] 01/07/2024 3:00 PM EDT Office Visit Thoracic Surg [facility], [place] [address] [place] [address] Boo Wylie MD [facility] [place] [address] 01/14/2024 10:40 AM EDT Telemedicine Pulmonary Medicine, [place] [address] [place] [address] Timothy Varghese MD [facility] [place] [address] Cart, Telemed Pulm Gw 132 [facility] [place] [address] 02/13/2024 11:15 AM EDT Imaging Radiology [address] 132 [facility] [place] [address] 02/15/2024 8:50 AM EDT Office Visit Family Medicine [address] [place] [phone] [address] [place] [address] 05/08/2024 11:00 AM EDT Nurse Only Ancillary [address] [place] [address] [place], Nurse Annual [address] [place] [address] 05/14/2024 1:15 PM EDT Office Visit Hematology/Oncology [place] 200 [facility] [place] [address] Hadley Verdugo MD 200 [facility] [place] [address] Scheduled Procedures Name Priority Associated Diagnoses Date/Ti [...] this encounter Medical Devices Implanted Type Area Equipment Maintenance Tech Device Identifier Shelf Expiration Date Model / Serial / Lot Lens Intraoc 22.0 - [id number] - [id number] Implanted:Qty: 1 on 06/26/2019 by London Ocampo MD at [facility] Left: Eye BAUSCH & LOMB 01/27/2024 [id number] / [id number] / [id number] Lens Intraoc 21.5 - [id number] - [id number] Implanted:Qty: 1 on 07/15/2019 by London Ocampo MD at OR [facility] Right: Eye BAUSCH & LOMB 03/28/2024 [id number] / [id number] / [id number] documented as of this encounter Advance Directives Latest Code Status on File Code Status Date Activated Date Inactivated Comments Full Code 07/06/2023 1:46 PM 07/10/2023 8:23 PM This o rder reflects the patients wishes and were consensually agreed upon. Question Answer Comments Discussion of Advance Directives occurred with: Patient Care Teams Court Advocate Relationship Specialty Start Date End Date Sravanthi Bloom DO [address] [place] [address] [place] [phone] PCP - General Internal Medicine 06/18/17 documented as of this encounter
--- OUTSIDE RECORDS SUMMARY | 2024-04-04 20:32 | External Medical Summary | Summary of Care ---
Author Name Unknown Organization [facility] Address [facility] [address] Phone [phone] Care Team Providers Care Remarketing Rep Name Role Phone Sravanthi Bloom DO Primary Care Provider Reason for Visit * Reason Comments Outpatient Testing Encounter Details Date Type Department Care Team (Late st Contact Info) Description 11/14/2023 2:10 PM EST Laboratory Laboratory [facility] [address] [facility] [place] [phone] [facility] 200 [facility] [place] [address] Arrived Allergies Active Allergy Reactions Criticality Noted Date Comments Food (See Comments) 04/18/2021 honey Latex 04/18/2021 rash documented as of this encounter (statuses as of 11/14/2023) Medications Medication Sig Dispensed Refills Start Date End Date Status nystatin-triamcinolon e (MYCOLOG) 622114-7.1 UNIT/GM-% creamIndications:Cuta neous candidiasis Apply topically to [...] 30 Tablet 1 07/27/2023 Active Magic Swizzle (Wxxumieoh-Uuqsaipa-S aalox) oral solutionIndications:P rimary malignant neoplasm of [...] mRNA, LNP-s, No Pre serve, 2-Dose Series (SoundRoadie) 08/30/2021,01/11/2021,12/21/2020 Pneumococcal Conjugate Vacc, 13 Valent (Prevnar) [...] st Contact Info) Description 11/28/2023 9:45 AM [facility] Pharmacy [facility], [address] [address] [facility] Hem/Onc [address] [place] [address] 01/07/2024 3:00 PM EDT Office Visit Thoracic Surg [facility], [address] [address] Boo Wylie MD [address] [place] [address] 01/14/2024 10:40 AM EDT Telemedicine Pulmonary Medicine, [address] [address] Timothy Varghese MD [address] [place] [address] Angélica Lua 132 [facility] [place] [address] 02/13/2024 11:15 AM EDT Imaging Radiology [address] 132 [place] [address] 02/15/2024 8:50 AM EDT Office Visit Family Medicine [address] [place] [phone] [address] [place] [address] 05/08/2024 11:00 AM EDT Nurse Only Ancillary [address] [place] [address] [place], Nurse [address] [place] [address] 05/14/2024 1:15 PM EDT Office Visit Hematology/Oncology [facility] 200 [facility] [place] [address] Hadley Verdugo MD 200 [facility] [place] [address] Scheduled Procedures Name Priority Associated Diagnoses Date/Ti me COLONOSCOPY FLEXIBLE PROXIMA L DIAGNOSTIC Recall Encounter for screening colonoscopy Health Maintenance Due Date Last Done Comments COVID-19 Vaccine ( season) 2023 08/30/2021, 01/11/2021, 12/21/2020 Depression Screening 05/06/2024 05/06/2023 TSH 06/26/2024 06/26/2023, 0502/2023, 02/15/2023, Additional history exists GFR 09/05/2024 09/05/2023, [...] this encounter Medical Devices Implanted Type Area Reactor Kettle Operator Device Identifier Shelf Expiration Date Model / Serial / Lot Lens Intraoc 22.0 - [id number] - [id number] Implanted:Qty: 1 on 06/26/2019 by London Ocampo MD at OR [facility] Left: Eye BAUSCH & LOMB 01/27/2024 [id number] / [id number] / [id number] Lens Intraoc 21.5 - [id number] - [id number] Implanted:Qty: 1 on 07/15/2019 by London Ocampo MD at OR [facility] Right: Eye BAUSCH & LOMB 03/28/2024 [id number] / [id number] / [id number] documented as of this encounter Advance Directives Latest Code Status on File Code Status Date Activated Date Inactivated Comments Full Code 07/06/2023 1:46 PM 07/10/2023 8:23 PM This o rder reflects the patients wishes and were consensually agreed upon. Question Answer Comments Discussion of Advance Directives occurred with: Patient Care Teams Remarketing Rep Relationship Specialty Start Date End Date Sravanthi Bloom DO [address] [place] [address] [place] [address] PCP - General Internal Medicine 06/18/17 documented as of this encounter
--- OUTSIDE RECORDS SUMMARY | 2024-04-04 20:32 | External Medical Summary | Summary of Care ---
Author Name Unknown Organization [facility] Address [address] [facility] [address] Phone [phone] Care Team Providers Care It Telecom Technician Name Role Phone Sravanthi Bloom DO Primary Care Provider [phone] Reason for Visit * Reason Onset Date Comments Appointment 11/14/2023 Encounter Details Date Type Department Care Team (Late st Contact Info) Description 11/14/2023 Telephone Hematology/Oncology [facility] [address] [place] [address] Hadley Verdugo MD 200 [facility] [place] [address] Appointment Allergies Active Allergy Reactions Criticality Noted Date Comments Food (See Comments) 04/18/2021 honey Latex 04/18/2021 rash documented as of this encounter (statuses as of 11/15/2023) Medications Medication Sig Dispensed Refills Start Date End Date Status nystatin-triamcinolon e (MYCOLOG) 688931-7.1 UNIT/GM-% creamIndications:Cuta neous candidiasis Apply topically to [...] 30 Tablet 1 07/27/2023 Active Magic Swizzle ([place]-Ozbabztx-D aalox) oral solutionIndications:P rimary malignant neoplasm of [...] 9:45 AM EST Pharmacy Pharmacy Hematology Oncology [facility], [place] [address] [place] [address] [facility], [facility] Hem/Onc [facility] [place] [address] 01/07/2024 3:00 PM EDT Office Visit Thoracic Surg [facility], [address] [address] Boo Wylie MD [address] [place] [address] 01/14/2024 10:40 AM EDT Telemedicine Pulmonary Medicine, [address] [address] Timothy Varghese MD [facility] [place] [address] Cart, Telemed Pulm Gw 132 [facility] [place] [address] 02/13/2024 11:15 AM EDT Imaging Radiology [address] 132 [facility] [place] [address] 02/15/2024 8:50 AM EDT Office Visit Family Medicine [address] [place] [address] Sravanthi Bloom [address] [place] [address] 05/08/2024 11:00 AM EDT Nurse Only Ancillary [address] [place] [address] [place], Nurse [address] [place] [address] 05/14/2024 1:15 PM EDT Office Visit Hematology/Oncology [place] 200 [facility] [place] [address] Hadley Verdugo MD 200 [facility] [place] [address] Scheduled Procedures Name Priority Associated Diagnoses Date/Ti [...] this encounter Medical Devices Implanted Type Area Cod Clerk Device Identifier Shelf Expiration Date Model / Serial / Lot Lens Intraoc 22.0 - [id number] - [id number] Implanted:Qty: 1 on 06/26/2019 by London Ocampo MD at OR [facility] Left: Eye BAUSCH & LOMB 01/27/2024 [id number] / [id number] / [id number] Lens Intraoc 21.5 - [id number] - [id number] Implanted:Qty: 1 on 07/15/2019 by London Ocampo MD at OR [facility] Right: Eye BAUSCH & LOMB 03/28/2024 [id number] / [id number] / [id number] documented as of this encounter Advance Directives Latest Code Status on File Code Status Date Activated Date Inactivated Comments Full Code 07/06/2023 1:46 PM 07/10/2023 8:23 PM This o rder reflects the patients wishes and were consensually agreed upon. Question Answer Comments Discussion of Advance Directives occurred with: Patient Care Teams It Telecom Technician Relationship Specialty Start Date End Date Sravanthi Bloom DO [address] [place] [address] [place] [address] PCP - General Internal Medicine 06/18/17 documented as of this encounter
--- OUTSIDE RECORDS SUMMARY | 2024-04-04 20:32 | External Medical Summary | Summary of Care ---
Author Name Unknown Organization [facility] Address [address] [place] [address] Phone [phone] Care Team Providers Care Manager Creative Name Role Phone BloomAndreasSravanthi Quan Primary Care Provider Reason for Visit * Reason Onset Date Comments TRIAGE 11/14/2023 Encounter Details Date Type Department Care Team (Late st Contact Info) Description 11/14/2023 Telephone Otolaryngology [facility] [address] [place], [place] [phone] Services, Scheduling [address] [place] [address] TRIAGE Allergies Active Allergy Reactions Criticality Noted Date Comments Food (See Comments) 04/18/2021 honey Latex 04/18/2021 rash documented as of this encounter (statuses as of 11/15/2023) Medications Medication Sig Dispensed Refills Start Date End Date Status nystatin-triamcinolon e (MYCOLOG) 458325-3.1 UNIT/GM-% creamIndications:Cuta neous candidiasis Apply topically to [...] 30 Tablet 1 07/27/2023 Active Magic Swizzle (Cwktohksh-Dqtgkpun-Z aalox) oral solutionIndications:P rimary malignant neoplasm of [...] mRNA, LNP-s, No Pre serve, 2-Dose Series (SnapUp) 08/30/2021,01/11/2021,12/21/2020 Pneumococcal Conjugate Vacc, 13 Valent (Prevnar) [...] Miscellaneous Notes * Telephone Encounter - Livia Zendejas OSA - 11/15/2023 7:05 AM EST Please see other encounter. * Telephone Encounter - Khalida Jose OSA - 11/14/2023 4:26 PM EST Pt called and has a referral in chart. Please triage and advise. It for Primary malignant neoplasm of right lower lobe of lung Pt can be reached at [phone] documented in this encounter Plan of Treatment Upcoming Encounters Date Type Department Care Team (Late st Contact Info) Description 11/28/2023 9:45 AM EST Pharmacy [facility], [place] [address] [place] [address] [facility], [facility] Hem/Onc [facility] [place] [address] 01/07/2024 3:00 PM EDT Office Visit Thoracic Surg [facility], [address] [address] Boo Wylie MD [facility] [place] [address] 01/14/2024 10:40 AM EDT Telemedicine Pulmonary Medicine, [address] [address] Timothy Varghese MD [address] [place] [address] Cart, Telemed Pulm Gw 132 [facility] [address] 02/13/2024 11:15 AM EDT Imaging Radiology [address] 132 [facility] [address] 02/15/2024 8:50 AM EDT Office Visit Family Medicine [address] [place] [phone] Sravanthi Bloom, [address] [place] [address] 05/08/2024 11:00 AM EDT Nurse Only Ancillary [address] [place] [address] [place], Nurse [address] [place] [address] 05/14/2024 1:15 PM EDT Office Visit Hematology/Oncology [facility] 200 [place] [address] Hadley Verdugo MD 200 [place] [address] Scheduled Procedures Name Priority Associated Diagnoses Date/Ti [...] this encounter Medical Devices Implanted Type Area Application Integrator Device Identifier Shelf Expiration Date Model / Serial / Lot Lens Intraoc 22.0 - [id number] - [id number] Implanted:Qty: 1 on 06/26/2019 by London Ocampo MD at OR [facility] Left: Eye BAUSCH & LOMB 01/27/2024 [id number] / [id number] / [id number] Lens Intraoc 21.5 - [id number] - [id number] Implanted:Qty: 1 on 07/15/2019 by London Ocampo MD at OR [facility] Right: Eye BAUSCH & LOMB 03/28/2024 [id number] / [id number] / [id number] documented as of this encounter Advance Directives Latest Code Status on File Code Status Date Activated Date Inactivated Comments Full Code 07/06/2023 1:46 PM 07/10/2023 8:23 PM This o rder reflects the patients wishes and were consensually agreed upon. Question Answer Comments Discussion of Advance Directives occurred with: Patient Care Teams Manager Creative Relationship Specialty Start Date End Date Sravanthi Bloom DO [address] [place] [address] [place] [address] PCP - General Internal Medicine 06/18/17 documented as of this encounter
--- OUTSIDE RECORDS SUMMARY | 2024-04-04 20:32 | External Medical Summary | Summary of Care ---
Author Name Unknown Organization [facility] Address [address] [facility] [address] Phone [phone] Care Team Providers Care Predatory Animal Hunter Name Role Phone Sravanthi Bloom DO Primary Care Provider [phone] Reason for Visit * Reason Onset Date Comments Appointment 11/14/2023 Encounter Details Date Type Department Care Team (Late st Contact Info) Description 11/14/2023 Telephone Hematology/Oncology [facility] [address] [place] [address] Hadley Verdugo MD 200 [facility] [place] [address] Appointment Allergies Active Allergy Reactions Criticality Noted Date Comments Food (See Comments) 04/18/2021 honey Latex 04/18/2021 rash documented as of this encounter (statuses as of 11/14/2023) Medications Medication Sig Dispensed Refills Start Date End Date Status nystatin-triamcinolon e (MYCOLOG) 136744-8.1 UNIT/GM-% creamIndications:Cuta neous candidiasis Apply topically to [...] 30 Tablet 1 07/27/2023 Active Magic Swizzle (Xmbyvnlto-Enxekevc-F aalox) oral solutionIndications:P rimary malignant neoplasm of [...] 9:45 AM EST Pharmacy Pharmacy Hematology Oncology [facility], [address] [address] [facility], [facility] Hem/Onc Formerly named [facility] [place] [address] 01/07/2024 3:00 PM EDT Office Visit [facility], [address] [address] Boo Wylie MD Formerly named [facility] [place] [address] 01/14/2024 10:40 AM EDT Telemedicine Pulmonary Medicine, [place] [address] [place] [address] Timothy Varghese MD Formerly named [facility] [place] [address] [place] Telemed Pulm 132 [facility] [place] [address] 02/13/2024 11:15 AM EDT Imaging Radiology [address], [place] 132 [facility] [place] [address] 02/15/2024 8:50 AM EDT Office Visit Family Medicine [address] [place] [phone] Sravanthi Bloom[address] [place] [address] 05/08/2024 11:00 AM EDT Nurse Only Ancillary [address] [place] [address] [place], Nurse Annual [address] [place] [address] 05/14/2024 1:15 PM EDT Office Visit Hematology/Oncology [facility] [place] 200 [facility] [place] [address] Hadley Verdugo MD [address] [place] [address] Scheduled Procedures Name Priority Associated Diagnoses Date/Ti [...] this encounter Medical Devices Implanted Type Area Recruitment Coordinator Device Identifier Shelf Expiration Date Model / Serial / Lot Lens Intraoc 22.0 - [id number] - [id number] Implanted:Qty: 1 on 06/26/2019 by London Ocampo MD at OR [facility] Left: Eye BAUSCH & LOMB 01/27/2024 [id number] / [id number] / [id number] Lens Intraoc 21.5 - [id number] - [id number] Implanted:Qty: 1 on 07/15/2019 by London Ocampo MD at [facility] Right: Eye BAUSCH & LOMB 03/28/2024 [id number] / [id number] / [id number] documented as of this encounter Advance Directives Latest Code Status on File Code Status Date Activated Date Inactivated Comments Full Code 07/06/2023 1:46 PM 07/10/2023 8:23 PM This o rder reflects the patients wishes and were consensually agreed upon. Question Answer Comments Discussion of Advance Directives occurred with: Patient Care Teams Predatory Animal Hunter Relationship Specialty Start Date End Date Sravanthi Bloom DO [address] [place] [address] [place] [address] PCP - General Internal Medicine 06/18/17 documented as of this encounter
--- OUTSIDE RECORDS SUMMARY | 2024-04-04 20:32 | External Medical Summary | Summary of Care ---
Author Name Unknown Organization [facility] Address [address] [place] [address] Phone [phone] Care Team Providers Care Restaurant Maintenance Technician Name Role Phone BloomAndreasSravanthi Quna Primary Care Provider [phone] Reason for Visit * Reason Onset Date Comments TRIAGE 11/14/2023 Encounter Details Date Type Department Care Team (Late st Contact Info) Description 11/14/2023 Telephone Otolaryngology [facility] [address] [place], [place] [id number] Services, Scheduling [address] [place] [address] TRIAGE Allergies Active Allergy Reactions Criticality Noted Date Comments Food (See Comments) 04/18/2021 honey Latex 04/18/2021 rash documented as of this encounter (statuses as of 11/14/2023) Medications Medication Sig Dispensed Refills Start Date End Date Status nystatin-triamcinolon e (MYCOLOG) 203133-0.1 UNIT/GM-% creamIndications:Cuta neous candidiasis Apply topically to [...] 30 Tablet 1 07/27/2023 Active Magic Swizzle (Gruqugopn-Qrmjkhtr-A aalox) oral solutionIndications:P rimary malignant neoplasm of [...] mRNA, LNP-s, No Pre serve, 2-Dose Series (Atlas Powered) 08/30/2021,01/11/2021,12/21/2020 Pneumococcal Conjugate Vacc, 13 Valent (Prevnar) [...] encounter Miscellaneous Notes * Telephone Encounter - Khalida Jose OSA - 11/14/2023 4:26 PM EST Pt called and has a referral in chart. Please triage and advise. It for Primary malignant neoplasm of right lower lobe of lung Pt can be reached at [phone] documented in this encounter Plan of Treatment Upcoming Encounters Date Type Department Care Team (Late st Contact Info) Description 11/28/2023 9:45 AM EST Pharmacy Pharmacy Hematology Oncology [facility] [address] [place] [address] [facility], [facility] Hem/Onc [address] [place] [address] 01/07/2024 3:00 PM EDT Office Visit Thoracic Surg [facility], [place] [address] [place] [address] Boo Wylie MD [address] [place] [address] 01/14/2024 10:40 AM EDT Telemedicine Pulmonary Medicine, [place] [address] [place] [address] Timothy Varghese MD [address] [place] [address] Cart, Telemed Pulm Gw 132 [facility] [place] [address] 02/13/2024 11:15 AM EDT Imaging Radiology [address] 132 [facility] [place] [address] 02/15/2024 8:50 AM EDT Office Visit Family Medicine [address] [place] [phone] Sravanthi Bloom[address] [place] [address] 05/08/2024 11:00 AM EDT Nurse Only Ancillary [address] [place] [address] [place], Nurse [address] [place] [address] 05/14/2024 1:15 PM EDT Office Visit Hematology/Oncology [place] Polanco [place] 200 [facility] [place] [address] Hadley Verdugo MD 200 [facility] [place] [address] Scheduled Procedures Name Priority Associated Diagnoses Date/Ti [...] this encounter Medical Devices Implanted Type Area Company Laborer Device Identifier Shelf Expiration Date Model / Serial / Lot Lens Intraoc 22.0 - [id number] - [id number] Implanted:Qty: 1 on 06/26/2019 by London Ocampo MD at OR [facility] Left: Eye BAUSCH & LOMB 01/27/2024 [id number] / [id number] / [id number] Lens Intraoc 21.5 - [id number] - [id number] Implanted:Qty: 1 on 07/15/2019 by London Ocampo MD at OR [facility] Right: Eye BAUSCH & LOMB 03/28/2024 [id number] / [id number] / [id number] documented as of this encounter Advance Directives Latest Code Status on File Code Status Date Activated Date Inactivated Comments Full Code 07/06/2023 1:46 PM 07/10/2023 8:23 PM This o rder reflects the patients wishes and were consensually agreed upon. Question Answer Comments Discussion of Advance Directives occurred with: Patient Care Teams Restaurant Maintenance Technician Relationship Specialty Start Date End Date Sravanthi Bloom DO [address] [place] [address] [place] [address] PCP - General Internal Medicine 06/18/17 documented as of this encounter
--- OUTSIDE RECORDS SUMMARY | 2024-04-04 20:32 | External Medical Summary | Summary of Care ---
Author Name Unknown Organization [facility] Address [address] [facility] [address] Phone [phone] Care Team Providers Care Technical Solutions Engineer Name Role Phone Sravanthi Bloom DO Primary Care Provider [phone] Reason for Visit * Reason Onset Date Comments Appointment 11/14/2023 Encounter Details Date Type Department Care Team (Late st Contact Info) Description 11/14/2023 Telephone Hematology/Oncology [facility] [address] [place] [address] Hadley Verdugo MD 200 [facility] [place] [address] Appointment Allergies Active Allergy Reactions Criticality Noted Date Comments Food (See Comments) 04/18/2021 honey Latex 04/18/2021 rash documented as of this encounter (statuses as of 11/15/2023) Medications Medication Sig Dispensed Refills Start Date End Date Status nystatin-triamcinolon e (MYCOLOG) 633957-5.1 UNIT/GM-% creamIndications:Cuta neous candidiasis Apply topically to [...] 30 Tablet 1 07/27/2023 Active Magic Swizzle (Imnabvzeo-Sarocydo-Z aalox) oral solutionIndications:P rimary malignant neoplasm of [...] encounter Miscellaneous Notes * Telephone Encounter - Madelyn Campa OSA - 11/15/2023 2:44 PM EST Per chart review pt has been scheduled. LISA Hunter * Telephone Encounter - Edelmira Pierre LPN [...] Team (Late st Contact Info) Description 11/22/2023 3:40 PM EST Office Visit Otolaryngology [facility] 132 [facility] [place] [address] Nabil Fernandes PA-C 132 [facility] [place] [address] 11/28/2023 9:45 AM EST Pharmacy [facility]acy [facility], [address] [address] [facility] Hem/Onc [facility] [place] [address] 01/07/2024 3:00 PM EDT Office Visit Thoracic Surg [facility], [place] [address] [place] [address] Boo Wylie MD [facility] [place] [address] 01/14/2024 10:40 AM EDT Telemedicine Pulmonary Medicine, [place] [address] [place] [address] Timothy Varghese MD [facility] [place] [address] [place] [facility] 132 [facility] [place] [address] 02/13/2024 11:15 AM EDT Imaging Radiology [address] 132 [facility] [place] [address] 02/15/2024 8:50 AM EDT Office Visit Family Medicine [address] [place] [phone] Sravanthi Bloom[address] [place] [address] 05/08/2024 11:00 AM EDT Nurse Only Ancillary [address] [place] [address] [place], Nurse Annual [address] [place] [address] 05/14/2024 1:15 PM EDT Office Visit Hematology/Oncology [facility] 200 [facility] [place] [address] Hadley Verdugo MD [address] [place] [address] Scheduled Procedures Name Priority Associated Diagnoses Date/Ti [...] this encounter Medical Devices Implanted Type Area Supervisor Tower Device Identifier Shelf Expiration Date Model / Serial / Lot Lens Intraoc 22.0 - [id number] - [id number] Implanted:Qty: 1 on 06/26/2019 by London Ocampo MD at OR [facility] Left: Eye BAUSCH & LOMB 01/27/2024 [id number] / [id number] / [id number] Lens Intraoc 21.5 - [id number] - [id number] Implanted:Qty: 1 on 07/15/2019 by London Ocampo MD at [facility] Right: Eye BAUSCH & LOMB 03/28/2024 [id number] / [id number] / [id number] documented as of this encounter Advance Directives Latest Code Status on File Code Status Date Activated Date Inactivated Comments Full Code 07/06/2023 1:46 PM 07/10/2023 8:23 PM This o rder reflects the patients wishes and were consensually agreed upon. Question Answer Comments Discussion of Advance Directives occurred with: Patient Care Teams Technical Solutions Engineer Relationship Specialty Start Date End Date Sravanthi Bloom DO [address] [place] [address] [place] [address] PCP - General Internal Medicine 06/18/17 documented as of this encounter
--- OUTSIDE RECORDS SUMMARY | 2024-04-04 20:32 | External Medical Summary | Summary of Care ---
Author Name Unknown Organization [facility] Address [address] [facility] [address] Phone [phone] Care Team Providers Care Injection Molding Machine Operator Name Role Phone Sravanthi Bloom DO Primary Care Provider Reason for Visit * Reason Onset Date Comments Appointment 11/14/2023 Encounter Details Date Type Department Care Team (Late st Contact Info) Description 11/14/2023 Telephone Hematology/Oncology [facility] [address] [place] [address] Hadley Verdugo MD 200 [facility] [place] [address] Appointment Allergies Active Allergy Reactions Criticality Noted Date Comments Food (See Comments) 04/18/2021 honey Latex 04/18/2021 rash documented as of this encounter (statuses as of 11/14/2023) Medications Medication Sig Dispensed Refills Start Date End Date Status nystatin-triamcinolon e (MYCOLOG) 939989-4.1 UNIT/GM-% creamIndications:Cuta neous candidiasis Apply topically to [...] 30 Tablet 1 07/27/2023 Active Magic Swizzle (Oeffqxcbe-Rhbitshc-Y aalox) oral solutionIndications:P rimary malignant neoplasm of [...] encounter Miscellaneous Notes * Telephone Encounter - Nabil Fernnades PA-C - 11/14/2023 2:32 PM EST Please [...] 9:45 AM EST Pharmacy Pharmacy Hematology Oncology [facility] [place] [address] [place] [address] [facility] Hem/Onc [address] [place] [address] 01/07/2024 3:00 PM EDT Office Visit Thoracic Surg [facility], [place] [address] [place] [address] Boo Wylie MD [address] [place] [address] 01/14/2024 10:40 AM EDT Telemedicine Pulmonary Medicine, [place] [address] [place] [address] Timothy Varghese MD [address] [place] [address] Cart, Telemed Pulm Gw 132 [facility] [place] [address] 02/13/2024 11:15 AM EDT Imaging Radiology [address] 132 [facility] [place] [address] 02/15/2024 8:50 AM EDT Office Visit Family Medicine [address] [place] [phone] [address] [place] [address] 05/08/2024 11:00 AM EDT Nurse Only Ancillary [address] [place] [address] [place], Nurse [address] [place] [address] 05/14/2024 1:15 PM EDT Office Visit Hematology/Oncology [facility] 200 [facility] [place] [address] Hadley Verdugo MD 200 [facility] [place] [address] Scheduled Procedures Name Priority Associated Diagnoses Date/Ti [...] this encounter Medical Devices Implanted Type Area Ekg Tech Device Identifier Shelf Expiration Date Model / Serial / Lot Lens Intraoc 22.0 - [id number] - [id number] Implanted:Qty: 1 on 06/26/2019 by London Ocampo MD at OR [facility] Left: Eye BAUSCH & LOMB 01/27/2024 [id number] / [id number] / [id number] Lens Intraoc 21.5 - [id number] - [id number] Implanted:Qty: 1 on 07/15/2019 by London Ocampo MD at OR [facility] Right: Eye BAUSCH & LOMB 03/28/2024 [id number] / [id number] / [id number] documented as of this encounter Advance Directives Latest Code Status on File Code Status Date Activated Date Inactivated Comments Full Code 07/06/2023 1:46 PM 07/10/2023 8:23 PM This o rder reflects the patients wishes and were consensually agreed upon. Question Answer Comments Discussion of Advance Directives occurred with: Patient Care Teams Injection Molding Machine Operator Relationship Specialty Start Date End Date Sravanthi Bloom DO [address] [place] [address] [place] [address] PCP - General Internal Medicine 06/18/17 documented as of this encounter
--- OUTSIDE RECORDS SUMMARY | 2024-04-04 20:33 | External Medical Summary | Summary of Care ---
Author Name Unknown Organization [facility] [address] [facility] [address] Phone [phone] Care Team Providers Care Cyber Security Administrator Name Role Phone Sravanthi Bloom DO Primary Care Provider [phone] Encounter Details Date Type Department Care Team (Late st Contact Info) Description 11/01/2023 Orders Only Family Medicine [address] [phone] Sravanthi Bloom DO [address] [place] [address] [place] [address] Allergies Active Allergy Reactions Criticality Noted Date Comments Food (See Comments) 04/18/2021 honey Latex 04/18/2021 rash documented as of this encounter (statuses as of 11/01/2023) Medications Medication Sig Dispensed Refills Start Date End Date Status nystatin-triamcinolo ne (MYCOLOG) 786398-7.1 UNIT/GM-% creamIndications:Cut aneous candidiasis Apply topically to affected area 2 times a day. To affacted area for two weeks. 30 g 1 04/04/2019 Active Triamcinolone Acetonide 0.1 % External Ointment (Aristocort)Indicati ons:Atopic dermatitis, unspecified type Apply to affected area twice a day as needed for dry skin and itching 30 g 1 04/18/2021 Active Vitamin B-12 1000 MCG Oral Tablet Take by mouth daily. 0 Active Move Free Joint Health Advance Oral Tablet Take by mouth . 0 Active sulfaSALAzine 500 MG Oral Tablet (Azulfidine) Take 2 Tablets by mouth in the morning. Per [place] [facility]. 60 Tablet 5 07/17/2022 Active Gabapentin 100 MG Oral Capsule (Neurontin)Indicatio ns:Peripheral polyneuropathy Take 1 Capsule by mouth in the morning and 1 Capsule at noon and 1 Capsule before bedtime. 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 30 Tablet 1 07/27/2023 Active Levothyroxine Sodium 137 MCG Oral Tablet take 1 tablet by mouth in the morning. (at least 30 min prior to breakfast or other meds) 90 Tablet 0 08/12/2023 Active Magic Swizzle (Lidocaine-Benadryl- Maalox) oral solutionIndications: Primary malignant neoplasm of right lower lobe [...] without food.. 30 Tablet 5 09/06/2023 Active Omeprazole Magnesium 20 MG Oral Tablet Delayed Release (PriLOSEC OTC) Take 1 Tablet by mouth in the morning. 0 Active Loratadine 10 MG Oral Tablet (Claritin)Indication s:Dry cough Take 1 Tablet by mouth every night at bedtime. 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 30 Capsule 3 10/25/2023 Active Hospital, Clinic, or Other Facility Administered [...] as of this encounter (statuses as of 11/01/2023) Active Problems Problem Noted Date Diagnosed Date [...] as of this encounter (statuses as of 11/01/2023) Resolved Problems Problem Noted Date Diagnosed Date [...] as of this encounter (statuses as of 11/01/2023) Immunizations Name Administration Dates Next Due COVID-19 mRNA, LNP-s, No Pre serve, 2-Dose Series (Crowdc[employer]) 08/30/2021,01/11/2021,12/21/2020 Pneumococcal Conjugate Vacc, 13 Valent (Prevnar) [...] Team (Late st Contact Info) Description 11/14/2023 1:15 PM EST Office Visit Hematology/Oncology [facility] [place]ri [place] [address] [place], [place] [address] Hadley Verdugo MD [address] [place] [address] 11/28/2023 9:45 AM EST Pharmacy Pharmacy Hematology Oncology [facility], [address] [address] [facility] [place] [facility]Onc [facility] [place] [address] 01/07/2024 3:00 PM EDT Office Visit Thoracic Surg [facility], [address] [address] Boo Wylie MD [facility] [place] [address] 01/14/2024 10:40 AM EDT Telemedicine Pulmonary Medicine, [address] [address] Timothy Varghese MD [facility] [place], [place] [id number] Cart, [facility] [address] [facility] [address] 02/15/2024 8:50 AM EDT Office Visit Family Medicine [address] [place] [phone] Sravanthi Bloom, [address] [place] [address] 05/08/2024 11:00 AM EDT Nurse Only Ancillary [address] [place] [address] [place], Nurse [address] [place] [address] Scheduled Procedures Name Priority Associated Diagnoses Date/Ti [...] this encounter Medical Devices Implanted Type Area Digital Field Service Technician Device Identifier Shelf Expiration Date Model / Serial / Lot Lens Intraoc 22.0 - [id number] - [id number] Implanted:Qty: 1 on 06/26/2019 by London Ocampo MD at OR [facility] Left: Eye [employer]CH [employer] LOMB 01/27/2024 [id number] / [id number] / [id number] Lens Intraoc 21.5 - [id number] - [id number] Implanted:Qty: 1 on 07/15/2019 by London Ocampo MD at OR [facility] Right: Eye [employer] LOMB 03/28/2024 [id number] / [id number] / [id number] documented as of this encounter Procedures Procedure Name Priority Date/Time Associated Diagnosis Comments MAMMOGRAM SCREENING BILATERAL Routine 10/30/2023 documented in this encounter Results * MAMMOGRAM SCREENING BILATERAL (10/30/2023) Anatomical Region Laterality Modality Breast Bilateral Other 10/30/2023 Sravanthi Bloom DO RAD MAMMOGRAPHY documented in this encounter Advance Directives Latest Code Status on File Code Status Date Activated Date Inactivated Comments Full Code 07/06/2023 1:46 PM 07/10/2023 8:23 PM This o rder reflects the patients wishes and were consensually agreed upon. Question Answer Comments Discussion of Advance Directives occurred with: Patient Care Teams Cyber Security Administrator Relationship Specialty Start Date End Date Sravanthi Bloom DO [address] [place] [address] [place] [address] PCP - General Internal Medicine 06/18/17 documented as of this encounter
--- OUTSIDE RECORDS SUMMARY | 2024-04-04 20:33 | External Medical Summary | Summary of Care ---
Author Name Unknown Organization [facility] Address [address] [facility] [address] Phone [phone] Care Team Providers Care Steam And Gas Turbines Assembler Name Role Phone Sravanthi Bloom DO Primary Care Provider Reason for Visit * Reason Onset Date Comments Appointment 11/14/2023 Encounter Details Date Type Department Care Team (Late st Contact Info) Description 11/14/2023 Telephone Hematology/Oncology [facility] [address] [place] [address] Hadley Verdugo MD [address] [facility] [place] [address] Appointment Allergies Active Allergy Reactions Criticality Noted Date Comments Food (See Comments) 04/18/2021 honey Latex 04/18/2021 rash documented as of this encounter (statuses as of 11/14/2023) Medications Medication Sig Dispensed Refills Start Date End Date Status nystatin-triamcinolon e (MYCOLOG) 360671-7.1 UNIT/GM-% creamIndications:Cuta neous candidiasis Apply topically to [...] 30 Tablet 1 07/27/2023 Active Magic Swizzle (Ceceieoyz-Kravqkma-O aalox) oral solutionIndications:P rimary malignant neoplasm of [...] 11/14/2023 2:10 PM EST Laboratory [facility] [place] [address] [place] [phone] [place] [address] [place] [address] Arrived 11/28/2023 9:45 AM EST Pharmacy Pharmacy Hematology Oncology [facility], [address] [address] [facility] [place] [facility] Hem/Onc [facility] [place] [address] 01/07/2024 3:00 PM EDT Office Visit [facility], [address] [address] Boo Wylie MD [facility] [place] [address] 01/14/2024 10:40 AM EDT Telemedicine Pulmonary Medicine, [place] [address] [place] [address] Timothy Varghese MD [facility] [place] [address] Cart, Telemed Pulm Gw [address] [place] [address] 02/13/2024 11:15 AM EDT Imaging Radiology [facility] [address] [facility] [place] [address] 02/15/2024 8:50 AM EDT Office Visit Family Medicine [address] [place] [phone] Sravanthi Bloom[address] [place] [address] 05/08/2024 11:00 AM EDT Nurse Only Ancillary [address] [place] [address] [place], Nurse [address] [place] [address] 05/14/2024 1:15 PM EDT Office Visit Hematology/Oncology [facility] [address] [facility] [place] [address] Hadley Verdugo MD [address] [facility] [place] [address] Scheduled Procedures Name Priority Associated Diagnoses Date/Ti [...] this encounter Medical Devices Implanted Type Area Apple Peeler Operator Device Identifier Shelf Expiration Date Model / Serial / Lot Lens Intraoc 22.0 - [id number] - [id number] Implanted:Qty: 1 on 06/26/2019 by London Ocampo MD at OR [facility] Left: Eye [employer]OMB 01/27/2024 [id number] / [id number] / [id number] Lens Intraoc 21.5 - [id number] - [id number] Implanted:Qty: 1 on 07/15/2019 by London Ocampo MD at [facility] Right: Eye [employer]OMB 03/28/2024 [id number] / [id number] / [id number] documented as of this encounter Advance Directives Latest Code Status on File Code Status Date Activated Date Inactivated Comments Full Code 07/06/2023 1:46 PM 07/10/2023 8:23 PM This o rder reflects the patients wishes and were consensually agreed upon. Question Answer Comments Discussion of Advance Directives occurred with: Patient Care Teams Steam And Gas Turbines Assembler Relationship Specialty Start Date End Date Sravanthi Bloom DO [address] [place] [address] [place] [address] PCP - General Internal Medicine 06/18/17 documented as of this encounter
--- OUTSIDE RECORDS SUMMARY | 2024-04-04 20:33 | External Medical Summary | Summary of Care ---
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 [facility] Reason for Referral Ear Conditions Specific Condition: Hearing Loss Is this sudden hearing loss or post chemotherapy hearing loss? Yes For sudden hearing loss or post chemotherapy hearing loss, please set referral priority to 3 days (URGENT) Acknowledge Comments 77-year-old female, A case of right lower lobe lung cancer, S/P resection, she received 1 cycle of chemotherapy with Alimta and cisplatin earlier in 07/2023, since then she has impaired hearing and fullness in the both ears. Would like to ENT evaluation. Thanks. Dr. 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) Procedures CT CHEST WO CONTRAST Hadley Verdugo MD [address] [place], [place] [address] Referral ID Status Reason Start Date Expiration Date V isits Requested Visits Authorized [id number] Pending Review 11/14/2023 999 999 Reason for Visit * Reason Comments Follow Up 6m Encounter Details Date Type Department Care Team (Late st Contact Info) Description 11/14/2023 1:15 PM EST Office Visit Hematology/Oncology [facility] [place] [address] [facility] [place], [place] [address] Hadley Verdugo MD [address] [place] [address] 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)*; Metastasis to mediastinal lymph node (HCC); NSCLC with EGFR mutation (HCC); Other specified hearing loss of both ears Allergies Active Allergy Reactions Criticality Noted Date Comments Food (See Comments) 04/18/2021 honey Latex 04/18/2021 rash documented as of this encounter (statuses as of 11/14/2023) Medications Medication Sig Dispensed Refills Start Date End Date Status nystatin-triamcinol one (MYCOLOG) 619658-3.1 UNIT/GM-% creamIndications:Cu taneous candidiasis Apply topically to [...] other meds). 90 Tablet 2 11/07/2023 Active Vitamin B-12 1000 MCG Oral Tablet Take by mouth daily. 0 4 Discontinu ed(Medicat ion List Clean Up) Move [facility] Advance Oral Tablet Take by mouth . 0 4 Discontinu ed(Medicat ion List Clean Up) sulfaSALAzine 500 MG Oral Tablet (Azulfidine) Take 2 Tablets by mouth in the morning. Per [place] Arthritis. 60 Tablet 5 07/17/2022 4 Discontinu ed(Medicat ion List Clean Up) Gabapentin 100 MG Oral Capsule (Neurontin)Indicati ons:Peripheral polyneuropathy Take 1 Capsule by mouth in the morning and 1 Capsule at noon and 1 Capsule before bedtime. 270 Capsule 1 02/13/2023 4 Discontinu ed(Medicat ion List Clean Up) methylPREDNISolone 4 MG Oral Tablet Therapy Pack (Medrol) follow package directions 21 Tablet 0 07/24/2023 4 Discontinu ed(Medicat ion List Clean Up) Omeprazole Magnesium 20 MG Oral Tablet Delayed Release (PriLOSEC OTC) Take 1 Tablet by mouth in the morning. 0 4 Discontinu ed(Medicat ion List Clean Up) Hospital, Clinic, or Other Facility Administered Medication [...] mRNA, LNP-s, No Pre serve, 2-Dose Series (IdeaPaint) 08/30/2021,01/11/2021,12/21/2020 Pneumococcal Conjugate Vacc, 13 Valent (Prevnar) [...] Sign Reading Time Taken Comments Blood Pressure 150/88 11/14/2023 1:00 PM EST Pulse 80 11/14/2023 1:00 PM EST Temperature 36.7 C (98.1 F) 11/14/2023 1:00 PM ES T Respiratory Rate 16 11/14/2023 1:00 PM EST Oxygen Saturation 94% 11/14/2023 1:00 PM EST Inhaled Oxygen Concentration - - Weight 79.7 kg (175 lb 9.6 oz) 11/14/2023 1:00 P M EST Height - - Body Mass Index 30.14 07/26/2023 12:09 PM EDT documented in this encounter Functional Status [...] as of this encounter Progress Notes * Hadley Verdugo MD - 11/14/2023 1:15 PM EST ODETTE VIEYRA MR # [id number] :1945 77-year-old female, Date of consultation:07/26/2023 DIAGNOSIS: Right lower lobe non-small cell lung cancer, S/P right lower lobectomy and mediastinal lymph node dissection on 07/06/2023: -pathological T2 b N2 , 3 lymph nodes positive for metastatic disease. -PD-L1 less than 1%. NGS checkup (07/06/2023 ) -TMB --> 2.84 which is low -MSI stable -EGFR Exon 19 deletion --> positive. CURRENT TREATMENT: - Osimertinib adjuvant treatment 80 mg once a day for total 3 year duration. (Started her on 09/24/2023). She received 1 dose of Alimta and cisplatin on 08/06/2023 but she had worsening kidney function testand so decided discontinue adjuvant chemotherapy in her case. She has also experienced impaired hearing with the 1st treatment. DIAGNOSTIC WORKUP: She is going for right hip replacement surgery by Dr. Watts, found to have right lung mass on a routine preoperative evaluation, did not have any lung symptoms. No previous history of smoking. CT chest without contrast on 04/13/2023: -right lower lobe spiculated mass. (3.3 x 3.4 x 3.6 cm). -indeterminate round nodules within the liver. (measuring 6 mm and 12 mm) PET-CT scan done on 05/08/2023: -3.4 x 4.2 cm right lower lobe mass with SUV of 5.1. -Focal intense activity at the anal rectal junction with soft tissue prominence could be sphincter activity Brain MRI --> negative (05/24/2023). S/P right lower lobectomy and mediastinal lymph nicolás dissection by Dr. Wylie on 07/06/2023: -invasive acinar adenocarcinoma negative margin, lymphovascular invasion noted. Visceral pleural invasion identified. -total 3 lymph nodes positive for metastatic disease (1/4 pulmonary lymph nodes, 10/29 9 R, 1 subcarinal lymph node positive, other lymph nodes are negative). -greatest dimension 4.1 cm -TNM staging --> T2b N2 M0. - PD-L1 less than 1% OTHER IMPORTANT HISTORY: - about a year back she was diagnosed with rheumatoid arthritis, she is on sulfasalazine. Improvement of the joint pain noted. She follows with envelope machine adjuster in [place]. -pulmonary embolism occurred on the postoperative day 1. Currently she is on Eliquis. No previous thrombotic complications, no family history of any kind of thrombotic complications. - hypertension, hypothyroid, hyperlipidemia. -right hip DJD. She will need right hip replacement therapy in the future. She was seen by Dr. Watts. INTERVAL HISTORY: She has come the clinic for the follow-up, accompanied by her in the office Earlier she received 1 cycle of chemotherapy Alimta and cisplatin, following that she had a abnormal kidney function, we could not proceed with more treatment options, also started having more hearing problem. Currently she is on osimertinib since last week of August 2023. She still complains of impaired hearing and some fullness in the ears. She has underlying GERD, sheis on omeprazole once a day, some mild nausea present, fair appetite, some weight loss noted, current weight around 175 lb, she is also on Eliquis for pulmonary embolism, no new thrombotic complications no new bleeding complications no leg edema. She denies any increasing headache. No blurring of vision. Ambulates slowly by herself, she has right hip DJD and she says she may have to go for the hip replacement surgery in the future. Past Medical History: Diagnosis Date Achilles tendinitis [...] performed by Jessica Delacruz MD at [facility]OSCOPY [facility] DELIVERY 1971 &1974 x2 COLONOSCOPY, DIAGNOSTIC (RECTUM) 10/2008 diverticulosis, f/u 12/31 years COLONOSCOPY, DIAGNOSTIC (RECTUM) 04/30/2017 diverticulosis, repeat 10 yrs/COLONOSCOPY FLEXIBLE PROXIMAL DIAGNOSTIC performed by Tyson Cope MD at ENDOSCOPY [facility] COLORECTAL CANCER SCREEN; COLON 11/20/08 Dr. Seay - normal DIGITAL RECTAL EXAM,ANNUAL LYMPHADENECTOMY VIA THORACOSCOPY Right 07/06/2023 ROBOTIC THORACOSCOPY WITH LYMPHADENECTOMY performed by Boo Wylie MD at [place] [facility] MAMMOGRAM SCREENING-BILATERAL 12/27 REMOVAL OF OVARY/OVIDUCT(S) 1982 bilateral REMOVE CATARACT, INSERT LENS PROSTH Left 06/26/2019 left EXTRACAPSULAR CATARACT REMOVAL WITH INTRAOCULAR LENS performed by London Ocampo MD at [facility] REMOVE CATARACT, INSERT LENS PROSTH Right 07/15/2019 right EXTRACAPSULAR CATARACT REMOVAL WITH INTRAOCULAR LENS performed by London Ocampo MD at OR [facility] REMOVE GALLBLADDER 1980 REPAIR RUPTURED ACHILLES TENDON Bilateral 02/1999 Thoracoscopy w/ Lobectomy Right 07/06/2023 ROBOTIC THORACOSCOPY WITH LOBECTOMY performed by Boo Wylie MD at OR [facility] TOTAL HYSTERECTOMY 1981 Current Outpatient Medications Medication Sig Dispense Refill nystatin-triamcinolone (MYCOLOG) 611765-6.1 UNIT/GM-% cream Apply topically to affected area 2 times a day. To affacted area for two weeks. 30 g 1 Triamcinolone Acetonide 0.1 % External Ointment (Aristocort) Apply to affected area twice a day as needed for dry skin and itching 30 g 1 Vitamin B-12 1000 MCG Oral Tablet Take by mouth daily. (Patient not taking: Reported on 09/13/2023) Move [facility] Advance Oral Tablet Take by mouth . (Patient not taking: Reported on 09/13/2023) sulfaSALAzine 500 MG Oral Tablet (Azulfidine) Take 2 Tablets by mouth in the morning. Per [place] Arthritis. 60 Tablet 5 Gabapentin 100 MG Oral Capsule (Neurontin) Take 1 Capsule by mouth in the morning and 1 Capsule at noon and 1 Capsule before bedtime. (Patient taking differently: Take 1 Capsule by mouth 3 times a day as needed.) 270 Capsule 1 Rosuvastatin Calcium 10 MG Oral Tablet (Crestor) TAKE 1 TABLET BY MOUTH EVERY MORNING 90 Tablet 1 methylPREDNISolone 4 MG Oral Tablet Therapy Pack (Medrol) follow package directions (Patient not taking: Reported on 09/06/2023) 21 Tablet 0 Ondansetron HCl 8 MG Oral Tablet Take 1 Tablet by mouth every 8 hours as needed for Nausea. 30 Tablet 1 Prochlorperazine Maleate 10 MG Oral Tablet (Compazine) Take 1 Tablet by mouth every 6 hours as needed for Nausea. 30 Tablet 1 Magic Swizzle (Ktpyehyzt-Sugaptbx-Kilcfu) oral solution Swish and swallow 15 mL [...] or without food.. 30 Tablet 5 Omeprazole Magnesium 20 MG Oral Tablet Delayed Release (PriLOSEC OTC) Take 1 Tablet by mouth in themorning. (Patient not taking: Reported on 09/26/2023) Loratadine 10 MG Oral Tablet (Claritin) Take [...] 3 Puff Inhalation PRN Shila Nunez CRNP No family history on file. 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 BP 150/88 (BP Site: Left Arm, BP Position: Sitting, BP Cuff Size: Large) | Pulse 80 | Temp 36.7 C(98.1 F) (Tympanic) | Resp 16 | Wt 79.7 kg (175 lb 9.6 oz) | SpO2 94% | BMI 30.14 kg/m | BSA 1.9 m Constitutional: Patient is alert, cooperative and oriented x 3. Well built woman, Patient is in no acute distress. HEENT: No icterus, no pallor, Throat and pharynx normal. Sinuses are non-tender. Neck: Supple and without lymphadenopathy or masses. No JVD. No Palpable supraclavicular lymph nodes. Lungs: Clear to auscultation. Bilateral symmetric air entry. No wheezing or rhonchi. Cardiovascular: Normal heart sounds, no murmurs.Regular rate and rhythm. Abdomen: soft, nontender, no hepatomegaly, no splenomegaly. Bowel sounds are normal. Neurological: No gross focal neurological deficit; walks with the help of the walker Extremities: No finger clubbing, No cyanosis. No leg edema. Skin:: No skin rash. SPINE: No spinal or paraspinal tenderness. LABS: Blood workup done on 07/10/2023) -WBC 8600, H&H of 12.2/38, Platelet count 843024. -BUN/Creat: 24/0.7, Calcium 9.9 Blood workup done on 08/29/2023: -BUN/Creat: 15/1.4, potassium 3.4. Calcium 10.0. IMAGING: As described above. ASSESSMENT AND PLAN: 77-year-old female, A case of right lower lobe non-small cell lung cancer, adenocarcinoma, S/P right lower lobectomy and lymph node dissection, pathological T2b , N2, lymphovascular invasion noted, visceral pleural involvement noted, 3 lymph nodes positive for metastatic disease. PD-L1 less than 1%. No smoking in the past, stage IIIA. Postoperatively she developed pulmonary embolism, now she is on Eliquis. She was on oxygen treatment which has been discontinued. Received 1 cycle of adjuvant chemotherapy Alimta and cisplatin but she had worsening kidney function, impaired hearing, we decided discontinue chemotherapy treatment at this time. Regarding lung cancer, NGS checkup, EGFR Exon 19 deletion noted, Currently she is on osimertinib adjuvant treatment which was started in last week of August 2023 and tolerated well. Will get CBCD, comprehensive metabolic panel today She has persistent impaired hearing and fullness in the ears, would like to have ENT evaluation She will complete 6 months of anticoagulant treatment Eliquis in December of 2023 and then she will stop It. (blood clot occurred in the postoperative setting and so planning for short-term anticoagulation). I am planning for CT scan of chest without intravenous contrast in 12/2023. Planning to see her back in the clinic in about [address] Hadley Verdugo Hem/Onc (This note was completed using the dictation program Fluency Direct. As such, there may be misspellings word substitutions, or other variations that should not change the essence of the clinical content of this encounter note. If there is need for further clarification, please direct questions t documented in this encounter Nursing Notes * Natali Pandya CMA - 11/14/2023 1:03 PM EST Patient identifed by name and birthdate Do you have any concerns about pain management for today's visit? No Living Will or Advance Directive for Health Care as noted on the problem list. [facility] is a way you can talk to your provider on line through e-mail. Would you like to sign up? I can activate it for you? ALREADY ACTIVE Filed Vitals: 11/14/23 1300 BP: 150/88 Pulse: 80 Resp: 16 Temp: 36.7 C (98.1 F) TempSrc: Tympanic SpO2: 94% Weight: 79.7 kg (175 lb 9.6 oz) Patient was instructed to not get up on the exam table/exam chair until directed and assisted by their provider; patient is to remain seated in the chair/ wheelchair/ exam table/ exam chair for fall prevention and safety reasons. Patient is aware to have assistance to step down off exam table/exam chair with personnel. Patient voiced full comprehension of instructions. documented in this encounter Plan of Treatment Upcoming Encounters Date Type Department Care Team (Late st Contact Info) Description 11/14/2023 2:10 PM EST Laboratory Laboratory [facility]ery [place]ri [place] [address] [place] [phone] Sherri, [facility] Sc[address] [place] [address] Arrived 11/28/2023 9:45 AM EST Pharmacy Pharmacy Hematology Oncology [facility], [address] [address] [facility] Hem/Onc [facility] [place] [address] 01/07/2024 3:00 PM EDT Office Visit Thoracic Surg [facility], [address] [address] Boo Wylie MD [facility] [place] [address] 01/14/2024 10:40 AM EDT Telemedicine Pulmonary Medicine, [address] [address] Timothy Varghese MD [facility] [place] [address] Cart, Telemed Pulm Gw [address] [facility] [place] [address] 02/13/2024 11:15 AM EDT Imaging Radiology [address] [facility] [place] [address] 02/15/2024 8:50 AM EDT Office Visit Family Medicine [address] [place] [phone] Sravanthi Bloom [address] [place] [address] 05/08/2024 11:00 AM EDT Nurse Only Ancillary [address] [place] [address] [place], Nurse [address] [place] [address] 05/14/2024 1:15 PM EDT Office Visit Hematology/Oncology [facility] 200 [facility] [place] [address] Hadley Verdugo MD 200 [facility] [place] [address] Pending Results Name Type Priority Associated Diagnoses Date /Time COMPREHENSIVE METABOLIC PANEL Lab STAT 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) 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) 11/14/2023 1:48 PM EST Scheduled Orders Name Type Priority Associated Diagnoses Orde r Schedule CT CHEST WO CONTRAST Medical Imaging Routine 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) 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) Expected: 11/14/2023, Expires: 11/14/2024 Scheduled Procedures Name Priority Associated Diagnoses Date/Ti me COLONOSCOPY FLEXIBLE PROXIMA L DIAGNOSTIC Recall Encounter for screening colonoscopy Scheduled Referrals Name Type Priority Associated Diagnoses Orde r Schedule OTOLARYNGOLOGY REFERRAL OP Referral Within 10 days (routine) 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) 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 Ordered: 11/14/2023 Health Maintenance Due Date Last Done Comments COVID-19 Vaccine ( season) 2023 08/30/2021, 01/11/2021, 12/21/2020 Depression Screening 05/06/2024 05/06/2023 TSH 06/26/2024 06/26/2023, 02/27, 02/15/2023, Additional history exists GFR 09/05/2024 09/05/2023, 11/0 10/2022, 08/27/2023, Additional history exists Albumin/Creatinine Ratio [...] this encounter Medical Devices Implanted Type Area Cotton Ball Machine Tender Device Identifier Shelf Expiration Date Model / Serial / Lot Lens Intraoc 22.0 - [id number] - [id number] Implanted:Qty: 1 on 06/26/2019 by London Ocampo MD at OR [facility] Left: Eye [employer] 01/27/2024 [id number] / [id number] / [id number] Lens Intraoc 21.5 - [id number] - [id number] Implanted:Qty: 1 on 07/15/2019 by London Ocampo MD at OR [facility] Right: Eye [employer] 03/28/2024 [id number] / [id number] / [id number] documented as of this encounter Procedures Procedure Name Priority Date/Time Associated Diagnosis Comments DIFFERENTIAL, AUTOMATED STAT 11/14/2023 1:48 PM EST 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) 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) CBC STAT 11/14/2023 1:48 PM EST 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) 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) CBC STAT 11/14/2023 1:48 PM EST 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) 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) documented in this encounter Results * (ABNORMAL) DIFFERENTIAL, AUTOMATED (11/14/2023 1:48 PM EST) WBC 4.15 4.00 - 10.80 K/uL 11/14/2023 1:52 PM EST LABORATORY [facility] 56-02 Neutrophils % 61.9 40.0 - 75.0 % 11/14/2023 1:52 PM EST LAB[facility]ATORY [place] 56-02 Lymphocytes % 24.6 18.0 - 42.0 % 11/14/2023 1:52 PM EST [facility] 56-02 Monocytes % 12.3(H) 1.0 - 11.0 % 11/14/2023 1:52 PM EST [facility] 56-02 Eosinophils % 1.0 0.0 - 6.0 % 11/14/2023 1:52 PM EST [facility] 56-02 Basophils % 0.2 0.0 - 2.0 % 11/14/2023 1:52 PM EST [facility] 56-02 Absolute Neutrophils 2.57 1.80 - 7.70 K/uL 11/14/2023 1:52 PM EST [facility] 56-02 Absolute Lymphocytes 1.02 1.00 - 4.80 K/ul 11/14/2023 1:52 PM EST [facility] 56-02 Absolute Monocytes 0.51 0.00 - 1.10 K/uL 11/14/2023 1:52 PM EST [facility]ORY [facility] 56-02 Absolute Eosinophils 0.04 0.00 - 0.70 K/uL 11/14/2023 1:52 PM EST [facility] 56-02 Absolute Basophils 0.01 0.00 - 0.20 K/uL 11/14/2023 1:52 PM EST LAB[facility] 56-02 Blood Venous blood specimen / Unknown Venipuncture / Unknown 11/14/2023 1:48 PM EST 11/14/2023 1:48 PM EST Hadley Verdugo MD LAB BLOOD ORDERABLES [facility] 56- [address] [place] [address] * (ABNORMAL) CBC (11/14/2023 1:48 PM EST) WBC 4.15 4.00 - 10.80 K/uL 11/14/2023 1:52 PM EST [facility] 56 RBC 3.30 3.85 - 5.15 M/uL 11/14/2023 1:52 PM EST [facility] HGB 10.4(L) 12.0 - 15.3 g/dL 11/14/2023 1:52 PM EST [facility] 56 HCT 31.9(L) 36.0 - 45.2 % 11/14/2023 1:52 PM EST [address] MCV 96.7 81.5 - 97.5 fL 11/14/2023 1:52 PM EST [facility] 56 MCH 31.5 27.0 - 34.0 pg 11/14/2023 1:52 PM EST [facility] 56[facility] MCHC 32.6 32.0 - 36.0 g/dL 11/14/2023 1:52 PM EST [facility] 5602 RDW 13.1 11.5 - 15.5 % 11/14/2023 1:52 PM EST [facility] 5602 PLT 127(L) 140 - 400 K/uL 11/14/2023 1:52 PM [facility] 5602 MPV 10.9 6.6 - 11.1 fL 11/14/2023 1:52 PM [facility] 5602 Blood Venous blood specimen / Unknown Venipuncture / Unknown 11/14/2023 1:48 PM EST 11/14/2023 1:48 PM EST Hadley Verdugo MD LAB BLOOD ORDERABLES [facility] [address] 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 Question Answer Comments Discussion of Advance Directives occurred with: Patient Care Teams Fine Arts Instructor Relationship Specialty Start Date End Date Sravanthi Bloom DO [address] [place] [address] [place] [address] PCP - General Internal Medicine 06/18/17 documented as of this encounter"
--- OUTSIDE RECORDS SUMMARY | 2024-04-04 20:33 | External Medical Summary | Summary of Care ---
Author Name Unknown Organization [facility] Address [address] [place] [address] Phone [phone] Care Team Providers Care Publications Manager Name Role Phone Sravanthi Bloom DO Primary Care Provider [phone] Reason for Visit * Reason Comments Medication Management Encounter Details Date Type Department Care Team (Late st Contact Info) Description 10/31/2023 9:45 AM [facility] Pharmacy Pharmacy Hematology Oncology [facility] [address] [place] [address] [facility] Hem/Onc [address] [place] [address] NSCLC with EGFR mutation (HCC)* Allergies Active Allergy Reactions Criticality Noted Date Comments Food (See Comments) 04/18/2021 honey Latex 04/18/2021 rash documented as of this encounter (statuses as of 10/31/2023) Medications Medication Sig Dispensed Refills Start Date End Date Status nystatin-triamcinolo ne (MYCOLOG) 053890-1.1 UNIT/GM-% creamIndications:Cut aneous candidiasis Apply topically to [...] Tablets by mouth in the morning. Per [place] Arthritis. 60 Tablet 5 07/17/2022 Active Gabapentin [...] as of this encounter (statuses as of 10/31/2023) Active Problems Problem Noted Date Diagnosed Date [...] as of this encounter (statuses as of 10/31/2023) Resolved Problems Problem Noted Date Diagnosed Date [...] as of this encounter (statuses as of 10/31/2023) Immunizations Name Administration Dates Next Due COVID-19 mRNA, LNP-s, No Pre serve, 2-Dose Series (Diplopia) 08/30/2021,01/11/2021,12/21/2020 Pneumococcal Conjugate Vacc, 13 Valent (Prevnar) [...] this encounter Progress Notes * Ayana Nichols, formerly [facility] - 10/31/2023 11:27 AM EST MEDICATION THERAPY MANAGEMENT OSIMERTINIB TREATMENT PROGRESS NOTE Ioana Tan [phone] Patient Phone Numbers Preferred Lab: Specialty Pharmacy: P Communication: Spoke to: Patient Treatment: Medication: Osimertinib (Tagrisso) Indication/Staging/Diagnosis Code: NSCLC, 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 Luci Verdugo Supportive Care Meds: Ondansetron Prochlorperazine Prophylactic Meds: Hydrocortisone Apixaban 5 mg PO bid (Hx PE) Treatment History: 08/06/23: pemetrexed/cisplatin - discontinued due to poor renal function Interval History: States omeprazole has resolved reflux symptoms from last MTM encounter Reports taking famotidine at bedtime as needed for breakthrough nighttime reflux Reports dry hands from frequent washing. Confirms moisturizing hands for symptom relief Reports increased bowel movements but denies diarrhea, loperamide use, or dehydration No other concerns, tolerating therapy well Changes to medication list since last visit? No Assessment and Plan: Continue omeprazole and famotidine for reflux management Continue moisturizing regimen for dry hands Continue current therapy Assessment of compliance: compliant Assessment of adverse effects attributed to drug therapy: Rash/Dry Skin- present Nail Changes- absent Diarrhea - absent Pneumonitis - absent Dose adjustment needed based on lab or adverse drug reaction? No Follow up: 2 weeks OV; 4 weeks MTM Ayana Nichols, PharmD, BCOP Clinical Pharmacist, [facility] Oral Chemotherapy [facility] [address] 10/31/2023, 11:41 AM Monitoring Parameters: Estimated CrCl Serum creatinine: 1.4 mg/dL (H) 09/05/23 1046 Estimated creatinine clearance: 36.5 mL/min (A) Hepatitis panel Latest Reference Range [...] of Intervention: Monitoring with direction (Level 1) Second Item Second Item Category: Acid Suppressive Omeprazole Problem/Rationale: Effectiveness: Needs additional monitoring - Medication Requires monitoring Pharmacist Intervention(s): Toxicity monitoring Magnitude of Intervention: Monitoring with direction (Level 1) Third Item Third Item Category: Acid Suppressive Famotidine Problem/Rationale: Effectiveness: Needs additional monitoring - Medication Requires monitoring Pharmacist Intervention(s): Toxicity monitoring Magnitude of Intervention: Monitoring with direction (Level 1) documented in this encounter Plan of Treatment Upcoming Encounters Date Type Department Care Team (Late st Contact Info) Description 11/14/2023 1:15 PM EST Office Visit Hematology/[facility] [address] [place] [address] Hadley Verdugo MD [address] [place] [address] 11/28/2023 9:45 AM EST Pharmacy Pharmacy Hematology Oncology [facility], [address] [address] [facility] Hem/Onc [facility] [place] [address] 01/07/2024 3:00 PM EDT Office Visit Thoracic Surg [facility], [address] [address] Boo Wylie MD [address] [place] [address] 01/14/2024 10:40 AM EDT Telemedicine Pulmonary Medicine, [place] [address] [place] [address] Timothy Varghese MD [address] [place] [address] Cart, Telemed Pulm Gw [address] [facility] [place] [address] 02/15/2024 8:50 AM EDT Office Visit Family Medicine [address] [place] [phone] [address] [place] [address] 05/08/2024 11:00 AM EDT Nurse Only Ancillary [address] [place] [address] [place], Nurse Annual [address] [place] [address] Scheduled Procedures Name Priority Associated Diagnoses Date/Ti me COLONOSCOPY FLEXIBLE PROXIMA L DIAGNOSTIC Recall Encounter for screening colonoscopy Health Maintenance Due Date Last Done Comments COVID-19 Vaccine ( season) 2023 08/30/2021, 01/11/2021, 12/21/2020 Depression Screening 05/06/2024 05/06/2023 TSH 06/26/2024 06/26/2023, 02/27, 02/15/2023, Additional history exists GFR 09/05/2024 09/05/2023, 1110/2022, 08/27/2023, Additional history exists Albumin/Creatinine Ratio 07/20/2025 [...] this encounter Medical Devices Implanted Type Area Chiropractor Assistant Device Identifier Shelf Expiration Date Model / Serial / Lot Lens Intraoc 22.0 - [id number] - [id number] Implanted:Qty: 1 on 06/26/2019 by London Ocampo MD at OR [facility] Left: Eye [employer] 01/27/2024 [id number] / [id number] / [id number] Lens Intraoc 21.5 - [id number] - [id number] Implanted:Qty: 1 on 07/15/2019 by London Ocampo MD at OR [facility] Right: Eye [employer]OM[employer] 03/28/2024 [id number] / [id number] / [id number] documented as of this encounter Visit Diagnoses [...] Advance Directives occurred with: Patient Care Teams Publications Manager Relationship Specialty Start Date End Date Sravanthi Bloom DO [address] [place] [address] [place] [phone] PCP - General Internal Medicine 06/18/17 documented as of this encounter
--- OUTSIDE RECORDS SUMMARY | 2024-04-04 20:33 | External Medical Summary ---
Author Name Unknown Address Unknown Organization K09:[facility] [address] [place] [address] Laboratory Report Ordering Provider Test Date Status GLORIA WALKER 11/14/2023 13:48:30 Final Observation Date Value Abnormality Reference (Units ) Status BUN 11/14/2023 13:48:30 14 6-20 (mg/dL) Final Creatinine 11/14/2023 13:48:30 1.6 Above high normal 0.5-1.0 (mg/dL) Final Glomerular filtration rate/1.73 sq M.predicted [Volume Rate/Area] in Serum, Plasma or Blood by Creatinine-based formula (CKD-EPI) 11/14/2023 13:48:30 33 Below low normal >=60 (mL/min) Final eGFR is calculated based on the CKD-EPI 2020 equation SODIUM 11/14/2023 13:48:30 137 135-146 (m mol/L) Final Potassium 11/14/2023 13:48:30 3.1 Below low normal 3.5 -5.1 (mmol/L) Final Cl 11/14/2023 13:48:30 101 98-107 (mm ol/L) Final CO2 11/14/2023 13:48:30 25 22-32 (mmo l/L) Final Anion gap 11/14/2023 13:48:30 11 7-15 (mmol /L) Final Glucose 11/14/2023 13:48:30 110 70-120 (mg /dL) Final Albumin 11/14/2023 13:48:30 3.8 3.8-5.0 (g /dL) Final AST (Aspartate aminotransferase) 11/14/2023 13:48:30 29 10-35 (U/L) Fin al Alk Phos 11/14/2023 13:48:30 81 35-130 (U/ L) Final Bilirubin, Total 11/14/2023 13:48:30 0.6 <=1 .2 (mg/dL) Final Calcium 11/14/2023 13:48:30 9.9 8.4-10.2 ( mg/dL) Final Protein 11/14/2023 13:48:30 6.2 6.0-8.3 (g /dL) Final ALT (Alanine aminotransferase) 11/14/2023 13:48:30 <5 Below low normal 10-35 (U/L) Final Performing Location [facility] [address] [place] [address]
--- OUTSIDE RECORDS SUMMARY | 2024-04-04 20:33 | External Medical Summary | Summary of Care ---
Author Name Unknown Organization [facility] Address [address] [place] [address] Phone [phone] Care Team Providers Care Combat Control Name Role Phone Spencer Darnell DO Primary Care Provider Reason for Visit * Reason Onset Date Comments Medication Refill 11/07/2023 Encounter Details Date Type Department Care Team (Late st Contact Info) Description 11/07/2023 Refill Family Medicine [address] [phone] Spencer Darnell DO [address] [place] [address] [place], [place] [phone] Allergies Active Allergy Reactions Criticality Noted Date Comments Food (See Comments) 04/18/2021 honey Latex 04/18/2021 rash documented as of this encounter (statuses as of 11/07/2023) Medications Medication Sig Dispensed Refills Start Date End Date Status nystatin-triamcinol one (MYCOLOG) 759017-9.1 UNIT/GM-% creamIndications:Cu taneous candidiasis Apply topically to [...] Tablets by mouth in the morning. Per [place] Arthritis. 60 Tablet 5 07/17/2022 Active Gabapentin 100 MG Oral Capsule (Neurontin)Indicati ons:Peripheral [...] on 09/06/2023 Ondansetron HCl 8 MG Oral TabletIndications:E ncounter [...] 0 Active Loratadine 10 MG Oral Tablet (Claritin)Indicatio [...] other meds). 90 Tablet 2 11/07/2023 Active Levothyroxine Sodium 137 MCG Oral Tablet take 1 tablet by mouth in the morning. (at least 30 min prior to breakfast or other meds) 90 Tablet 0 08/12/2023 11/07/19 24 Discontinu ed(Refill) Hospital, Clinic, or Other Facility Administered Medication [...] as of this encounter (statuses as of 11/07/2023) Active Problems Problem Noted Date Diagnosed Date [...] as of this encounter (statuses as of 11/07/2023) Resolved Problems Problem Noted Date Diagnosed Date [...] as of this encounter (statuses as of 11/07/2023) Immunizations Name Administration Dates Next Due COVID-19 [...] Telephone Encounter - Spencer Darnell DO - 11/07/2023 1:27 PM ESTSigned Prescriptions: Disp Refills Levothyroxine Sodium 137 MCG Oral Tablet 90 Tab*2 Sig: Take 1 Tablet by mouth in the morning. (at least 30 min prior to breakfast or other meds). Authorizing Provider: SPENCER DARNELL * Telephone Encounter - Faiza Aldana RN - 11/07/2023 11:05 AM ESTPending Prescriptions: Disp Refills Levothyroxine Sodium 137 MCG Oral Tablet 90 Tab*0 Sig: Take 1 Tablet by mouth in the morning. (at least 30 min prior to breakfast or other meds). * Telephone Encounter - Faiza Aldana RN - 11/07/2023 11:02 AM EST Next visit 01/2024. [id number] [address] [facility] TSH Results: Lab Results Component Value Date/Time TSH - [facility] 3.35 06/26/2023 09:09 AM TSH - [facility] 3.03 10/16/2012 04:50 PM TSH - [facility] 5.66 (H) 08/29/2012 08:40 AM TSH - [facility] 3.95 03/22/2011 08:45 AM TSH - [facility] 2.880 03/22/2023 12:00 AM TSH - [facility] 6.640 (A) 02/15/2023 12:00 AM TSH - [facility] 4.110 (A) 07/04/2022 12:00 AM Message sent to provider to review and sign * Telephone Encounter - Mariah Lara OSA - 11/07/2023 10:42 AM EST Did you pend patient's preferred pharmacy and medication before forwarding?yes Pharmacy: [id number] [address] [facility] Pending Prescriptions: Disp Refills Levothyroxine Sodium 137 MCG Oral Tablet 90 Tab*0 Sig: Take 1 Tablet by mouth in the morning. (at least 30 min prior to breakfast or other meds). Last Visit: 09/13/2023 (in office), Visit date not found (telemedicine) Next Visit: 02/15/2024 If no future appointments scheduled, and last appointment is greater than a year ago, please schedule patient for a follow-up appointment Last date the medication was ordered: 08/20 Is this request for a controlled substance?No Urine Drug Screen:No results found for this or any previous visit. Patient Phone Numbers Labs: Lab Results Component Value Date/Time CREAT 1.4 (H) 09/05/2023 10:46 AM CREAT 0.61 04/06/2023 12:00 AM CREAT 0.7 08/29/2012 08:40 AM CREAT 0.6 (L) 09/08/1996 09:33 AM POTASSIUM 4.2 09/05/2023 10:46 AM POTASSIUM 3.7 04/06/2023 12:00 AM POTASSIUM 3.8 [...] LDLDIRECT 133 (H) 10/07/2005 09:29 AM ALT 7 (L) 09/05/2023 10:46 AM ALT 23 07/04/2022 12:00 AM ALT 21 08/29/2012 08:40 AM documented in this encounter Plan of Treatment Upcoming Encounters Date Type Department Care Team (Late st Contact Info) Description 11/14/2023 1:15 PM EST [facility] [address] [place] [address] Hadley Verdugo MD [address] [place] [address] 11/28/2023 9:45 AM EST Pharmacy Pharmacy Hematology Oncology [facility], [address] [address] [facility] Hem/Onc [address] [place] [address] 01/07/2024 3:00 PM EDT Office Visit Thoracic Surg [facility], [address] [address] Boo Wylie MD [address] [place] [address] 01/14/2024 10:40 AM EDT Telemedicine Pulmonary Medicine, [address] [address] Timothy Varghese MD [address] [place] [address] Cart, Telemed Pulm Gw [address] [place] [address] 02/15/2024 8:50 AM EDT Office Visit Family Medicine [address] [place] [phone] Spencer Darnell, [address] [place] [address] 05/08/2024 11:00 AM EDT Nurse Only Ancillary [address] [place] [address] [place], Nurse [address] [place] [address] Scheduled Procedures Name Priority Associated Diagnoses Date/Ti [...] encounter Medical Devices Implanted Type Area Rn Documentation Device Identifier Shelf Expiration Date Model / Serial / Lot Lens Intraoc 22.0 - [id number] - [id number] Implanted:Qty: 1 on 06/26/2019 by London Ocampo MD at OR [facility] Left: Eye [employer]OM[employer] 01/27/2024 [id number] / [id number] / [id number] Lens Intraoc 21.5 - [id number] - [id number] Implanted:Qty: 1 on 07/15/2019 by London Ocampo MD at OR [facility] Right: Eye [employer]OM[employer] 03/28/2024 [id number] / [id number] / [id number] documented as of this encounter Advance Directives Latest Code Status on File Code Status Date Activated Date Inactivated Comments Full Code 07/06/2023 1:46 PM 07/10/2023 8:23 PM This o rder reflects the patients wishes and were consensually agreed upon. Question Answer Comments Discussion of Advance Directives occurred with: Patient Care Teams Combat Control Relationship Specialty Start Date End Date Spencer Darnell DO [address] [place] [address] [place] [address] PCP - General Internal Medicine 06/18/17 documented as of this encounter
--- OUTSIDE RECORDS SUMMARY | 2024-04-04 20:33 | External Medical Summary ---
Author Name Unknown Address Unknown Organization K[facility] [place] [address] Laboratory Report Ordering Provider Test Date Status GLORIA WALKER 11/14/2023 13:48:30 Final Observation Date Value Abnormality Reference (Units ) Status SYNC LEUKOCYTES IN BLOOD BY AUTOMATED COUNT 11/14/2023 13:48:30 4.15 4.00-10.80 (K/uL) Final Segs 11/14/2023 13:48:30 61.9 40.0-75.0 (%) Final Lymphs % 11/14/2023 13:48:30 24.6 18.0-42.0 (%) Final Monos 11/14/2023 13:48:30 12.3 Above high normal 1.0-11.0 (%) Final Eosinophils 11/14/2023 13:48:30 1.0 0.0-6.0 (%) Final Basos 11/14/2023 13:48:30 0.2 0.0-2.0 (%) Final Absolute Segs 11/14/2023 13:48:30 2.57 1.80-7.70 (K/uL) Final Lymphs, absolute 11/14/2023 13:48:30 1.02 1.00-4.80 (K/ul) Final Monos, Abs 11/14/2023 13:48:30 0.51 0.00-1.10 (K/uL) Final Eos, Abs 11/14/2023 13:48:30 0.04 0.00-0.70 (K/uL) Final Basos, Abs 11/14/2023 13:48:30 0.01 0.00-0.20 (K/uL) Final Performing Location [facility] [place] [address]
--- OUTSIDE RECORDS SUMMARY | 2024-04-04 20:33 | External Medical Summary ---
Author Name Unknown Address Unknown Organization K09[facility] [place] [address] Laboratory Report Ordering Provider Test Date Status GLORIA WALKER 11/14/2023 13:48:30 Final Observation Date Value Abnormality Reference (Units ) Status WBC, Total 11/14/2023 13:48:30 4.15 4.00-10.8 0 (K/uL) Final RBC 11/14/2023 13:48:30 3.30 3.85-5.15 (M/uL) Final Hemoglobin 11/14/2023 13:48:30 10.4 Below low normal 12 .0-15.3 (g/dL) Final HCT 11/14/2023 13:48:30 31.9 Below low normal 36. 0-45.2 (%) Final MCV 11/14/2023 13:48:30 96.7 81.5-97.5 (fL) Final MCH 11/14/2023 13:48:30 31.5 27.0-34.0 (pg) Final MCHC 11/14/2023 13:48:30 32.6 32.0-36.0 (g/dL) Final RDW 11/14/2023 13:48:30 13.1 11.5-15.5 (%) Final Platelets 11/14/2023 13:48:30 127 Below low normal 140 -400 (K/uL) Final MPV 11/14/2023 13:48:30 10.9 6.6-11.1 ( fL) Final Performing Location [facility] [place] [address]
[2024-04-04] MEDS: PANTOprazole 40 MG in SYRINGE 0 ML IV SCH (20:57)
--- OUTSIDE RECORDS SUMMARY | 2024-04-04 21:31 | External Medical Summary | Summary of Care ---
Author Name Unknown Organization [facility] Address [address] [place] [address] Phone [phone] Care Team Providers Care Procurement Cost Coordinator Name Role Phone Sravanthi Bloom DO Primary Care Provider [phone] Reason for Visit * Reason Comments Medication Management Encounter Details Date Type Department Care Team (Late st Contact Info) Description 04/04/2024 9:45 AM EDT Pharmacy Pharmacy Hematology Oncology [facility] [address] [place] [address] [facility] Hem/Onc [address] [place] [address] NSCLC with EGFR mutation (HCC)* Allergies Active Allergy Reactions Criticality Noted Date Comments Food (See Comments) 04/18/2021 honey Latex 04/18/2021 rash documented as of this encounter (statuses as of 04/03/2024) Medications Medication Sig Dispensed Refills Start Date End Date Status nystatin-triamcinolon e (MYCOLOG) 062640-8.1 UNIT/GM-% creamIndications:Cuta neous candidiasis Apply topically to [...] the morning. 30 Capsule 3 03/06/2024 Active Ondansetron 8 MG Oral Tablet Disintegrating (Zofran) Place 1 Tablet on tongue every 8 hours as needed for Nausea. dissolve on tongue. 20 Tablet 2 04/03/2024 Active Hospital, Clinic, or Other Facility Administered [...] as of this encounter (statuses as of 04/03/2024) Active Problems Problem Noted Date Diagnosed Date [...] as of this encounter (statuses as of 04/03/2024) Resolved Problems Problem Noted Date Diagnosed Date [...] as of this encounter (statuses as of 04/03/2024) Immunizations Name Administration Dates Next Due COVID-19 mRNA, LNP-s, No Pre serve, 2-Dose Series (55social) 08/30/2021,01/11/2021,12/21/2020 Pneumococcal Conjugate Vacc, 13 Valent (Prevnar) [...] as of this encounter Progress Notes * Simone Ayanaleigh Painter, [facility] - 04/03/2024 4:03 PM EDT MEDICATION THERAPY MANAGEMENT OSIMERTINIB TREATMENT PROGRESS NOTE Ioana R Anupamyanick [phone] Patient Phone Numbers Preferred Lab: Specialty Pharmacy: [facility] Communication: Spoke to: Patient Treatment: Medication: Osimertinib (Tagrisso) Indication/Staging/Diagnosis Code: NSCLC, 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 Luci Verdugo Supportive Care Meds: Ondansetron Prochlorperazine Prophylactic Meds: Hydrocortisone Apixaban 5 mg PO bid (Hx PE) Treatment History: 08/06/23: pemetrexed/cisplatin - discontinued due to poor renal function Interval History: Pt seen by otolaryngology for b/l ototoxicity due to cisplatin 11/22/23 Per PCP OV 03/13/24, pt fell and reports right shoulder, hip, lower leg, and ankle foot pain Per ortho OV 03/17/24, pt fractured 5th toe and advised to wear stiff-soled shoes and mike taping toes if needed States she is having a bad day Reports being so dizzy she cannot get off recliner States she could not go to ED if needed due to lightheadedness Reports BP 112/69 but BP has been trending low Reports emesis and requesting antiemetic Denies fever (temp > 100.4) or diarrhea No concerns regarding osimertinib, tolerating therapy well Changes to medication list since last visit? No Assessment and Plan: Ondansetron ODT RX sent to pharmacy per request Advised pt to continue to push fluids to help with BP and emesis Advised pt to call PCP regarding ongoing lightheadedness and hypotension Advised pt to go to ED if symptoms do not improve by tomorrow morning. Pt replied with understanding Continue current therapy Assessment of compliance: compliant Assessment of adverse effects attributed to drug therapy: Rash/Dry Skin- absent Nail Changes- absent Diarrhea - absent Pneumonitis - absent Dose adjustment needed based on lab or adverse drug reaction? No Follow up: 6 weeks OV; 12 weeks MTM Ayana Nichols, PharmD, BCOP Clinical Pharmacist, [facility] Oral Chemotherapy [facility] 04/03/2024, 4:23 PM Monitoring Parameters: Estimated CrCl CKD Stage III Hepatitis panel Latest Reference Range & Units [...] Parameters Qtc > 500 ms Pertinent labs: N/A Miscellaneous Monitoring Date Qtc (msec) 07/08/23 443 Date LVEF (%) 09/13/23 60 Time Spent on Encounter: 11 - 15 minutes Encounter Group: Oncology Encounter Interventions Item Category: Oral Chemotherapy Osimertinib Problem/Rationale: Safety: Needs additional monitoring - Medication Requires monitoring Pharmacist Intervention(s): Toxicity monitoring Magnitude of Intervention: Monitoring with direction (Level 1) Second Item Second Item Category: Anti-Emetic Ondansetron Problem/Rationale: Indication: Needs additional medication therapy - Untreated condition Pharmacist Intervention(s): Medication prescribed and Toxicity monitoring Magnitude of Intervention: Modification of medications for symtomatic patients (Level 3) Third Item Third Item Category: Disease Related Problem/Rationale: Safety: Needs additional monitoring - Medication Requires monitoring Pharmacist Intervention(s): Refer to Provider Follow-Up and Toxicity monitoring Magnitude of Intervention: Refer patient to provider for clinic follow (Level 4) documented in this encounter Plan of Treatment Upcoming Encounters Date Type Department Care Team (Late st Contact Info) Description 04/10/2024 1:40 PM EDT Office Visit [place], [facility] [place] [place] [address] [facility] [place] [address] Mirna Dyson MD [address] [facility] [place] [address] 04/17/2024 1:15 PM EDT Office Visit Orthopaedics [address] [place] [phone] Jack Hernandez MD [address] [place] [address] 05/08/2024 11:00 AM EDT Nurse Only Ancillary [address] [place] [address] [place], Nurse [address] [place] [address] 05/14/2024 1:15 PM EDT Office Visit Hematology/Oncology Nicole Polanco [place] [address] [facility] [place] [phone] Hadley Verdugo MD [address] [facility] [place] [address] 05/22/2024 11:00 AM EDT Office Visit Audiology [facility] [address] [place] [address] Ayana Grajeda Au.D. [address] [place] [address] 06/25/2024 9:45 AM EDT Pharmacy Pharmacy Hematology Oncology [address] [address] [facility] Hem[facility]Onc [address] [place] [address] 07/21/2024 2:30 PM EDT Office Visit Thoracic Surg [facility] [address] [place] [address] Boo Wylie MD [address] [place] [address] 08/08/2024 10:30 AM EDT Imaging Radiology [address] [place] [address] 09/26/2024 10:30 AM EST Office Visit Family Medicine [address] [phone] Sravanthi Bloom[address] [place] [address] 11/24/2024 1:20 PM EST Office Visit Otolaryngology [facility] [address] [place] [address] Nabil Fernandes PA-C [address] [place] [address] Scheduled Procedures Name Priority Associated Diagnoses Date/Ti me COLONOSCOPY FLEXIBLE PROXIMA L DIAGNOSTIC Recall Encounter for screening colonoscopy Health Maintenance Due Date Last Done Comments COVID-19 Vaccine ( season) 2023 08/30/2021, 01/11/2021, 12/21/2020 Depression Screening 05/06/2024 05/06/2023 GFR 08/31/2024 02/29/2024, 01/27, 11/14/2023, Additional history exists TSH 02/14/2025 02/15/2024, 05/30, 03/22/2023, Additional history exists Albumin/Creatinine Ratio 02/28/2025 02/29/2024, 06/30 CKD HGB USE SMARTSET 76156 02/28/202502/28, 02/29/2024, 02/15/2024, Additional history exists CKD PHOS USE SMARTSET 38808 02/28/20250 12/2023, 07/09/2023, 07/08/2023, Additional history exists [...] this encounter Medical Devices Implanted Type Area Corrections Nurse Device Identifier Shelf Expiration Date Model / Serial / Lot Lens Intraoc 22.0 - [id number] - [id number] Implanted:Qty: 1 on 06/26/2019 by London Ocampo MD at OR [facility] Left: Eye BAUSCH [employer] LOMB 01/27/2024 [id number] / [id number] / [id number] Lens Intraoc 21.5 - [id number] - [id number] Implanted:Qty: 1 on 07/15/2019 by London Ocampo MD at OR [facility] Right: Eye BAUSCH [employer] LOMB 03/28/2024 [id number] / [id number] / [id number] documented as of this encounter Visit Diagnoses Diagnosis NSCLC with EGFR mutation (HCC)- Primary documented in this encounter Advance Directives * Full Code (Latest Code Status on File) Date Activated Date Inactivated Comments 07/06/2023 1:46 PM 07/10/2023 8:23 PM This order re flects the patients wishes and were consensually agreed upon. Question Answer Comments Discussion of Advance Directives occurred with: Patient Care Teams Procurement Cost Coordinator Relationship Specialty Start Date End Date Sravanthi Bloom DO [address] [place] [address] [place] [address] PCP - General Internal Medicine 06/18/17 documented as of this encounter
--- OUTSIDE RECORDS SUMMARY | 2024-04-04 21:31 | External Medical Summary | Summary of Care ---
Author Name Unknown Organization [facility] Address [address] [address] Phone [phone] Care Team Providers Care Hash Slinger Name Role Phone BloomAndreasSravanthi Quan Primary Care Provider [phone] Reason for Visit * Reason Onset Date Comments Medication Refill 04/03/2024 Encounter Details Date Type Department Care Team (Late st Contact Info) Description 04/03/2024 Refill Hematology/Oncology [facility] [address] [place] [place] [phone] Hadley Verdugo MD [address] [place] [address] Allergies Active Allergy Reactions Criticality Noted Date Comments Food (See Comments) 04/18/2021 honey Latex 04/18/2021 rash documented as of this encounter (statuses as of 04/03/2024) Medications Medication Sig Dispensed Refills Start Date End Date Status nystatin-triamcinolon e (MYCOLOG) 028390-0.1 UNIT/GM-% creamIndications:Cuta neous candidiasis Apply topically to [...] mRNA, LNP-s, No Pre serve, 2-Dose Series (Roommate[employer]) 08/30/2021,01/11/2021,12/21/2020 Pneumococcal Conjugate Vacc, 13 Valent (Prevnar) [...] encounter Miscellaneous Notes * Telephone Encounter - Ayana Nichols RPh - 04/03/2024 4:13 PM EDT Ondansetron ODT RX per 04/04 MT encounter documented in this encounter Plan of Treatment Upcoming Encounters Date Type Department Care Team (Late st Contact Info) Description 04/04/2024 9:45 AM EDT Pharmacy Pharmacy Hematology Oncology [facility] [address] [place] [address] [facility] [place] Hem/Onc [address] [place] [address] NSCLC with EGFR mutation (HCC)* 04/10/2024 1:40 PM EDT Office Visit NephrologyNicole [address] [place] [address] Mirna Dyson MD [address] [place] [address] 04/17/2024 1:15 PM EDT Office Visit Orthopaedics [address] [phone] Jack Hernandez MD [address] [place] [address] 05/08/2024 11:00 AM EDT Nurse Only Ancillary [address] [place] [address] [place], Nurse [address] [place] [address] 05/14/2024 1:15 PM EDT Office Visit Hematology/Oncology [facility] [address] [facility] [place] [phone] Hadley Verdugo MD [address] [place] [address] 05/22/2024 11:00 AM EDT Office Visit Audiology [facility] [address] [place] [address] Ayana Grajeda Au.D. [address] [facility] [place] [address] 06/25/2024 9:45 AM EDT Pharmacy Pharmacy Hematology Oncology [facility] [address] [place] [address] [facility] [place] Hem/Onc [address] [place] [address] 07/21/2024 2:30 PM EDT [facility] [address] [place] [address] Boo Wylie MD [address] [place] [address] 08/08/2024 10:30 AM EDT Imaging Radiology [facility] [address] [facility] [place] [address] 09/26/2024 10:30 AM EST Office Visit Family Medicine [address] [place] [phone] Sravanthi Bloom[address] [place] [address] 11/24/2024 1:20 PM EST Office Visit Otolaryngology [facility] [address] [place] [address] Nabil Fernandes PA-C [address] [place] [address] Scheduled Procedures Name Priority Associated Diagnoses Date/Ti me COLONOSCOPY FLEXIBLE PROXIMA L DIAGNOSTIC Recall Encounter for screening colonoscopy Health Maintenance Due Date Last Done Comments COVID-19 Vaccine ( season) 2023 08/30/2021, 01/11/2021, 12/21/2020 Depression Screening 05/06/2024 05/06/2023 GFR 08/31/2024 02/29/2024, 01/27, 11/14/2023, Additional history exists TSH 02/14/2025 02/15/2024, 05/30, 03/22/2023, Additional history exists Albumin/Creatinine Ratio 02/28/2025 02/29/2024, 06/30 CKD HGB USE SMARTSET 22903 02/28/202502/28, 02/29/2024, 02/15/2024, Additional history exists CKD PHOS USE SMARTSET 43245 02/28/202512/2023, 07/09/2023, 07/08/2023, Additional history exists DTaP,Tdap,and [...] this encounter Medical Devices Implanted Type Area Casting Trucker Device Identifier Shelf Expiration Date Model / Serial / Lot Lens Intraoc 22.0 - [id number] - [id number] Implanted:Qty: 1 on 06/26/2019 by London Ocampo MD at OR [facility] Left: Eye BAUSCH [employer] LOMB 01/27/2024 [id number] / [id number] / [id number] Lens Intraoc 21.5 - [id number] - [id number] Implanted:Qty: 1 on 07/15/2019 by London Ocampo MD at OR [facility] Right: Eye BAUSCH & LOMB 03/28/2024 [id number] / [id number] / [id number] documented as of this encounter Advance Directives * Full Code (Latest Code Status on File) Date Activated Date Inactivated Comments 07/06/2023 1:46 PM 07/10/2023 8:23 PM This order re flects the patients wishes and were consensually agreed upon. Question Answer Comments Discussion of Advance Directives occurred with: Patient Care Teams Hash Slinger Relationship Specialty Start Date End Date Sravanthi Bloom DO [address] [place] [address] [place] [address] PCP - General Internal Medicine 06/18/17 documented as of this encounter
--- NOTE | 2024-04-04 22:03 | Electrocardiogram Report ---
Test Reason : Blood Pressure : / mmHG Vent. Rate : 068 BPM Atrial Rate : 068 BPM P-R Int : 156 ms QRS Dur : 084 ms QT Int : 462 ms P-R-T Axes : 020 -23 -02 degrees QTc Int : 491 ms Normal sinus rhythm Minimal voltage criteria for LVH, may be normal variant ( R in aVL ) Prolonged QT Abnormal ECG When compared with ECG of 06-APR-2023 12:33, Premature atrial complexes are no longer Present T wave inversion now evident in Inferior leads Confirmed by Tommy Carreon ([id number]) on 04/04/2024 10:03:05 PM Referred By: REFERRED SELF Confirmed By:Tommy Carreon
[2024-04-05 06:32] LABS: Basophils # (auto) 0.03 K/uL (0.00-0.20); Basophils % (auto) 0.6 %; Eosinophils # (auto) 0.11 K/uL (0.00-0.50); Eosinophils % (auto) 2.3 %; Hematocrit (blood only) 24.8 % (37.0-47.0); Hemoglobin 8.3 g/dl (12.0-16.0); Immature Granulocytes # (auto) 0.01 K/uL (0.01-0.20); Immature Granulocytes % (auto) 0.2 %; Lymphocytes # (auto) 1.07 K/uL (1.20-3.40); Lymphocytes % (auto) 22.4 %; Mean Corpuscular Hemoglobin 31.3 pg (25.0-34.0); Mean Corpuscular Hgb Conc 33.5 g/dL (32.0-36.0); Mean Corpuscular Volume 93.6 fL (80.0-100.0); Mean Platelet Volume 11.3 fL (9.4-12.4); Monocytes # (auto) 0.43 K/uL (0.11-0.59); Neutrophils # (auto) 3.12 K/uL (1.40-6.50); Neutrophils % (auto) 65.5 %; Platelet Count 129 K/uL (130-400); RDW Coefficient of Variation 16.1 % (11.5-14.5); RDW Standard Deviation 55.4 fL (36.4-46.3); Red Blood Count 2.65 M/uL (4.20-5.40); White Blood Count 4.77 K/ul (4.8-10.8)
[2024-04-05 06:42] LABS: BUN Creatinine Ratio 18.5 (10-20); Calcium 9.1 mg/dl (8.6-10.3); Creatinine Clr Calc Pharmacy 38.1 ml/min; Est GFR (African American) 48.9 ml/min; Est GFR (Non-African American) 42.2 ml/min; Potassium 3.6 mmol/L (3.5-5.1)
[2024-04-05] MEDS: ROSUVASTATIN CALCIUM 10 MG TAB PO SCH (08:19)
[2024-04-05] MEDS: OSIMERTINIB MESYLATE 80 MG PO SCH (08:22)
--- NOTE | 2024-04-05 15:06 | Hospitalist Progress Note ---
Date of Service April 05, 2024 Assessment & Plan (1) Acute upper gastrointestinal bleeding: Plan: 78-year-old female with past medical significant for hypothyroidism, hyperlipidemia, history of primary malignant neoplasm of the right lower lobe of lung, history of PE, hypertension, vitamin [id number], slow transit constipation, CKD stage III, osteoarthritis, neuropathy, ototoxic hearing loss of both ears, who lives at home with her comes because of nausea vomiting and dizziness and found to have anemia and Hemoccult was positive. Acute upper gastrointestinal bleeding Acute blood loss anemia Patient presented with coffee-ground emesis for 1 day Hemoccult positive in the ED with melena Hemoglobin on presentation 6.5; baseline around 10 Status post EGD; found to have gastritis, to bleeding angiectasis in the stomach which was treated with bipolar cautery. GI recommends to advance diet as tolerated. Use sucralfate tablets 1 g p.o. 4 times daily for 10 days. Continue to use Protonix 40 mg twice daily Repeat upper endoscopy as needed for treatment She denies dizziness at this time diet advance as tolerated Monitor for rebleeding history of primary malignant neoplasm of the right lower lobe of lung s/p right lower lobectomy could not tolerate chemo because of renal failure and ototoxic currently on osimertinib which will be held for now Discussed with her tire maintenance technician who recommends holding it till patient is discharged. Possible UTI Urinalysis positive for infection Urine culture g -ve bacilli Continue on ceftriaxone Hyperlipidemia Continue rosuvastatin Hypothyroidism on Synthyroid, continue Hypertension on amlodipine, continue History of PE History of segmental PE during the hospitalization for right lower lobe lobectomy in left upper lobe and left lower lobe. Initial plan was to do anticoagulation for 6-month Follows up with Dr. Timothy Varghese. Discussed with him over [place] text; he recommended to see her as outpatient. He agreed on holding off on Eliquis till she was seen by him as outpatient. CKD stage III presented with creatinine 1.49 around baseline osteoarthritis of the hip on tramadol as needed at home pain control DVT prophylaxis SCDs disposition telemetry Time spent evaluating patient, direct bedside care, chart review, placing orders, interpretation of diagnostic studies, discussion with consultants, patient, and family members, as well as other required patient management activities is 50 minutes Please note the above document was generated using voice recognition software. It may contain grammatical, syntax or spelling errors. Any formal questions or concerns about the content, text or information contained within the body of this dictation should be directly addressed to the provider for clarification Admission and Anticipated Discharge Date Admission Date: April 04, 2024 Subjective Patient seen and examined at bedside. She is comfortable lying in the bed She reported dizziness with standing up earlier in the morning Review of Systems Review of Systems: All systems reviewed & are unremarkable except as noted in Subjective Physical Exam Physical Exam: General- Not in distress. Head- atraumatic Eyes- PERRL. ENT- oropharynx clear Neck- supple, no JVD. Lungs- clear to auscultation no wheezing or crackles. Heart- regular rate and rhythm; no murmur, no gallop. Abdomen- normal bowel sounds, soft, nontender, no distension Extremities- mild pretibial edema present , no erythema seen. Neuro- alert, oriented PERRL, no facial palsy; no dysarthria; moves extremities. Results & Data Results & Data Vital Signs (Past 12 Hours) Vital Signs Temp Pulse Pulse Resp BP Pulse Ox O2 Del Method 04/05/24 11:42 36.6 C 62 18 137/64 97 Room Air 04/05/24 08:00 66 04/05/24 07:55 36.7 C 64 20 130/71 93 Room Air 04/05/24 04:08 36.6 C 56 L 16 120/66 100 Nasal Cannula O2 Flow Rate 04/05/24 11:42 04/05/24 08:00 04/05/24 07:55 04/05/24 04:08 2
[2024-04-06 06:34] LABS: Basophils # (auto) 0.03 K/uL (0.00-0.20); Basophils % (auto) 0.7 %; Eosinophils # (auto) 0.16 K/uL (0.00-0.50); Eosinophils % (auto) 3.9 %; Hematocrit (blood only) 26.8 % (37.0-47.0); Hemoglobin 8.9 g/dl (12.0-16.0); Immature Granulocytes # (auto) 0.01 K/uL (0.01-0.20); Immature Granulocytes % (auto) 0.2 %; Lymphocytes # (auto) 1.02 K/uL (1.20-3.40); Lymphocytes % (auto) 24.9 %; Mean Corpuscular Hemoglobin 31.2 pg (25.0-34.0); Mean Corpuscular Hgb Conc 33.2 g/dL (32.0-36.0); Mean Platelet Volume 11.7 fL (9.4-12.4); Monocytes # (auto) 0.45 K/uL (0.11-0.59); Neutrophils # (auto) 2.42 K/uL (1.40-6.50); Neutrophils % (auto) 59.3 %; Platelet Count 126 K/uL (130-400); RDW Coefficient of Variation 15.5 % (11.5-14.5); RDW Standard Deviation 53.8 fL (36.4-46.3); Red Blood Count 2.85 M/uL (4.20-5.40); White Blood Count 4.09 K/ul (4.8-10.8)
[2024-04-06 06:47] LABS: BUN Creatinine Ratio 15.8 (10-20); Calcium 9.2 mg/dl (8.6-10.3); Creatinine Clr Calc Pharmacy 39.5 ml/min; Est GFR (African American) 50.8 ml/min; Est GFR (Non-African American) 43.9 ml/min; Potassium 3.4 mmol/L (3.5-5.1)
--- NOTE | 2024-04-06 14:54 | Hospitalist Progress Note ---
Date of Service April 06, 2024 Assessment & Plan (1) Acute upper gastrointestinal bleeding: Plan: 78-year-old female with past medical significant for hypothyroidism, hyperlipidemia, history of primary malignant neoplasm of the right lower lobe of lung, history of PE, hypertension, vitamin [id number], slow transit constipation, CKD stage III, osteoarthritis, neuropathy, ototoxic hearing loss of both ears, who lives at home with her comes because of nausea vomiting and dizziness and found to have anemia and Hemoccult was positive. Acute upper gastrointestinal bleeding Acute blood loss anemia Patient presented with coffee-ground emesis for 1 day Hemoccult positive in the ED with melena Hemoglobin on presentation 6.5; baseline around 10 Status post EGD; found to have gastritis, to bleeding angiectasis in the stomach which was treated with bipolar cautery. GI recommends to advance diet as tolerated; advance to regular diet Use sucralfate tablets 1 g p.o. 4 times daily for 10 days. Continue to use Protonix 40 mg twice daily Repeat upper endoscopy as needed for treatment She denies dizziness at this time diet advance as tolerated Monitor for rebleeding history of primary malignant neoplasm of the right lower lobe of lung s/p right lower lobectomy could not tolerate chemo because of renal failure and ototoxic currently on osimertinib which will be held for now Discussed with her senior environmental technician who recommends holding it till patient is discharged. Acute UTI Urinalysis positive for infection Urine culture E.coli; sensitive to ceftriaxone Continue on ceftriaxone Hyperlipidemia Continue rosuvastatin Hypothyroidism on Synthyroid, continue Hypertension on amlodipine, continue History of PE History of segmental PE during the hospitalization for right lower lobe lobectomy in left upper lobe and left lower lobe. Initial plan was to do anticoagulation for 6-month Follows up with Dr. Timothy Varghese. Discussed with him over [place] text; he recommended to see her as outpatient. He agreed on holding off on Eliquis till she was seen by him as outpatient. CKD stage III presented with creatinine 1.49 around baseline osteoarthritis of the hip on tramadol as needed at home pain control DVT prophylaxis SCDs disposition telemetry Time spent evaluating patient, direct bedside care, chart review, placing orders, interpretation of diagnostic studies, discussion with consultants, patient, and family members, as well as other required patient management activities is 50 minutes Please note the above document was generated using voice recognition software. It may contain grammatical, syntax or spelling errors. Any formal questions or concerns about the content, text or information contained within the body of this dictation should be directly addressed to the provider for clarification Admission and Anticipated Discharge Date Admission Date: April 04, 2024 Subjective Patient seen and examined at bedside. Comfortable; not in distress. Denies fever, chills, chest pain, shortness of breath, abdominal pain or urinary symptoms. No significant overnight events No sign or symptoms of active bleeding Review of Systems Review of Systems: All systems reviewed & are unremarkable except as noted in Subjective Physical Exam Physical Exam: General- Not in distress. Head- atraumatic Eyes- PERRL. ENT- oropharynx clear Neck- supple, no JVD. Lungs- clear to auscultation no wheezing or crackles. Heart- regular rate and rhythm; no murmur, no gallop. Abdomen- normal bowel sounds, soft, nontender, no distension Extremities- mild pretibial edema present , no erythema seen. Neuro- alert, oriented PERRL, no facial palsy; no dysarthria; moves extremities. Results & Data Results & Data Vital Signs (Past 12 Hours) Vital Signs Temp Pulse Pulse Pulse Resp BP Pulse Ox 04/06/24 12:32 36.8 C 64 20 137/72 92 04/06/24 08:07 36.5 C 04/06/24 07:48 69 18 132/76 95 04/06/24 07:12 61 04/06/24 03:15 36.8 C 65 16 133/61 98 O2 Del Method 04/06/24 12:32 Room Air 04/06/24 08:07 04/06/24 07:48 Room Air 04/06/24 07:12 04/06/24 03:15 Room Air
[2024-04-07 06:34] LABS: Basophils # (auto) 0.04 K/uL (0.00-0.20); Basophils % (auto) 0.9 %; Eosinophils # (auto) 0.16 K/uL (0.00-0.50); Eosinophils % (auto) 3.7 %; Hematocrit (blood only) 25.4 % (37.0-47.0); Hemoglobin 8.5 g/dl (12.0-16.0); Immature Granulocytes # (auto) 0.01 K/uL (0.01-0.20); Immature Granulocytes % (auto) 0.2 %; Lymphocytes # (auto) 1.33 K/uL (1.20-3.40); Lymphocytes % (auto) 30.4 %; Mean Corpuscular Hemoglobin 31.4 pg (25.0-34.0); Mean Corpuscular Hgb Conc 33.5 g/dL (32.0-36.0); Mean Corpuscular Volume 93.7 fL (80.0-100.0); Mean Platelet Volume 11.8 fL (9.4-12.4); Monocytes # (auto) 0.47 K/uL (0.11-0.59); Monocytes % (auto) 10.8 %; Neutrophils # (auto) 2.36 K/uL (1.40-6.50); Platelet Count 129 K/uL (130-400); RDW Standard Deviation 51.1 fL (36.4-46.3); Red Blood Count 2.71 M/uL (4.20-5.40); White Blood Count 4.37 K/ul (4.8-10.8)
[2024-04-07 06:41] LABS: BUN Creatinine Ratio 15.3 (10-20); Calcium 9.2 mg/dl (8.6-10.3); Creatinine Clr Calc Pharmacy 34.3 ml/min; Est GFR (African American) 43.3 ml/min; Est GFR (Non-African American) 37.4 ml/min; Potassium 3.3 mmol/L (3.5-5.1)
[2024-04-07] MEDS: POTASSIUM CHLORIDE CRTAB 20 MEQ TABCR PO STA (08:20)
--- NOTE | 2024-04-07 16:04 | Discharge Summary ---
Date of Service April 07, 2024 Admission HPI Per Admitting Provider 78-year-old female with past medical significant for hypothyroidism, hyperlipidemia, history of primary malignant neoplasm of the right lower lobe of lung, history of PE, hypertension, vitamin [id number], slow transit constipation, CKD stage III, osteoarthritis, neuropathy, ototoxic hearing loss of both ears, who lives at home with her comes because of nausea vomiting and dizziness and found to have anemia and Hemoccult was positive. Patient states around 11 AM today she was having nausea vomiting and vomiting was coffee-ground. She sat on the chair and she was feeling very dizzy and was not getting better came to the ER. In the ER Hemoccult was positive. Hemoglobin was 6.5. She had a couple of episodes of dizziness in the recent past. Denies any headache. Vision is okay. No runny nose or sore throat. No cough. No fevers. No chest pain or shortness of breath. Has had mild abdominal discomfort. States she has IBS but thinks bowel movements were normal recently. No hematuria. Normal micturition. She uses cane and walker at home. Daughter lives close by. Hemodynamics are okay currently. Past medical history. As mentioned above Past surgical history. Biopsy of breast. Bronchoscopy. . Colonoscopy. Thoracoscopy. Bilateral removal of ovaries. Cataracts. Cholecystectomy. Repair of ruptured Achilles tendon bilaterally. Right robotic thoracoscopy with the lobectomy. Total hysterectomy. Social history. . No smoking. No alcohol use. No drug use. Family history. Mother had cancer of esophagus. Father had VT. Daughter had Lyme disease. Admission Exam Per Admitting Provider General- Not in distress. Head- atraumatic Eyes- PERRL. ENT- oropharynx clear Neck- supple, no JVD. Lungs- clear to auscultation no wheezing or crackles. Heart- regular rate and rhythm; no murmur, no gallop. Abdomen- normal bowel sounds, soft, nontender, no distension Extremities- mild pretibial edema present , no erythema seen. Neuro- alert, oriented PERRL, no facial palsy; no dysarthria; moves extremities. Principal Diagnosis Acute upper gastrointestinal bleeding Acute blood loss anemia Discharge Exam General- Not in distress. Head- atraumatic Eyes- PERRL. ENT- oropharynx clear Neck- supple, no JVD. Lungs- clear to auscultation no wheezing or crackles. Heart- regular rate and rhythm; no murmur, no gallop. Abdomen- normal bowel sounds, soft, nontender, no distension Extremities- mild pretibial edema present , no erythema seen. Neuro- alert, oriented PERRL, no facial palsy; no dysarthria; moves extremities. 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 Acute upper gastrointestinal bleeding Acute blood loss anemia Patient presented with coffee-ground emesis for 1 day Hemoccult positive in the ED with melena Hemoglobin on presentation 6.5; baseline around 10 During the hospitalization, patient underwent EGD; found to have gastritis, two bleeding angiectasis in the stomach which was treated with bipolar cautery. GI recommends to advance diet as tolerated; advance to regular diet Use sucralfate tablets 1 g p.o. 4 times daily for 10 days. Continue to use Protonix 40 mg twice daily Repeat upper endoscopy as needed for treatment Hb remained stable around 8 at discharge. 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 Acute UTI Urinalysis positive for infection Urine culture E.coli; sensitive to ceftriaxone Treated with ceftriaxone History of PE History of segmental PE during the hospitalization for right lower lobe lobectomy in left upper lobe and left lower lobe. Initial plan was to do anticoagulation for 6-month Follows up with Dr. Timothy Varghese. Discussed with him over [place] text; he recommended to see her as outpatient. He agreed on holding off on Eliquis till she was seen by him as outpatient. Please note the above document was generated using voice recognition software. It may contain grammatical, syntax or spelling errors. Any formal questions or concerns about the content, text or information contained within the body of this dictation should be directly addressed to the provider for clarification Total Time Total Time Spent Total Time Spent (In Minutes): 35 Total Time Includes: Examination of the Patient, Discharge Planning, Medication Reconciliation, Communication With Other Providers and Other Discharge Plan Discharge Items Patient Disposition: Home - Home Health Services Reason For Visit: GI BLEED, ANEMIA Discharge Diagnosis: Acute upper gastrointestinal bleeding Acute blood loss anemia Activity: Resume your previous activity Non-emergency contact: Primary Care Provider Call non-emergency contact if: you have any medication questions and your symptoms worsen Follow-up/Referrals: Sravanhti Bloom DO [Primary Care Provider] - (Date & Time 04/10/2024 3:20 PM Provider Brigido Carvalho MD Department Family Medicine [facility] ) Diet: Regular Addtl Attending Provider Instructions: You were admitted to the hospital with upper GI bleed. You underwent endoscopy by Dr. Rico on April 04, 2024. You are found to have 2 bleeding angiectasia in the stomach which was treated. You are prescribed following medication for the upper GI bleed: 1) Carafate 1 g every 6 hours for 7 days 2) Protonix 40 mg twice a day for 28 days. After 28 days are over; you need to take it once a day. Stop taking Eliquis till you follow-up with Dr. Varghese and discuss it further. Follow-up with your primary care doctor and GI. Pending Studies at Discharge: No Stand-Alone Forms: [employer], Smoking Cessation Medications and DC Order Prescriptions: New sucralfate [Carafate] 1 gram tablet 1 g PO Q6HWA 7 Days Qty: 28 0RF pantoprazole [Protonix] 40 mg tablet,delayed release (DR/EC) 40 mg PO Q12H 28 Days Qty: 56 0RF Continued rosuvastatin 10 mg tablet 10 mg PO QAM mecobalamin (vitamin B12) 1,000 mcg tablet,disintegrating 1,000 mcg sublingual QAM Rx Instructions: place tablet under tongue and allow to dissolve for at least30 secs before swallowing levothyroxine 137 mcg tablet 137 mcg PO DAILYBB sulfasalazine 500 mg tablet 500 mg PO QAM amlodipine 5 mg tablet 5 mg PO QAM potassium chloride 10 mEq capsule, extended release 20 meq PO QAM Tagrisso 80 mg Tablet 80 mg PO QAM tramadol 50 mg tablet 50 mg PO Q8 PRN (Reason: hip pain) Discontinued Eliquis 5 mg tablet 5 mg PO BID omeprazole 20 mg capsule,delayed release(DR/EC) 20 mg PO QAM Discharge Orders: Discharge Order (Routine); Ordered 04/07/24 Ordered By: Luis A Maharaj/Other Patient Handouts: Soft [place] Diet Dc Admission Data Admit Date/Time: 04/04/24 00:24 Attending Provider: Luis A Govea Admit Provider: Kirby Mejia Primary Care Provider: Sraavnthi Bloom Other Providers: Kirby Mejia; Robert Rico; Gato Cool [facility] Other Interventions: Discharge Summary Assessment (RN) Last Done: 04/07/24 11:20
== END 2024-04-07 18:04 | disposition home health service (06) | DRG 378 ==
LOC: ED 19:50 → 4W 04-04 00:24